=== PATIENT | male | born 1940 | race Caucasian/White ===

== ENCOUNTER → 2018-02-03 | Outpatient (CLI) | payer OTHER ==
--- NOTE | 2018-02-04 06:37 | SPLIT NIGHT TECHNICIAN REPORT ---
[facility] Split Night Polysomnogram - Cable Weaver Report Study date: 02/03/2018 Referring Physician: Dr. Jordyn Patel M.D. Name: LOREN LYLES Cable Weaver: ELLYN Ward. Date of : 1940 Height: 78 years, Height 5' 8.9" Sex: Male Weight: 188 lbs Age: 78 Neck Circum: 16.5 in BMI: Medications: 27.84 NAPROXEN 500 MG, BUSPIRONE 5 MG, CLINDAMYCIN PHOSPHATE 1% FOAM, FLEXERIL 5 MG Patient History 78 yr-old male here for a baseline study. He has a history of sleep maintenance insomnia, fatigue, and frequent awakenings. His Franklin scale is 5. The test was started on room air. ETCO2 testing is included in this study. Room 3 Parameters Monitored NPSG: E1-M2, E2-M1, Fp1-M2, Fp2-M1, F3-M2, F4-M2, F4-M1, C3-M2, C4-M2, C4-M1, O1-M2, O2-M2, O2-M1, T3-M2, T4-M1, P3-M2, P4-M1, CHIN1, CHIN2, HR, EKG, Legs, PFLOW, SNOR, FLOW, CFLOW, Tidal Volume, THOR, ABDO, SpO2, PLTH, CPRESS, ETCO2 Wave, ETCO2, pH SLEEP SUMMARY DATA DIAGNOSTIC TREATMENT Lights Out: 11:07:17 PM 2:22:17 AM Lights On: 2:11:47 AM 5:30:47 AM Total Recording Time (TRT): 184.5 min. 188.5 min. Total Sleep Time (TST): 130.5 min. 169.5 min. NREM Time: 130.5 min. 110.0 min. REM Time: 0.0 min. 59.5 min. Sleep Period Time (SPT): 161.0 min. 179.0 min. Sleep Efficiency (SE): 71 % 90 % Sleep Latency: 23.0 min. 9.5 min. Arousal Index: 84.1 29.7 PAP Treatment Levels: 4, 6, 8, 10, 11, 13 * Optimal Pressure(s) SLEEP STAGING DATA DIAGNOSTIC TREATMENT Duration (min) TST % Duration (min) TST % Stage Wake: 54.0 min. -- 19.0 min. -- WASO: 31.0 min. -- 9.5 min. -- NREM: 130.5 min. 100 % 110.0 min. 65 % Stage N1: 84.5 min. 65 % 46.5 min. 27 % Stage N2: 46.0 min. 35 % 63.5 min. 37 % Stage N3: 0.0 min. 0 % 0.0 min. 0 % REM: 0.0 min. 0 % 59.5 min. 35 % POSITIONAL DATA Event Count Index Event Count Index Supine: 68 57 43 37.7 Supine NREM: 68 57.1 38 42.5 Supine REM: N/A N/A 5 20 Non-Supine: 22 21.4 31 17.8 Non-Supine NREM: 22 21.4 7 7.4 Non-Supine REM: N/A N/A 24 30.9 AROUSAL SUMMARY DATA: Event Count Index Event Count Index Apnea Arousals: 0 0.0 0 0.0 Hypopnea Arousals: 64 29.4 11 3.9 Snore Arousals: 0 0.0 3 1.1 PLM Arousals: 116 53.3 59 20.9 Non-Specific Arousals: 4 1.8 8 2.8 Total Arousals: 183 84.1 84 29.7 MYOCLONUS (PLM) Event Count Index Event Count Index PLM: 426 195.9 307 108.7 PLM AROUSAL: 116 53.3 59 20.9 PLM W/O AROUSAL 426 195.9 248 87.8 PLM W/RESP EVENT 70 0.0 20 0.0 MYOCLONUS (PLM) Event Count Index Event Count Index LM: 0 8.3 35 12.4 LM AROUSAL: 0 0.0 2 0.7 LM W/O AROUSAL LM W/RESP EVENT LM NON SPECIFIC 249 114.5 249 88.1 HEART RATE DATA DIAGNOSTIC TREATMENT Sleep (bpm): 61 58 REM (bpm): N/A 90 NREM (bpm): 88 90 Tachycardia Count: 0 0 Tachycardia Duration: 0.00 0 Bradycardia Count: 0 0 Bradycardia Duration: 0.00 0 DIAGNOSTIC PORTION TREATMENT PORTION RESPIRATORY DATA Event Count Index Event Count Index AHI: -- 40.9 -- 25.8 RDI: -- 41.4 -- 26 Obstructive Apnea: 0 0.0 0 0.0 Central Apnea: 0 0.0 0 0.0 Mixed Apnea: 0 0.0 0 0.0 Hypopnea: 89 40.9 73 25.8 RERA: 1 0.5 1 0.4 Total Apneas: 0 0.0 0 0.0 RESPIRATORY DATA REM NREM SLEEP REM NREM SLEEP Supine Position: Obstructive Apneas: N/A 0 0 0 0 0 Central Apneas: N/A 0 0 0 0 0 Mixed Apneas: N/A 0 0 0 0 0 Hypopneas: N/A 68 68 5 38 43 RERA N/A 0 0 0 0 0 Total Supine Events: N/A 68 68 5 38 43 Supine AHI: N/A 57.1 57 20 42.5 37.7 Supine RDI: N/A 57.1 57.1 20.2 42.5 37.7 REM NREM SLEEP REM NREM SLEEP Non-Supine Position: Obstructive Apneas: N/A 0 0 0 0 0 Central Apneas: N/A 0 0 0 0 0 Mixed Apneas: N/A 0 0 0 0 0 Hypopneas: N/A 21 21 23 7 30 RERA N/A 1 1 1 0 1 Total Supine Events: N/A 22 22 24 7 31 Supine AHI: N/A 21.4 21.4 30.9 7.4 17.8 Supine RDI: N/A 22.4 22.4 32.3 7.4 18.4 OXYGEN DESTAURATION DATA: Event Count Index Event Count Index REM Desaturations: N/A N/A 32 32.3 NREM Desaturations: 104 47.8 76 41.5 SNORE DATA DIAGNOSTIC TREATMENT Snore Time: 3.5 2:31:47 AM Snore TST%: 2 2 Snore Arousal Count: 0 3 Snore Arousal Index: 0.0 1.1 Desaturation Event Summary: Minimum %SpO2 Event Count Mean/Min/Max Duration(sec.) Desaturation Index % Time In Bed > 90 184 22.6 / 5.0 / 60.0 93.5 31.8 86 - 90 146 19.6 / 5.0 / 55.5 38.9 60.6 81 - 85 3 27.8 / 15.8 / 45.0 6.6 7.4 76 - 80 1 22.8 / 22.8 / 22.8 82.8 0.2 71 - 75 0 N/A 0.0 0.0 66 - 70 0 N/A 0.0 0.0 61 - 65 0 N/A 0.0 0.0 56 - 60 0 N/A 0.0 0.0 51 - 55 0 N/A 0.0 0.0 < 50 0 N/A 0.0 0.0 OXYGEN SATURATION DATA DIAGNOSTIC TREATMENT SpO2 Mean Sleep: 88 % 90 % SpO2 Mean REM: N/A % 90 % SpO2 Mean NREM: 88 % 90 % SpO2 Minimum Sleep: 83 % 78 % SpO2 Minimum REM: N/A % 78 % SpO2 Minimum NREM: 83 % 80 % Time Below 90% (TST): 99.1 72.8 Time Below 88% (TST): 53.5 39.2 Total REM NREM Awake <50% 0.0 min. 0.0 min. 0.0 min. 0.0 min. 51 - 60% 0.0 min. 0.0 min. 0.0 min. 0.0 min. 61 - 70% 0.0 min. 0.0 min. 0.0 min. 0.0 min. 71 - 80% 0.7 min. 0.7 min. 0.0 min. 0.0 min. 81 - 90% 252.4 min. 32.7 min. 170.3 min. 49.4 min. 91 - 100% 118.1 min. 26.1 min. 69.6 min. 22.4 min. Average 89 90 89 90 Minimum SpO2 78 78 80 83 Desaturation Event Index 41.2 32.3 44.9 37.0 # Desat. Events below 89% 222 19 166 37 Time(%) with Saturation below 89% 41.3 5.1 30.8 5.5 Time(min.) with Saturation below 89% 153.5 18.9 114.2 20.4 Recording Cable Weaver Comments: Mr. Lyles slept in the supine and left positions. Some cardiac arrhythmia were noted (please refer to the printouts). PLMs were noted. No bruxism noted. Snoring was noted and scored as a 2 on a scale of 1 through 5. (0=no snoring, 5=snoring loud enough to be heard through a closed door or down the [address]). At 2:10 am, he met specific Split-Night criteria during the diagnostic portion of this study. CPAP was initiated at +4 CMH2O and up-titrated to a level of +13 CMH2O, Cflex 3. An AirFit F10 full face mask size medium from [employer] was used during titration. He did not wake up to use the restroom during the night. Mr. Lyles stated that he slept ok. The final report will be interpreted and signed by a sleep physician. The completed physician report will then be placed in the patient medical record. Therapy Event: Therapy (cm H20) 0 4 6 8 10 11 13 Total Time at Pressure (min.) 184.5 23.8 23.9 27.6 22.8 48.8 41.6 TST at Pressure (min.) 130.5 10.3 23.9 26.1 22.8 48.3 38.1 # Periods 1 1 1 1 1 1 1 Sleep Onset (min.) 23.0 9.5 0.0 0.0 0.0 0.0 0.0 REM Onset (min.) N/A 20.0 0.0 0.0 N/A 30.9 0.0 Sleep Efficiency % 70 43 100 94 100 99 91 Wakefulness (%) 29.3 56.8 0.0 5.4 0.0 1.0 8.4 Wakefulness (min.) 54.0 13.5 0.0 1.5 0.0 0.5 3.5 NREM 1 (%) 45.8 12.6 0.0 49.9 21.0 19.3 37.3 NREM 1 (min.) 84.5 3.0 0.0 13.8 4.8 9.4 15.5 NREM 2 (%) 24.9 14.7 0.0 21.7 79.0 44.0 34.9 NREM 2 (min.) 46.0 3.5 0.0 6.0 18.0 21.5 14.5 NREM 3 (%) 0.0 0.0 0.0 0.0 0.0 0.0 0.0 NREM 3 (min.) 0.0 0.0 0.0 0.0 0.0 0.0 0.0 REM (%) 0.0 15.9 100.0 22.9 0.0 35.7 19.4 REM (min.) 0.0 3.8 23.9 6.3 0.0 17.4 8.1 # Arousals 183 6 5 24 9 11 29 Arousal Index 84.1 35.0 12.6 55.1 23.7 13.7 45.7 # Snore 125 0 1 24 16 10 14 Snore Index 57.5 0.0 2.5 55.1 42.1 12.4 22.1 AHI 40.9 29.2 25.1 52.8 21.1 27.3 7.9 AHI Supine 57.1 120.0 N/A 60.7 21.1 45.3 18.3 AHI Non-Supine 21.4 24.5 25.1 38.5 N/A 16.1 4.2 NREM AHI 40.9 18.5 N/A 54.5 21.1 27.2 6.0 REM AHI N/A 47.6 25.1 47.3 N/A 27.6 14.8 RDI 41.4 29.2 25.1 55.1 21.1 27.3 7.9 # Obstructive 0 0 0 0 0 0 0 # Central Ap 0 0 0 0 0 0 0 # Mixed 0 0 0 0 0 0 0 # Hypopneas 89 5 10 23 8 22 5 RERAS 1 0 0 1 0 0 0 Total Respiratory Events 90 5 10 24 8 22 5 Time Below SpO2 89.00% (min.) 79.6 3.6 8.2 5.7 17.9 16.1 2.0 Mean NREM SpO2 (%) 88 90 N/A 90 87 89 93 Mean REM SpO2 (%) N/A 84 91 92 N/A 90 90 Mean Sleep SpO2 (%) 88 88 91 91 87 89 92 Min NREM SpO2 (%) 83 88 N/A 83 80 83 87 Min REM SpO2 (%) N/A 78 84 87 N/A 86 85 Position Supine (min.) 71.5 0.5 0.0 16.8 22.8 18.6 9.8 Position Non-supine (min.) 59.0 9.8 23.9 9.3 0.0 29.8 28.3 LM Index Sleep 204.1 134.2 88.0 146.9 139.6 96.8 140.2 LM Index NREM 204.1 166.2 N/A 160.6 139.6 108.7 146.0 LM Index REM N/A 79.3 88.0 104.1 N/A 75.8 118.7 Mean Heart Rate (bpm) 61 58 57 58 59 58 57 Min Heart Rate (bpm) 55 54 52 53 54 53 52 CPAP REPORT Therapy Detail Time / Page # Comment CPAP 4 cm H2O Full Face Mask Flex Pressure Relief Humidifier on 2:19:38 AM / pg. 642 HE HAS MEDICARE, SO HE HAS BEEN ASLEEP FOR OVER 2 HOURS AND HIS AHI IS ABOVE 40. CPAP 6 cm H2O Full Face Mask Flex Pressure Relief Humidifier on 2:46:04 AM / pg. 695 INCREASED FOR HYPOPNEAS CPAP 8 cm H2O Full Face Mask Flex Pressure Relief Humidifier on 3:09:57 AM / pg. 743 INCREASED FOR MORE HYPOPNEAS CPAP 10 cm H2O Full Face Mask Flex Pressure Relief Humidifier on 3:37:35 AM / pg. 798 INCREASED FOR HYPOPNEAS CPAP 11 cm H2O Full Face Mask Flex Pressure Relief Humidifier on 4:00:23 AM / pg. 844 INCREASED FOR HYPOPNEAS CPAP 13 cm H2O Full Face Mask Flex Pressure Relief Humidifier on 4:49:12 AM / pg. 941 INCREASED FOR HYPOPNEAS
== END | disposition home or self-care (01) ==
LOC: C.NEUR 21:00
PROVIDERS: ATTEND Internal Medicine
DX: D50.8 Other iron deficiency anemias (principal); G47.33 Obstructive sleep apnea (adult) (pediatric); G25.81 Restless legs syndrome; R40.0 Somnolence

== ENCOUNTER 2022-06-12 10:43 | Inpatient (IN) ==
--- NOTE | 2022-06-12 11:30 | XRay Report ---
XR chest 2V PA/lateral HISTORY: 82 years-old Male Fever acute fever COMPARISON: None TECHNIQUE: PA and lateral views of the chest FINDINGS: Cardiac silhouette is enlarged. Reticular interstitial opacities are noted bilaterally within a perip heral and bibasilar predominant distribution. Questioned emphysema. No pneumothorax, pleural effusion or lobar airspace consolidation. Degenerative changes of the shoulders and spine. Prior resection of the distal right clavicle. IMPRESSION: Reticular interstitial opacities are noted within a peripheral and bibasilar predominant distribution. Findings may represent fibrosis versus a nonspecific infectious or inflammatory pneumon itis such as viral pneumonia. Correlate with prior imaging. ACT 112: Negative or not required by law. The above report was generated using voice recognition software. It may contain grammatical, syntax o r spelling errors. Electronically signed by: Nicholas Pugh M.D. 06/12/2022 11:28 AM
--- NOTE | 2022-06-12 12:08 | Emergency Department Note ---
History of Present Illness General Chief Complaint: Illness Stated Complaint: TINGLING IN HANDS AND FEET, HEADACHE Time Seen by Provider: 06/12/22 11:49 History of Present Illness Provider Complaint: + cough, + rhinorrhea and + nasal congestion Onset (ago): 3 day(s) Duration: + progressively worsening Maximum Pain Intensity: 2 Able to tolerate fluids by mouth: Yes Associated symptoms: + chills, + myalgias and + shortness of breath; no chest pain, no nausea, no vomiting or no diarrhea Home Medications Medication Instructions Recorded Confirmed Type cyclobenzaprine 5 mg tablet 5 mg PO TID PRN Muscle Spasm 06/12/22 06/12/22 History levocetirizine 2.5 mg/5 mL oral 2.5 mg PO PM PRN Allergic Symptoms 06/12/2205/16 History solution omeprazole 20 mg capsule,delayed 20 mg PO DAILY 06/12/22 06/12/22 History release oxybutynin chloride 5 mg 5 mg PO DAILY 06/12/22 06/12/22 History tablet,extended release 24 hr sertraline 25 mg tablet 25 mg PO DAILY 06/12/22 06/12/22 History tamsulosin 0.4 mg capsule 0.4 mg PO DAILY 06/12/22 06/12/22 History Allergies Allergy/AdvReac Type Severity Reaction Status Date / Time No Known Allergies Allergy Verified 06/12/22 17:03 Past Med/Surg History Medical History (Updated 06/12/22 @ 15:48 by Gilma Flaherty PA-C) CKD (chronic kidney disease), stage III KACY (generalized anxiety disorder) ILD (interstitial lung disease) GUILLE (obstructive sleep apnea) bipap with 2L O2 HS Surgical History (Updated 06/12/22 @ 15:48 by Gilma Flaherty PA-C) H/O eye surgery H/O lithotripsy Family History Other Cancer Diabetes Heart disease Social History Smoking Status: Former smoker Smoking End Date: 2001; Hx Alcohol Use: Yes Alcohol Intake Frequency: Monthly or Less Hx Substance Use: No Preferred Language: Jamaican Feels Safe at Home: Yes Review of Systems A total of 10 systems reviewed and were otherwise negative Physical Exam Vital Signs: Vital Signs - 24 hr 06/12/22 10:50 06/12/22 13:43 06/12/22 13:04 Temperature 36.9 C Temperature Source Oral Pulse Rate 80 77 Pulse Rate [Right Finger] 65 Pulse Rate from Sp O2 Sensor 78 Pulse Rhythm Regular Pulse Strength Normal Respiratory Rate 20 20 16 Respiratory Effort / Characteristics Non-Labored Sponta neous Spontaneous SOB on Exertion Respiratory Depth Normal Respiratory Patter n Regular Blood Pressure 132/72 Blood Pressure [Ri ght Arm] 134/70 Blood Pressure Patricia n 92 Blood Pressure Patricia n [Right Arm] 91 Blood Pressure Pos ition Sitting Pulse Oximetry 89 L 94 99 Oxygen Delivery Me thod Room Air Nasal Cannula Oxygen Flow Rate 3 Sepsis Recent Feve r Within 48 Hours Yes Sepsis New/Unexpla ined Change in Men bisi Status No Sepsis Action Take n by Nursing No Action Required 06/12/22 15:02 Temperature Temperature Source Pulse Rate Pulse Rate [Right Finger] Pulse Rate from Sp O2 Sensor Pulse Rhythm Pulse Strength Respiratory Rate Respiratory Effort / Characteristics Respiratory Depth Respiratory Patter n Blood Pressure 151/102 H Blood Pressure [Ri ght Arm] Blood Pressure Patricia n 118 Blood Pressure Patricia n [Right Arm] Blood Pressure Pos ition Pulse Oximetry Oxygen Delivery Me thod Oxygen Flow Rate Sepsis Recent Feve r Within 48 Hours Sepsis New/Unexpla ined Change in Men bisi Status Sepsis Action Take n by Nursing Physical Exam: Physical Exam GENERAL: He is oriented to person, place, and time. He appears well-developed and well-nourished. He does not appear distressed. HENT: Exam performed. - Head: Normocephalic and atraumatic. - Right Ear: External ear normal. No mastoid tenderness. - Left Ear: External ear normal. No mastoid tenderness. - Mouth/Throat: The oropharynx is clear and moist. No trismus in the jaw. No dental abscesses or uvula swelling. No oropharyngeal exudate or tonsillar abscesses. EYES: Conjunctivae and EOM are normal. Pupils are equal, round, and reactive to light. Right eye exhibits no discharge. Left eye exhibits no discharge. No scleral icterus. NECK: Normal range of motion. Neck supple. No JVD present. No spinous process tenderness present. No carotid bruit present. No rigidity. No tracheal deviation and normal range of motion present. No Brudzinski's sign and no Kernig's sign noted. CV: Normal rate, regular rhythm, normal heart sounds and intact distal pulses. There is no peripheral edema. Palpable radial pulses bue. PULM/CHEST: Rhonchi bilaterally. ABD: The abdomen is soft. MUSC/SKEL: Normal range of motion. There is no peripheral edema, tenderness or deformity. LYMPH: No cervical adenopathy. NEURO: He is alert and oriented to person, place, and time. He has normal strength. No cranial nerve deficit or sensory deficit. Coordination and gait normal. GCS eye subscore is 4. GCS verbal subscore is 5. GCS motor subscore is 6. Cerebellar tests wnl. SKIN: Skin is warm and dry. He is not diaphoretic. PSYCH: He has a normal mood and affect. Behavior is normal. Judgment and thought content normal. Course Course 1149: The patient was evaluated in room C SUBWAIT. A complete history and physical exam was performed Patient was found to be hypoxic on room air. Discussed case with the charge nurse the patient will be moved to the room next during this period of high acuity and high volumes with low staffing. We will arrange for patient placed on 2 L nasal cannula also until a room is ready. 1425: Vital signs stable on supplemental oxygen via nasal cannula. Labs are within normal limits with exception of mildly elevated BNP of 109. Respiratory panel was positive for influenza a as well as coronavirus OC 43. Chest x-ray shows reticular interstitial opacities in the peripheral and basilar predominant distribution representing a most likely viral pneumonia. Patient has no history of pulmonary fibrosis. Patient will be treated with Tamiflu. On reassessment the patient is still having rhonchi and some mild expiratory wheezing at the bases. Patient will be treated with repeat DuoNeb. Patient will be admitted to the [facility] hospitalist team. Administered Medications Discontinued Medications Albuterol (Albut/Ipratrop 3mg/0.5mg Neb 3 Ml Vial) 3 ml NEB NOW STA; Protocol Stop: 06/12/22 12:40 Last Admin: 06/12/22 13:44 Dose: 3 ml Documented By: RUPERTO Albuterol (Albut/Ipratrop 3mg/0.5mg Neb 3 Ml Vial) 3 ml NEB NOW STA; Protocol Stop: 06/12/22 14:18 Last Admin: 06/12/22 14:20 Dose: 3 ml Documented By: ZULEYMA Oseltamivir Phosphate (Oseltamivir Phosphate 75 Mg Cap) 75 mg PO NOW ONE Stop: 06/12/22 14:16 Last Admin: 06/12/22 14:17 Dose: 75 mg Documented By: ZULEYMA Medical Decision Making Laboratory Data Result diagrams: 06/12/22 12:58 06/12/22 12:58 Lab Results 06/12/22 06/12/22 06/12/22 Range/Units 10:58 12:58 12:58 WBC 7.78 (4.8-10.8) K/ul RBC 4.14 L (4.63-6.08) M/uL Hgb 14.6 (14.0-18.0) g/dl Hct 41.6 (40.1-51.0) % MCV 100.5 H (80.0-100.0) fL MCH 35.3 H (25.0-34.0) pg MCHC 35.1 (32.0-36.0) g/dL RDW Std Deviation 49.9 H (36.4-46.3) fL RDW Coeff of Katya 13.6 (11.5-14.5) % Plt Count 146 (130-400) K/uL MPV 10.0 (9.4-12.4) fL Neutrophils % (Manual) 75 % Lymphocytes % (Manual) 14 % Monocytes % (Manual) 11 % Neutrophils # (Manual) 5.84 (1.4-6.5) K/uL Lymphocytes # (Manual) 1.09 L (1.2-3.4) K/uL Monocytes # (Manual) 0.86 H (0.24-0.82) K/uL RBC Morphology Unremarkable PT 11.6 (9.0-12.0) Seconds INR 1.1 (0.9-1.1) APTT 29.2 (21.0-31.0) Seconds PTT Ratio 1.1 VBG pH (7.36-7.41) VBG pCO2 (38-50) mmHg VBG pO2 mmHg VBG HCO3 mmol/L VBG O2 Saturation % VBG Base Excess mEq/L Sodium (136-145) mmol/L Potassium (3.5-5.1) mmol/L Chloride (98-107) mmol/L Carbon Dioxide (21-32) mmol/L Anion Gap (3-11) BUN (6-23) mg/dl Creatinine (0.6-1.4) mg/dl Est Cr Clr Drug Dosing ml/min Est GFR ( Amer) ml/min Est GFR (Non-Af Amer) ml/min BUN/Creatinine Ratio (10-20) Glucose (70-99(Fasting)) mg/dl Lactate (0.4-2.0) mmol/L Calcium (8.5-10.1) mg/dl Magnesium (1.7-2.4) mg/dl Total Bilirubin (0.2-1.0) mg/dl AST (13-39) U/L ALT (7-52) U/L Alkaline Phosphatase (34-104) U/L Troponin I High Sens (0-20) pg/ml B-Natriuretic Peptide (0-100) pg/ml Total Protein (6.0-8.3) gm/dl Albumin (3.4-5.0) gm/dl Globulin (2.5-4.0) gm/dl Albumin/Globulin Ratio (0.9-2) Lipase (11-82) U/L Procalcitonin (0-0.5) ng/ml Adenovirus (PCR) Not Detected (NotDetected) B. pertussis DNA (PCR) Not Detected (NotDetected) B.parapertussis DNA PCR Not Detected (NotDetected) C. pneumoniae DNA (PCR) Not Detected (NotDetected) Coronavirus OC43 (PCR) DETECTED A* (NotDetected) Coronavirus HKU1 (PCR) Not Detected (NotDetected) Coronavirus 229E (PCR) Not Detected (NotDetected) SARS-CoV-2 (PCR) Not Detected (NotDetected) Coronavirus NL63 (PCR) Not Detected (NotDetected) Human Metapneumovir PCR Not Detected (NotDetected) Influenza A (H3) PCR DETECTED A* (NotDetected) Influenza Type B (PCR) Not Detected (NotDetected) M. pneumoniae (PCR) Not Detected (NotDetected) Parainfluenza 1 (PCR) Not Detected (NotDetected) Parainfluenza 2 (PCR) Not Detected (NotDetected) Parainfluenza 3 (PCR) Not Detected (NotDetected) Parainfluenza 4 (PCR) Not Detected (NotDetected) RSV (PCR) Not Detected (NotDetected) Entero/Rhino (PCR) Not Detected (NotDetected) 06/12/22 06/12/22 06/12/22 Range/Units 12:58 12:58 12:58 WBC (4.8-10.8) K/ul RBC (4.63-6.08) M/uL Hgb (14.0-18.0) g/dl Hct (40.1-51.0) % MCV (80.0-100.0) fL MCH (25.0-34.0) pg MCHC (32.0-36.0) g/dL RDW Std Deviation (36.4-46.3) fL RDW Coeff of Katya (11.5-14.5) % Plt Count (130-400) K/uL MPV (9.4-12.4) fL Neutrophils % (Manual) % Lymphocytes % (Manual) % Monocytes % (Manual) % Neutrophils # (Manual) (1.4-6.5) K/uL Lymphocytes # (Manual) (1.2-3.4) K/uL Monocytes # (Manual) (0.24-0.82) K/uL RBC Morphology PT (9.0-12.0) Seconds INR (0.9-1.1) APTT (21.0-31.0) Seconds PTT Ratio VBG pH (7.36-7.41) VBG pCO2 (38-50) mmHg VBG pO2 mmHg VBG HCO3 mmol/L VBG O2 Saturation % VBG Base Excess mEq/L Sodium 133 L (136-145) mmol/L Potassium 4.5 (3.5-5.1) mmol/L Chloride 100 (98-107) mmol/L Carbon Dioxide 26 (21-32) mmol/L Anion Gap 7 (3-11) BUN 31 H (6-23) mg/dl Creatinine 1.49 H (0.6-1.4) mg/dl Est Cr Clr Drug Dosing 37.6 ml/min Est GFR ( Amer) 49.9 ml/min Est GFR (Non-Af Amer) 43.1 ml/min BUN/Creatinine Ratio 20.8 H (10-20) Glucose 120 H (70-99(Fasting)) mg/dl Lactate (0.4-2.0) mmol/L Calcium 8.6 (8.5-10.1) mg/dl Magnesium 1.8 (1.7-2.4) mg/dl Total Bilirubin 1.0 (0.2-1.0) mg/dl AST 23 (13-39) U/L ALT 13 (7-52) U/L Alkaline Phosphatase 96 (34-104) U/L Troponin I High Sens 18.8 (0-20) pg/ml B-Natriuretic Peptide 109 H (0-100) pg/ml Total Protein 8.0 (6.0-8.3) gm/dl Albumin 4.0 (3.4-5.0) gm/dl Globulin 4.0 (2.5-4.0) gm/dl Albumin/Globulin Ratio 1.0 (0.9-2) Lipase 17 (11-82) U/L Procalcitonin 0.36 (0-0.5) ng/ml Adenovirus (PCR) (NotDetected) B. pertussis DNA (PCR) (NotDetected) B.parapertussis DNA PCR (NotDetected) C. pneumoniae DNA (PCR) (NotDetected) Coronavirus OC43 (PCR) (NotDetected) Coronavirus HKU1 (PCR) (NotDetected) Coronavirus 229E (PCR) (NotDetected) SARS-CoV-2 (PCR) (NotDetected) Coronavirus NL63 (PCR) (NotDetected) Human Metapneumovir PCR (NotDetected) Influenza A (H3) PCR (NotDetected) Influenza Type B (PCR) (NotDetected) M. pneumoniae (PCR) (NotDetected) Parainfluenza 1 (PCR) (NotDetected) Parainfluenza 2 (PCR) (NotDetected) Parainfluenza 3 (PCR) (NotDetected) Parainfluenza 4 (PCR) (NotDetected) RSV (PCR) (NotDetected) Entero/Rhino (PCR) (NotDetected) 06/12/22 06/12/22 Range/Units 12:58 13:18 WBC (4.8-10.8) K/ul RBC (4.63-6.08) M/uL Hgb (14.0-18.0) g/dl Hct (40.1-51.0) % MCV (80.0-100.0) fL MCH (25.0-34.0) pg MCHC (32.0-36.0) g/dL RDW Std Deviation (36.4-46.3) fL RDW Coeff of Katya (11.5-14.5) % Plt Count (130-400) K/uL MPV (9.4-12.4) fL Neutrophils % (Manual) % Lymphocytes % (Manual) % Monocytes % (Manual) % Neutrophils # (Manual) (1.4-6.5) K/uL Lymphocytes # (Manual) (1.2-3.4) K/uL Monocytes # (Manual) (0.24-0.82) K/uL RBC Morphology PT (9.0-12.0) Seconds INR (0.9-1.1) APTT (21.0-31.0) Seconds PTT Ratio VBG pH 7.40 (7.36-7.41) VBG pCO2 41 (38-50) mmHg VBG pO2 29 mmHg VBG HCO3 25 mmol/L VBG O2 Saturation < 60.0 % VBG Base Excess 0.5 mEq/L Sodium (136-145) mmol/L Potassium (3.5-5.1) mmol/L Chloride (98-107) mmol/L Carbon Dioxide (21-32) mmol/L Anion Gap (3-11) BUN (6-23) mg/dl Creatinine (0.6-1.4) mg/dl Est Cr Clr Drug Dosing ml/min Est GFR ( Amer) ml/min Est GFR (Non-Af Amer) ml/min BUN/Creatinine Ratio (10-20) Glucose (70-99(Fasting)) mg/dl Lactate 0.8 (0.4-2.0) mmol/L Calcium (8.5-10.1) mg/dl Magnesium (1.7-2.4) mg/dl Total Bilirubin (0.2-1.0) mg/dl AST (13-39) U/L ALT (7-52) U/L Alkaline Phosphatase (34-104) U/L Troponin I High Sens (0-20) pg/ml B-Natriuretic Peptide (0-100) pg/ml Total Protein (6.0-8.3) gm/dl Albumin (3.4-5.0) gm/dl Globulin (2.5-4.0) gm/dl Albumin/Globulin Ratio (0.9-2) Lipase (11-82) U/L Procalcitonin (0-0.5) ng/ml Adenovirus (PCR) (NotDetected) B. pertussis DNA (PCR) (NotDetected) B.parapertussis DNA PCR (NotDetected) C. pneumoniae DNA (PCR) (NotDetected) Coronavirus OC43 (PCR) (NotDetected) Coronavirus HKU1 (PCR) (NotDetected) Coronavirus 229E (PCR) (NotDetected) SARS-CoV-2 (PCR) (NotDetected) Coronavirus NL63 (PCR) (NotDetected) Human Metapneumovir PCR (NotDetected) Influenza A (H3) PCR (NotDetected) Influenza Type B (PCR) (NotDetected) M. pneumoniae (PCR) (NotDetected) Parainfluenza 1 (PCR) (NotDetected) Parainfluenza 2 (PCR) (NotDetected) Parainfluenza 3 (PCR) (NotDetected) Parainfluenza 4 (PCR) (NotDetected) RSV (PCR) (NotDetected) Entero/Rhino (PCR) (NotDetected) Imaging Data Radiologist's Impression: Chest X-Ray 06/12/22 10:55 XR chest 2V PA/lateral HISTORY: 82 years-old Male Fever acute fever COMPARISON: None TECHNIQUE: PA and lateral views of the chest FINDINGS: Cardiac silhouette is enlarged. Reticular interstitial opacities are noted bilaterally within a peripheral and bibasilar predominant distribution. Questioned emphysema. No pneumothorax, pleural effusion or lobar airspace consolidation. Degenerative changes of the shoulders and spine. Prior resection of the distal right clavicle. IMPRESSION: Reticular interstitial opacities are noted within a peripheral and bibasilar predominant distribution. Findings may represent fibrosis versus a nonspecific infectious or inflammatory pneumonitis such as viral pneumonia. Correlate with prior imaging. ACT 112: Negative or not required by law. The above report was generated using voice recognition software. It may contain grammatical, syntax or spelling errors. Electronically signed by: Nicholas Pugh M.D. 06/12/2022 11:28 AM ECG Data Attestation: I personally reviewed and interpreted this ECG as follows: Indication: SOB/dyspnea Rate (beats per minute): 67 Rhythm: normal sinus Findings: no ST depression, no ST elevation or no prolonged QT [facility] Narrative 1149: The patient was evaluated in room C SUBWAIT. A complete history and physical exam was performed Patient was found to be hypoxic on room air. Discussed case with the charge nurse the patient will be moved to the room next during this period of high acuity and high volumes with low staffing. We will arrange for patient placed on 2 L nasal cannula also until a room is ready. 1425: Vital signs stable on supplemental oxygen via nasal cannula. Labs are within normal limits with exception of mildly elevated BNP of 109. Respiratory panel was positive for influenza a as well as coronavirus OC 43. Chest x-ray shows reticular interstitial opacities in the peripheral and basilar predominant distribution representing a most likely viral pneumonia. Patient has no history of pulmonary fibrosis. Patient will be treated with Tamiflu. On reassessment the patient is still having rhonchi and some mild expiratory wheezing at the bas es. Patient will be treated with repeat DuoNeb. [facility]. [facility] & Plan Hypoxia, Influenza Critical Care Time Critical Care Time: Yes Total Critical Care Time: 62 I have personally spent greater than 62 minutes of critical care time in the direct management of this patient. This includes bedside care, interpretation of diagnostic studies, and testing, discussion with consultants, patient, and family members, and other required patient management activities. This 62 minutes is in excess of all separately billable procedures. Discharge Plan Visit Data Chief Complaint: Illness Stated Complaint: TINGLING IN HANDS AND FEET, HEADACHE ED Provider: Jayy Gomez Discharge Problem: Hypoxia, Influenza Patient Disposition: Admitted As Inpatient Forms Stand Alone Forms: [facility] Prescriptions Prescriptions: No Action tamsulosin 0.4 mg capsule 0.4 mg PO DAILY oxybutynin chloride 5 mg tablet extended release 24hr 5 mg PO DAILY sertraline 25 mg tablet 25 mg PO DAILY omeprazole 20 mg capsule,delayed release(DR/EC) 20 mg PO DAILY cyclobenzaprine 5 mg tablet 5 mg PO TID PRN (Reason: Muscle Spasm) levocetirizine 2.5 mg/5 mL Solution 2.5 mg PO PM PRN (Reason: Allergic Symptoms) Referrals Referrals: Martin Hopper MD [Primary Care Provider] -
[2022-06-12] MEDS ORDERED: ALBUT/IPRATROP 3MG/0.5MG NEB 3 ML VIAL NEB STA ×2 (12:39→14:17)
[2022-06-12 13:20] LABS: Adenovirus PCR Not Detected (NotDetected); Bordetella parapertussis PCR Not Detected (NotDetected); Bordetella pertussis PCR Not Detected (NotDetected); Chlamydia pneumoniae PCR Not Detected (NotDetected); Coronavirus 229E PCR Not Detected (NotDetected); Coronavirus CoV-2 (COVID19)PCR Not Detected (NotDetected); Coronavirus HKU1 PCR Not Detected (NotDetected); Coronavirus NL63 PCR Not Detected (NotDetected); Human Metapneumovirus PCR Not Detected (NotDetected); Influenza B PCR Not Detected (NotDetected); Mycoplasma pneumoniae PCR Not Detected (NotDetected); Parainfluenza Virus 1 PCR Not Detected (NotDetected); Parainfluenza Virus 2 PCR Not Detected (NotDetected); Parainfluenza Virus 3 PCR Not Detected (NotDetected); Parainfluenza Virus 4 PCR Not Detected (NotDetected); Respiratory Syncytial VirusPCR Not Detected (NotDetected); Rhinovirus/Enterovirus PCR Not Detected (NotDetected)
[2022-06-12 13:28] LABS: Coronavirus OC43PCR DETECTED (NotDetected); Influenza A (H3) PCR DETECTED (NotDetected)
[2022-06-12 13:38] LABS: Base Excess VBG 0.5 mEq/L; HCO3 VBG 25 mmol/L; Oxygen Saturation VBG < 60.0 %; PCO2 VBG 41 mmHg (38-50); PO2 VBG 29 mmHg
[2022-06-12 13:40] LABS: BUN Creatinine Ratio 20.8 (10-20); Calcium 8.6 mg/dl (8.5-10.1); Creatinine Clr Calc Pharmacy 37.6 ml/min; Est GFR (African American) 49.9 ml/min; Est GFR (Non-African American) 43.1 ml/min; Magnesium 1.8 mg/dl (1.7-2.4); Potassium 4.5 mmol/L (3.5-5.1)
[2022-06-12 13:45] LABS: Troponin I High Sensitivity 18.8 pg/ml (0-20)
[2022-06-12 13:49] LABS: INR 1.1 (0.9-1.1); Partial Thromboplastin Ratio 1.1; Partial Thromboplastin Time 29.2 Seconds (21.0-31.0); Prothrombin Time 11.6 Seconds (9.0-12.0)
[2022-06-12 13:54] LABS: Hematocrit (blood only) 41.6 % (40.1-51.0); Hemoglobin 14.6 g/dl (14.0-18.0); Mean Corpuscular Hemoglobin 35.3 pg (25.0-34.0); Mean Corpuscular Hgb Conc 35.1 g/dL (32.0-36.0); Mean Corpuscular Volume 100.5 fL (80.0-100.0); Platelet Count 146 K/uL (130-400); RDW Coefficient of Variation 13.6 % (11.5-14.5); RDW Standard Deviation 49.9 fL (36.4-46.3); Red Blood Count 4.14 M/uL (4.63-6.08); White Blood Count 7.78 K/ul (4.8-10.8)
[2022-06-12] MEDS ORDERED: OSELTAMIVIR PHOSPHATE 75 MG CAP PO ONE (14:15)
[2022-06-12 14:32] LABS: Lymphocytes % (manual) 14 %; Monocytes % (manual) 11 %; Neutrophils % (manual) 75 %
[2022-06-12 14:33] LABS: Lymphocytes # (manual) 1.09 K/uL (1.2-3.4); Neutrophils # (manual) 5.84 K/uL (1.4-6.5)
[2022-06-12 14:34] LABS: Monocytes # (manual) 0.86 K/uL (0.24-0.82)
[2022-06-12 14:35] LABS: RBC Morphology Unremarkable
--- NOTE | 2022-06-12 15:00 | History & Physical Report ---
Date of Service June 12, 2022 Assessment & Plan (1) Hypoxia: (2) Influenza: (3) ILD (interstitial lung disease): (4) KACY (generalized anxiety disorder): (5) CKD (chronic kidney disease), stage III: (6) GUILLE (obstructive sleep apnea): Plan This is an 82-year-old male with PMH of interstitial lung disease, GUILLE on CPAP with 2 L O2 bled through at bedtime, CKD 3, BPH, KACY and other medical problems listed below who presents with cough, congestion and malaise x3 days and was f ound to have flu A. Hypoxia Flu A H/o ILD Developed sx day after [place] with exposure to sick family members Hypoxic at 89% on RA, now 94% on 2L NC O2 Respiratory panel positive for Flu A and Coronavirus OC43 CXR with reticular interstitial opacities are noted within a peripheral and bibasilar predominant distribution. Findings may represent fibrosis versus a nonspecific infectious or inflammatory pneumonitis such as viral pneumonia No leukocytosis, lactate and procal WNL, VBG pH WNL Continue supplemental O2, continue renally adjusted Tamiflu course, albuterol inhaler PRN, maintenance fluids x 1 L, PT/OT evals CKD III Cr 1.49 today (baseline 1.2-1.5). Avoid nephrotoxic agents as able. Monitor with daily BMP KACY Stable. Continue Zoloft BPH Continue tamsulosin GUILLE Recently transitioned from CPAP to BIPAP with 2L NC O2. Settings unknown H/o esophageal dysmotility Aspiration precautions, continue PPI DVT Ppx: SQ heparin Code status: FULL PCP: Ward Dispo: Admitted to [facility] tele Patient seen in collaboration with Dr. Oseguera. Please see addendum. History of Present Illness Chief Complaint: Shortness of breath, cough, congestion Primary Care Provider: Martin Hopper MD This is an 82-year-old male with PMH of interstitial lung disease, GUILLE on CPAP with 2 L O2 bled through at bedtime, CKD 3, BPH, KACY and other medical problems listed below who presents with cough, congestion and malaise x3 days. Symptoms began after visiting family in [place] over the holidays. Multiple family members were sick at gathering. Also having intermittent frontal headache, dry cough, intermittent chills and tingling in arms and legs. Having a few episodes of diarrhea since yesterday. Denies focal weakness. No fever, dizziness, chest pain, palpitations, SOB, abdominal pain, dysuria or constipation. Allergies Allergy/AdvReac Type Severity Reaction Status Date / Time No Known Allergies Allergy Verified 06/12/22 17:03 Home Medications Medication Instructions Recorded Confirmed Type cyclobenzaprine 5 mg tablet 5 mg PO TID PRN Muscle Spasm 06/12/22 06/12/22 History levocetirizine 2.5 mg/5 mL oral 2.5 mg PO PM PRN Allergic Symptoms 06/12/22 06/12/22 History solution omeprazole 20 mg capsule,delayed 20 mg PO DAILY 06/12/22 06/12/22 History release oxybutynin chloride 5 mg 5 mg PO DAILY 06/12/22 06/12/22 History tablet,extended release 24 hr sertraline 25 mg tablet 25 mg PO DAILY 06/12/22 06/12/22 History tamsulosin 0.4 mg capsule 0.4 mg PO DAILY 06/12/22 06/12/22 History Past Med/Surg History Medical History (Updated 06/12/22 @ 15:48 by Gilma Flaherty PA-C) CKD (chronic kidney disease), stage III KACY (generalized anxiety disorder) ILD (interstitial lung disease) GUILLE (obstructive sleep apnea) bipap with 2L O2 HS Surgical History (Updated 06/12/22 @ 15:48 by Gilma Flaherty PA-C) H/O eye surgery H/O lithotripsy Family History Other Cancer Diabetes Heart disease Social History Smoking Status: Former smoker Smoking End Date: 2001; Hx Alcohol Use: Yes Alcohol Intake Frequency: Monthly or Less Hx Substance Use: No Preferred Language: Chinese Feels Safe at Home: Yes Review of Systems Review of Systems: At least ten systems reviewed and negative except as noted in the HPI. Physical Exam Physical Exam: Please see Dr. Oseguera's addendum for physical exam. Results & Data Results & Data ([facility]) Vital Signs (Past 12 Hours) Vital Signs Temp Pulse Pulse Resp BP BP Pulse Ox 06/12/22 13:43 65 20 134/70 94 06/12/22 10:50 36.9 C 80 20 132/72 89 L O2 Del Method O2 Flow Rate 06/12/22 13:43 Nasal Cannula 3 06/12/22 10:50 Room Air Laboratory Results Short CBC 06/12/22 Range/Units 12:58 WBC 7.78 (4.8-10.8) K/ul Hgb 14.6 (14.0-18.0) g/dl Hct 41.6 (40.1-51.0) % Plt Count 146 (130-400) K/uL BMP 06/12/22 12:58 Sodium 133 L Potassium 4.5 Chloride 100 Carbon Dioxide 26 BUN 31 H Creatinine 1.49 H Glucose 120 H Calcium 8.6 Liver Function 06/12/22 Range/Units 12:58 Total Bilirubin 1.0 (0.2-1.0) mg/dl AST 23 (13-39) U/L ALT 13 (7-52) U/L Alkaline Phosphatase 96 (34-104) U/L Albumin 4.0 (3.4-5.0) gm/dl Diagnostic Findings Chest X-Ray 06/12/22 10:55 XR chest 2V PA/lateral HISTORY: 82 years-old Male Fever acute fever COMPARISON: None TECHNIQUE: PA and lateral views of the chest FINDINGS: Cardiac silhouette is enlarged. Reticular interstitial opacities are noted bilaterally within a peripheral and bibasilar predominant distribution. Questioned emphysema. No pneumothorax, pleural effusion or lobar airspace consolidation. Degenerative changes of the shoulders and spine. Prior resection of the distal right clavicle. IMPRESSION: Reticular interstitial opacities are noted within a peripheral and bibasilar predominant distribution. Findings may represent fibrosis versus a nonspecific infectious or inflammatory pneumonitis such as viral pneumonia. Correlate with prior imaging. ACT 112: Negative or not required by law. The above report was generated using voice recognition software. It may contain grammatical, syntax or spelling errors. Electronically signed by: Nicholas Pugh M.D. 06/12/2022 11:28 AM Code Status & VTE Plan VTE Prophylaxis Plan VTE Prophylaxis will be ordered: Yes Supervising Physician Co-Signing Physician Notes Patient is an 82-year-old male with history of interstitial lung disease, obstructive sleep apnea on CPAP, chronic oxygen dependency on 2 L at bedtime and other medical problems presents with history of flulike symptoms which has been gradually worsening's over the past 3 days duration. Please review HPI for complete details of presentation. I personally reviewed blood work. Serology showed influenza A, coronavirus OC43. Chest x-ray showed reticular interstitial opacities within peripheral and bibasilar regions suggestive of fibrosis versus nonspecific infectious or inflammatory pneumonitis. Blood culture pending. Urine analysis pending. EKG showed normal sinus rhythm, QTC 407. Physical Exam: Vitals signs as noted above General Appearance:Moderately built and nourished, no apparent distress Head: normocephalic, Atraumatic,+ hearing impairment Eyes: normal inspection, EOMI Neck: supple, Trachea midline Respiratory/Chest: Normal breath sounds, bilateral basal crackles, No accessory muscle use Cardiovascular: S1, S2, No murmur Abdomen/GI:Soft, Non tender, Bowel sounds present Extremities/Musculoskeletal:normal inspection, no edema Neurologic/Psych:AAOX3, grossly no focal neurological deficits Skin: normal color, warm Acute on chronic respiratory failure with hypoxia Influenza A infection Chronic oxygen dependency--on 2 L at bedtime Started on Tamiflu Albuterol as needed Gentle IV fluids Empirically started on doxycycline as well We will recheck procalcitonin Monitor renal function I personally reviewed the record. Patient is interviewed and examined at bed side. Patient's care is coordinated with Gilma Flaherty PA-C. Please refer to the documentation above for details of patient's presentation and for discussion of other issues.
[2022-06-12] MEDS ORDERED: ALBUTEROL HFA 8 GM INHALER INH PRN (15:23)
[2022-06-12] MEDS ORDERED: ACETAMINOPHEN 500 MG TAB PO STA (15:25)
[2022-06-12] MEDS ORDERED: DOXYCYCLINE HYCLATE 100 MG in DEXTROSE 5% 100 ML IV SCH (15:30)
[2022-06-12] MEDS ORDERED: SODIUM CHLORIDE 0.9% 1000ML 1,000 ML IV STA (16:09)
[2022-06-12] MEDS ORDERED: Patient's ALLERGY Info needs ENTERED STA (16:58)
[2022-06-12] MEDS: ONDANSETRON INJ 2 MG/ML 2 ML VIAL IV PRN (17:12)
[2022-06-12] MEDS ORDERED: ACETAMINOPHEN 325 MG TAB PO PRN (17:19)
[2022-06-12] MEDS ORDERED: CYCLOBENZAPRINE HCL 5 MG TAB PO PRN (17:19)
[2022-06-12] MEDS ORDERED: POLYETHYLENE (MIRALAX) 17 GM PACK PO PRN (17:19)
--- NOTE | 2022-06-12 17:47 | Electrocardiogram Report ---
Test Reason : Blood Pressure : / mmHG Vent. Rate : 067 BPM Atrial Rate : 067 BPM P-R Int : 166 ms QRS Dur : 090 ms QT Int : 386 ms P-R-T Axes : 024 072 036 degrees QTc Int : 407 ms Normal sinus rhythm Normal ECG When compared with ECG of 04-FEB-1995 10:43, No significant change was found Confirmed by Aaron Salguero ([id number]) on 06/12/2022 5:46:56 PM Referred By: REFERRED SELF Confirmed By:Rey Salguero
[2022-06-12 19:32] LABS: iSTAT Arterial Blood Gas HCO3 22 meg/L (19-24); iSTAT Arterial Blood Gas pCO2 109 mmHg (35-46); iSTAT Arterial Blood Gas pH 6.92 (7.35-7.45); iSTAT Arterial Blood Gas pO2 221 mmHg (80-95); iSTAT Carbon Dioxide 25 mmol/L (24-31)
[2022-06-12] MEDS: OSELTAMIVIR PHOSPHATE SUSP 30 MG/5 ML UDP PO SCH (20:06)
[2022-06-12] MEDS ORDERED: HEPARIN SOD 5,000 UNIT/0.5 ML VIAL SQ SCH (22:00)
[2022-06-12 22:09] LABS: Appearance Urine Cloudy (Clear); Bacteria Urine Automated Negative (Negative); Bilirubin Urine Negative (Negative); Blood Urine 2+ (Negative); Color Urine Yellow; Epithelial Cell Urine Auto >30 /lpf (0-5); Glucose Urine UA Negative (Negative); Ketones Urine Trace (Negative); Leukocyte Esterase Urine Negative (Negative); Nitrite Urine Negative (Negative); Protein Urine 3+ (Negative); Specific Gravity Urine 1.024 (1.000-1.030); Urobilinogen Urine Negative (Negative)
[2022-06-12] MEDS: MELATONIN 3 MG TAB PO PRN (22:48)
[2022-06-13] MEDS: ONDANSETRON INJ 2 MG/ML 2 ML VIAL IV PRN (00:28)
[2022-06-13 04:26] LABS: Hematocrit (blood only) 39.1 % (40.1-51.0); Hemoglobin 13.5 g/dl (14.0-18.0); Mean Corpuscular Hemoglobin 34.7 pg (25.0-34.0); Mean Corpuscular Hgb Conc 34.5 g/dL (32.0-36.0); Mean Corpuscular Volume 100.5 fL (80.0-100.0); Mean Platelet Volume 9.6 fL (9.4-12.4); Platelet Count 125 K/uL (130-400); RDW Coefficient of Variation 13.7 % (11.5-14.5); RDW Standard Deviation 50.9 fL (36.4-46.3); Red Blood Count 3.89 M/uL (4.63-6.08); White Blood Count 9.04 K/ul (4.8-10.8)
[2022-06-13 04:48] LABS: BUN Creatinine Ratio 24.3 (10-20); Calcium 8.2 mg/dl (8.5-10.1); Creatinine Clr Calc Pharmacy 36.9 ml/min; Est GFR (African American) 48.8 ml/min; Est GFR (Non-African American) 42.1 ml/min; Magnesium 1.6 mg/dl (1.7-2.4); Potassium 4.1 mmol/L (3.5-5.1)
--- NOTE | 2022-06-13 07:13 | CT Scan Report ---
CT SCAN OF THE BRAIN WITHOUT IV CONTRAST CLINICAL HISTORY: Fall. COMPARISON STUDY: No priors. TECHNIQUE: Unenhanced axial CT scan of the brain is performed from the vertex to the skull base. A do se lowering technique was utilized adhering to the principles of ALARA. CT DOSE: 663.41 mGy.cm FINDINGS: Brain parenchyma: There is age-related involutional change noting [id number] subcortical and pe riventricular microangiopathic disease. There is no hemorrhage, mass effect, or evidence of acute ter ritorial ischemia by CT criteria. Hodge-white matter differentiation is preserved. No extra-axial flui d collection is seen. Ventricles, sulci, cisterns: Prominent secondary to involutional change. Intracranial vasculature: There is atherosclerotic calcification of the cavernous carotid and vertebr al arteries. Calvarium: The skeletal structures are osteopenic. No depressed calvarial fracture is seen. Sinuses and mastoids: There is trace mucosal thickening in the right maxillary antrum and ethmoid sin uses. The mastoid air cells are well pneumatized. Orbits: The bony orbits are grossly intact. IMPRESSION: There is no hemorrhage, mass effect, or evidence of acute territorial ischemia by CT pito christiansen. ACT 112: Negative or not required by law. Electronically signed by: Jose Elliott M.D. 06/13/2022 7:11 AM
[2022-06-13] MEDS ORDERED: MAGNESIUM SULFATE / D5W 1 GM/100 ML BAG IV ONE (09:15)
[2022-06-13] MEDS: OSELTAMIVIR PHOSPHATE SUSP 30 MG/5 ML UDP PO SCH ×2 (09:18→21:49)
[2022-06-13] MEDS: OXYBUTYNIN CHLORIDE XL 5 MG TABCR PO SCH (09:18)
[2022-06-13] MEDS: DOXYCYCLINE HYCLATE 100 MG CAP PO SCH ×2 (09:18→21:50)
[2022-06-13] MEDS: SERTRALINE HCL 50 MG TABLET PO SCH (09:19)
[2022-06-13] MEDS: PANTOprazole 40 MG TAB PO SCH (09:19)
[2022-06-13] MEDS: TAMSULOSIN HCL 0.4 MG CAP PO SCH (09:19)
[2022-06-13 09:26] LABS: Base Excess ABG -1.4 mEq/L (-9-1.8); HCO3 ABG 23 mmol/L (19-24); Oxygen Saturation ABG 96.1 % (90-95); PCO2 ABG 36 mmHg (35-46); PO2 ABG 71 mmHg (80-95); pH ABG 7.41 (7.35-7.45)
[2022-06-13 09:27] LABS: Allen Test POS (Pos)
--- NOTE | 2022-06-13 15:21 | Hospitalist Progress Note ---
Date of Service June 13, 2022 Assessment & Plan (1) Hypoxia: (2) Influenza: (3) ILD (interstitial lung disease): (4) KACY (generalized anxiety disorder): (5) CKD (chronic kidney disease), stage III: (6) GUILLE (obstructive sleep apnea): Plan Patient is an 82 yr male with H/O Interstitial lung disease, GUILLE on CPAP with 2 L O2 bled through at bedtime, CKD 3, BPH, KACY and other medical problems listed below who presents with cough, congestion and malaise x3 days and was found to have flu A. Acute on chronic respiratory failure with hypoxia Influenza A infection Chronic oxygen dependency--on 2 L at bedtime --CXR:Reticular interstitial opacities are noted within a peripheral and bibasilar predominant distribution. Findings may represent fibrosis versus a nonspecific infectious or inflammatory pneumonitis such as viral pneumonia. Kiana elate with prior imaging. --Biofire positive for Influ A, Coronavirus OC43 Isolation precautions Blood cultures pending Urine culture pending Continue renally adjusted Tamiflu Albuterol as needed Received IV fluids Continue doxycycline for now We will recheck procalcitonin Monitor renal function Wean supplemental oxygen as able Pulmonary hygiene Mechanical Fall resulting in Scalp Laceration -CT Head:There is no hemorrhage, mass effect, or evidence of acute territorial ischemia by CT criteria. -Fall Precautions -PT/OT Hypomagnesemia Hyponatremia Replete electrolytes as needed Monitor CKD III Baseline Cr 1.2-1.5 Avoid nephrotoxic agents as able Monitor KACY Continue Zoloft BPH Continue tamsulosin GUILLE Recently transitioned from CPAP to BIPAP with 2L NC O2 Continue BiPAP at bedtime H/o esophageal dysmotility Aspiration precautions continue PPI DVT Px: SCDs for now Code status: FULL CODE Admission and Anticipated Discharge Date Admission Date: June 12, 2022 Subjective Patient is seen and examined at bedside States feeling a lot better today Less cough, dyspnea today Patient fell overnight resulting in scalp laceration No new complaints Afebrile today Discussed with patient's daughter at bedside Denies any chest pain, dizziness, nausea, abdominal pain Review of Systems Review of Systems: All systems reviewed & are unremarkable except as noted in Subjective Physical Exam Physical Exam: Physical Exam: Vitals signs as noted above General Appearance:Moderately built and nourished, no apparent distress Head: normocephalic, +traumatic, Scalp laceration, + hearing impairment Eyes: normal inspection, EOMI Neck: supple, Trachea midline Respiratory/Chest: Coarse breath sounds, bilateral basal crackles, No accessory muscle use Cardiovascular: S1, S2, No murmur Abdomen/GI:Soft, Non tender, Bowel sounds present Extremities/Musculoskeletal:normal inspection, no edema Neurologic/Psych:AAOX3, grossly no focal neurological deficits Skin: normal color, warm Results & Data Results & Data ([facility]) Vital Signs (Past 12 Hours) Vital Signs Temp Pulse Resp BP Pulse Ox O2 Del Method O2 Flow Rate 06/13/22 12:00 37.5 C 73 20 113/62 92 Nasal Cannula 6 06/13/22 09:30 95 Nasal Cannula 6 06/13/22 08:00 36.5 C 63 20 119/68 90 Oxymask 10 06/13/22 08:00 Oxymask 8 Laboratory Results Short CBC 06/13/22 Range/Units 04:20 WBC 9.04 (4.8-10.8) K/ul Hgb 13.5 L (14.0-18.0) g/dl Hct 39.1 L (40.1-51.0) % Plt Count 125 L (130-400) K/uL BMP 06/13/22 04:20 Sodium 132 L Potassium 4.1 Chloride 101 Carbon Dioxide 24 BUN 37 H Creatinine 1.52 H Glucose 159 H Calcium 8.2 L Urine 06/12/22 Range/Units 21:30 Urine Color Yellow Urine Appearance Cloudy A (Clear) Urine pH 5.0 (4.5-7.5) Ur Specific [place] 1.024 (1.000-1.030) Urine Protein 3+ H (Negative) Urine Glucose (UA) Negative (Negative)
[2022-06-14] MEDS: predniSONE 20 MG TAB PO SCH (01:20)
[2022-06-14 07:53] LABS: Hematocrit (blood only) 39.2 % (40.1-51.0); Hemoglobin 13.7 g/dl (14.0-18.0); Mean Corpuscular Hemoglobin 34.9 pg (25.0-34.0); Mean Corpuscular Hgb Conc 34.9 g/dL (32.0-36.0); Mean Corpuscular Volume 99.7 fL (80.0-100.0); Mean Platelet Volume 10.3 fL (9.4-12.4); Platelet Count 118 K/uL (130-400); RDW Coefficient of Variation 13.1 % (11.5-14.5); RDW Standard Deviation 48.7 fL (36.4-46.3); Red Blood Count 3.93 M/uL (4.63-6.08); White Blood Count 8.61 K/ul (4.8-10.8)
[2022-06-14 07:59] LABS: Calcium 8.3 mg/dl (8.5-10.1); Creatinine Clr Calc Pharmacy 40.2 ml/min; Est GFR (African American) 50.3 ml/min; Est GFR (Non-African American) 43.4 ml/min; Magnesium 1.9 mg/dl (1.7-2.4); Potassium 4.1 mmol/L (3.5-5.1)
--- NOTE | 2022-06-14 09:31 | XRay Report ---
XR chest 1V portable HISTORY: hypoxia COMPARISON: Chest 06/12/2022. FINDINGS: No pneumothorax. The heart is enlarged. Diffuse interstitial thickening persists. This sugg ests chronic fibrotic change. No pleural effusions. Distal resection of the right clavicle again note d. No new focal lung consolidations. No evidence for pulmonary edema. IMPRESSION: Stable cardiomegaly and chronic fibrotic change. ACT 112: Negative or not required by law. Electronically signed by: Gonzalo Velásquez M.D. 06/14/2022 9:29 AM
[2022-06-14] MEDS: PANTOprazole 40 MG TAB PO SCH (09:56)
[2022-06-14] MEDS: TAMSULOSIN HCL 0.4 MG CAP PO SCH (09:56)
[2022-06-14] MEDS: DOXYCYCLINE HYCLATE 100 MG CAP PO SCH ×2 (09:56→20:15)
[2022-06-14] MEDS: SERTRALINE HCL 50 MG TABLET PO SCH (09:57)
[2022-06-14] MEDS: OXYBUTYNIN CHLORIDE XL 5 MG TABCR PO SCH (09:59)
[2022-06-14] MEDS: OSELTAMIVIR PHOSPHATE SUSP 30 MG/5 ML UDP PO SCH ×2 (10:00→20:12)
[2022-06-14] MEDS: CEFDINIR 300 MG CAP PO SCH ×2 (10:46→20:14)
--- NOTE | 2022-06-14 15:22 | Hospitalist Progress Note ---
Date of Service June 14, 2022 Assessment & Plan (1) Hypoxia: (2) Influenza: (3) ILD (interstitial lung disease): (4) KACY (generalized anxiety disorder): (5) CKD (chronic kidney disease), stage III: (6) GUILLE (obstructive sleep apnea): Plan Patient is an 82 yr male with H/O Interstitial lung disease, GUILLE on CPAP with 2 L O2 bled through at bedtime, CKD 3, BPH, KACY and other medical problems listed below who presents with cough, congestion and malaise x3 days and was found to have flu A. Acute on chronic respiratory failure with hypoxia Influenza A infection Chronic oxygen dependency--on 2 L at bedtime --CXR:Reticular interstitial opacities are noted within a peripheral and bibasilar predominant distribution. Findings may represent fibrosis versus a nonspecific infectious or inflammatory pneumonitis such as viral pneumonia. Kiana elate with prior imaging. --Biofire positive for Influ A, Coronavirus OC43 -- Elevated procalcitonin Isolation precautions Blood, Urine culture: No growth to date Continue renally adjusted Tamiflu Albuterol as needed Received IV fluids Continue doxycycline, added cefdinir Monitor renal function Wean supplemental oxygen as able Pulmonary hygiene Mechanical Fall resulting in Scalp Laceration -CT Head:There is no hemorrhage, mass effect, or evidence of acute territorial ischemia by CT criteria. -Fall Precautions -PT/OT Hypomagnesemia Hyponatremia Replete electrolytes as needed Monitor Sodium 133 today CKD III Baseline Cr 1.2-1.5 Avoid nephrotoxic agents as able Monitor Renal function stable KACY Continue Zoloft BPH Continue tamsulosin GUILLE Recently transitioned from CPAP to BIPAP with 2L NC O2 Continue BiPAP at bedtime H/o esophageal dysmotility Aspiration precautions continue PPI DVT Px: SCDs for now Code status: FULL CODE Admission and Anticipated Discharge Date Admission Date: June 12, 2022 Subjective Patient is seen and examined at bedside Subjectively feels better Desaturates with minimal exertion Currently saturating low 90s on 4 L supplemental oxygen Denies any significant cough, dyspnea Discussed with patient's daughter at bedside Also denies any chest pain, dizziness, nausea, abdominal pain Review of Systems Review of Systems: All systems reviewed & are unremarkable except as noted in Subjective Physical Exam Physical Exam: Physical Exam: Vitals signs as noted above General Appearance:Moderately built and nourished, no apparent distress Head: normocephalic, +traumatic, Scalp laceration, + hearing impairment Eyes: normal inspection, EOMI Neck: supple, Trachea midline Respiratory/Chest: Coarse breath sounds, crackles, No accessory muscle use Cardiovascular: S1, S2, No murmur Abdomen/GI:Soft, Non tender, Bowel sounds present Extremities/Musculoskeletal:normal inspection, no edema Neurologic/Psych:AAOX3, grossly no focal neurological deficits Skin: normal color, warm Results & Data Results & Data ([facility]) Vital Signs (Past 12 Hours) Vital Signs Temp Pulse Pulse Resp BP BP Pulse Ox 06/14/22 15:14 36.9 C 65 20 128/64 93 06/14/22 06:04 57 L 06/14/22 11:29 36.8 C 62 20 102/53 L 94 06/14/22 11:10 06/14/22 07:05 37.1 C 68 20 120/79 94 06/14/22 03:56 36.9 C 74 20 136/67 94 O2 Del Method O2 Flow Rate 06/14/22 15:14 Nasal Cannula 4 06/14/22 06:04 06/14/22 11:29 Nasal Cannula 4 06/14/22 11:10 Nasal Cannula 4 06/14/22 07:05 Nasal Cannula 5 06/14/22 03:56 BiPAP 5 Laboratory Results Short CBC 06/14/22 Range/Units 07:12 WBC 8.61 (4.8-10.8) K/ul Hgb 13.7 L (14.0-18.0) g/dl Hct 39.2 L (40.1-51.0) % Plt Count 118 L (130-400) K/uL BMP 06/14/22 07:12 Sodium 133 L Potassium 4.1 Chloride 100 Carbon Dioxide 27 BUN 40 H Creatinine 1.48 H Glucose 110 H Calcium 8.3 L
[2022-06-14] MEDS: MELATONIN 3 MG TAB PO PRN (20:14)
[2022-06-15 07:14] LABS: Hematocrit (blood only) 35.6 % (40.1-51.0); Hemoglobin 12.4 g/dl (14.0-18.0); Mean Corpuscular Hemoglobin 34.6 pg (25.0-34.0); Mean Corpuscular Hgb Conc 34.8 g/dL (32.0-36.0); Mean Corpuscular Volume 99.4 fL (80.0-100.0); Mean Platelet Volume 10.3 fL (9.4-12.4); Platelet Count 114 K/uL (130-400); RDW Coefficient of Variation 12.9 % (11.5-14.5); RDW Standard Deviation 47.3 fL (36.4-46.3); Red Blood Count 3.58 M/uL (4.63-6.08); White Blood Count 7.96 K/ul (4.8-10.8)
[2022-06-15 07:40] LABS: BUN Creatinine Ratio 32.1 (10-20); Calcium 8.5 mg/dl (8.5-10.1); Creatinine Clr Calc Pharmacy 43.5 ml/min; Est GFR (African American) 55.3 ml/min; Est GFR (Non-African American) 47.7 ml/min; Magnesium 1.9 mg/dl (1.7-2.4); Potassium 4.3 mmol/L (3.5-5.1)
[2022-06-15] MEDS: CEFDINIR 300 MG CAP PO SCH ×2 (09:22→20:06)
[2022-06-15] MEDS: OXYBUTYNIN CHLORIDE XL 5 MG TABCR PO SCH (09:22)
[2022-06-15] MEDS: predniSONE 20 MG TAB PO SCH (09:22)
[2022-06-15] MEDS: PANTOprazole 40 MG TAB PO SCH (09:22)
[2022-06-15] MEDS: SERTRALINE HCL 50 MG TABLET PO SCH (09:23)
[2022-06-15] MEDS: DOXYCYCLINE HYCLATE 100 MG CAP PO SCH ×2 (09:23→20:04)
[2022-06-15] MEDS: TAMSULOSIN HCL 0.4 MG CAP PO SCH (09:24)
[2022-06-15] MEDS: OSELTAMIVIR PHOSPHATE SUSP 30 MG/5 ML UDP PO SCH ×2 (09:29→20:03)
--- NOTE | 2022-06-15 15:52 | Hospitalist Progress Note ---
Date of Service June 15, 2022 Assessment & Plan (1) Hypoxia: (2) Influenza: (3) ILD (interstitial lung disease): (4) KACY (generalized anxiety disorder): (5) CKD (chronic kidney disease), stage III: (6) GUILLE (obstructive sleep apnea): Plan Patient is an 82 yr male with H/O Interstitial lung disease, GUILLE on CPAP with 2 L O2 bled through at bedtime, CKD 3, BPH, KACY and other medical problems listed below who presents with cough, congestion and malaise x3 days and was found to have flu A. Acute on chronic respiratory failure with hypoxia Influenza A infection Chronic oxygen dependency--on 2 L at bedtime --CXR:Reticular interstitial opacities are noted within a peripheral and bibasilar predominant distribution. Findings may represent fibrosis versus a nonspecific infectious or inflammatory pneumonitis such as viral pneumonia. Correlate with prior imaging. --Biofire positive for Influ A, Coronavirus OC43 -- Elevated procalcitonin Isolation precautions Blood, Urine culture: No growth to date Continue renally adjusted Tamiflu Albuterol as needed Continue doxycycline, added cefdinir Monitor renal function Wean supplemental oxygen as able Pulmonary hygiene Saturating well on 3 L supplemental oxygen Needs 2 step prior to discharge Mechanical Fall resulting in Scalp Laceration -CT Head:There is no hemorrhage, mass effect, or evidence of acute territorial ischemia by CT criteria. -Fall Precautions -PT/OT Hypomagnesemia Hyponatremia Replete electrolytes as needed Monitor Sodium 134 today CKD III Baseline Cr 1.2-1.5 Avoid nephrotoxic agents as able Monitor Renal function stable KACY Continue Zoloft BPH Continue tamsulosin GUILLE Recently transitioned from CPAP to BIPAP with 2L NC O2 Continue BiPAP at bedtime H/o esophageal dysmotility Aspiration precautions continue PPI DVT Px: SCDs Re: Head trauma Code status: FULL CODE Admission and Anticipated Discharge Date Admission Date: June 12, 2022 Subjective Patient is seen and examined at bedside Feels better Less Oxygen requirement when compared to yesterday Cough much improved Discussed with patient's daughter at bedside Denies any chest pain, dyspnea, dizziness, nausea, abdominal pain Review of Systems Review of Systems: All systems reviewed & are unremarkable except as noted in Subjective Physical Exam Physical Exam: Physical Exam: Vitals signs as noted above General Appearance:Moderately built and nourished, no apparent distress Head: normocephalic, +traumatic, Scalp laceration, + hearing impairment Eyes: normal inspection, EOMI Neck: supple, Trachea midline Respiratory/Chest: Coarse breath sounds, No accessory muscle use Cardiovascular: S1, S2, No murmur Abdomen/GI:Soft, Non tender, Bowel sounds present Extremities/Musculoskeletal:normal inspection, no edema Neurologic/Psych:AAOX3, grossly no focal neurological deficits Skin: normal color, warm Results & Data Results & Data ([facility]) Vital Signs (Past 12 Hours) Vital Signs Temp Pulse Resp BP BP Pulse Ox O2 Del Method 06/15/22 14:16 36.5 C 55 L 20 105/69 96 Nasal Cannula 06/15/22 11:51 Nasal Cannula 06/15/22 11:34 36.6 C 62 18 118/66 95 Nasal Cannula 06/15/22 11:18 36.4 C L 60 22 118/59 L 93 Nasal Cannula 06/15/22 09:29 36.6 C 61 18 116/64 95 Nasal Cannula 06/15/22 07:24 36.6 C 55 L 20 107/51 L 93 Nasal Cannula 06/15/22 04:15 36.7 C 54 L 20 127/72 93 Nasal Cannula O2 Flow Rate 06/15/22 14:16 3 06/15/22 11:51 3 06/15/22 11:34 3 06/15/22 11:18 4 06/15/22 09:29 3 06/15/22 07:24 4 06/15/22 04:15 4 Laboratory Results Short CBC 06/15/22 Range/Units 06:28 WBC 7.96 (4.8-10.8) K/ul Hgb 12.4 L (14.0-18.0) g/dl Hct 35.6 L (40.1-51.0) % Plt Count 114 L (130-400) K/uL BMP 06/15/22 06:28 Sodium 134 L Potassium 4.3 Chloride 102 Carbon Dioxide 27 BUN 44 H Creatinine 1.37 Glucose 140 H Calcium 8.5
[2022-06-16 07:45] LABS: Hematocrit (blood only) 36.4 % (40.1-51.0); Hemoglobin 12.7 g/dl (14.0-18.0); Mean Corpuscular Hemoglobin 34.2 pg (25.0-34.0); Mean Corpuscular Hgb Conc 34.9 g/dL (32.0-36.0); Mean Corpuscular Volume 98.1 fL (80.0-100.0); Mean Platelet Volume 10.1 fL (9.4-12.4); Platelet Count 142 K/uL (130-400); RDW Coefficient of Variation 12.7 % (11.5-14.5); RDW Standard Deviation 45.2 fL (36.4-46.3); Red Blood Count 3.71 M/uL (4.63-6.08); White Blood Count 10.72 K/ul (4.8-10.8)
[2022-06-16] MEDS: DOXYCYCLINE HYCLATE 100 MG CAP PO SCH (08:07)
[2022-06-16] MEDS: predniSONE 20 MG TAB PO SCH (08:07)
[2022-06-16] MEDS: SERTRALINE HCL 50 MG TABLET PO SCH (08:08)
[2022-06-16] MEDS: OXYBUTYNIN CHLORIDE XL 5 MG TABCR PO SCH (08:09)
[2022-06-16] MEDS: PANTOprazole 40 MG TAB PO SCH (08:10)
[2022-06-16] MEDS: CEFDINIR 300 MG CAP PO SCH (08:10)
[2022-06-16] MEDS: TAMSULOSIN HCL 0.4 MG CAP PO SCH (08:10)
[2022-06-16 08:21] LABS: BUN Creatinine Ratio 36.1 (10-20); Creatinine Clr Calc Pharmacy 48.8 ml/min; Est GFR (African American) 63.6 ml/min; Est GFR (Non-African American) 54.9 ml/min; Potassium 4.1 mmol/L (3.5-5.1)
[2022-06-16] MEDS: OSELTAMIVIR PHOSPHATE SUSP 30 MG/5 ML UDP PO SCH (08:21)
--- NOTE | 2022-06-16 13:09 | Hospitalist Progress Note ---
Date of Service June 16, 2022 Assessment & Plan (1) Hypoxia: (2) Influenza: (3) ILD (interstitial lung disease): (4) KACY (generalized anxiety disorder): (5) CKD (chronic kidney disease), stage III: (6) GUILLE (obstructive sleep apnea): Plan Patient is an 82 yr male with H/O Interstitial lung disease, GUILLE on CPAP with 2 L O2 bled through at bedtime, CKD 3, BPH, KACY and other medical problems listed below who presents with cough, congestion and malaise x3 days and was found to have flu A. Acute on chronic respiratory failure with hypoxia Influenza A infection Chronic oxygen dependency--on 2 L at bedtime --CXR:Reticular interstitial opacities are noted within a peripheral and bibasilar predominant distribution. Findings may represent fibrosis versus a nonspecific infectious or inflammatory pneumonitis such as viral pneumonia. Correlate with prior imaging. --Biofire positive for Influ A, Coronavirus OC43 -- Elevated procalcitonin Isolation precautions Blood, Urine culture: No growth to date Continue renally adjusted Tamiflu Albuterol as needed Continue doxycycline, added cefdinir Monitor renal function Wean supplemental oxygen as able Pulmonary hygiene Saturating well on 2 L supplemental oxygen 2 step: Needs 2 L with activity Mechanical Fall resulting in Scalp Laceration -CT Head:There is no hemorrhage, mass effect, or evidence of acute territorial ischemia by CT criteria. -Fall Precautions -PT/OT Hypomagnesemia Hyponatremia Replete electrolytes as needed Monitor Sodium 136 today CKD III Baseline Cr 1.2-1.5 Avoid nephrotoxic agents as able Monitor Renal function stable Cr at baseline KACY Continue Zoloft BPH Continue tamsulosin GUILLE Recently transitioned from CPAP to BIPAP with 2L NC O2 Continue BiPAP at bedtime H/o esophageal dysmotility Aspiration precautions continue PPI DVT Px: SCDs Re: Head trauma Code status: FULL CODE Disposition Prefers to be discharged home with Home Health Admission and Anticipated Discharge Date Admission Date: June 12, 2022 Subjective Patient is seen and examined at bedside No new complaints Cough almost resolved Discussed with patient's daughter at bedside Denies any chest pain, dyspnea, dizziness, nausea, abdominal pain Had 2 step earlier today Review of Systems Review of Systems: All systems reviewed & are unremarkable except as noted in Subjective Physical Exam Physical Exam: Physical Exam: Vitals signs as noted above General Appearance:Moderately built and nourished, no apparent distress Head: normocephalic, +traumatic, Scalp laceration, + hearing impairment Eyes: normal inspection, EOMI Neck: supple, Trachea midline Respiratory/Chest: Decreased breath sounds, CTA, No accessory muscle use Cardiovascular: S1, S2, No murmur Abdomen/GI:Soft, Non tender, Bowel sounds present Extremities/Musculoskeletal:normal inspection, no edema Neurologic/Psych:AAOX3, grossly no focal neurological deficits Skin: normal color, warm Results & Data Results & Data ([facility]) Vital Signs (Past 12 Hours) Vital Signs Temp Pulse Pulse Pulse Pulse Pulse Resp 06/16/22 11:53 36.6 C 67 20 06/16/22 10:49 102 H 82 78 67 06/16/22 07:19 36.5 C 59 L 19 06/16/22 07:17 06/16/22 04:29 36.6 C 56 L 18 Resp Resp Resp Resp BP BP Pulse Ox 06/16/22 11:53 136/65 91 06/16/22 10:49 20 20 20 18 06/16/22 07:19 134/78 95 06/16/22 07:17 06/16/22 04:29 131/66 95 Pulse Ox Pulse Ox Pulse Ox Pulse Ox O2 Del Method O2 Flow Rate O2 Flow Rate 06/16/22 11:53 Nasal Cannula 2 06/16/22 10:49 91 85 L 90 91 2 06/16/22 07:19 Nasal Cannula 2 06/16/22 07:17 Nasal Cannula 2 06/16/22 04:29 Nasal Cannula 2 Laboratory Results Short CBC 06/16/22 Range/Units 07:14 WBC 10.72 (4.8-10.8) K/ul Hgb 12.7 L (14.0-18.0) g/dl Hct 36.4 L (40.1-51.0) % Plt Count 142 (130-400) K/uL BMP 06/16/22 07:14 Sodium 136 Potassium 4.1 Chloride 104 Carbon Dioxide 26 BUN 44 H Creatinine 1.22 Glucose 112 H Calcium 9.0
--- NOTE | 2022-06-16 13:28 | Discharge Summary ---
Date of Service June 16, 2022 Admission HPI Per Admitting Provider This is an 82-year-old male with PMH of interstitial lung disease, GUILLE on CPAP with 2 L O2 bled through at bedtime, CKD 3, BPH, KACY and other medical problems listed below who presents with cough, congestion and malaise x3 days. Symptoms began after visiting family in [place] over the holidays. Multiple family members were sick at gathering. Also having intermittent frontal headache, dry cough, intermittent chills and tingling in arms and legs. Having a few episodes of diarrhea since yesterday. Denies focal weakness. No fever, dizziness, chest pain, palpitations, SOB, abdominal pain, dysuria or constipation. Admission Exam Per Admitting Provider Physical Exam: Vitals signs as noted above General Appearance:Moderately built and nourished, no apparent distress Head: normocephalic, Atraumatic,+ hearing impairment Eyes: normal inspection, EOMI Neck: supple, Trachea midline Respiratory/Chest: Normal breath sounds, bilateral basal crackles, No accessory muscle use Cardiovascular: S1, S2, No murmur Abdomen/GI:Soft, Non tender, Bowel sounds present Extremities/Musculoskeletal:normal inspection, no edema Neurologic/Psych:AAOX3, grossly no focal neurological deficits Skin: normal color, warm Principal Diagnosis Acute on chronic respiratory failure with hypoxia Influenza A infection Chronic oxygen dependency Mechanical Fall Hypomagnesemia Hyponatremia Discharge Data Allergies Allergy/AdvReac Type Severity Reaction Status Date / Time No Known Allergies Allergy Verified 06/12/22 17:03 Consultations 06/12/22 14:11 ED Decision to Admit Stat Procedures Performed Laboratory Results WBC 10.72 K/ul (4.8-10.8) 06/16/22 07:14 RBC 3.71 M/uL (4.63-6.08) L 06/16/22 07:14 Hgb 12.7 g/dl (14.0-18.0) L 06/16/22 07:14 Hct 36.4 % (40.1-51.0) L 06/16/22 07:14 MCV 98.1 fL (80.0-100.0) 06/16/22 07:14 MCH 34.2 pg (25.0-34.0) H 06/16/22 07:14 MCHC 34.9 g/dL (32.0-36.0) 06/16/22 07:14 RDW Std Deviation 45.2 fL (36.4-46.3) 06/16/22 07:14 RDW Coeff of Katya 12.7 % (11.5-14.5) 06/16/22 07:14 Plt Count 142 K/uL (130-400) 06/16/22 07:14 MPV 10.1 fL (9.4-12.4) 06/16/22 07:14 Neutrophils % (Manual) 75 % 06/12/22 12:58 Lymphocytes % (Manual) 14 % 06/12/22 12:58 Monocytes % (Manual) 11 % 06/12/22 12:58 Neutrophils # (Manual) 5.84 K/uL (1.4-6.5) 06/12/22 12:58 Lymphocytes # (Manual) 1.09 K/uL (1.2-3.4) L 06/12/22 12:58 Monocytes # (Manual) 0.86 K/uL (0.24-0.82) H 06/12/22 12:58 RBC Morphology Unremarkable 06/12/22 12:58 PT 11.6 Seconds (9.0-12.0) 06/12/22 12:58 INR 1.1 (0.9-1.1) 06/12/22 12:58 APTT 29.2 Seconds (21.0-31.0) 06/12/22 12:58 PTT Ratio 1.1 06/12/22 12:58 POC pH 6.92 (7.35-7.45) L* 06/12/22 19:17 POC pCO2 109 mmHg (35-46) H 06/12/22 19:17 POC pO2 221 mmHg (80-95) H 06/12/22 19:17 POC HCO3 22 tg/L (19-24) 06/12/22 19:17 POC Total CO2 25 mmol/L (24-31) 06/12/22 19:17 POC Base Excess -10.0 tg/L (-9-1.8) L 06/12/22 19:17 ABG pH 7.41 (7.35-7.45) 06/13/22 09:12 ABG pCO2 36 mmHg (35-46) 06/13/22 09:12 ABG pO2 71 mmHg (80-95) L 06/13/22 09:12 ABG HCO3 23 mmol/L (19-24) 06/13/22 09:12 POC ABG O2 Sat 99.0 % (90-95) H 06/12/22 19:17 ABG O2 Saturation 96.1 % (90-95) H 06/13/22 09:12 ABG Base Excess -1.4 mEq/L (-9-1.8) 06/13/22 09:12 Artie Test POS (Pos) 06/13/22 09:12 VBG pH 7.40 (7.36-7.41) 06/12/22 13:18 VBG pCO2 41 mmHg (38-50) 06/12/22 13:18 VBG pO2 29 mmHg 06/12/22 13:18 VBG HCO3 25 mmol/L 06/12/22 13:18 VBG O2 Saturation < 60.0 % 06/12/22 13:18 VBG Base Excess 0.5 mEq/L 06/12/22 13:18 Oxygen Given 06/13/22 09:12 Sodium 136 mmol/L (136-145) 06/16/22 07:14 Potassium 4.1 mmol/L (3.5-5.1) 06/16/22 07:14 Chloride 104 mmol/L (98-107) 06/16/22 07:14 Carbon Dioxide 26 mmol/L (21-32) 06/16/22 07:14 Anion Gap 6 (3-11) 06/16/22 07:14 BUN 44 mg/dl (6-23) H 06/16/22 07:14 Creatinine 1.22 mg/dl (0.6-1.4) 06/16/22 07:14 Est Cr Clr Drug Dosing 48.8 ml/min 06/16/22 07:14 Est GFR ( Amer) 63.6 ml/min 06/16/22 07:14 Est GFR (Non-Af Amer) 54.9 ml/min 06/16/22 07:14 BUN/Creatinine Ratio 36.1 (10-20) H 06/16/22 07:14 Glucose 112 mg/dl (70-99(Fasting)) H 06/16/22 07:14 Lactate 0.8 mmol/L (0.4-2.0) 06/12/22 12:58 Calcium 9.0 mg/dl (8.5-10.1) 06/16/22 07:14 Magnesium 1.9 mg/dl (1.7-2.4) 06/15/22 06:28 Total Bilirubin 1.0 mg/dl (0.2-1.0) 06/12/22 12:58 AST 23 U/L (13-39) 06/12/22 12:58 ALT 13 U/L (7-52) 06/12/22 12:58 Alkaline Phosphatase 96 U/L (34-104) 06/12/22 12:58 Troponin I High Sens 18.8 pg/ml (0-20) 06/12/22 12:58 B-Natriuretic Peptide 109 pg/ml (0-100) H 06/12/22 12:58 Total Protein 8.0 gm/dl (6.0-8.3) 06/12/22 12:58 Albumin 4.0 gm/dl (3.4-5.0) 06/12/22 12:58 Globulin 4.0 gm/dl (2.5-4.0) 06/12/22 12:58 Albumin/Globulin Ratio 1.0 (0.9-2) 06/12/22 12:58 Lipase 17 U/L (11-82) 06/12/22 12:58 Procalcitonin 1.04 ng/ml (0-0.5) H 06/16/22 07:14 Urine Color Yellow 06/12/22 21:30 Urine Appearance Cloudy (Clear) A 06/12/22 21:30 Urine pH 5.0 (4.5-7.5) 06/12/22 21:30 Ur Specific [place] 1.024 (1.000-1.030) 06/12/22 21:30 Urine Protein 3+ (Negative) H 06/12/22 21:30 Urine Glucose (UA) Negative (Negative) 06/12/22 21:30 Urine Ketones Trace (Negative) H 06/12/22 21: Urine Blood 2+ (Negative) H 06/12/22 21:30 Urine Nitrite Negative (Negative) 06/12/22 21:30 Urine Bilirubin Negative (Negative) 06/12/22 21:30 Urine Urobilinogen Negative (Negative) 06/12/22 21:30 Ur Leukocyte Esterase Negative (Negative) 06/12/22 21:30 Urine WBC (Auto) 10-30 /hpf (0-5) H 06/12/22 21:30 Urine RBC (Auto) 5-10 /hpf (0-4) H 06/12/22 21:30 U Hyaline Cast (Auto) 1-5 /lpf (0-5) 06/12/22 21:30 U Epithel Cells (Auto) >30 /lpf (0-5) H 06/12/22 21:30 Urine Bacteria (Auto) Negative (Negative) 06/12/22 21:30 Adenovirus (PCR) Not Detected (NotDetected) 06/12/22 10:58 B. pertussis DNA (PCR) Not Detected (NotDetected) 06/12/22 10:58 B.parapertussis DNA PCR Not Detected (NotDetected) 06/12/22 10:58 C. pneumoniae DNA (PCR) Not Detected (NotDetected) 06/12/22 10:58 Coronavirus OC43 (PCR) DETECTED (NotDetected) A* 06/12/22 10:58 Coronavirus HKU1 (PCR) Not Detected (NotDetected) 06/12/22 10:58 Coronavirus 229E (PCR) Not Detected (NotDetected) 06/12/22 10:58 SARS-CoV-2 (PCR) Not Detected (NotDetected) 06/12/22 10:58 Coronavirus NL63 (PCR) Not Detected (NotDetected) 06/12/22 10:58 Human Metapneumovir PCR Not Detected (NotDetected) 06/12/22 10:58 Influenza A (H3) PCR DETECTED (NotDetected) A* 06/12/22 10:58 Influenza Type B (PCR) Not Detected (NotDetected) 06/12/22 10:58 M. pneumoniae (PCR) Not Detected (NotDetected) 06/12/22 10:58 Parainfluenza 1 (PCR) Not Detected (NotDetected) 06/12/22 10:58 Parainfluenza 2 (PCR) Not Detected (NotDetected) 06/12/22 10:58 Parainfluenza 3 (PCR) Not Detected (NotDetected) 06/12/22 10:58 Parainfluenza 4 (PCR) Not Detected (NotDetected) 06/12/22 10:58 RSV (PCR) Not Detected (NotDetected) 06/12/22 10:58 Entero/Rhino (PCR) Not Detected (NotDetected) 06/12/22 10:[address] 06/13/22 02:01 CT SCAN OF THE BRAIN WITHOUT IV CONTRAST CLINICAL HISTORY: Fall. COMPARISON STUDY: No priors. TECHNIQUE: Unenhanced axial CT scan of the brain is performed from the vertex to the skull base. A dose lowering technique was utilized adhering to the principles of ALARA. CT DOSE: 663.41 mGy.cm FINDINGS: Brain parenchyma: There is age-related involutional change noting [id number] subcortical and periventricular microangiopathic disease. There is no hemorrhage, mass effect, or evidence of acute territorial ischemia by CT criteria. Hodge-white matter differentiation is preserved. No extra-axial fluid collection is seen. Ventricles, sulci, cisterns: Prominent secondary to involutional change. Intracranial vasculature: There is atherosclerotic calcification of the cavernous carotid and vertebral arteries. Calvarium: The skeletal structures are osteopenic. No depressed calvarial fracture is seen. Sinuses and mastoids: There is trace mucosal thickening in the right maxillary antrum and ethmoid sinuses. The mastoid air cells are well pneumatized. Orbits: The bony orbits are grossly intact. IMPRESSION: There is no hemorrhage, mass effect, or evidence of acute territorial ischemia by CT criteria. ACT 112: Negative or not required by law. Electronically signed by: Jose Elliott M.D. 06/13/2022 7:11 AM Chest X-Ray 06/14/22 08:54 XR chest 1V portable HISTORY: hypoxia COMPARISON: Chest 06/12/2022. FINDINGS: No pneumothorax. The heart is enlarged. Diffuse interstitial thickening persists. This suggests chronic fibrotic change. No pleural effusions. Distal resection of the right clavicle again noted. No new focal lung consolidations. No evidence for pulmonary edema. IMPRESSION: Stable cardiomegaly and chronic fibrotic change. ACT 112: Negative or not required by law. Electronically signed by: Gonzalo Velásquez M.D. 06/14/2022 9:29 AM Ordered Studies 06/13/22 02:01 CT head/brain wo con Stat Hospital Course (1) Hypoxia: (2) Influenza: (3) ILD (interstitial lung disease): (4) KACY (generalized anxiety disorder): (5) CKD (chronic kidney disease), stage III: (6) GUILLE (obstructive sleep apnea): Plan Patient is an 82 yr male with H/O Interstitial lung disease, GUILLE on CPAP with 2 L O2 bled through at bedtime, CKD 3, BPH, KACY and other medical problems listed below who presents with cough, congestion and malaise x3 days and was found to have flu A. Acute on chronic respiratory failure with hypoxia Influenza A infection Chronic oxygen dependency--on 2 L at bedtime --CXR:Reticular interstitial opacities are noted within a peripheral and bibasilar predominant distribution. Findings may represent fibrosis versus a nonspecific infectious or inflammatory pneumonitis such as viral pneumonia. Correlate with prior imaging. --Biofire positive for Influ A, Coronavirus OC43 -- Elevated procalcitonin Isolation precautions Blood, Urine culture: No growth to date Continue renally adjusted Tamiflu Albuterol as needed Continue doxycycline, added cefdinir Monitor renal function Wean supplemental oxygen as able Pulmonary hygiene Saturating well on 2 L supplemental oxygen 2 step: Needs 2 L with activity Mechanical Fall resulting in Scalp Laceration -CT Head:There is no hemorrhage, mass effect, or evidence of acute territorial ischemia by CT criteria. -Fall Precautions -PT/OT Hypomagnesemia Hyponatremia Replete electrolytes as needed Monitor Sodium 136 today CKD III Baseline Cr 1.2-1.5 Avoid nephrotoxic agents as able Monitor Renal function stable Cr at baseline KACY Continue Zoloft BPH Continue tamsulosin GUILLE Recently transitioned from CPAP to BIPAP with 2L NC O2 Continue BiPAP at bedtime H/o esophageal dysmotility Aspiration precautions continue PPI DVT Px: SCDs Re: Head trauma Code status: FULL CODE Disposition Prefers to be discharged home with Home Health Total Time Total Time Spent Total Time Spent (In Minutes): 48 minutes Discharge Plan Discharge Items Patient Disposition: Home - Home Health Services Reason For Visit: HYPOXIA, FLU A Discharge Diagnosis: Acute on chronic respiratory failure with hypoxia Influenza A infection Chronic oxygen dependency Mechanical Fall Hypomagnesemia Hyponatremia Activity: Per Instructions section Exercise/Sports: Gradually increase as tolerated Non-emergency contact: Primary Care Provider Call non-emergency contact if: you have any medication questions, your symptoms worsen, your pain is concerning for you and you have a fever Follow-up/Referrals: Martin Hopper MD [Primary Care Provider] - Diet: Regular Addtl Attending Provider Instructions: Follow-up with your primary physician in 1 week -- Complete Prednisone Course as prescribed (Start taking from 06/17/22) --Complete the antibiotic course Doxycycline and Cefdinir course as prescribed (Start taking from 06/16/22) --- Using 2 L of oxygen via nasal cannula with activity and at bedtime as advised. Seek immediate medical attention if your symptoms reoccur or worsen Please take all medications as instructed on discharge list below. Please call if you have any questions or problems. You can reach a [facility] hospitalist on duty at [facility] 24 hours a day by calling [phone] Pending Studies at Discharge: Yes Studies:: Blood Cultures Stand-Alone Forms: My [facility], Smoking Cessation Medications and DC Order Prescriptions: New doxycycline hyclate 100 mg Capsule 100 mg PO BID Qty: 5 0RF prednisone 20 mg Tablet 20 mg PO DAILY Qty: 3 0RF cefdinir 300 mg Capsule 300 mg PO BID Qty: 5 0RF Continued tamsulosin 0.4 mg capsule 0.4 mg PO DAILY oxybutynin chloride 5 mg tablet extended release 24hr 5 mg PO DAILY sertraline 25 mg tablet 25 mg PO DAILY omeprazole 20 mg capsule,delayed release(DR/EC) 20 mg PO DAILY cyclobenzaprine 5 mg tablet 5 mg PO TID PRN (Reason: Muscle Spasm) levocetirizine 2.5 mg/5 mL Solution 2.5 mg PO PM PRN (Reason: Allergic Symptoms) Discharge Orders: Discharge Order (Routine); Ordered 06/16/22 Ordered By: Italo Oseguera Admission Data Admit Date/Time: 06/12/22 14:57 Attending Provider: Italo Oseguera Admit Provider: Italo Oseguera Primary Care Provider: Martin Hopper Other Providers: Italo Oseguera
[2022-06-16] MEDS ORDERED: HEPARIN SOD 5,000 UNIT/0.5 ML VIAL SQ SCH (21:00)
== END 2022-06-16 14:19 | disposition home or self-care (01) | DRG 193 ==
LOC: ED 10:43 → EDINP 14:57 → 2W 17:20

== ENCOUNTER 2022-10-07 17:18 | Inpatient (IN) ==
--- NOTE | 2022-10-07 17:27 | ED Triage Note ---
Date of Service October 07, 2022 History of Present Illness This patient was briefly evaluated while in triage. An abbreviated physical exam was performed. This patient is a 82-year-old Male who presents to the ED for evaluation of trouble breathing. He uses oxygen at night but has been using it during the day as well. Symptoms worsening over the past week. Daughter states he has not been the same after an admission in June for COVID/flu/pneumonia. Physical Exam VITALS: Vitals are noted on the nurse's note and reviewed by myself. GENERAL: This is an 82-year-old male, appears to be short of breath. SKIN: The skin was without rashes. HEART: Regular rate and rhythm without murmurs gallops or rubs. LUNGS: Crackles in bilateral bases. NEURO: Patient was alert and oriented to person place and time. Initial orders for labs and / or imaging were placed and patient was placed in the waiting area until a bed is available. Please see further documentation for the full ED course. MDM / Impression Impression Impression: Fluid overload
[2022-10-07 18:15] LABS: Basophils # (auto) 0.07 K/uL (0-0.2); Basophils % (auto) 0.7 %; Eosinophils % (auto) 5.3 %; Hematocrit (blood only) 39.7 % (42.0-52.0); Hemoglobin 13.8 g/dl (14.0-18.0); Immature Granulocytes # (auto) 0.06 K/uL (0.01-0.20); Immature Granulocytes % (auto) 0.6 %; Lymphocytes # (auto) 1.29 K/uL (1.2-3.4); Lymphocytes % (auto) 13.7 %; Mean Corpuscular Hemoglobin 34.4 pg (25.0-34.0); Mean Corpuscular Hgb Conc 34.8 g/dL (32.0-36.0); Mean Platelet Volume 9.3 fL (9.4-12.4); Monocytes # (auto) 0.89 K/uL (0.11-0.59); Monocytes % (auto) 9.5 %; Neutrophils % (auto) 70.2 %; Platelet Count 228 K/uL (130-400); RDW Standard Deviation 47.4 fL (36.4-46.3); Red Blood Count 4.01 M/uL (4.70-6.10); White Blood Count 9.41 K/ul (4.8-10.8)
[2022-10-07] MEDS ORDERED: ALBUT/IPRATROP 3MG/0.5MG NEB 3 ML VIAL NEB STA (18:17)
--- NOTE | 2022-10-07 18:17 | XRay Report ---
XR chest 1V portable HISTORY: Dyspnea COMPARISON: Chest 06/14/2022. FINDINGS: No pneumothorax. No pleural effusions. There are low lung volumes. Diffuse interstitial thi ckening is again noted consistent with fibrotic change. There is progressive perihilar interstitial t hickening suggestive of mild congestive change. The heart remains enlarged. Distal resection of the r ight clavicle again noted. IMPRESSION: 1. Progressive interstitial thickening which likely represents pulmonary vascular congestion on the b ackground of chronic interstitial change. 2. Stable cardiomegaly. ACT 112: Negative or not required by law. Electronically signed by: Gonzalo Velásquez M.D. 10/07/2022 6:15 PM
--- NOTE | 2022-10-07 18:19 | Emergency Department Note ---
History of Present Illness General Chief Complaint: Shortness of Breath/Dyspnea Stated Complaint: SOB Time Seen by Provider: 10/07/22 18:02 History of Present Illness Provider Complaint: shortness of breath and cough Onset (ago): week(s) (1.5) Severity: moderate Consistency/Duration: + intermittent and + progressively worsening Relieved By: + rest Exacerbated By: + exertion Associated symptoms: + cough and + chest congestion; no fever, no sputum product ion, no orthopnea, no hemoptysis, no diaphoresis, no nausea/vomiting or no abdominal pain Related Data Home oxygen amount: as needed at night (2.5L ) Home Medications Medication Instructions Recorded Confirmed Type cyclobenzaprine 5 mg tablet 5 mg PO TID PRN Muscle Spasm 06/12/22 10/07/22 History levocetirizine 2.5 mg/5 mL oral 2.5 mg PO PM PRN Allergic Symptoms 06/12/22 10/07/22 History solution omeprazole 20 mg capsule,delayed 20 mg PO DAILY 06/12/22 10/07/22 History release oxybutynin chloride 5 mg 5 mg PO DAILY 06/12/22 10/07/22 History tablet,extended release 24 hr sertraline 25 mg tablet 25 mg PO DAILY 06/12/22 10/07/22 History tamsulosin 0.4 mg capsule 0.4 mg PO DAILY 06/12/22 10/07/22 History Allergies Allergy/AdvReac Type Severity Reaction Status Date / Time No Known Allergies Allergy Verified 10/07/22 18:31 Past Med/Surg History Medical History CKD (chronic kidney disease), stage III KACY (generalized anxiety disorder) GERD (gastroesophageal reflux disease) History of COVID-19 06/12/22 admitted to [facility] w/ flu and covid pneumonia- currently doing pulmonary rehab in [place] ILD (interstitial lung disease) GUILLE (obstructive sleep apnea) bipap with 2L O2 HS Surgical History H/O eye surgery H/O lithotripsy Family History Other Cancer Diabetes Heart disease Social History Smoking Status: Never smoker Cigarettes Per Day: 5-6 cigarettes/day 60 years ago; Second Hand Exposure: No; Do You Dip or Chew Tobacco: No; Tobacco Cessation Education Requested by Patient: No Hx Alcohol Use: No Hx Substance Use: No Preferred Language: Jordanian Communication Ability: Effective Swing Tender Required: No Beliefs That Will Affect Care: None Current Living Situation: Spouse Other Information That Helps Us Care for You: No Feels Safe at Home: Yes Safety Concerns: Feels Safe At This Time Assistive Devices: BiPap Physical Exam Vital Signs: Vital Signs - 24 hr 10/07/22 17:23 10/07/22 17:46 10/07/22 17:46 Temperature 37.2 C Temperature Source Temporal Artery Sc an Pulse Rate 86 Pulse Rate [Left A pical] Respiratory Rate 20 Respiratory Effort / Characteristics Short of Breath SO B on Exertion Respiratory Depth Normal Blood Pressure 127/69 Blood Pressure [Le ft Arm] Blood Pressure Patricia n 88 Blood Pressure Patricia n [Left Arm] Blood Pressure Pos ition Sitting Pulse Oximetry 85 L 93 Oxygen Delivery Me thod Room Air Nasal Cannula Nasal Cannula Oxygen Flow Rate 6 6 Sepsis Recent Feve r Within 48 Hours No Sepsis New/Unexpla ined Change in Men bisi Status No Sepsis Action Take n by Nursing No Action Required Oxygen Flow Rate - Titration Pulse Oximetry Pos t Tiitration 10/07/22 17:53 10/07/22 17:55 10/07/22 18:00 Temperature Temperature Source Pulse Rate 78 75 Pulse Rate [Left A pical] 75 Respiratory Rate 30 H 35 H Respiratory Effort / Characteristics Short of Breath Respiratory Depth Blood Pressure 127/73 Blood Pressure [Le ft Arm] 134/76 Blood Pressure Patricia n 91 Blood Pressure Patricia n [Left Arm] 95 Blood Pressure Pos ition Pulse Oximetry 93 91 Oxygen Delivery Me thod Nasal Cannula Nasal Cannula Oxygen Flow Rate 6 6 Sepsis Recent Feve r Within 48 Hours Sepsis New/Unexpla ined Change in Men bisi Status Sepsis Action Take n by Nursing Oxygen Flow Rate - Titration Pulse Oximetry Pos t Tiitration 10/07/22 18:31 10/07/22 19:16 Temperature Temperature Source Pulse Rate 80 Pulse Rate [Left A pical] Respiratory Rate 17 Respiratory Effort / Characteristics Respiratory Depth Blood Pressure 103/73 Blood Pressure [Le ft Arm] Blood Pressure Patricia n 83 Blood Pressure Patricia n [Left Arm] Blood Pressure Pos ition Pulse Oximetry 94 88 L Oxygen Delivery Me thod Nebulizer Oxymask Oxygen Flow Rate 6 6 Sepsis Recent Feve r Within 48 Hours Sepsis New/Unexpla ined Change in Men bisi Status Sepsis Action Take n by Nursing Oxygen Flow Rate - Titration 10 Pulse Oximetry Pos t Tiitration 92 Physical Exam: Physical Exam GENERAL: oriented to person, place, and time. appears well-developed and well-nourished. HENT: Exam performed. - Head: Normocephalic and atraumatic. EYES: Conjunctivae and EOM are normal. Right eye exhibits no discharge. Left eye exhibits no discharge. No scleral icterus. NECK: Normal range of motion. Neck supple. No JVD present. CV: Normal rate, regular rhythm, normal heart sounds and intact distal pulses. There is no peripheral edema. Palpable radial pulses bue. PULM/CHEST: Inspiratory rales bilaterally expiratory wheezes bilaterally. ABD: The abdomen is soft. There is no tenderness. NEURO: Motor and sensation grossly intact. SKIN: Skin is warm and dry. He is not diaphoretic. PSYCH: normal mood and affect. Behavior is normal. Judgment and thought content normal. Course Course 1801: The patient was evaluated in room A3. A complete history and physical exam was performed Cardiac monitoring: An order was placed for continuous cardiac monitoring. The monitor shows a rate of 80 with sinus rhythm interpreted by me 1845: Vital signs stable on supplemental oxygen via nasal cannula. Status post 1 DuoNeb the patient's wheezing is improved however is still having inspiratory rales. Patient's chest x-ray does show cardiomegaly with cephalization. EMR is reviewed and the patient has no recent echo. Troponin negative. Patient be treated with Lasix and admitted to the [facility] team for cardiology evaluation for possibility of new diagnosis of CHF. Administered Medications Discontinued Medications Albuterol (Albut/Ipratrop 3mg/0.5mg Neb 3 Ml Vial) 3 ml NEB NOW STA; Protocol Stop: 10/07/22 18:18 Last Admin: 10/07/22 18:27 Dose: 3 ml Documented By: DMH Furosemide (Furosemide 40 Mg/4 Ml Vial) 40 mg IV ONE ONE Stop: 10/07/22 18:42 Last Admin: 10/07/22 18:46 Dose: 40 mg Documented By: HS Magnesium Sulfate/Dextrose (Magnesium Sulfate / D5w) 1 gm in 100 mls @ 50 mls/hr IV ONE ONE Stop: 10/07/22 22:15 Last Infusion: 10/07/22 22:44 Dose: 0 mls/hr Documented By: Admin: 10/07/22 20:36 Dose: 50 mls/hr Documented By: SB Medical Decision Making Medical Records Attestation: I reviewed the patient's medical records. External medical records reviewed. Patient was admitted from June 12 2020-June 16, 2022 after found to be hypoxic as well as positive for influenza and coronavirus OC43. Laboratory Data Attestation: I reviewed the patient's lab results. 10/07/22 17:47 10/07/22 17:47 Lab Results 10/07/22 10/07/22 10/07/22 Range/Units 17:45 17:47 17:47 WBC 9.41 (4.8-10.8) K/ul RBC 4.01 L (4.70-6.10) M/uL Hgb 13.8 L (14.0-18.0) g/dl Hct 39.7 L (42.0-52.0) % MCV 99.0 (80.0-100.0) fL MCH 34.4 H (25.0-34.0) pg MCHC 34.8 (32.0-36.0) g/dL RDW Std Deviation 47.4 H (36.4-46.3) fL RDW Coeff of Katya 13.0 (11.5-14.5) % Plt Count 228 (130-400) K/uL MPV 9.3 L (9.4-12.4) fL Immature Gran % (Auto) 0.6 % Neut % (Auto) 70.2 % Lymph % (Auto) 13.7 % [place] % (Auto) 9.5 % Eos % (Auto) 5.3 % Baso % (Auto) 0.7 % Neut # (Auto) 6.60 H (1.40-6.50) K/uL Lymph # (Auto) 1.29 (1.2-3.4) K/uL [place] # (Auto) 0.89 H (0.11-0.59) K/uL Eos # (Auto) 0.50 (0-0.50) K/uL Baso # (Auto) 0.07 (0-0.2) K/uL Immature Gran # (Auto) 0.06 (0.01-0.20) K/uL VBG pH (7.36-7.41) VBG pCO2 (38-50) mmHg VBG pO2 mmHg VBG HCO3 mmol/L VBG O2 Saturation % VBG Base Excess mEq/L Sodium 137 (136-145) mmol/L Potassium 4.1 (3.5-5.1) mmol/L Chloride 103 (98-107) mmol/L Carbon Dioxide 27 (21-32) mmol/L Anion Gap 7 (3-11) BUN 32 H (6-23) mg/dl Creatinine 1.34 (0.6-1.4) mg/dl Est Cr Clr Drug Dosing Not Reportable Est GFR ( Amer) 56.8 ml/min Est GFR (Non-Af Amer) 49.0 ml/min BUN/Creatinine Ratio 23.9 H (10-20) Glucose 133 H (70-99(Fasting)) mg/dl Calcium 9.2 (8.6-10.3) mg/dl Magnesium 1.9 (1.7-2.4) mg/dl Total Bilirubin 0.8 (0.2-1.0) mg/dl AST 20 (13-39) U/L ALT 12 (7-52) U/L Alkaline Phosphatase 103 (34-104) U/L Troponin I High Sens 12.7 (0-20) pg/ml B-Natriuretic Peptide (0-100) pg/ml Total Protein 7.6 (6.0-8.3) gm/dl Albumin 3.6 (3.4-5.0) gm/dl Globulin 4.0 (2.5-4.0) gm/dl Albumin/Globulin Ratio 0.9 (0.9-2) TSH (0.300-4.500) uIu/ml SARS-CoV-2 (PCR) NEGATIVE (Negative) Influenza Type A (PCR) Negative (Neg) Influenza Type B (PCR) Negative (Neg) RSV (RT-PCR) Negative (Neg) 10/07/22 10/07/22 10/07/22 Range/Units 17:47 18:44 18:44 WBC (4.8-10.8) K/ul RBC (4.70-6.10) M/uL Hgb (14.0-18.0) g/dl Hct (42.0-52.0) % MCV (80.0-100.0) fL MCH (25.0-34.0) pg MCHC (32.0-36.0) g/dL RDW Std Deviation (36.4-46.3) fL RDW Coeff of Katya (11.5-14.5) % Plt Count (130-400) K/uL MPV (9.4-12.4) fL Immature Gran % (Auto) % Neut % (Auto) % Lymph % (Auto) % [place] % (Auto) % Eos % (Auto) % Baso % (Auto) % Neut # (Auto) (1.40-6.50) K/uL Lymph # (Auto) (1.2-3.4) K/uL [place] # (Auto) (0.11-0.59) K/uL Eos # (Auto) (0-0.50) K/uL Baso # (Auto) (0-0.2) K/uL Immature Gran # (Auto) (0.01-0.20) K/uL VBG pH 7.39 (7.36-7.41) VBG pCO2 50 (38-50) mmHg VBG pO2 28 mmHg VBG HCO3 30 mmol/L VBG O2 Saturation < 60.0 % VBG Base Excess 4.2 mEq/L Sodium (136-145) mmol/L Potassium (3.5-5.1) mmol/L Chloride (98-107) mmol/L Carbon Dioxide (21-32) mmol/L Anion Gap (3-11) BUN (6-23) mg/dl Creatinine (0.6-1.4) mg/dl Est Cr Clr Drug Dosing Est GFR ( Amer) ml/min Est GFR (Non-Af Amer) ml/min BUN/Creatinine Ratio (10-20) Glucose (70-99(Fasting)) mg/dl Calcium (8.6-10.3) mg/dl Magnesium (1.7-2.4) mg/dl Total Bilirubin (0.2-1.0) mg/dl AST (13-39) U/L ALT (7-52) U/L Alkaline Phosphatase (34-104) U/L Troponin I High Sens (0-20) pg/ml B-Natriuretic Peptide 118 H (0-100) pg/ml Total Protein (6.0-8.3) gm/dl Albumin (3.4-5.0) gm/dl Globulin (2.5-4.0) gm/dl Albumin/Globulin Ratio (0.9-2) TSH 1.134 (0.300-4.500) uIu/ml SARS-CoV-2 (PCR) (Negative) Influenza Type A (PCR) (Neg) Influenza Type B (PCR) (Neg) RSV (RT-PCR) (Neg) Imaging Data Attestation: I personally reviewed and interpreted this imaging study as follows: My Impression: Chest x-ray: Cardiomegaly with cephalization Radiologist's Impression: Chest X-Ray 10/07/22 17:30 XR chest 1V portable HISTORY: Dyspnea COMPARISON: Chest 06/14/2022. FINDINGS: No pneumothorax. No pleural effusions. There are low lung volumes. Diffuse interstitial thickening is again noted consistent with fibrotic change. There is progressive perihilar interstitial thickening suggestive of mild congestive change. The heart remains enlarged. Distal resection of the right clavicle again noted. IMPRESSION: 1. Progressive interstitial thickening which likely represents pulmonary vascular congestion on the background of chronic interstitial change. 2. Stable cardiomegaly. ACT 112: Negative or not required by law. Electronically signed by: Gonzalo Velásquez M.D. 10/07/2022 6:15 PM ECG Data Attestation: I personally reviewed and interpreted this ECG as follows: Interpretation: Sinus rhythm with rate of 76. MO QRS and QTc intervals within normal limits. No ST elevation or ST depression. [facility] Narrative 1802: The patient was evaluated in room A3. A complete history and physical exam was performed Cardiac monitoring: An order was placed for continuous cardiac monitoring. The monitor shows a rate of 80 with sinus rhythm interpreted by me 1845: Vital signs stable on supplemental oxygen via nasal cannula. Status post 1 DuoNeb the patient's wheezing is improved however is still having inspiratory rales. Patient's chest x-ray does show cardiomegaly with cephalization. EMR is reviewed and the patient has no recent echo. Troponin negative. Patient be treated with Lasix and admitted to the [facility] team for cardiology evaluation for possibility of new diagnosis of CHF. Impression & Plan Fluid overload Discharge Plan Visit Data Chief Complaint: Shortness of Breath/Dyspnea Stated Complaint: SOB ED Provider: Jayy Gomez Discharge Problem: Fluid overload Patient Disposition: Admitted As Inpatient Discharge Instructions Interventions: ED Discharge Assessment Last Done: 10/07/22 21:15
[2022-10-07 18:34] LABS: Alanine Aminotransferase 12 U/L (7-52); Albumin Globulin Ratio 0.9 (0.9-2); Albumin Level 3.6 gm/dl (3.4-5.0); Alkaline Phosphatase 103 U/L (34-104); Anion Gap 7 (3-11); Aspartate Aminotransferase 20 U/L (13-39); BUN Creatinine Ratio 23.9 (10-20); Bilirubin,Total 0.8 mg/dl (0.2-1.0); Blood Urea Nitrogen 32 mg/dl (6-23); Calcium 9.2 mg/dl (8.6-10.3); Carbon Dioxide 27 mmol/L (21-32); Chloride 103 mmol/L (98-107); Est GFR (African American) 56.8 ml/min; Glucose 133 mg/dl (70-99(Fasting)); Potassium 4.1 mmol/L (3.5-5.1); Sodium 137 mmol/L (136-145); Total Protein 7.6 gm/dl (6.0-8.3)
[2022-10-07 18:39] LABS: Troponin I High Sensitivity 12.7 pg/ml (0-20)
[2022-10-07 18:40] LABS: Influenza A virus by PCR Negative (Neg); Influenza B virus by PCR Negative (Neg); RSV by PCR Negative (Neg); SARS CoV2 RNA(COVID-19) Ceph NEGATIVE (Negative)
[2022-10-07] MEDS ORDERED: FUROSEMIDE 40 MG/4 ML VIAL IV ONE (18:41)
[2022-10-07 19:08] LABS: Base Excess VBG 4.2 mEq/L; HCO3 VBG 30 mmol/L; Oxygen Saturation VBG < 60.0 %; PCO2 VBG 50 mmHg (38-50); PO2 VBG 28 mmHg; pH VBG 7.39 (7.36-7.41)
[2022-10-07 20:01] LABS: Magnesium 1.9 mg/dl (1.7-2.4)
[2022-10-07] MEDS ORDERED: MAGNESIUM SULFATE / D5W 1 GM/100 ML BAG IV ONE (20:16)
--- NOTE | 2022-10-07 20:19 | XRay Report ---
XR hip RT 2V w pelvis CLINICAL HISTORY: R hip pain COMPARISON STUDY: None. FINDINGS: No acute fracture or dislocation within the pelvis or hips. The sacrum is intact. Soft tiss ues are unremarkable. Mild degenerative changes within the bilateral hips. IMPRESSION: No fracture or dislocation within the pelvis or hips. ACT 112: Negative or not required by law. Electronically signed by: Gonzalo Velásquez M.D. 10/07/2022 8:18 PM
--- NOTE | 2022-10-07 20:25 | History & Physical Report ---
Date of Service October 07, 2022 Assessment & Plan (1) Acute hypoxemic respiratory failure: Plan: Secondary to acute CHF Possible pulmonary hypertension, hx interstitial lung disease, GUILLE on BiPAP, moderate TR Aspiration concerns, hx esophageal dysmotility anxiety/mood disorder, at baseline BPH, stable Hyperglycemia rule out DM past tobacco abuse PCU Supplemental O2 Baseline ABG Diuretic Rx Strict I/Os, daily weights, CHF education Initiate beta-be TTE, Cardiology consult Re: Acute CHF Swallow eval Check hemoglobin A1c DVT prophylaxis. Lovenox subcu Full code Patient requesting updates from providers. Ms. Miri Foote, contact #[phone]. Text document was generated using [email or web address] voice recognition software. It may contain grammatical or spelling errors. Kindly contact undersigned for clarification of any documentation item in question. History of Present Illness Chief Complaint: Shortness of breath Primary Care Provider: Martin Hopper MD History obtained from patient, family, and records. Medical history significant for interstitial lung disease, moderate TR, GUILLE on BiPAP, anxiety/mood disorder, esophageal dysmotility, BPH, past tobacco abuse. Last confinement May 2022 for hypoxemic respiratory failure secondary to influenza A and COVID-19 pneumonia. Last week, patient noted shortness of breath worse on exertion without chest pain. Patient also noted abdominal distention, unquantified weight gain without leg swelling. Patient compliant with BiPAP. No chest pain. Cough productive of clear sputum. Coughing with meals/water intake which has never happened before. O2 sats 80s upon arrival at the ER. Lasix and neb treatment administered at the ER. 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 Allergies Allergy/AdvReac Type Severity Reaction Status Date / Time No Known Allergies Allergy Verified 10/07/22 18:31 Home Medications Medication Instructions Recorded Confirmed Type cyclobenzaprine 5 mg tablet 5 mg PO TID PRN Muscle Spasm 06/12/22 10/07/22 History levocetirizine 2.5 mg/5 mL oral 2.5 mg PO PM PRN Allergic Symptoms 06/12/22 10/07/22 History solution omeprazole 20 mg capsule,delayed 20 mg PO DAILY 12/29/22 04/25/23 History release oxybutynin chloride 5 mg 5 mg PO DAILY 06/12/22 10/07/22 History tablet,extended release 24 hr sertraline 25 mg tablet 25 mg PO DAILY 06/12/22 10/07/22 History tamsulosin 0.4 mg capsule 0.4 mg PO DAILY 06/12/22 10/07/22 History Past Med/Surg History Medical History CKD (chronic kidney disease), stage III KACY (generalized anxiety disorder) GERD (gastroesophageal reflux disease) History of COVID-19 06/12/22 admitted to [facility] w/ flu and covid pneumonia- currently doing pulmonary rehab in [place] ILD (interstitial lung disease) GUILLE (obstructive sleep apnea) bipap with 2L O2 HS Surgical History H/O eye surgery H/O lithotripsy Family History Other Cancer Diabetes Heart disease Social History Smoking Status: Never smoker Cigarettes Per Day: 5-6 cigarettes/day 60 years ago; Second Hand Exposure: No; Do You Dip or Chew Tobacco: No; Tobacco Cessation Education Requested by Patient: No Hx Alcohol Use: No Hx Substance Use: No Preferred Language: Moroccan Communication Ability: Effective Supervisor Opening And Picking Required: No Beliefs That Will Affect Care: None Current Living Situation: Spouse Other Information That Helps Us Care for You: No Feels Safe at Home: Yes Safety Concerns: Feels Safe At This Time Assistive Devices: BiPap Review of Systems Review of Systems: As per HPI, all other systems reviewed and negative Physical Exam Physical Exam: GENERAL: Slightly uncomfortable, minimal respiratory distress SKIN: Pallor, warm HEENT: Partial alopecia, pale palpebral conjunctivae, no ptosis, moist buccal mucosa, nasal cannula in place NECK : Supple, no tenderness CHEST : Decreased breath sounds, no tenderness HEART : RRR, no obvious murmurs ABDOMEN: Some distention, nontender EXTREMITIES : No LE swelling/tenderness, no other conspicuous deformities noted NEUROLOGIC : Coherent, no facial asymmetry, no other gross focality Results & Data Results & Data Vital Signs (Past 12 Hours) Vital Signs Temp Pulse Pulse Resp BP BP Pulse Ox 10/07/22 19:16 88 L 10/07/22 18:31 80 17 103/73 94 10/07/22 18:00 75 35 H 127/73 91 10/07/22 17:55 78 10/07/22 17:53 75 30 H 134/76 93 10/07/22 17:46 93 10/07/22 17:46 10/07/22 17:23 37.2 C 86 20 127/69 85 L O2 Del Method O2 Flow Rate 10/07/22 19:16 Oxymask 6 10/07/22 18:31 Nebulizer 6 10/07/22 18:00 Nasal Cannula 6 10/07/22 17:55 10/07/22 17:53 Nasal Cannula 6 10/07/22 17:46 Nasal Cannula 6 10/07/22 17:46 Nasal Cannula 6 10/07/22 17:23 Room Air Laboratory Results Laboratory Results WBC 9.41 K/ul (4.8-10.8) 10/07/22 17:47 RBC 4.01 M/uL (4.70-6.10) L 10/07/22 17:47 Hgb 13.8 g/dl (14.0-18.0) L 10/07/22 17:47 Hct 39.7 % (42.0-52.0) L 10/07/22 17:47 MCV 99.0 fL (80.0-100.0) 10/07/22 17:47 MCH 34.4 pg (25.0-34.0) H 10/07/22 17:47 MCHC 34.8 g/dL (32.0-36.0) 10/07/22 17:47 RDW Std Deviation 47.4 fL (36.4-46.3) H 10/07/22 17:47 RDW Coeff of Katya 13.0 % (11.5-14.5) 10/07/22 17:47 Plt Count 228 K/uL (130-400) 10/07/22 17:47 MPV 9.3 fL (9.4-12.4) L 10/07/22 17:47 Immature Gran % (Auto) 0.6 % 10/07/22 17:47 Neut % (Auto) 70.2 % 10/07/22 17:47 Lymph % (Auto) 13.7 % 10/07/22 17:47 [place] % (Auto) 9.5 % 10/07/22 17:47 Eos % (Auto) 5.3 % 10/07/22 17:47 Baso % (Auto) 0.7 % 10/07/22 17:47 Neut # (Auto) 6.60 K/uL (1.40-6.50) H 10/07/22 17:47 Lymph # (Auto) 1.29 K/uL (1.2-3.4) 10/07/22 17:47 [place] # (Auto) 0.89 K/uL (0.11-0.59) H 10/07/22 17:47 Eos # (Auto) 0.50 K/uL (0-0.50) 10/07/22 17:47 Baso # (Auto) 0.07 K/uL (0-0.2) 10/07/22 17:47 Immature Gran # (Auto) 0.06 K/uL (0.01-0.20) 10/07/22 17:47 VBG pH 7.39 (7.36-7.41) 10/07/22 18:44 VBG pCO2 50 mmHg (38-50) 10/07/22 18:44 VBG pO2 28 mmHg 10/07/22 18:44 VBG HCO3 30 mmol/L 10/07/22 18:44 VBG O2 Saturation < 60.0 % 10/07/22 18:44 VBG Base Excess 4.2 mEq/L 10/07/22 18:44 Sodium 137 mmol/L (136-145) 10/07/22 17:47 Potassium 4.1 mmol/L (3.5-5.1) 10/07/22 17:47 Chloride 103 mmol/L (98-107) 10/07/22 17:47 Carbon Dioxide 27 mmol/L (21-32) 10/07/22 17:47 Anion Gap 7 (3-11) 10/07/22 17:47 BUN 32 mg/dl (6-23) H 10/07/22 17:47 Creatinine 1.34 mg/dl (0.6-1.4) 10/07/22 17:47 Est Cr Clr Drug Dosing Not Reportable 10/07/22 17:47 Est GFR ( Amer) 56.8 ml/min 10/07/22 17:47 Est GFR (Non-Af Amer) 49.0 ml/min 10/07/22 17:47 BUN/Creatinine Ratio 23.9 (10-20) H 10/07/22 17:47 Glucose 133 mg/dl (70-99(Fasting)) H 10/07/22 17:47 Calcium 9.2 mg/dl (8.6-10.3) 10/07/22 17:47 Magnesium 1.9 mg/dl (1.7-2.4) 10/07/22 17:47 Total Bilirubin 0.8 mg/dl (0.2-1.0) 10/07/22 17:47 AST 20 U/L (13-39) 10/07/22 17:47 ALT 12 U/L (7-52) 10/07/22 17:47 Alkaline Phosphatase 103 U/L (34-104) 10/07/22 17:47 Troponin I High Sens 12.7 pg/ml (0-20) 10/07/22 17:47 B-Natriuretic Peptide 118 pg/ml (0-100) H 10/07/22 18:44 Total Protein 7.6 gm/dl (6.0-8.3) 10/07/22 17:47 Albumin 3.6 gm/dl (3.4-5.0) 10/07/22 17:47 Globulin 4.0 gm/dl (2.5-4.0) 10/07/22 17:47 Albumin/Globulin Ratio 0.9 (0.9-2) 10/07/22 17:47 SARS-CoV-2 (PCR) NEGATIVE (Negative) 10/07/22 17:45 Influenza Type A (PCR) Negative (Neg) 10/07/22 17:45 Influenza Type B (PCR) Negative (Neg) 10/07/22 17:45 RSV (RT-PCR) Negative (Neg) 10/07/22 17:45 Impressions Chest X-Ray 10/07/22 17:30 XR chest 1V portable HISTORY: Dyspnea COMPARISON: Chest 06/14/2022. FINDINGS: No pneumothorax. No pleural effusions. There are low lung volumes. Diffuse interstitial thickening is again noted consistent with fibrotic change. There is progressive perihilar interstitial thickening suggestive of mild congestive change. The heart remains enlarged. Distal resection of the right clavicle again noted. IMPRESSION: 1. Progressive interstitial thickening which likely represents pulmonary vascular congestion on the background of chronic interstitial change. 2. Stable cardiomegaly. ACT 112: Negative or not required by law. Electronically signed by: Gonzalo Velásquez M.D. 10/07/2022 6:15 PM Hip/Pelvis X-Ray 10/07/22 18:20 XR hip RT 2V w pelvis CLINICAL HISTORY: R hip pain COMPARISON STUDY: None. FINDINGS: No acute fracture or dislocation within the pelvis or hips. The sacrum is intact. Soft tissues are unremarkable. Mild degenerative changes within the bilateral hips. IMPRESSION: No fracture or dislocation within the pelvis or hips. ACT 112: Negative or not required by law. Electronically signed by: Gonzalo Velásquez M.D. 10/07/2022 8:18 PM Shoulder X-Ray 10/07/22 18:20 XR shoulder RT min 2V routine CLINICAL HISTORY: R shoulder pain COMPARISON STUDY: None. FINDINGS: No acute fracture or dislocation within the right shoulder. Soft tissues are unremarkable. Distal resection of the right clavicle. The remaining clavicle appears intact. No radiopaque foreign bodies. Moderate osteoarthritis at the glenohumeral joint. IMPRESSION: 1. No acute fracture or dislocation within the right shoulder. 2. Moderate osteoarthritis. ACT 112: Negative or not required by law. Electronically signed by: Gonzalo Velásquez M.D. 10/07/2022 8:22 PM Diagnostic Findings EKG as per my interpretation :Rate 75, LAD, LAFB, septal infarct, no ischemia
[2022-10-07 20:47] LABS: Base Excess ABG 4.7 mEq/L (-9-1.8); HCO3 ABG 28 mmol/L (19-24); Oxygen Saturation ABG 94.5 % (90-95); PCO2 ABG 37 mmHg (35-46); PO2 ABG 63 mmHg (80-95); pH ABG 7.49 (7.35-7.45)
[2022-10-07 21:00] LABS: Allen Test Pos (Pos)
[2022-10-07 21:13] LABS: Appearance Urine Clear (Clear); Bacteria Urine Automated Negative (Negative); Bilirubin Urine Negative (Negative); Blood Urine Trace (Negative); Cast Urine Automated 0 /lpf (0-5); Color Urine Yellow; Epithelial Cell Urine Auto 0-5 /lpf (0-5); Glucose Urine UA Negative (Negative); Ketones Urine Negative (Negative); Leukocyte Esterase Urine Negative (Negative); Nitrite Urine Negative (Negative); Protein Urine Negative (Negative); RBC Urine Automated 0-4 /hpf (0-4); Specific Gravity Urine 1.007 (1.000-1.030); Urobilinogen Urine Negative (Negative); pH Urine 6.5 (4.5-7.5)
[2022-10-07] MEDS ORDERED: CYCLOBENZAPRINE HCL 5 MG TAB PO PRN (21:54)
[2022-10-07] MEDS ORDERED: traMADol HCL 50 MG TABLET PO PRN (21:54)
[2022-10-07] MEDS ORDERED: ACETAMINOPHEN 325 MG TAB PO PRN (21:54)
[2022-10-07] MEDS ORDERED: NITROGLYCERIN SL 0.4 MG/TAB TAB SL PRN (21:54)
[2022-10-07] MEDS ORDERED: PROMETHAZINE HCL 6.25 MG in SODIUM CHLORIDE 0.9% 50 ML IV PRN (21:54)
[2022-10-08 07:33] LABS: Basophils # (auto) 0.08 K/uL (0-0.2); Basophils % (auto) 0.8 %; Eosinophils # (auto) 0.78 K/uL (0-0.50); Eosinophils % (auto) 7.3 %; Hematocrit (blood only) 38.4 % (42.0-52.0); Hemoglobin 13.4 g/dl (14.0-18.0); Immature Granulocytes # (auto) 0.18 K/uL (0.01-0.20); Immature Granulocytes % (auto) 1.7 %; Lymphocytes # (auto) 2.29 K/uL (1.2-3.4); Lymphocytes % (auto) 21.5 %; Mean Corpuscular Hemoglobin 34.5 pg (25.0-34.0); Mean Corpuscular Hgb Conc 34.9 g/dL (32.0-36.0); Mean Platelet Volume 9.4 fL (9.4-12.4); Monocytes # (auto) 1.38 K/uL (0.11-0.59); Neutrophils # (auto) 5.94 K/uL (1.40-6.50); Neutrophils % (auto) 55.7 %; Platelet Count 221 K/uL (130-400); RDW Coefficient of Variation 13.1 % (11.5-14.5); RDW Standard Deviation 47.7 fL (36.4-46.3); Red Blood Count 3.88 M/uL (4.70-6.10); White Blood Count 10.65 K/ul (4.8-10.8)
[2022-10-08] MEDS ORDERED: FUROSEMIDE INJ 20 MG/2 ML VIAL IV ONE (08:00)
[2022-10-08] MEDS: METOPROLOL TARTRATE 25 MG TAB PO SCH (08:19)
[2022-10-08] MEDS: CETIRIZINE HCL 10 MG TABLET PO PRN (08:22)
[2022-10-08] MEDS: OXYBUTYNIN CHLORIDE XL 5 MG TABCR PO SCH (08:23)
[2022-10-08] MEDS: SERTRALINE HCL 50 MG TABLET PO SCH (08:23)
[2022-10-08] MEDS: PANTOprazole 40 MG TAB PO SCH (08:23)
[2022-10-08] MEDS: TAMSULOSIN HCL 0.4 MG CAP PO SCH (08:24)
[2022-10-08 09:16] LABS: Estimated Average Glucose 126 mg/dl
[2022-10-08 09:30] LABS: BUN Creatinine Ratio 23.1 (10-20); Calcium 9.4 mg/dl (8.6-10.3); Creatinine Clr Calc Pharmacy 42.6 ml/min; Est GFR (African American) 50.8 ml/min; Est GFR (Non-African American) 43.8 ml/min
[2022-10-08] MEDS: guaiFENesin/DEXTROM SYRUP 100MG/10MG 5ML UDC PO PRN ×2 (14:37→20:33)
--- NOTE | 2022-10-08 14:51 | Cardiology Consultation ---
Date of Consultation October 08, 2022 Assessment & Plan (1) Fluid overload: (2) Acute hypoxemic respiratory failure: (3) ILD (interstitial lung disease): (4) CKD (chronic kidney disease), stage III: (5) GUILLE (obstructive sleep apnea): Plan Patient is an 82-year-old male with underlying interstitial lung disease who presents with worsening dyspnea. Clinical history as outlined above overall function capacity has declined over the past 10 months in part secondary to acute viral illnesses with COVID and influenza but now with signs and symptoms of worsening hypoxia and respiratory failure. Suspect component of mild volume overload with abdominal distention. Echocardiogram demonstrates preserved LV systolic function, no significant valvular disease or pulmonary hypertension. Mild resting bradycardia present continue telemetry Patient has responded to IV furosemide We will add low-dose spironolactone to regimen. May require additional diuretic on discharge May consider pulmonology evaluation History of Present Illness Reason for Consultation: Shortness of breath, fluid overload Requesting Physician: Dr. Chaudhry Attending Physician: Esa Chaudhry MD History of Present Illness Patient is an 82-year-old male with ongoing issues which include 1. Interstitial lung disease, progressive 2. Obstructive sleep apnea on BiPAP and oxygen 3. Stage III kidney disease Patient presents noting hospitalization with with hypoxic respiratory failure May with COVID, June 2022 with influenza infection. Previously required oxygen continuous but had return to fair baseline but now notes increasing dyspnea x2 weeks duration. Worse in the last several days. He sought ER evaluation where he was found to be hypoxic on presentation. Chest x-ray demonstrated possible superimposed edema on chronic significant interstitial lung disease Patient is received IV furosemide with brisk diuresis today still requiring oxygen. No chest pains no tachypalpitations no dizziness lightheadedness syncope or near syncope. Is frustrated that overall exercise capacity has diminished significantly since last summer No acute weight loss or gain. Mild increase in abdominal girth aware. Has been faithful with BiPAP and oxygen at night. No bleeding difficulties melena medic easier dysuria hematuria Allergies Allergy/AdvReac Type Severity Reaction Status Date / Time No Known Allergies Allergy Verified 10/07/22 18:31 Home Medications Medication Instructions Recorded Confirmed Type cyclobenzaprine 5 mg tablet 5 mg PO TID PRN Muscle Spasm 06/12/22 10/07/22 History levocetirizine 2.5 mg/5 mL oral 2.5 mg PO PM PRN Allergic Symptoms 06/12/22 10/07/22 History solution omeprazole 20 mg capsule,delayed 20 mg PO DAILY 06/12/22 10/07/22 History release oxybutynin chloride 5 mg 5 mg PO DAILY 06/12/22 10/07/22 History tablet,extended release 24 hr sertraline 25 mg tablet 25 mg PO DAILY 06/12/22 10/07/22 History tamsulosin 0.4 mg capsule 0.4 mg PO DAILY 06/12/22 10/07/22 History Patient History Medical History CKD (chronic kidney disease), stage III KACY (generalized anxiety disorder) GERD (gastroesophageal reflux disease) History of COVID-19 06/12/22 admitted to [facility] w/ flu and covid pneumonia- currently doing pulmonary rehab in [place] ILD (interstitial lung disease) GUILLE (obstructive sleep apnea) bipap with 2L O2 HS Surgical History H/O eye surgery H/O lithotripsy Family History Other Cancer Diabetes Heart disease Social History Smoking Status: Never smoker Cigarettes Per Day: 5-6 cigarettes/day 60 years ago; Second Hand Exposure: No; Do You Dip or Chew Tobacco: No; Tobacco Cessation Education Requested by Patient: No Hx Alcohol Use: No Hx Substance Use: No Preferred Language: Hebrew Communication Ability: Effective Standards Engineer 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: No Beliefs That Will Affect Care: None Current Living Situation: Spouse Other Information That Helps Us Care for You: No Feels Safe at Home: Yes Safety Concerns: Feels Safe At This Time Assistive Devices: BiPap and Oxygen - at Night Review of Systems Review of Systems: All systems reviewed & are unremarkable except as noted in HPI & below Physical Exam Constitutional: + thin; no acute distress Eyes: PERRL, conjunctivae normal, anicteric sclerae ENMT: external ear and nose normal, oropharynx normal Facial flushing Neck: trachea midline, no thyromegaly Respiratory: Auscultation: + crackles and + rhonchi Cardiovascular: Rate/Rhythm: regular rate and regular rhythm Heart Sounds: normal S1 and normal S2; no murmur Vessels: no JVD Extremities: no edema Gastrointestinal (Abdomen): Percussion/Palpation: abdomen soft (Mildly increased girth) Musculoskeletal: no cyanosis or clubbing, extremities motor strength 5/5 Results & Data Vital Signs (Past 12 Hours) Vital Signs Temp Pulse Pulse Resp BP Pulse Ox O2 Del Method 10/08/22 11:15 36.7 C 58 L 20 122/60 92 Nasal Cannula 10/08/22 08:00 Nasal Cannula 10/08/22 03:05 82 20 92 O2 Flow Rate 10/08/22 11:15 4 10/08/22 08:00 4 10/08/22 03:05 3 Diagnostic Findings Past pulmonary visit 08/05/2022, assessment 1. Interstitial lung disease a. Previously suspected to be due to uncontrolled reflux-- does have noted dysphagia from a fluoroscopic swallow exam, recent EGD normal b. Autoimmune serologies negative c. No occupational hazards to contribute 2. Mediastinal adenopathy a. Suspect enlarged due to recent coronavirus and influenza infection b. Repeat imaging in 3-6 months 3. Chronic respiratory failure with hypoxia a. S/p influenza and coronavirus infection b. No longer requiring oxygen per patient 3. Update 6 [address] 4. GERD with esophageal dysmotiliy a. Continue PPI daily b. Patient counseled on conservative management of gerd including head of bed elevated with use of a wedge, not eating within 3 hours of bed, avoiding spicy/acidic foods including red sauces, hot sauces, tomatoes, chocolate and caffeine containing beverages such as caffeinated tea/coffee 5. Allergic rhinitis a. Continue non-drowsy antihistamine daily 6. Decreased DLCO a. Suspect due to fibrosis b. If symptoms worsen, repeat PFTs with DLCO c. The finding of isolated reduced diffusing capacity can be seen with anemia, pulmonary vascular disease (such as pulmonary hypertension or pulmonary embolism), cardiac disease, or early or mixed obstructive/restrictive lung disease. Patient had known decreased TLC.
[2022-10-08] MEDS: SPIRONOLACTONE 12.5 MG TAB PO SCH (15:21)
--- NOTE | 2022-10-08 16:42 | Electrocardiogram Report ---
Test Reason : Blood Pressure : / mmHG Vent. Rate : 076 BPM Atrial Rate : 076 BPM P-R Int : 178 ms QRS Dur : 088 ms QT Int : 362 ms P-R-T Axes : 053 001 038 degrees QTc Int : 407 ms Sinus rhythm with Premature atrial complexes Otherwise normal ECG When compared with ECG of 12-JUN-2022 13:08, Premature atrial complexes are now Present Questionable change in QRS axis Confirmed by Dewey Morrison ([id number]) on 10/08/2022 4:42:05 PM Referred By: REFERRED SELF Confirmed By:Dewey Morrison
[2022-10-08] MEDS ORDERED: FUROSEMIDE 40 MG/4 ML VIAL IV ONE (17:02)
[2022-10-08 17:09] LABS: Base Excess ABG 3.5 mEq/L (-9-1.8); HCO3 ABG 28 mmol/L (19-24); Oxygen Saturation ABG 96.7 % (90-95); PCO2 ABG 40 mmHg (35-46); PO2 ABG 78 mmHg (80-95); pH ABG 7.45 (7.35-7.45)
[2022-10-08 17:10] LABS: Allen Test Pos (Pos)
--- NOTE | 2022-10-08 17:56 | Hospitalist Progress Note ---
Date of Service October 08, 2022 Assessment & Plan (1) Acute hypoxemic respiratory failure: Plan: Secondary to acute CHF Secondary to diastolic heart failure and is complicated by interstitial lung disease Received Lasix in the emergency room and also 20 mg more this morning Has had more than 1 L negative fluid balance Appreciate cardiology input and recommendation Strict I/Os, daily weights, CHF education Initiate beta-be Condition got worse in the evening and the chest x-ray did show similar pulmonary edema Received another dose of Lasix of 40 mg and BiPAP was administered ABG did show pH CO2 of 40 and O2 of more than 70 We will continue BiPAP overnight Interstitial lung disease with GUILLE on BiPAP at home Possible pulmonary hypertension, Chest x-ray showed chronic bibasilar changes with superimposed pulmonary edema Received additional dose of Lasix 40 mg in the afternoon Aspiration concerns, hx esophageal dysmotility We will get a speech therapy evaluation Anxiety/mood disorder, at baseline BPH, stable Hyperglycemia rule out DM Past tobacco abuse DVT prophylaxis. Lovenox subcu Full code Patient requesting updates from providers. Js Miri Foote, contact #[phone]. Admission and Anticipated Discharge Date Admission Date: October 07, 2022 Subjective 10/08/2022 The patient was seen and examined in telemetry unit in the morning He was feeling better following diuresis and did not have any chest pain and palpitation Later on his condition got worse and he required BiPAP to maintain saturation He was noted to be pleasantly confused Emergency ABG, chest x-ray and Lasix 40 mg was given Review of Systems Review of Systems: All systems reviewed and unremarkable except as noted below Physical Exam Physical Exam: Lying in bed in minimal distress on BiPAP Constitutional: + ill appearing and average body habitus Eyes: PERRL, conjunctivae normal, anicteric sclerae ENMT: external ear and nose normal, oropharynx normal Neck: trachea midline, no thyromegaly Respiratory: + respiratory distress Auscultation: + diminished lung sounds and + crackles Cardiovascular: Rate/Rhythm: regular rate and regular rhythm; not tachycardic Heart Sounds: normal S1, normal S2 and + murmur Extremities: no edema Gastrointestinal (Abdomen): Inspection/Auscultation: normal bowel sounds; abdomen not distended Percussion/Palpation: abdomen soft; abdomen nontender Musculoskeletal: No acute arthritis involving the joint Neurologic: normal touch/pain/proprioception and moves all extremities; no focal motor deficits Psychiatric: A+Ox3, euthymic affect Lymphatic: no cervical or axillary lymphadenopathy Results & Data Results & Data Vital Signs (Past 12 Hours) Vital Signs Temp Pulse Resp BP Pulse Ox O2 Del Method O2 Flow Rate 10/08/22 15:22 37 C 89 20 136/75 90 BiPAP 10/08/22 11:15 36.7 C 58 L 20 122/60 92 Nasal Cannula 4 10/08/22 08:00 Nasal Cannula 4 Laboratory Results Short CBC 10/08/22 Range/Units 06:57 WBC 10.65 (4.8-10.8) K/ul Hgb 13.4 L (14.0-18.0) g/dl Hct 38.4 L (42.0-52.0) % Plt Count 221 (130-400) K/uL BMP 10/08/22 06:57 Sodium 137 Potassium 4.0 Chloride 100 Carbon Dioxide 28 BUN 34 H Creatinine 1.47 H Glucose 107 H Calcium 9.4 Urine 10/07/22 Range/Units 20:55 Urine Color Yellow Urine Appearance Clear (Clear) Urine pH 6.5 (4.5-7.5) Ur Specific [place] 1.007 (1.000-1.030) Urine Protein Negative (Negative) Urine Glucose (UA) Negative (Negative) Medications Administered Current Inpatient Medications Acetaminophen (Acetaminophen 325 Mg Tab) 650 mg PO Q4H PRN PRN Reason: Pain or Fever Stop: 11/06/22 21:53 Last Admin: 10/08/22 03:24 Dose: 650 mg Cetirizine HCl (Cetirizine Hcl 10 Mg Tablet) 5 mg PO PM PRN PRN Reason: Allergic Symptoms Stop: 11/06/22 22:19 Last Admin: 10/08/22 08:22 Dose: 5 mg Cyclobenzaprine HCl (Cyclobenzaprine Hcl 5 Mg Tab) 5 mg PO TID PRN PRN Reason: Muscle Spasm Stop: 11/06/22 21:53 Last Admin: 10/08/22 08:23 Dose: 5 mg Guaifenesin/Dextromethorphan (Guaifenesin/Dextrom Syrup 100mg/10mg 5ml Udc) 5 ml PO Q6H PRN PRN Reason: Cough Stop: 11/07/22 14:10 Last Admin: 10/08/22 14:37 Dose: 5 ml Promethazine HCl 6.25 mg/ (Sodium Chloride) 50.25 mls @ 201 mls/hr IV Q6H PRN PRN Reason: Nausea And Vomiting Stop: 11/06/22 21:53 Metoprolol Tartrate (Metoprolol Tartrate 25 Mg Tab) 12.5 mg PO QAM DAVID Stop: 11/07/22 08:59 Last Admin: 10/08/22 08:19 Dose: 12.5 mg Nitroglycerin (Nitroglycerin Sl 0.4 Mg/Tab Tab) 0.4 mg SL UD PRN PRN Reason: Chest Pain Stop: 11/06/22 21:53 Oxybutynin Chloride (Oxybutynin Chloride Xl 5 Mg Tabcr) 5 mg PO DAILY DAIVD Stop: 11/07/22 08:59 Last Admin: 10/08/22 08:23 Dose: 5 mg Pantoprazole Sodium (Pantoprazole 40 Mg Tab) 40 mg PO DAILY DAVID Stop: 11/07/22 08:59 Last Admin: 10/08/22 08:23 Dose: 40 mg Sertraline HCl (Sertraline Hcl 50 Mg Tablet) 25 mg PO DAILY DAVID Stop: 11/07/22 08:59 Last Admin: 10/08/22 08:23 Dose: 25 mg Spironolactone (Spironolactone 12.5 Mg Tab) 12.5 mg PO DAILY DAVID Stop: 11/07/22 14:59 Last Admin: 10/08/22 15:21 Dose: 12.5 mg Tamsulosin HCl (Tamsulosin Hcl 0.4 Mg Cap) 0.4 mg PO DAILY DAVID Stop: 11/07/22 08:59 Last Admin: 10/08/22 08:24 Dose: 0.4 mg Tramadol HCl (Tramadol Hcl 50 Mg Tablet) 25 mg PO Q4H PRN PRN Reason: Pain Stop: 11/06/22 21:53
--- NOTE | 2022-10-08 17:59 | XRay Report ---
XR chest 1V portable CLINICAL HISTORY: CHF COMPARISON STUDY: Chest radiograph October 07, 2022 and June 14, 2022. FINDINGS: There is no pneumothorax or pleural effusion. Cardiomegaly is unchanged. Interstitial thick ening and possible mild airspace opacities is again noted. Suspected underlying interstitial lung dis ease is noted. IMPRESSION: No significant change in interstitial thickening and possible mild airspace opacities. T he findings favor pulmonary edema superimposed upon initial lung disease. An infectious process could appear similar. ACT 112: Negative or not required by law. Electronically signed by: Vaibhav Rodriguez M.D. 10/08/2022 5:58 PM
[2022-10-09] MEDS: guaiFENesin/DEXTROM SYRUP 100MG/10MG 5ML UDC PO PRN ×3 (05:43→23:55)
[2022-10-09 06:55] LABS: Basophils # (auto) 0.06 K/uL (0-0.2); Basophils % (auto) 0.5 %; Eosinophils % (auto) 3.5 %; Hematocrit (blood only) 40.6 % (42.0-52.0); Hemoglobin 14.3 g/dl (14.0-18.0); Immature Granulocytes # (auto) 0.08 K/uL (0.01-0.20); Immature Granulocytes % (auto) 0.7 %; Lymphocytes % (auto) 18.4 %; Mean Corpuscular Hemoglobin 34.6 pg (25.0-34.0); Mean Corpuscular Hgb Conc 35.2 g/dL (32.0-36.0); Mean Corpuscular Volume 98.3 fL (80.0-100.0); Mean Platelet Volume 9.3 fL (9.4-12.4); Monocytes # (auto) 1.54 K/uL (0.11-0.59); Monocytes % (auto) 13.5 %; Neutrophils # (auto) 7.22 K/uL (1.40-6.50); Neutrophils % (auto) 63.4 %; Platelet Count 224 K/uL (130-400); RDW Coefficient of Variation 13.1 % (11.5-14.5); RDW Standard Deviation 46.9 fL (36.4-46.3); Red Blood Count 4.13 M/uL (4.70-6.10)
[2022-10-09 07:09] LABS: BUN Creatinine Ratio 28.4 (10-20); Calcium 9.5 mg/dl (8.6-10.3); Creatinine Clr Calc Pharmacy 36.7 ml/min; Est GFR (African American) 47.6 ml/min; Est GFR (Non-African American) 41.1 ml/min; Magnesium 2.1 mg/dl (1.7-2.4)
[2022-10-09] MEDS: METOPROLOL TARTRATE 25 MG TAB PO SCH (08:16)
[2022-10-09] MEDS: SPIRONOLACTONE 12.5 MG TAB PO SCH (08:16)
[2022-10-09] MEDS: CETIRIZINE HCL 10 MG TABLET PO PRN (08:17)
[2022-10-09] MEDS: PANTOprazole 40 MG TAB PO SCH (08:18)
[2022-10-09] MEDS: TAMSULOSIN HCL 0.4 MG CAP PO SCH (08:18)
[2022-10-09] MEDS: SERTRALINE HCL 50 MG TABLET PO SCH (08:18)
[2022-10-09] MEDS: OXYBUTYNIN CHLORIDE XL 5 MG TABCR PO SCH (08:19)
--- NOTE | 2022-10-09 11:20 | Cardiology Progress Note ---
Date of Service October 09, 2022 Assessment & Plan (1) Fluid overload: (2) Acute hypoxemic respiratory failure: (3) ILD (interstitial lung disease): (4) CKD (chronic kidney disease), stage III: (5) GUILLE (obstructive sleep apnea): Plan Patient is an 82-year-old male with underlying interstitial lung disease who presents with worsening dyspnea. Clinical history as outlined above overall function capacity has declined over the past 10 months in part secondary to acute viral illnesses with COVID and influenza but now with signs and symptoms of worsening hypoxia and respiratory failure. Suspect component of mild volume overload with abdominal distention. Echocardiogram demonstrates preserved LV systolic function, no significant valvular disease or pulmonary hypertension. Mild resting bradycardia present continue telemetry Patient has responded to IV furosemide We will add low-dose spironolactone to regimen. May require additional diuretic on discharge May consider pulmonology evaluation 10/09/2022 Patient reexamined with continued diffuse crackles, less rhonchi. Abdominal distention improved. No peripheral edema. Findings of right heart failure improving though oxygen demands persist Will give additional dose of furosemide 40 mg IV today. Continue spironola ctone. Renal function did decline with dosing from past evening As before component of diastolic heart failure superimposed on chronic underlying interstitial lung disease. Discussed with patient and family Admission and Anticipated Discharge Date Admission Date: October 07, 2022 Subjective Patient was seen and examined, chart, medications, telemetry reviewed. Has had diuresis since admission but still with significant oxygen demands. Abdominal distention less pronounced. No peripheral edema, jugular venous distention Review of Systems Review of Systems: All systems reviewed & are unremarkable except as noted in Subjective Physical Exam Constitutional: + thin; no acute distress Eyes: PERRL, conjunctivae normal, anicteric sclerae ENMT: external ear and nose normal, oropharynx normal Neck: trachea midline, no thyromegaly Respiratory: Auscultation: + crackles Cardiovascular: Rate/Rhythm: regular rate and regular rhythm Heart Sounds: normal S1 and normal S2; no murmur Vessels: no JVD Extremities: no edema Gastrointestinal (Abdomen): Percussion/Palpation: abdomen soft (Mildly increased girth) Musculoskeletal: no cyanosis or clubbing, extremities motor strength 5/5 Results & Data Vital Signs (Past 12 Hours) Vital Signs Temp Pulse Pulse Pulse Resp BP Pulse Ox 10/09/22 10:16 66 10/09/22 10:16 10/09/22 08:00 36.4 C L 73 127/75 94 10/09/22 08:13 36.3 C L 72 20 118/73 96 10/09/22 03:58 37.1 C 68 19 113/66 92 10/09/22 00:02 36.4 C L 65 16 122/64 92 O2 Del Method O2 Flow Rate 10/09/22 10:16 10/09/22 10:16 Oxymask 7 10/09/22 08:00 Oxymask 7 10/09/22 08:13 Oxymask 7 10/09/22 03:58 Oxymask 7 10/09/22 00:02 Oxymask 7 Laboratory Results Laboratory Results - last 24 hr 10/08/22 10/09/22 10/09/22 17:01 06:13 06:13 WBC 11.40 H RBC 4.13 L Hgb 14.3 Hct 40.6 L MCV 98.3 MCH 34.6 H MCHC 35.2 RDW Std Deviation 46.9 H RDW Coeff of Katya 13.1 Plt Count 224 MPV 9.3 L Immature Gran % (Auto) 0.7 Neut % (Auto) 63.4 Lymph % (Auto) 18.4 [place] % (Auto) 13.5 Eos % (Auto) 3.5 Baso % (Auto) 0.5 Neut # (Auto) 7.22 H Lymph # (Auto) 2.10 [place] # (Auto) 1.54 H Eos # (Auto) 0.40 Baso # (Auto) 0.06 Immature Gran # (Auto) 0.08 ABG pH 7.45 ABG pCO2 40 ABG pO2 78 L ABG HCO3 28 H ABG O2 Saturation 96.7 H ABG Base Excess 3.5 H Artie Test Pos Oxygen Given 84-88% Sodium 135 L Potassium 4.0 Chloride 97 L Carbon Dioxide 27 Anion Gap 11 BUN 44 H Creatinine 1.55 H Est Cr Clr Drug Dosing 36.7 Est GFR ( Amer) 47.6 Est GFR (Non-Af Amer) 41.1 BUN/Creatinine Ratio 28.4 H Glucose 119 H Calcium 9.5 Magnesium 2.1
[2022-10-09] MEDS ORDERED: FUROSEMIDE 40 MG/4 ML VIAL IV ONE (11:21)
--- NOTE | 2022-10-09 12:33 | Pulmonary Consultation ---
Date of Consultation October 09, 2022 Assessment & Plan (1) Acute hypoxemic respiratory failure: (2) ILD (interstitial lung disease): (3) CKD (chronic kidney disease), stage III: (4) GUILLE (obstructive sleep apnea): Plan IMPRESSION: 82-year-old male with a significant past medical history of interstitial lung disease and obstructive sleep apnea presenting with acute on chronic hypoxic respiratory failure. RECOMMENDATIONS: 1. Acute on chronic hypoxic respiratory failure - * Multifactorial in the patient with prior history of interstitial lung disease and likely degree of pulmonary hypertension and diastolic dysfunction. * Patient has received diuresis and is now down to 2 to 3 L of nasal cannula at this point. * We do not have prior CT imaging studies to evaluate degree of underlying ILD. Additionally, we do not have access to the patient's outpatient records and the patient is not aware of any prior pulmonary studies that he has had performed in the past including pulmonary function testing, 6-minute walk test, or CT of the lungs. They have been following with [facility] locally at [facility]. They are unaware of seen any ILD specialists previously. * Will order CT chest without contrast to evaluate lung parenchyma. * Will order ILD panel to assess for possible underlying causes. * Will also order procalcitonin in addition to CT to evaluate for possible infectious contribution. * Will add additional recommendations pending imaging results. * Encourage incentive spirometry and flutter valve. * Patient without bronchospasm. Mainly presents with rales which is likely more consistent with his ILD pathology. * Patient will require pulmonary function testing in the outpatient setting moving forward. * Depending on his progression, may benefit from pulmonary rehab in the outpatient setting as well. 2. Interstitial lung disease - * As above 3. Obstructive sleep apnea - * Continue with home BiPAP settings. Thank you for allowing us to participate in the care of this patient. We will continue to follow along throughout his hospitalization. Supervising Physician Co-Signing Physician Notes Patient seen and examined. EMR reviewed. Discussed with PA and agree with assessment plan as noted. Patient has what appears to be progressive ILD of unclear etiology. His work-up is not available to review. He appears to be back to his baseline from an oxygenation standpoint. His CT scan is not classic for UIP pattern. He does have subpleural fibrosis with some associated traction bronchiectasis but there is also groundglass opacities in the apices. Unclear if this might represent at ypical heart failure or alveolitis. Will follow-up with serological evaluation. I do not think the patient's age would support bronchoscopy or lung biopsy at this point in time. Could consider a trial of empiric immune suppression with close clinical follow-up and consideration of discontinuation or de-escalation depending on radiographic and clinical response. Agree with optimization of the patient's volume status. At this point time I would recommend his Gorman catheter be discontinued as he can void spontaneously. I discussed with the patient the importance of getting out of bed and ambulating is much as possible. He can ambulate with oxygen in place. Outpatient pulmonary rehab and continued follow-up with his pulmonary providers at [facility] as recommended. The above recommendations and plan were discussed with the patient as well as his and daughter at bedside. We will continue to follow. Feel free to contact us with questions or concerns. History of Present Illness Reason for Consultation: Acute Hypoxemic Res Failure,Pulmonary fibrosis Requesting Physician: Dr. Chaudhry Attending Physician: Esa Chaudhry MD History of Present Illness Patient is an 82-year-old male with significant past medical history of anxiety, CKD 3, obstructive sleep apnea, and interstitial lung disease. Patient was admitted to our institution on 06/12/2022 with influenza A and coronavirus OC 43 infection. He was hypoxic at that point, but it appears as though the patient had had a prior diagnosis of interstitial lung disease for which she had been evaluated in the outpatient setting. The patient does have a history of obstructive sleep apnea for which he wears BiPAP at home with 2.5 L bleed in. The patient has recently followed in the outpatient setting with pulmonary medicine. He states that he has required occasionally 2 L nasal cannula as needed for hypoxia and dyspnea exertion. He states that over the last week or so he has had progressively worsening shortness of breath. He states that he attempted to mow his grass and was only able to make a few passes before he had to stop to catch his breath. This is abnormal for him. Patient has a known history of interstitial lung disease and is followed with sleep and pulmonary medicine through [facility] in the outpatient setting. He has not previously undergone pulmonary function testing. He is uncertain of prior advanced imaging including CT of the lungs. He does not utilize inhalers. He is uncertain of any prior serological work-up as well. Patient presented with concerns for volume overload and was found to have a degree of diastolic dysfunction with concerns for volume overload. He was diuresed and has slowly improved with his oxygen saturation. Upon evaluation at bedside, the patient is awake, alert, and oriented. He reports that he feels well as long as he is not exerting himself. He reports that he feels significantly short of breath with any exertion. He denies any associated chest pain, palpitations, pleuritic pain, hemoptysis, dizziness, or lightheadedness. He reports no history of rheumatologic illnesses. No family history of interstitial lung diseases. 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 Allergies Allergy/AdvReac Type Severity Reaction Status Date / Time No Known Allergies Allergy Verified 10/07/22 18:31 Home Medications Medication Instructions Recorded Confirmed Type cyclobenzaprine 5 mg tablet 5 mg PO TID PRN Muscle Spasm 06/12/22 10/07/22 History levocetirizine 2.5 mg/5 mL oral 2.5 mg PO PM PRN Allergic Symptoms 06/12/22 10/07/22 History solution omeprazole 20 mg capsule,delayed 20 mg PO DAILY 06/12/22 10/07/22 History release oxybutynin chloride 5 mg 5 mg PO DAILY 06/12/22 10/07/22 History tablet,extended release 24 hr sertraline 25 mg tablet 25 mg PO DAILY 06/12/22 10/07/22 History tamsulosin 0.4 mg capsule 0.4 mg PO DAILY 06/12/22 10/07/22 History Patient History Medical History CKD (chronic kidney disease), stage III KACY (generalized anxiety disorder) GERD (gastroesophageal reflux disease) History of COVID-19 06/12/22 admitted to [facility] w/ flu and covid pneumonia- currently doing pulmonary rehab in [place] ILD (interstitial lung disease) GUILLE (obstructive sleep apnea) bipap with 2L O2 HS Surgical History H/O eye surgery H/O lithotripsy Family History Other Cancer Diabetes Heart disease Social History Smoking Status: Never smoker Cigarettes Per Day: 5-6 cigarettes/day 60 years ago; Second Hand Exposure: No; Do You Dip or Chew Tobacco: No; Tobacco Cessation Education Requested by Patient: No Hx Alcohol Use: No Hx Substance Use: No Preferred Language: Burmese Communication Ability: Effective Java Sybase Developer Required: No Beliefs That Will Affect Care: None Current Living Situation: Spouse Other Information That Helps Us Care for You: No Feels Safe at Home: Yes Safety Concerns: Feels Safe At This Time Assistive Devices: BiPap and Oxygen - at Night Review of Systems Review of Systems: A complete 10 point review of systems was reviewed with the patient with pertinent positives and negatives as per history of present illness. All else were negative. Physical Exam Physical Exam: VITAL SIGNS - Vital signs and nursing notes were reviewed. GENERAL - 82-year-old male appearing his stated age who is in no acute distress. Communicates well with provider and answers questions appropriately. SKIN - Without rashes or lesions. NOSE - Midline and without cyanosis. No epistaxis or purulent drainage noted. MOUTH/OROPHARYNX - Without perioral cyanosis. Buccal mucosa pink and moist. NECK - Neck with FROM. LUNGS - Auscultation reveals bibasilar Rales with predominant LEFT-sided Rales to auscultation. No wheezing appreciated. CARDIAC - RRR with S1/S2. No murmur, rubs, or gallops appreciated. ABDOMEN - Abdominal inspection demonstrates flat. BS normoactive all four quadrants. No tenderness, palpable masses, or ascites noted. EXTREMITIES - No pretibial edema present. +3/5 radial palpated throughout. PSYCH - A&Ox3 and cooperates fully with examiner. Pt is very pleasant and interacts well with examiner. Results & Data Results & Data Vital Signs (Past 12 Hours) Vital Signs Temp Pulse Pulse Pulse Resp BP Pulse Ox 10/09/22 11:00 36.4 C L 62 16 111/68 96 10/09/22 10:16 66 10/09/22 10:16 10/09/22 08:00 36.4 C L 73 127/75 94 10/09/22 08:13 36.3 C L 72 20 118/73 96 10/09/22 03:58 37.1 C 68 19 113/66 92 O2 Del Method O2 Flow Rate 10/09/22 11:00 Oxymask 7 10/09/22 10:16 10/09/22 10:16 Oxymask 7 10/09/22 08:00 Oxymask 7 10/09/22 08:13 Oxymask 7 10/09/22 03:58 Oxymask 7 PG Care Time/CCT Total # of Minutes Spent Total Time Spent with Patient: Total time spent is greater than 50% in coordination of care (as documented) at patient's floor/unit and/or counseling patient: Coding Level of Care Code 65377 INT INP/OBS CARE 3/75MIN Diagnoses Acute hypoxemic respiratory failure J96.01 ILD (interstitial lung disease) J84.9 CKD (chronic kidney disease), stage III N18.30 GUILLE (obstructive sleep apnea) G47.33
[2022-10-09 15:23] LABS: C Reactive Protein 11.63 mg/dl (0-0.5)
--- NOTE | 2022-10-09 15:26 | CT Scan Report ---
CT OF THE CHEST WITHOUT IV CONTRAST CLINICAL HISTORY: Interstitial lung disease, hypoxia. COMPARISON STUDY: Chest radiographs June 12, 2022 and October 08, 2022. CT DOSE: 369.41 mGycm TECHNIQUE: Axial images of the chest were obtained without IV contrast. Images were reviewed in the axial, sagittal, and coronal planes. IV contrast was not administered for this examination. Automat ed exposure control was utilized for the study. A dose lowering technique was utilized adhering to t he principles of ALARA. FINDINGS: Moderate cardiomegaly and extensive coronary artery calcification are noted. There is no p ericardial effusion. Mildly enlarged mediastinal lymph nodes are noted. Index subcarinal lymph node m easures 2.5 x 1.5 cm. There is no pneumothorax or pleural effusion. Lungs are suboptimally assessed d ue to respiratory motion. Note is made of multifocal traction bronchiectasis with subpleural reticula tion and suspected honeycombing. Scattered moderate groundglass opacities within the lungs are noted. There is no lobar consolidation. The central airways are patent. No acute fractures within the bony thorax are noted. There is no pneumomediastinum. IMPRESSION: 1. Evidence for interstitial lung disease with subpleural reticulation, honeycombing and traction bro nchiectasis. The finding represents pulmonary fibrosis. Lungs suboptimally assessed given respiratory motion. 2. Multifocal groundglass opacities within the lungs. This favors a superimposed infectious process. Alveolar pulmonary edema could appear similar. 3. Moderate cardiomegaly and extensive coronary artery calcification. 4. Mildly enlarged mediastinal lymph nodes. These may be reactive. ACT 112: Negative or not required by law. Electronically signed by: Vaibhav Rodriguez M.D. 10/09/2022 3:25 PM
--- NOTE | 2022-10-09 15:40 | Hospitalist Progress Note ---
Date of Service October 09, 2022 Assessment & Plan (1) Acute hypoxemic respiratory failure: Plan: Secondary to acute CHF Secondary to diastolic heart failure and is complicated by interstitial lung disease Received Lasix in the emergency room and also 20 mg more this morning Has had more than 1 L negative fluid balance Appreciate cardiology input and recommendation Strict I/Os, daily weights, CHF education Initiate beta-be Clinically a little better this morning and has had negative fluid balance of 269 0 mL He has been on small dose of beta-be, spironolactone and will get another dose of 40 mg Lasix today We will monitor electrolytes and kidney function Condition got worse in the evening and the chest x-ray did show similar pulmonary edema Received another dose of Lasix of 40 mg and BiPAP was administered ABG did show pH CO2 of 40 and O2 of more than 70 We will continue BiPAP overnight Interstitial lung disease with GUILLE on BiPAP at home Possible pulmonary hypertension, Chest x-ray showed chronic bibasilar changes with superimposed pulmonary edema Received additional dose of Lasix 40 mg in the afternoon A little better clinically but is still requiring 7 L of oxygen to maintain saturation We will get pulmonary input and recommendation Acute kidney injury Likely secondary to use of diuretics Expected to improve We will monitor PRP Aspiration concerns, hx esophageal dysmotility We will get a speech therapy evaluation Anxiety/mood disorder, at baseline BPH, stable Hyperglycemia rule out DM Past tobacco abuse DVT prophylaxis. Lovenox subcu Full code Patient requesting updates from providers. Ms. Miri Foote, contact #[phone]. Detailed discussion with the family members-all of their questions were answered Admission and Anticipated Discharge Date Admission Date: October 07, 2022 Subjective 10/08/2022 The patient was seen and examined in telemetry unit in the morning He was feeling better following diuresis and did not have any chest pain and palpitation Later on his condition got worse and he required BiPAP to maintain saturation He was noted to be pleasantly confused Emergency ABG, chest x-ray and Lasix 40 mg was given 10/09/2022 The patient was seen and examined in telemetry unit in presence of the family members He has been feeling a little better today still requiring about 7 L to maintain saturation Denies any chest pain and no palpitation Has been diuresing enough and denies any chest pain and no palpitation Review of Systems Review of Systems: All systems reviewed and unremarkable except as noted below Physical Exam Physical Exam: Lying in bed in minimal distress on BiPAP Constitutional: + ill appearing and average body habitus Eyes: PERRL, conjunctivae normal, anicteric sclerae ENMT: external ear and nose normal, oropharynx normal Neck: trachea midline, no thyromegaly Respiratory: + respiratory distress Auscultation: + diminished lung sounds and + crackles Cardiovascular: Rate/Rhythm: regular rate and regular rhythm; not tachycardic Heart Sounds: normal S1, normal S2 and + murmur Extremities: no edema Gastrointestinal (Abdomen): Inspection/Auscultation: normal bowel sounds; abdomen not distended Percussion/Palpation: abdomen soft; abdomen nontender Musculoskeletal: No acute arthritis involving any of the joint Neurologic: normal touch/pain/proprioception and moves all extremities; no focal motor deficits Psychiatric: A+Ox3, euthymic affect Lymphatic: no cervical or axillary lymphadenopathy Results & Data Results & Data Vital Signs (Past 12 Hours) Vital Signs Temp Pulse Pulse Pulse Resp BP Pulse Ox 10/09/22 11:00 36.4 C L 62 16 111/68 96 10/09/22 10:16 66 10/09/22 10:16 10/09/22 08:00 36.4 C L 73 127/75 94 10/09/22 08:13 36.3 C L 72 20 118/73 96 10/09/22 03:58 37.1 C 68 19 113/66 92 O2 Del Method O2 Flow Rate 10/09/22 11:00 Oxymask 7 10/09/22 10:16 10/09/22 10:16 Oxymask 7 10/09/22 08:00 Oxymask 7 10/09/22 08:13 Oxymask 7 10/09/22 03:58 Oxymask 7 Laboratory Results Short CBC 10/09/22 Range/Units 06:13 WBC 11.40 H (4.8-10.8) K/ul Hgb 14.3 (14.0-18.0) g/dl Hct 40.6 L (42.0-52.0) % Plt Count 224 (130-400) K/uL BMP 10/09/22 06:13 Sodium 135 L Potassium 4.0 Chloride 97 L Carbon Dioxide 27 BUN 44 H Creatinine 1.55 H Glucose 119 H Calcium 9.5 Cardiac Enzymes 10/09/22 Range/Units 14:29 Total Creatine Kinase 99 (30-223) U/L Medications Administered Current Inpatient Medications Acetaminophen (Acetaminophen 325 Mg Tab) 650 mg PO Q4H PRN PRN Reason: Pain or Fever Stop: 11/06/22 21:53 Last Admin: 10/08/22 03:24 Dose: 650 mg Cetirizine HCl (Cetirizine Hcl 10 Mg Tablet) 5 mg PO PM PRN PRN Reason: Allergic Symptoms Stop: 11/06/22 22:19 Last Admin: 10/09/22 08:17 Dose: 5 mg Cyclobenzaprine HCl (Cyclobenzaprine Hcl 5 Mg Tab) 5 mg PO TID PRN PRN Reason: Muscle Spasm Stop: 11/06/22 21:53 Last Admin: 10/08/22 08:23 Dose: 5 mg Guaifenesin/Dextromethorphan (Guaifenesin/Dextrom Syrup 100mg/10mg 5ml Udc) 5 ml PO Q6H PRN PRN Reason: Cough Stop: 11/07/22 14:10 Last Admin: 10/09/22 05:43 Dose: 5 ml Promethazine HCl 6.25 mg/ (Sodium Chloride) 50.25 mls @ 201 mls/hr IV Q6H PRN PRN Reason: Nausea And Vomiting Stop: 11/06/22 21:53 Metoprolol Tartrate (Metoprolol Tartrate 25 Mg Tab) 12.5 mg PO QAM [facility] Stop: 11/07/22 08:59 Last Admin: 10/09/22 08:16 Dose: 12.5 mg Nitroglycerin (Nitroglycerin Sl 0.4 Mg/Tab Tab) 0.4 mg SL UD PRN PRN Reason: Chest Pain Stop: 11/06/22 21:53 Oxybutynin Chloride (Oxybutynin Chloride Xl 5 Mg Tabcr) 5 mg PO DAILY [facility] Stop: 11/07/22 08:59 Last Admin: 10/09/22 08:19 Dose: 5 mg Pantoprazole Sodium (Pantoprazole 40 Mg Tab) 40 mg PO DAILY [facility] Stop: 11/07/22 08:59 Last Admin: 10/09/22 08:18 Dose: 40 mg Sertraline HCl (Sertraline Hcl 50 Mg Tablet) 25 mg PO DAILY [facility] Stop: 11/07/22 08:59 Last Admin: 10/09/22 08:18 Dose: 25 mg Spironolactone (Spironolactone 12.5 Mg Tab) 12.5 mg PO DAILY DAVID Stop: 11/07/22 14:59 Last Admin: 10/09/22 08:16 Dose: 12.5 mg Tamsulosin HCl (Tamsulosin Hcl 0.4 Mg Cap) 0.4 mg PO DAILY DAVID Stop: 11/07/22 08:59 Last Admin: 10/09/22 08:18 Dose: 0.4 mg Tramadol HCl (Tramadol Hcl 50 Mg Tablet) 25 mg PO Q4H PRN PRN Reason: Pain Stop: 11/06/22 21:53
[2022-10-10 07:21] LABS: Basophils # (auto) 0.08 K/uL (0-0.2); Basophils % (auto) 0.7 %; Eosinophils # (auto) 0.74 K/uL (0-0.50); Eosinophils % (auto) 6.7 %; Hematocrit (blood only) 41.3 % (42.0-52.0); Hemoglobin 14.2 g/dl (14.0-18.0); Immature Granulocytes % (auto) 0.9 %; Lymphocytes # (auto) 2.04 K/uL (1.2-3.4); Lymphocytes % (auto) 18.5 %; Mean Corpuscular Hemoglobin 34.6 pg (25.0-34.0); Mean Corpuscular Hgb Conc 34.4 g/dL (32.0-36.0); Mean Corpuscular Volume 100.7 fL (80.0-100.0); Mean Platelet Volume 9.4 fL (9.4-12.4); Monocytes # (auto) 1.49 K/uL (0.11-0.59); Monocytes % (auto) 13.5 %; Neutrophils # (auto) 6.59 K/uL (1.40-6.50); Neutrophils % (auto) 59.7 %; Platelet Count 235 K/uL (130-400); RDW Coefficient of Variation 12.8 % (11.5-14.5); RDW Standard Deviation 47.4 fL (36.4-46.3); White Blood Count 11.04 K/ul (4.8-10.8)
[2022-10-10 07:38] LABS: BUN Creatinine Ratio 30.7 (10-20); Calcium 9.5 mg/dl (8.6-10.3); Creatinine Clr Calc Pharmacy 31.8 ml/min; Est GFR (Non-African American) 34.5 ml/min; Magnesium 2.2 mg/dl (1.7-2.4); Potassium 4.5 mmol/L (3.5-5.1)
[2022-10-10] MEDS: SERTRALINE HCL 50 MG TABLET PO SCH (07:46)
[2022-10-10] MEDS: SPIRONOLACTONE 12.5 MG TAB PO SCH (07:47)
[2022-10-10] MEDS: METOPROLOL TARTRATE 25 MG TAB PO SCH (07:48)
[2022-10-10] MEDS: TAMSULOSIN HCL 0.4 MG CAP PO SCH (07:48)
[2022-10-10] MEDS: CETIRIZINE HCL 10 MG TABLET PO PRN (07:50)
[2022-10-10] MEDS: OXYBUTYNIN CHLORIDE XL 5 MG TABCR PO SCH (07:50)
[2022-10-10] MEDS: PANTOprazole 40 MG TAB PO SCH (08:00)
--- NOTE | 2022-10-10 08:24 | Pulmonology Progress Note ---
Date of Service October 10, 2022 Assessment & Plan (1) ILD (interstitial lung disease): (2) Hypoxia: (3) GUILLE (obstructive sleep apnea): Plan Impression: 82-year-old male with interstitial lung disease. His CT scan shows subpleural fibrotic changes but these appear more prominent in the mid to upper lung zones with some groundglass. The findings are not entirely consistent with a diagnosis of UIP. His serological evaluation is pending but he does have elevated inflammatory markers. Procalcitonin unremarkable. Recommendations: 1. Interstitial lung disease: Not fully characterized. Await serological evaluation. Differential would include nonspecific interstitial pneumonitis, chronic hypersensitivity pneumonitis, or atypical radiographic UIP/IPF. Would not pursue bronchoscopy or surgical lung biopsy at this point time. Given the groundglass opacities and the elevated inflammatory markers, short-term trial of prednisone is recommended with outpatient radiographic follow-up and PFTs to determine whether or not this is a steroid responsive illness. He should also follow-up with regards to his serological evaluation. We will place him on prednisone 40 mg a day with Bactrim prophylaxis. He should follow-up with his outpatient pulmonary group within the next 3 to 4 weeks to determine whether or not steroids should be continued. 2. No indication for antibiotics. 3. Would discontinue Gorman catheter. His creatinine is bumping. Would not pursue additional diuresis at this point time. 4. Recommend ambulating the patient the hallway to determine his optimal oxygen prescription. If he can ambulate without significant shortness of breath, this is largely an outpatient work-up and the patient can be dismissed from the hospital and follow-up with his outpatient providers at [facility]. Feel free to contact us with questions or concerns. Discussed with patient about Admission and Anticipated Discharge Date Admission Date: October 07, 2022 Subjective Patient seen and examined. EMR reviewed. Patient is sitting up at bedside eating breakfast. States he is not having any particular breathing issues. He remains on oxygen. No cough or sputum production. He is not really been ambulatory. He did complete a CT scan of the chest with results noted below. Review of Systems Review of Systems: All systems reviewed & are unremarkable except as noted in Subjective Physical Exam Constitutional: WD/WN, vitals as above Neck: trachea midline, no thyromegaly Respiratory: no respiratory distress, no labored breathing, no cough and not tachypneic Auscultation: + crackles; no wheezes Cardiovascular: RRR, no murmur, no edema Gastrointestinal (Abdomen): normal bowel sounds, soft, nontender, no hepatosplenomegaly Musculoskeletal: Extremities: extremities normal to inspection Skin: no rashes, warm and dry Neurologic: Nonfocal exam Lymphatic: no cervical lymphadenopathy Results & Data Results & Data Vital Signs (Past 12 Hours) Vital Signs Temp Pulse Pulse Pulse Resp BP BP 10/10/22 07:30 65 10/10/22 07:17 36.5 C 69 20 131/71 10/10/22 03:30 36.5 C 67 18 115/65 10/09/22 22:36 71 10/09/22 20:40 10/09/22 23:00 36.3 C L 75 22 119/61 Pulse Ox O2 Del Method O2 Flow Rate 10/10/22 07:30 10/10/22 07:17 90 Oxymask 9 10/10/22 03:30 94 Oxymask 7 10/09/22 22:36 10/09/22 20:40 Nasal Cannula 4 10/09/22 23:00 91 Nasal Cannula Laboratory Results 10/10/22 06:45 10/10/22 06:45 ESR elevated at 114 CRP elevated at 11.6 Procalcitonin 0.17 MELVA level and serologies pending Diagnostic Findings CT OF THE CHEST WITHOUT IV CONTRAST/: Independently reviewed CLINICAL HISTORY: Interstitial lung disease, hypoxia. COMPARISON STUDY: Chest radiographs June 12, 2022 and October 08, 2022. CT DOSE: 369.41 mGycm TECHNIQUE: Axial images of the chest were obtained without IV contrast. Images were reviewed in the axial, sagittal, and coronal planes. IV contrast was not a dministered for this examination. Automated exposure control was utilized for the study. A dose lowering technique was utilized adhering to the principles of ALARA. FINDINGS: Moderate cardiomegaly and extensive coronary artery calcification are noted. There is no pericardial effusion. Mildly enlarged mediastinal lymph nodes are noted. Index subcarinal lymph node measures 2.5 x 1.5 cm. There is no pneumothorax or pleural effusion. Lungs are suboptimally assessed due to respiratory motion. Note is made of multifocal traction bronchiectasis with subpleural reticulation and suspected honeycombing. Scattered moderate groundglass opacities within the lungs are noted. There is no lobar consolid ation. The central airways are patent. No acute fractures within the bony thorax are noted. There is no pneumomediastinum. IMPRESSION: 1. Evidence for interstitial lung disease with subpleural reticulation, honeycombing and traction bronchiectasis. The finding represents pulmonary fibrosis. Lungs suboptimally assessed given respiratory motion. 2. Multifocal groundglass opacities within the lungs. This favors a superimposed infectious process. Alveolar pulmonary edema could appear similar. 3. Moderate cardiomegaly and extensive coronary artery calcification. 4. Mildly enlarged mediastinal lymph nodes. These may be reactive. PG Care Time/CCT Total # of Minutes Spent Total Time Spent with Patient: Total time spent is greater than 50% in coordination of care (as documented) at patient's floor/unit and/or counseling patient: Coding Level of Care Code 66985 SUB INP/OBS CARE 235MIN Diagnoses ILD (interstitial lung disease) J84.9 Hypoxia R09.02 GUILLE (obstructive sleep apnea) G47.33
[2022-10-10] MEDS ORDERED: SULFAMETHOXAZOLE/TRIMETHOPRIM DS 800/160MG TAB PO SCH (08:30)
[2022-10-10] MEDS: predniSONE 20 MG TAB PO SCH ×2 (10:12→21:39)
--- NOTE | 2022-10-10 11:20 | Cardiology Progress Note ---
Date of Service October 10, 2022 Assessment & Plan (1) Fluid overload: (2) Acute hypoxemic respiratory failure: (3) ILD (interstitial lung disease): (4) CKD (chronic kidney disease), stage III: (5) GUILLE (obstructive sleep apnea): Plan Patient is an 82-year-old male with underlying interstitial lung disease who presents with worsening dyspnea. Clinical history as outlined above overall function capacity has declined over the past 10 months in part secondary to acute viral illnesses with COVID and influenza but now with signs and symptoms of worsening hypoxia and respiratory failure. Suspect component of mild volume overload with abdominal distention. Echocardiogram demonstrates preserved LV systolic function, no significant valvular disease or pulmonary hypertension. Mild resting bradycardia present continue telemetry Patient has responded to IV furosemide We will add low-dose spironolactone to regimen. May require additional diuretic on discharge 10/10/2022 Clinically improved. Patient examining as dry. Renal function notable for rising creatinine as expected Impression: Diastolic heart failure with preserved ejection fraction secondary to underlying interstitial lung disease, hypoxia with mild volume overload now improved Hypoxia persistent No indications for further diuresis Spironolactone added to regimen, will continue Will likely need furosemide 20 mg 3 days/week for additional management will require close follow-up renal function, standard CHF Indications for increased oxygen supplementation Admission and Anticipated Discharge Date Admission Date: October 07, 2022 Subjective Patient seen and examined, chart, medications, telemetry reviewed Clinically improved this morning. No dizziness or lightheadedness still with significant oxygen demands but improved from hospitalization Physical Exam Constitutional: + thin; no acute distress Eyes: PERRL, conjunctivae normal, anicteric sclerae ENMT: external ear and nose normal, oropharynx normal Neck: trachea midline, no thyromegaly Respiratory: Auscultation: + crackles Cardiovascular: Rate/Rhythm: regular rate and regular rhythm Heart Sounds: normal S1 and normal S2; no murmur Vessels: no JVD Extremities: no edema Gastrointestinal (Abdomen): Percussion/Palpation: abdomen soft (Mildly increased girth) Musculoskeletal: no cyanosis or clubbing, extremities motor strength 5/5 Results & Data Vital Signs (Past 12 Hours) Vital Signs Temp Pulse Pulse Pulse Resp BP BP 10/10/22 11:07 36.3 C L 58 L 19 114/69 10/10/22 09:24 10/10/22 07:30 65 10/10/22 07:17 36.5 C 69 20 131/71 10/10/22 03:30 36.5 C 67 18 115/65 Pulse Ox O2 Del Method O2 Flow Rate 10/10/22 11:07 95 Nasal Cannula 2 10/10/22 09:24 Nasal Cannula 3 10/10/22 07:30 10/10/22 07:17 90 Oxymask 9 10/10/22 03:30 94 Oxymask 7 Laboratory Results Laboratory Results - last 24 hr 10/09/22 10/09/22 10/09/22 14:29 14:29 14:29 WBC RBC Hgb Hct MCV MCH MCHC RDW Std Deviation RDW Coeff of Katya Plt Count MPV Immature Gran % (Auto) Neut % (Auto) Lymph % (Auto) Hays % (Auto) Eos % (Auto) Baso % (Auto) Neut # (Auto) Lymph # (Auto) Hays # (Auto) Eos # (Auto) Baso # (Auto) Immature Gran # (Auto) ESR 114 H Sodium Potassium Chloride Carbon Dioxide Anion Gap BUN Creatinine Est Cr Clr Drug Dosing Est GFR ( Amer) Est GFR (Non-Af Amer) BUN/Creatinine Ratio Glucose Calcium Magnesium Total Creatine Kinase 99 C-Reactive Protein 11.63 H Angiotensin Convert Enz Pending Procalcitonin Rheumatoid Factor Cycl Citrul Peptide IgG Pending Proteinase 3 (PR3) Pending Anti-Neutrophil (Flow) Pending MADELYN-1 Antibody Pending SS-A/Ro Antibody Pending SS-B/La Antibody Pending Sm (Schafer) Antibody Pending CONTENT PUBLISHER Antibody Pending Scl-70 Scleroderma Ab Pending Double Strand DNA Ab Pending Anti-Centromere Ab Pending Glomerular Base Memb Ab Pending 10/09/22 10/09/22 10/10/22 14:29 14:29 06:45 WBC 11.04 H RBC 4.10 L Hgb 14.2 Hct 41.3 L MCV 100.7 H MCH 34.6 H MCHC 34.4 RDW Std Deviation 47.4 H RDW Coeff of Katya 12.8 Plt Count 235 MPV 9.4 Immature Gran % (Auto) 0.9 Neut % (Auto) 59.7 Lymph % (Auto) 18.5 Hays % (Auto) 13.5 Eos % (Auto) 6.7 Baso % (Auto) 0.7 Neut # (Auto) 6.59 H Lymph # (Auto) 2.04 Hays # (Auto) 1.49 H Eos # (Auto) 0.74 H Baso # (Auto) 0.08 Immature Gran # (Auto) 0.10 ESR Sodium Potassium Chloride Carbon Dioxide Anion Gap BUN Creatinine Est Cr Clr Drug Dosing Est GFR ( Amer) Est GFR (Non-Af Amer) BUN/Creatinine Ratio Glucose Calcium Magnesium Total Creatine Kinase C-Reactive Protein Angiotensin Convert Enz Procalcitonin 0.17 Rheumatoid Factor Pending Cycl Citrul Peptide IgG Proteinase 3 (PR3) Anti-Neutrophil (Flow) MADELYN-1 Antibody SS-A/Ro Antibody SS-B/La Antibody Sm (Schafer) Antibody CONTENT PUBLISHER Antibody Scl-70 Scleroderma Ab Double Strand DNA Ab Anti-Centromere Ab Glomerular Base Memb Ab 10/10/22 06:45 WBC RBC Hgb Hct MCV MCH MCHC RDW Std Deviation RDW Coeff of Katya Plt Count MPV Immature Gran % (Auto) Neut % (Auto) Lymph % (Auto) Hays % (Auto) Eos % (Auto) Baso % (Auto) Neut # (Auto) Lymph # (Auto) Hays # (Auto) Eos # (Auto) Baso # (Auto) Immature Gran # (Auto) ESR Sodium 134 L Potassium 4.5 Chloride 96 L Carbon Dioxide 30 Anion Gap 8 BUN 55 H Creatinine 1.79 H Est Cr Clr Drug Dosing 31.8 Est GFR ( Amer) 40.0 Est GFR (Non-Af Amer) 34.5 BUN/Creatinine Ratio 30.7 H Glucose 117 H Calcium 9.5 Magnesium 2.2 Total Creatine Kinase C-Reactive Protein Angiotensin Convert Enz Procalcitonin Rheumatoid Factor Cycl Citrul Peptide IgG Proteinase 3 (PR3) Anti-Neutrophil (Flow) MADELYN-1 Antibody SS-A/Ro Antibody SS-B/La Antibody Sm (Schafer) Antibody CONTENT PUBLISHER Antibody Scl-70 Scleroderma Ab Double Strand DNA Ab Anti-Centromere Ab Glomerular Base Memb Ab
--- NOTE | 2022-10-10 15:13 | Hospitalist Progress Note ---
Date of Service October 10, 2022 Assessment & Plan (1) Acute hypoxemic respiratory failure: Plan: Secondary to acute CHF Secondary to diastolic heart failure and is complicated by interstitial lung disease Received Lasix in the emergency room and also 20 mg more this morning Has had more than 1 L negative fluid balance Appreciate cardiology input and recommendation Strict I/Os, daily weights, CHF education Initiate beta-be Clinically a little better this morning and has had negative fluid balance of 269 0 mL He has been on small dose of beta-be, spironolactone and will get another dose of 40 mg Lasix today We will monitor electrolytes and kidney function Kidney function has been worsening likely secondary to use of diuretics He will need small amount of diuretic down the line We will get PT OT evaluation prior to discharge tomorrow Condition got worse in the evening and the chest x-ray did show similar pulmonary edema Received another dose of Lasix of 40 mg and BiPAP was administered ABG did show pH CO2 of 40 and O2 of more than 70 We will continue BiPAP overnight Condition is much better today Interstitial lung disease with GUILLE on BiPAP at home Possible pulmonary hypertension, Chest x-ray showed chronic bibasilar changes with superimposed pulmonary edema Received additional dose of Lasix 40 mg in the afternoon A little better clinically but is still requiring 7 L of oxygen to maintain saturation We will get pulmonary input and recommendation Appreciate pulmonary input and recommendation Started on prednisone for a short course and also on Bactrim prophylaxis Will have outpatient pulmonary appointment within 3 to 4 weeks Acute kidney injury Likely secondary to use of diuretics Expected to improve We will monitor PRP-creatinine went up to 1.79 as of 10/02/2022 Lasix is on hold We will repeat PRP-expected to improve Aspiration concerns, hx esophageal dysmotility We will get a speech therapy evaluation-aspiration cannot be ruled out and the patient was started with alternate solids and liquids with aspiration precaution Anxiety/mood disorder, at baseline BPH, stable Hyperglycemia rule out DM Past tobacco abuse DVT prophylaxis. Lovenox subcu Full code Patient requesting updates from providers. Js Miri Foote, contact #[phone]. Detailed discussion with the family members-all of their questions were answered Admission and Anticipated Discharge Date Admission Date: October 07, 2022 Subjective 10/08/2022 The patient was seen and examined in telemetry unit in the morning He was feeling better following diuresis and did not have any chest pain and palpitation Later on his condition got worse and he required BiPAP to maintain saturation He was noted to be pleasantly confused Emergency ABG, chest x-ray and Lasix 40 mg was given 10/09/2022 The patient was seen and examined in telemetry unit in presence of the family members He has been feeling a little better today still requiring about 7 L to maintain saturation Denies any chest pain and no palpitation Has been diuresing enough and denies any chest pain and no palpitation 10/10/2022 The patient was seen and examined in telemetry unit in presence of the family members He has been doing much better and sitting on a chair without any significant respiratory distress Denies any cardiac symptoms and has had enough diuresis We will get PT and OT evaluation prior to discharge likely tomorrow Review of Systems Review of Systems: All systems reviewed and unremarkable except as noted below Physical Exam Physical Exam: Sitting on a chair and seems to be at his baseline Constitutional: + ill appearing and average body habitus Eyes: PERRL, conjunctivae normal, anicteric sclerae ENMT: external ear and nose normal, oropharynx normal Neck: trachea midline, no thyromegaly Respiratory: + respiratory distress Auscultation: + diminished lung sounds and + crackles Cardiovascular: Rate/Rhythm: regular rate and regular rhythm; not tachycardic Heart Sounds: normal S1, normal S2 and + murmur Extremities: no edema Gastrointestinal (Abdomen): Inspection/Auscultation: normal bowel sounds; abdomen not distended Percussion/Palpation: abdomen soft; abdomen nontender Neurologic: normal touch/pain/proprioception and moves all extremities; no focal motor deficits Psychiatric: A+Ox3, euthymic affect Lymphatic: no cervical or axillary lymphadenopathy Results & Data Results & Data Vital Signs (Past 12 Hours) Vital Signs Temp Pulse Pulse Pulse Resp BP BP 10/10/22 15:07 36.5 C 57 L 19 111/65 10/10/22 11:07 36.3 C L 58 L 19 114/69 10/10/22 09:24 10/10/22 07:30 65 10/10/22 07:17 36.5 C 69 20 131/71 10/10/22 03:30 36.5 C 67 18 115/65 Pulse Ox O2 Del Method O2 Flow Rate 10/10/22 15:07 95 Nasal Cannula 2 10/10/22 11:07 95 Nasal Cannula 2 10/10/22 09:24 Nasal Cannula 3 10/10/22 07:30 10/10/22 07:17 90 Oxymask 9 10/10/22 03:30 94 Oxymask 7 Laboratory Results Short CBC 10/10/22 Range/Units 06:45 WBC 11.04 H (4.8-10.8) K/ul Hgb 14.2 (14.0-18.0) g/dl Hct 41.3 L (42.0-52.0) % Plt Count 235 (130-400) K/uL BMP 10/10/22 06:45 Sodium 134 L Potassium 4.5 Chloride 96 L Carbon Dioxide 30 BUN 55 H Creatinine 1.79 H Glucose 117 H Calcium 9.5 Cardiac Enzymes 10/09/22 Range/Units 14:29 Total Creatine Kinase 99 (30-223) U/L Medications Administered Current Inpatient Medications Acetaminophen (Acetaminophen 325 Mg Tab) 650 mg PO Q4H PRN PRN Reason: Pain or Fever Stop: 11/06/22 21:53 Last Admin: 10/08/22 03:24 Dose: 650 mg Cetirizine HCl (Cetirizine Hcl 10 Mg Tablet) 5 mg PO PM PRN PRN Reason: Allergic Symptoms Stop: 11/06/22 22:19 Last Admin: 10/10/22 07:50 Dose: 5 mg Cyclobenzaprine HCl (Cyclobenzaprine Hcl 5 Mg Tab) 5 mg PO TID PRN PRN Reason: Muscle Spasm Stop: 11/06/22 21:53 Last Admin: 10/08/22 08:23 Dose: 5 mg Guaifenesin/Dextromethorphan (Guaifenesin/Dextrom Syrup 100mg/10mg 5ml Udc) 5 ml PO Q6H PRN PRN Reason: Cough Stop: 11/07/22 14:10 Last Admin: 10/09/22 23:55 Dose: 5 ml Promethazine HCl 6.25 mg/ (Sodium Chloride) 50.25 mls @ 201 mls/hr IV Q6H PRN PRN Reason: Nausea And Vomiting Stop: 11/06/22 21:53 Metoprolol Tartrate (Metoprolol Tartrate 25 Mg Tab) 12.5 mg PO QAM [facility] Stop: 11/07/22 08:59 Last Admin: 10/10/22 07:48 Dose: 12.5 mg Nitroglycerin (Nitroglycerin Sl 0.4 Mg/Tab Tab) 0.4 mg SL UD PRN PRN Reason: Chest Pain Stop: 11/06/22 21:53 Oxybutynin Chloride (Oxybutynin Chloride Xl 5 Mg Tabcr) 5 mg PO DAILY [facility] Stop: 11/07/22 08:59 Last Admin: 10/10/22 07:50 Dose: 5 mg Pantoprazole Sodium (Pantoprazole 40 Mg Tab) 40 mg PO DAILY [facility] Stop: 11/07/22 08:59 Last Admin: 10/10/22 08:00 Dose: 40 mg Prednisone (Prednisone 20 Mg Tab) 20 mg PO BID [facility]ID Stop: 11/09/22 08:59 Last Admin: 10/10/22 10:12 Dose: 20 mg Sertraline HCl (Sertraline Hcl 50 Mg Tablet) 25 mg PO DAILY [facility] Stop: 11/07/22 08:59 Last Admin: 10/10/22 07:46 Dose: 25 mg Spironolactone (Spironolactone 12.5 Mg Tab) 12.5 mg PO DAILY [facility] Stop: 11/07/22 14:59 Last Admin: 10/10/22 07:47 Dose: 12.5 mg Tamsulosin HCl (Tamsulosin Hcl 0.4 Mg Cap) 0.4 mg PO DAILY [facility] Stop: 11/07/22 08:59 Last Admin: 10/10/22 07:48 Dose: 0.4 mg Tramadol HCl (Tramadol Hcl 50 Mg Tablet) 25 mg PO Q4H PRN PRN Reason: Pain Stop: 11/06/22 21:53 Trimethoprim/Sulfamethoxazole (Sulfamethoxazole/Trimethoprim Ds 800/160mg Tab) 1 tab PO MoWeFr@0900 [facility] Stop: 10/17/22 08:29 Last Admin: 10/10/22 10:12 Dose: 1 tab
[2022-10-10] MEDS: guaiFENesin/DEXTROM SYRUP 100MG/10MG 5ML UDC PO PRN (21:52)
--- NOTE | 2022-10-11 07:58 | Pulmonology Progress Note ---
Date of Service October 11, 2022 Assessment & Plan (1) ILD (interstitial lung disease): (2) Hypoxia: (3) GUILLE (obstructive sleep apnea): Plan Impression: 82-year-old male with interstitial lung disease. His CT scan shows subpleural fibrotic changes but these appear more prominent in the mid to upper lung zones with some groundglass. The findings are not entirely consistent with a diagnosis of UIP. His serological evaluation is pending but he does have elevated inflammatory markers. Procalcitonin unremarkable. Recommendations: 1. Interstitial lung disease: Not fully characterized. Await serological evaluation. Differential would include nonspecific interstitial pneumonitis, chronic hypersensitivity pneumonitis, or atypical radiographic UIP/IPF. Would not pursue bronchoscopy or surgical lung biopsy at this point time. Pursuing a trial of prednisone 40 mg a day to see if this offers him a clinical benefit. Recommend reassessment with imaging studies and PFTs in 2 to 4 weeks to ascertain whether or not this is improving. Decision regarding long-term immune suppression can be made at that point time. On Bactrim prophylaxis for PJP 2. No indication for antibiotics. 3. Appears euvolemic. Do not think additional diuresis is required 4. Recommend ambulating the patient the hallway to determine his optimal oxygen prescription. If he can ambulate without significant shortness of breath, this is largely an outpatient work-up and the patient can be dismissed from the hospital and follow-up with his outpatient providers at [facility]. Patient appears stable from a respiratory standpoint to dismiss from the hospital. He can follow-up with [facility] with whom he is already established. Pulmonary will sign off. Feel free to contact us with questions or concerns Admission and Anticipated Discharge Date Admission Date: October 07, 2022 Subjective Patient seen and examined. EMR reviewed. He is sitting up eating breakfast this morning. He states he had a rough night due to insomnia. He is not having any progressive respiratory issues. He was able to ambulate around the floor yesterday. He continues to use supplemental oxygen. He is not coughing or expectorating phlegm. No fevers chills night sweats or other constitutional symptoms overnight. Review of Systems Review of Systems: All systems reviewed & are unremarkable except as noted in Subjective Physical Exam Constitutional: WD/WN, vitals as above Neck: trachea midline, no thyromegaly Respiratory: no respiratory distress, no labored breathing, no cough and not tachypneic Auscultation: + crackles; no wheezes Cardiovascular: RRR, no murmur, no edema Gastrointestinal (Abdomen): normal bowel sounds, soft, nontender, no hepatosplenomegaly Musculoskeletal: Extremities: extremities normal to inspection Skin: no rashes, warm and dry Lymphatic: no cervical lymphadenopathy Results & Data Results & Data Vital Signs (Past 12 Hours) Vital Signs Temp Pulse Pulse Resp BP BP Pulse Ox 10/11/22 07:46 36.3 C L 54 L 18 120/64 94 10/11/22 02:12 36.6 C 61 18 91/50 L 92 10/10/22 22:01 58 L 10/10/22 20:00 10/10/22 22:14 36.4 C L 57 L 18 125/63 91 O2 Del Method O2 Flow Rate 10/11/22 07:46 Oxymask 2 10/11/22 02:12 Oxymask 7 10/10/22 22:01 10/10/22 20:00 Nasal Cannula 2 10/10/22 22:14 Nasal Cannula 2.5 Laboratory Results 10/10/22 06:45 10/10/22 06:45 Diagnostic Findings No new imaging PG Care Time/CCT Total # of Minutes Spent Total Time Spent with Patient: Total time spent is greater than 50% in coordination of care (as documented) at patient's floor/unit and/or counseling patient: Coding Level of Care Code 79104 SUB INP/OBS CARE 2/35MIN Diagnoses ILD (interstitial lung disease) J84.9 Hypoxia R09.02 GUILLE (obstructive sleep apnea) G47.33
[2022-10-11] MEDS: PANTOprazole 40 MG TAB PO SCH (08:28)
[2022-10-11] MEDS: TAMSULOSIN HCL 0.4 MG CAP PO SCH (08:28)
[2022-10-11] MEDS: predniSONE 20 MG TAB PO SCH (08:28)
[2022-10-11] MEDS: SPIRONOLACTONE 12.5 MG TAB PO SCH (08:29)
[2022-10-11] MEDS: OXYBUTYNIN CHLORIDE XL 5 MG TABCR PO SCH (08:29)
[2022-10-11] MEDS: SERTRALINE HCL 50 MG TABLET PO SCH (08:29)
[2022-10-11] MEDS: METOPROLOL TARTRATE 25 MG TAB PO SCH (08:31)
[2022-10-11 08:42] LABS: Basophils # (auto) 0.03 K/uL (0-0.2); Basophils % (auto) 0.3 %; Hematocrit (blood only) 41.8 % (42.0-52.0); Hemoglobin 14.4 g/dl (14.0-18.0); Immature Granulocytes # (auto) 0.07 K/uL (0.01-0.20); Immature Granulocytes % (auto) 0.7 %; Lymphocytes # (auto) 0.99 K/uL (1.2-3.4); Lymphocytes % (auto) 9.9 %; Mean Corpuscular Hemoglobin 34.4 pg (25.0-34.0); Mean Corpuscular Hgb Conc 34.4 g/dL (32.0-36.0); Mean Corpuscular Volume 99.8 fL (80.0-100.0); Mean Platelet Volume 9.5 fL (9.4-12.4); Monocytes # (auto) 0.51 K/uL (0.11-0.59); Monocytes % (auto) 5.1 %; Neutrophils # (auto) 8.41 K/uL (1.40-6.50); Platelet Count 261 K/uL (130-400); RDW Coefficient of Variation 12.4 % (11.5-14.5); Red Blood Count 4.19 M/uL (4.70-6.10); White Blood Count 10.01 K/ul (4.8-10.8)
[2022-10-11 09:07] LABS: BUN Creatinine Ratio 34.3 (10-20); Calcium 9.7 mg/dl (8.6-10.3); Creatinine Clr Calc Pharmacy 34.3 ml/min; Est GFR (African American) 43.8 ml/min; Est GFR (Non-African American) 37.8 ml/min; Magnesium 2.3 mg/dl (1.7-2.4); Potassium 4.9 mmol/L (3.5-5.1)
--- NOTE | 2022-10-11 12:01 | Hospitalist Progress Note ---
Date of Service October 11, 2022 Assessment & Plan (1) Acute hypoxemic respiratory failure: Plan: Secondary to acute CHF Secondary to diastolic heart failure and is complicated by interstitial lung disease Received Lasix in the emergency room and also 20 mg more this morning Has had more than 1 L negative fluid balance Appreciate cardiology input and recommendation Strict I/Os, daily weights, CHF education Initiate beta-be Clinically a little better this morning and has had negative fluid balance of 269 0 mL He has been on small dose of beta-be, spironolactone and will get another dose of 40 mg Lasix today We will monitor electrolytes and kidney function Kidney function has been worsening likely secondary to use of diuretics He will need small amount of diuretic down the line We will get PT OT evaluation prior to discharge tomorrow Has had 2 steps O2 saturation test He will require 3 L of oxygen with ambulation but none at rest He will be discharged this afternoon Condition got worse in the evening and the chest x-ray did show similar pul monary edema Received another dose of Lasix of 40 mg and BiPAP was administered ABG did show pH CO2 of 40 and O2 of more than 70 We will continue BiPAP overnight Condition is much better today Was seen by glass cut off supervisor and advised that he can be discharged Interstitial lung disease with GUILLE on BiPAP at home Possible pulmonary hypertension, Chest x-ray showed chronic bibasilar changes with superimposed pulmonary edema Received additional dose of Lasix 40 mg in the afternoon A little better clinically but is still requiring 7 L of oxygen to maintain saturation We will get pulmonary input and recommendation Appreciate pulmonary input and recommendation Started on prednisone for a short course and also on Bactrim prophylaxis Will have outpatient pulmonary appointment within 2 to 4 weeks Acute kidney injury Likely secondary to use of diuretics Expected to improve We will monitor PRP-creatinine went up to 1.79 as of 10/02/2022 Lasix is on hold We will repeat PRP-expected to improve Creatinine is slightly better today Aspiration concerns, hx esophageal dysmotility We will get a speech therapy evaluation-aspiration cannot be ruled out and the patient was started with alternate solids and liquids with aspiration precaution No acute issues Anxiety/mood disorder, at baseline BPH, stable Hyperglycemia rule out DM Past tobacco abuse DVT prophylaxis. Lovenox subcu Full code Patient requesting updates from providers. Js Miri Qamar, contact #[phone]. Detailed discussion with the family members-all of their questions were answered He will be discharged home this afternoon Admission and Anticipated Discharge Date Admission Date: October 07, 2022 Subjective 10/08/2022 The patient was seen and examined in telemetry unit in the morning He was feeling better following diuresis and did not have any chest pain and palpitation Later on his condition got worse and he required BiPAP to maintain saturation He was noted to be pleasantly confused Emergency ABG, chest x-ray and Lasix 40 mg was given 10/09/2022 The patient was seen and examined in telemetry unit in presence of the family members He has been feeling a little better today still requiring about 7 L to maintain saturation Denies any chest pain and no palpitation Has been diuresing enough and denies any chest pain and no palpitation 10/10/2022 The patient was seen and examined in telemetry unit in presence of the family members He has been doing much better and sitting on a chair without any significant respiratory distress Denies any cardiac symptoms and has had enough diuresis We will get PT and OT evaluation prior to discharge likely tomorrow 10/11/2022 Patient was seen and examined in telemetry unit in presence of the family members He feels he is at his baseline Less shortness of breath at rest still has some cough Denies any chest pain and/or palpitation He will be discharged this afternoon Review of Systems Review of Systems: All systems reviewed and unremarkable except as noted below Physical Exam Physical Exam: Sitting on a chair and seems to be at his baseline Constitutional: + ill appearing and average body habitus Eyes: PERRL, conjunctivae normal, anicteric sclerae ENMT: external ear and nose normal, oropharynx normal Neck: trachea midline, no thyromegaly Respiratory: + respiratory distress Auscultation: + diminished lung sounds and + crackles Cardiovascular: Rate/Rhythm: regular rate and regular rhythm; not tachycardic Heart Sounds: normal S1, normal S2 and + murmur Extremities: no edema Gastrointestinal (Abdomen): Inspection/Auscultation: normal bowel sounds; abdomen not distended Percussion/Palpation: abdomen soft; abdomen nontender Musculoskeletal: No acute arthritis involving any of the joint Neurologic: normal touch/pain/proprioception and moves all extremities; no focal motor deficits Psychiatric: A+Ox3, euthymic affect Lymphatic: no cervical or axillary lymphadenopathy Results & Data Results & Data Vital Signs (Past 12 Hours) Vital Signs Temp Pulse Pulse Pulse Pulse Pulse Pulse 10/11/22 11:47 36.4 C L 56 L 10/11/22 10:38 73 72 75 68 54 L 10/11/22 10:31 10/11/22 07:46 36.3 C L 54 L 10/11/22 02:12 36.6 C 61 Resp Resp Resp Resp Resp Resp BP 10/11/22 11:47 18 10/11/22 10:38 20 20 22 16 16 10/11/22 10:31 10/11/22 07:46 18 10/11/22 02:12 18 91/50 L BP Pulse Ox Pulse Ox Pulse Ox Pulse Ox Pulse Ox Pulse Ox 10/11/22 11:47 119/70 96 10/11/22 10:38 87 L 91 83 L 94 93 10/11/22 10:31 10/11/22 07:46 120/64 94 10/11/22 02:12 92 O2 Del Method O2 Flow Rate O2 Flow Rate O2 Flow Rate 10/11/22 11:47 Nasal Cannula 2 10/11/22 10:38 2 3 10/11/22 10:31 Nasal Cannula 3 10/11/22 07:46 Oxymask 2 10/11/22 02:12 Oxymask 7 Laboratory Results Short CBC 10/11/22 Range/Units 08:09 WBC 10.01 (4.8-10.8) K/ul Hgb 14.4 (14.0-18.0) g/dl Hct 41.8 L (42.0-52.0) % Plt Count 261 (130-400) K/uL BMP 10/11/22 08:09 Sodium 132 L Potassium 4.9 Chloride 97 L Carbon Dioxide 27 BUN 57 H Creatinine 1.66 H Glucose 204 H Calcium 9.7 Medications Administered Current Inpatient Medications Acetaminophen (Acetaminophen 325 Mg Tab) 650 mg PO Q4H PRN PRN Reason: Pain or Fever Stop: 11/06/22 21:53 Last Admin: 10/08/22 03:24 Dose: 650 mg Cetirizine HCl (Cetirizine Hcl 10 Mg Tablet) 5 mg PO PM PRN PRN Reason: Allergic Symptoms Stop: 11/06/22 22:19 Last Admin: 10/10/22 07:50 Dose: 5 mg Cyclobenzaprine HCl (Cyclobenzaprine Hcl 5 Mg Tab) 5 mg PO TID PRN PRN Reason: Muscle Spasm Stop: 11/06/22 21:53 Last Admin: 10/08/22 08:23 Dose: 5 mg Guaifenesin/Dextromethorphan (Guaifenesin/Dextrom Syrup 100mg/10mg 5ml Udc) 5 ml PO Q6H PRN PRN Reason: Cough Stop: 11/07/22 14:10 Last Admin: 10/10/22 21:52 Dose: 5 ml Promethazine HCl 6.25 mg/ (Sodium Chloride) 50.25 mls @ 201 mls/hr IV Q6H PRN PRN Reason: Nausea And Vomiting Stop: 11/06/22 21:53 Metoprolol Tartrate (Metoprolol Tartrate 25 Mg Tab) 12.5 mg PO QAM [facility] Stop: 11/07/22 08:59 Last Admin: 10/11/22 08:31 Dose: Not Given Nitroglycerin (Nitroglycerin Sl 0.4 Mg/Tab Tab) 0.4 mg SL UD PRN PRN Reason: Chest Pain Stop: 11/06/22 21:53 Oxybutynin Chloride (Oxybutynin Chloride Xl 5 Mg Tabcr) 5 mg PO DAILY DAVID Stop: 11/07/22 08:59 Last Admin: 10/11/22 08:29 Dose: 5 mg Pantoprazole Sodium (Pantoprazole 40 Mg Tab) 40 mg PO DAILY DAVID Stop: 11/07/22 08:59 Last Admin: 10/11/22 08:28 Dose: 40 mg Prednisone (Prednisone 20 Mg Tab) 20 mg PO BID DAVID Stop: 11/09/22 08:59 Last Admin: 10/11/22 08:28 Dose: 20 mg Sertraline HCl (Sertraline Hcl 50 Mg Tablet) 25 mg PO DAILY DAVID Stop: 11/07/22 08:59 Last Admin: 10/11/22 08:29 Dose: 25 mg Spironolactone (Spironolactone 12.5 Mg Tab) 12.5 mg PO DAILY DAVID Stop: 11/07/22 14:59 Last Admin: 10/11/22 08:29 Dose: 12.5 mg Tamsulosin HCl (Tamsulosin Hcl 0.4 Mg Cap) 0.4 mg PO DAILY DAVID Stop: 11/07/22 08:59 Last Admin: 10/11/22 08:28 Dose: 0.4 mg Tramadol HCl (Tramadol Hcl 50 Mg Tablet) 25 mg PO Q4H PRN PRN Reason: Pain Stop: 11/06/22 21:53 Trimethoprim/Sulfamethoxazole (Sulfamethoxazole/Trimethoprim Ds 800/160mg Tab) 1 tab PO MoWeFr@0900 [facility] Stop: 10/17/22 08:29 Last Admin: 10/10/22 10:12 Dose: 1 tab
--- NOTE | 2022-10-12 08:25 | Discharge Summary ---
Date of Service October 12, 2022 Admission HPI Per Admitting Provider History obtained from patient, family, and records. Medical history significant for interstitial lung disease, moderate TR, GUILLE on BiPAP, anxiety/mood disorder, esophageal dysmotility, BPH, past tobacco abuse. Last confinement May 2022 for hypoxemic respiratory failure secondary to influenza A and COVID-19 pneumonia. Last week, patient noted shortness of breath worse on exertion without chest pain. Patient also noted abdominal distention, unquantified weight gain without leg swelling. Patient compliant with BiPAP. No chest pain. Cough productive of clear sputum. Coughing with meals/water intake which has never happened before. O2 sats 80s upon arrival at the ER. Lasix and neb treatment administered at the ER. 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 Admission Exam Per Admitting Provider Physical Exam: GENERAL: Slightly uncomfortable, minimal respiratory distress SKIN: Pallor, warm HEENT: Partial alopecia, pale palpebral conjunctivae, no ptosis, moist buccal mucosa, nasal cannula in place NECK : Supple, no tenderness CHEST : Decreased breath sounds, no tenderness HEART : RRR, no obvious murmurs ABDOMEN: Some distention, nontender EXTREMITIES : No LE swelling/tenderness, no other conspicuous deformities noted NEUROLOGIC : Coherent, no facial asymmetry, no other gross focality Principal Diagnosis Acute hypoxic respiratory failure, interstitial lung disease, acute diastolic heart failure Discharge Exam Sitting on a chair and seems to be at his baseline Constitutional + ill appearing and average body habitus Eyes PERRL, conjunctivae normal, anicteric sclerae ENMT external ear and nose normal, oropharynx normal Neck trachea midline, no thyromegaly Respiratory + respiratory distress Auscultation: + diminished lung sounds and + crackles Cardiovascular Rate/Rhythm: regular rate and regular rhythm; not tachycardic Heart Sounds: normal S1, normal S2 and + murmur Extremities: no edema Gastrointestinal (Abdomen) Inspection/Auscultation: normal bowel sounds; abdomen not distended Percussion/Palpation: abdomen soft; abdomen nontender Neurologic normal touch/pain/proprioception and moves all extremities; no focal motor deficits Psychiatric A+Ox3, euthymic affect Lymphatic no cervical or axillary lymphadenopathy Discharge Data Allergies Allergy/AdvReac Type Severity Reaction Status Date / Time No Known Allergies Allergy Verified 10/07/22 18:31 Consultations 10/07/22 18:41 ED Decision to Admit Stat 10/07/22 21:54 Consult Cardiology Routine 10/09/22 10:43 Consult Pulmonology Routine Ordered Studies 10/09/22 13:52 CT chest diagnostic wo con Urgent Hospital Course (1) Acute hypoxemic respiratory failure: Secondary to acute CHF Secondary to diastolic heart failure and is complicated by interstitial lung disease Received Lasix in the emergency room and also 20 mg more this morning Has had more than 1 L negative fluid balance Appreciate cardiology input and recommendation Strict I/Os, daily weights, CHF education Initiate beta-be Clinically a little better this morning and has had negative fluid balance of 269 0 mL He has been on small dose of beta-be, spironolactone and will get another dose of 40 mg Lasix today We will monitor electrolytes and kidney function Kidney function has been worsening likely secondary to use of diuretics He will need small amount of diuretic down the line We will get PT OT evaluation prior to discharge tomorrow Has had 2 steps O2 saturation test He will require 3 L of oxygen with ambulation but none at rest He will be discharged this afternoon Condition got worse in the evening and the chest x-ray did show similar pulmonary edema Received another dose of Lasix of 40 mg and BiPAP was administered ABG did show pH CO2 of 40 and O2 of more than 70 We will continue BiPAP overnight Condition is much better today Was seen by see wheeler and advised that he can be discharged Interstitial lung disease with GUILLE on BiPAP at home Possible pulmonary hypertension, Chest x-ray showed chronic bibasilar changes with superimposed pulmonary edema Received additional dose of Lasix 40 mg in the afternoon A little better clinically but is still requiring 7 L of oxygen to maintain saturation We will get pulmonary input and recommendation Appreciate pulmonary input and recommendation Started on prednisone for a short course and also on Bactrim prophylaxis Will have outpatient pulmonary appointment within 2 to 4 weeks Acute kidney injury Likely secondary to use of diuretics Expected to improve We will monitor PRP-creatinine went up to 1.79 as of 10/02/2022 Lasix is on hold We will repeat PRP-expected to improve Creatinine is slightly better today Aspiration concerns, hx esophageal dysmotility We will get a speech therapy evaluation-aspiration cannot be ruled out and the patient was started with alternate solids and liquids with aspiration precaution No acute issues Anxiety/mood disorder, at baseline BPH, stable Hyperglycemia rule out DM Past tobacco abuse DVT prophylaxis. Lovenox subcu Full code Patient requesting updates from providers. Ms. Miri Foote, contact #[phone]. Detailed discussion with the family members-all of their questions were answered He will be discharged home this afternoon Total Time Total Time Spent Total Time Spent (In Minutes): 35 minutes Discharge Plan Discharge Items Patient Disposition: Home - Self-Care Reason For Visit: RESP FAILURE Discharge Diagnosis: Acute hypoxic respiratory failure, interstitial lung disease, acute diastolic heart failure Condition on Discharge: Fair Activity: Resume your previous activity Non-emergency contact: Primary Care Provider Call non-emergency contact if: you have any medication questions and your symptoms worsen Follow-up/Referrals: Martin Hopper MD [Primary Care Provider] - 10/17/22 11:00 am (Date & Time 10/17/2022 11:00 AM Provider Elodia Toscano MD [facility] ) Diet: Heart Healthy Addtl Attending Provider Instructions: Please take precautions to avoid falls Keep taking your oxygen as before and you will need 3 L of oxygen via nasal cannula with ambulation Prednisone 40 mg a day and Bactrim as advised should be continued until you see your see wheeler Other new medications will be metoprolol titrate 12.5 mg daily and spironolactone 12.5 mg daily Lasix will be given at a dose of 20 mg 3 days/week with close follow-up renal function with your PCP/Software Licensing Analyst Please keep appointments with your healthcare providers Pending Studies at Discharge: No Stand-Alone Forms: My [facility] [employer], Smoking Cessation Medications and DC Order Prescriptions: New prednisone 20 mg Tablet 20 mg PO BID 30 Days Qty: 60 0RF sulfamethoxazole-trimethoprim [Bactrim DS] 800-160 mg Tablet 1 tab PO MoWeFr@0900 30 Days Qty: 13 0RF spironolactone 25 mg Tablet 12.5 mg PO DAILY 30 Days Qty: 15 0RF metoprolol tartrate 25 mg Tablet 12.5 mg PO QAM 30 Days Qty: 15 0RF furosemide [Lasix] 20 mg tablet 20 mg PO Q OTHER DAY Qty: 30 0RF Continued tamsulosin 0.4 mg capsule 0.4 mg PO DAILY oxybutynin chloride 5 mg tablet extended release 24hr 5 mg PO DAILY sertraline 25 mg tablet 25 mg PO DAILY omeprazole 20 mg capsule,delayed release(DR/EC) 20 mg PO DAILY cyclobenzaprine 5 mg tablet 5 mg PO TID PRN (Reason: Muscle Spasm) levocetirizine 2.5 mg/5 mL Solution 2.5 mg PO PM PRN (Reason: Allergic Symptoms) Discharge Orders: Discharge Order (Routine); Ordered 10/11/22 Ordered By: Esa Chaudhry Admission Data Admit Date/Time: 10/07/22 20:26 Attending Provider: Esa Chaudhry Admit Provider: Dino Romeo Primary Care Provider: Martin Hopper Other Providers: Donato Valentin ; Karin Torres ; Kevin Stoll ; Vaibhav Diaz ; Yohannes Escobedo ; Maxwell Sanchez ; Francisco Trevizo ; Nuzhat Rolon ; Daniela Baumann ; Karin Whittington ; Casa Quintana ; Bret Miller ; Stuart Banda Other Interventions: Discharge Summary Assessment (RN) Last Done: 10/11/22 14:28
== END 2022-10-11 15:40 | disposition home or self-care (01) | DRG 291 ==
LOC: ED 17:18 → 2S 20:26

== ENCOUNTER 2023-07-29 11:43 | Inpatient (IN) ==
--- NOTE | 2023-07-29 11:50 | ED Triage Note ---
Date of Service July 29, 2023 Provider in Triage Author: Miguel Rowell History of Present Illness This patient was briefly evaluated while in triage. An abbreviated physical exam was performed. This patient is a 83-year-old Male, history of interstitial lung disease and prior acute hypoxemic respiratory failure, who presents to the ED for evaluation of shortness of breath. Symptoms have been ongoing for the past 2 weeks. Patient is also been having joint pains and tingling in his legs. The patient wears oxygen via nasal cannula at 3 L/min at all times. Physical Exam CONSTITUTIONAL: Healthy and well nourished. Patient does not appear in any acute distress. RESPIRATORY: Clear to auscultation bilaterally with no wheezing, crackles, rhonchi or stridor. CARDIOVASCULAR: Regular rate and rhythm with no murmurs, rubs or gallops. GASTROINTESTINAL: Bowel sounds present in all quadrants. INTEGUMENTARY: No rash or other significant dermatologic conditions noted. HEMATOLOGIC: No ecchymosis or petechiae. PSYCHIATRIC: Positive affect. NEUROLOGIC: No focal neurologic deficits noted. Initial orders for labs and / or imaging were placed and patient was placed in the waiting area until a bed is available. Please see further documentation for the full ED course.
--- NOTE | 2023-07-29 12:04 | Emergency Department Note ---
Impression & Plan Acute dyspnea, Acute hypoxemic respiratory failure ED Provider Note HISTORY OF PRESENT ILLNESS: Patient is an 83-year-old male presenting with shortness of breath and diffuse bodyaches. Patient wears 3 L nasal cannula at baseline. He states that in the last week he has had progressive worsening of his shortness of breath. He states he gets very short of breath when up walking around and it improves slightly when seated. He states that he has had diffuse bodyaches for the last few weeks. He recently had a PCP with his physical and workup was normal. He denies any recent fevers. Denies any chest pain or cough. Denies any recent sick contact exposures. Denies any recent travel. Denies any DVT or PE history. He is not on anticoagulation. Denies any history of cardiac stents. He states in the last week he is also had tingling in his bilateral upper and lower extremities. ROS: as above PHYSICAL EXAM: Constitutional: Patient appears in mild distress. HENT: Head: Normocephalic and atraumatic. Eyes: EOMI, PERRL Mouth/Throat: Mucous membranes moist. Neck: Trachea midline. Neck supple. Cardiovascular: RRR, No murmurs, rubs or gallops. Intact distal pulses. Pulmonary/Chest: Breath sounds clear and equal bilaterally. Patient has increased work of breathing is conversationally dyspneic. Abdominal: Abdomen soft, no tenderness, rebound or guarding. Musculoskeletal: No edema, tenderness or deformity noted. Skin: Warm and dry. No rash, erythema, pallor or cyanosis Psychiatric: Appropriate mood and affect for situation. Neurological: Alert and keenly responsive. CN II-XII grossly intact, moving all extremities equally and fully. MDM: - Vitals signs showed hypoxia. Patient was brought back to examination room and placed on an oxime mask with saturations improving from 72% on 3 L nasal cannula O2 88% on oxime mask. - History obtained via patient and patient's family. Patient presents with shortness of breath and bodyaches. Patient reports he wears 3 L nasal cannula at baseline. Reports in the last week he has been having progressively worsening of his shortness of breath. He states he gets very short of breath when he is walking around and it slightly improves when seated. He states he had diffuse body aches all week long. He was at his PCP for a physical and was feeling well at that time. Denies any recent fevers. Denies any chest pain or cough. Denies any recent sick contact exposures. He is not on any anticoagulation. Denies any history of DVT or PE. Denies any history of cardiac stents. - Chronic conditions affecting care: interstitial lung disease; CKD; GUILLE - Differential diagnoses include, but are not limited to: Congestive heart failure; acute coronary syndrome; COPD/asthma exacerbation; pulmonary edema; pulmonary embolism; pneumonia; pneumothorax; viral syndrome - Order placed for continuous cardiac monitoring. At this time, monitor showed rate of 58 bpm with normal sinus rhythm, per my interpretation. - External medical records reviewed. Discharge summary dated 10/12/2022 was reviewed. Patient was admitted at that time for acute hypoxemic respiratory failure secondary to acute CHF. - EKG interpreted by myself showed normal sinus rhythm. Rate 80 bpm. QT 356. No acute ischemic changes. - Laboratory workup interpreted by myself showed slight leukocytosis (WBC 11.61); stable electrolytes; normal troponin; slightly elevated BNP (157); normal procalcitonin; negative Lyme - VBG within normal limits - Viral respiratory panel negative - CXR noted to have fibrotic changes the bilateral lungs, per my interpretation. Radiology notes an acute right lateral ninth rib fracture. - CT PE negative for PE. - Patient started on BiPAP in ER given that he was still hypoxic on the oxime mask and secondary to his work of breathing. - Discussion was had with critical care nurse specialist about patient's case and need for admission - Hospitalist consulted for admission - [facility]. I have personally spent 38 minutes of critical care time in the direct management of this patient. This includes bedside care, interpretation of diagnostic studies, and testing, discussion with consultants, patient, and family members, and other required patient management activities. This 38 minutes is in excess of all separately billable procedures. ASSESSMENT AND PLAN: Diagnosis: Acute dyspnea; acute hypoxemic respiratory failure Plan: admit Past Med/Surg History Medical History CKD (chronic kidney disease), stage III KACY (generalized anxiety disorder) GERD (gastroesophageal reflux disease) History of COVID-19 06/12/22 admitted to [facility] w/ flu and covid pneumonia- currently doing pulmonary rehab in [place] ILD (interstitial lung disease) GUILLE (obstructive sleep apnea) bipap with 2L O2 HS Surgical History H/O eye surgery H/O lithotripsy Family History Other Cancer Diabetes Heart disease Social History Smoking Status: Never smoker Cigarettes Per Day: 5-6 cigarettes/day 60 years ago; Second Hand Exposure: No; Do You Dip or Chew Tobacco: No; Hx Alcohol Use: No Hx Substance Use: No Preferred Language: Citizen Of [place] Communication Ability: Effective Activity Aide Required: No Beliefs That Will Affect Care: None Current Living Situation: Spouse Feels Safe at Home: Yes Assistive Devices: BiPap and Oxygen - at Night Allergies Allergies Allergy/AdvReac Type Severity Reaction Status Date / Time No Known Allergies Allergy Verified 10/07/22 18:31 Home Meds Home Medications Medication Instructions Recorded Confirmed cyclobenzaprine 5 mg tablet 5 mg PO TID PRN Muscle Spasm 06/12/22 07/29/23 levocetirizine 2.5 mg/5 mL oral 2.5 mg PO PM PRN Allergic Symptoms 06/12/22 07/29/23 solution (Xyzal) omeprazole 20 mg capsule,delayed 20 mg PO DAILY 06/12/22 07/29/23 release oxybutynin chloride 5 mg 5 mg PO DAILY 06/12/22 07/29/23 tablet,extended release 24 hr sertraline 25 mg tablet 25 mg PO DAILY 06/12/22 07/29/23 tamsulosin 0.4 mg capsule 0.4 mg PO DAILY 06/12/22 07/29/23 rosuvastatin 10 mg tablet 10 mg PO QAM 07/29/23 07/29/23 Previous Rx's Medication Instructions Recorded furosemide 20 mg tablet (Lasix) 20 mg PO Q OTHER DAY #30 tabs 10/11/22 Results & Data (ED) Vital Signs Vital Signs - 24 hr 07/29/23 11:48 07/29/23 12:05 07/29/23 12:09 Temperature 36.4 C L Temperature Source Oral Pulse Rate 99 H 76 Respiratory Rate 18 32 H Respiratory Effort / Characteristics Non-Labored Spontaneous Spontaneous Accessory Muscle Use Short of Breath Respiratory Depth Normal Deep Respiratory Pattern Regular Tachypnea Blood Pressure 122/60 Blood Pressure Mean 80 Blood Pressure Position Sitting Pulse Oximetry 72 L 60 L 100 Oxygen Delivery Method Nasal Cannula Nasal Cannula BiPAP Oxygen Flow Rate 3 3 Fraction of Inspired Oxygen 50 Sepsis Recent Fever Within 48 Hours No Sepsis New/Unexplained Change in Mental Status N/A Sepsis Action Taken by Nursing No Action Required Pulse Oximetry Post Tiitration 100 07/29/23 12:21 Temperature Temperature Source Pulse Rate Respiratory Rate Respiratory Effort / Characteristics Respiratory Depth Respiratory Pattern Blood Pressure Blood Pressure Mean Blood Pressure Position Pulse Oximetry 100 Oxygen Delivery Method BiPAP Oxygen Flow Rate Fraction of Inspired Oxygen Sepsis Recent Fever Within 48 Hours Sepsis New/Unexplained Change in Mental Status Sepsis Action Taken by Nursing Pulse Oximetry Post Tiitration Laboratory Data 07/29/23 12:00 07/29/23 12:00 Lab Results 07/29/23 07/29/23 07/29/23 Range/Units 11:05 12:00 12:33 WBC 11.61 H (4.8-10.8) K/ul RBC 4.13 L (4.70-6.10) M/uL Hgb 14.3 (14.0-18.0) g/dl Hct 42.4 (42.0-52.0) % MCV 102.7 H (80.0-100.0) fL MCH 34.6 H (25.0-34.0) pg MCHC 33.7 (32.0-36.0) g/dL RDW Std Deviation 49.4 H (36.4-46.3) fL RDW Coeff of Katya 13.1 (11.5-14.5) % Plt Count 223 (130-400) K/uL MPV 9.7 (9.4-12.4) fL Immature Gran % (Auto) 0.7 % Neut % (Auto) 73.6 % Lymph % (Auto) 9.9 % Garza % (Auto) 11.0 % Eos % (Auto) 3.9 % Baso % (Auto) 0.9 % Neut # (Auto) 8.55 H (1.40-6.50) K/uL Lymph # (Auto) 1.15 L (1.20-3.40) K/uL Garza # (Auto) 1.28 H (0.11-0.59) K/uL Eos # (Auto) 0.45 (0.00-0.50) K/uL Baso # (Auto) 0.10 (0.00-0.20) K/uL Immature Gran # (Auto) 0.08 (0.01-0.20) K/uL PT 11.7 (9.0-12.0) Seconds INR 1.1 (0.9-1.1) APTT 27 (21-31) Seconds PTT Ratio 1.0 VBG pH 7.37 (7.36-7.41) VBG pCO2 45 (38-50) mmHg VBG pO2 < 20 mmHg VBG HCO3 26 mmol/L VBG O2 Saturation < 60.0 % VBG Base Excess 0.3 mEq/L Sodium 136 (136-145) mmol/L Potassium 4.7 (3.5-5.1) mmol/L Chloride 102 (98-107) mmol/L Carbon Dioxide 26 (21-32) mmol/L Anion Gap 8 (3-11) BUN 36 H (6-23) mg/dl Creatinine 1.40 (0.6-1.4) mg/dl Est Cr Clr Drug Dosing 41.9 ml/min Est GFR ( Amer) 53.5 ml/min Est GFR (Non-Af Amer) 46.1 ml/min BUN/Creatinine Ratio 25.7 H (10-20) Glucose 121 H (70-99(Fasting)) mg/dl Calcium 9.5 (8.6-10.3) mg/dl Magnesium 1.8 (1.7-2.4) mg/dl Total Bilirubin 1.1 H (0.2-1.0) mg/dl AST 20 (13-39) U/L ALT 12 (7-52) U/L Alkaline Phosphatase 98 (34-104) U/L Troponin I High Sens 14.9 (0-20) pg/ml B-Natriuretic Peptide 157 H (0-100) pg/ml Total Protein 8.2 (6.0-8.3) gm/dl Albumin 4.0 (3.4-5.0) gm/dl Globulin 4.2 H (2.5-4.0) gm/dl Albumin/Globulin Ratio 1.0 (0.9-2) Procalcitonin 0.06 (0-0.5) ng/ml Adenovirus (PCR) Not Detected (NotDetected) B. pertussis DNA (PCR) Not Detected (NotDetected) B.parapertussis DNA PCR Not Detected (NotDetected) Lyme Disease Screen Negative (Negative) C. pneumoniae DNA (PCR) Not Detected (NotDetected) Coronavirus OC43 (PCR) Not Detected (NotDetected) Coronavirus HKU1 (PCR) Not Detected (NotDetected) Coronavirus 229E (PCR) Not Detected (NotDetected) SARS-CoV-2 (PCR) Not Detected (NotDetected) Coronavirus NL63 (PCR) Not Detected (NotDetected) Human Metapneumovir PCR Not Detected (NotDetected) Influenza Type A (PCR) Not Detected (NotDetected) Influenza Type B (PCR) Not Detected (NotDetected) M. pneumoniae (PCR) Not Detected (NotDetected) Parainfluenza 1 (PCR) Not Detected (NotDetected) Parainfluenza 2 (PCR) Not Detected (NotDetected) Parainfluenza 3 (PCR) Not Detected (NotDetected) Parainfluenza 4 (PCR) Not Detected (NotDetected) RSV (PCR) Not Detected (NotDetected) Entero/Rhino (PCR) Not Detected (NotDetected) Administered Medications Discontinued Medications Ioversol (Optiray 320 125ml) 115 ml IV ONCE ONE Stop: 07/29/23 14:20 Last Admin: 07/29/23 14:19 Dose: 115 ml Documented By: [facility] Imaging Data Radiologist's Impression: Chest X-Ray 07/29/23 11:52 XR chest 1V portable HISTORY: Dyspnea COMPARISON: Chest 10/08/2022. FINDINGS: No pneumothorax. No pleural effusions. The cardiac silhouette remains mildly enlarged. Diffuse interstitial thickening persists. This most pronounced within the periphery and lung bases and therefore favors chronic fibrotic change. No evidence for pulmonary edema. Distal resection of the right clavicle again noted. Nondisplaced right lateral ninth rib fracture. This appears to be acute. There is a 1.9 cm left upper lobe nodular density which is new from the prior study. IMPRESSION: 1. An acute right lateral ninth rib fracture. No pneumothorax. 2. Chronic fibrotic change and mild cardiomegaly again noted. 3. Possible 1.9 cm left upper lobe nodule. This will be better assessed on the same day chest CT. ACT 112: Negative or not required by law. Electronically signed by: Gonzalo Velásquez M.D. 07/29/2023 1:12 PM Chest CTA 07/29/23 12:01 CHEST CTA for PULMONARY ARTERIES CT DOSE: 635.11 mGy.cm HISTORY: PE; shortness of breath; hypoxia TECHNIQUE: Multiaxial CT images of the chest were performed following the intravenous administration of contrast to evaluate the pulmonary arteries. 3D/Maximal intensity projection images were also obtained. Sagittal and coronal reformations were also reviewed. A dose lowering technique was utilized adhering to the principles of ALARA. COMPARISON STUDY: Chest CT 10/09/2022. FINDINGS: The acute right lateral ninth rib fractures seen on the same day chest x-ray is not included on this study. There are healing nondisplaced left posterior rib fractures. These are new compared the prior study. Normal caliber thoracic aorta with no evidence for a dissection. Limited views of the upper abdomen demonstrate a normal liver and spleen. The thyroid gland enhances normally. No pleural or pericardial effusions. The heart remains mildly enlarged. Normal esophagus. Mild mediastinal and bilateral hilar lymphadenopathy is similar to the prior study. Dominant subcarinal lymph node measures 17 mm in short axis diameter. There are severe coronary artery calcifications. The bilateral lower lobe, right middle lobe, and lingular segmental/subsegmental pulmonary arteries are nondiagnostic due to the respiratory motion artifact. The remaining pulmonary arteries show no filling defects to suggest a pulmonary embolus. No pneumothorax. The central airways are patent. Mild bronchiectasis is noted. Suboptimal evaluation of the lungs due to the respiratory motion artifact. Chronic fibrotic change again noted. This appears to have progressed in the interval. Evaluation for superimposed pneumonia would be difficult due to the chronic fibrotic change and motion artifact. Patchy peripheral densities within the lungs favor the fibrotic change. A superimposed pneumonitis would be difficult to exclude. No evidence for pulmonary edema. IMPRESSION: 1. Suboptimal evaluation due to the respiratory motion artifact. 2. No evidence for a central pulmonary embolus. 3. Chronic fibrotic changes again noted. This has slightly progressed. 4. Stable cardiomegaly. 5. Stable mediastinal and bilateral hilar lymphadenopathy. 6. Acute right lateral ninth rib fracture seen on the same day chest x-ray is not included on this study. No pneumothorax. 7. Healing left posterior rib fractures. 8. Patchy peripheral densities within the lungs favor the fibrotic change. A superimposed pneumonitis would be difficult to exclude. ACT 112: Negative or not required by law. Electronically signed by: Gonzalo Velásquez M.D. 07/29/2023 3:19 PM Discharge Plan Visit Data Chief Complaint: Shortness of Breath/Dyspnea Stated Complaint: SOB, ACHES, REF BY DOC ED Provider: Blanka Hoang Discharge Problem: Acute dyspnea, Acute hypoxemic respiratory failure Forms Stand Alone Forms: My [facility] Prescriptions Prescriptions: No Action furosemide [Lasix] 20 mg tablet 20 mg PO Q OTHER DAY Qty: 30 0RF tamsulosin 0.4 mg capsule 0.4 mg PO DAILY oxybutynin chloride 5 mg tablet extended release 24hr 5 mg PO DAILY sertraline 25 mg tablet 25 mg PO DAILY omeprazole 20 mg capsule,delayed release(DR/EC) 20 mg PO DAILY cyclobenzaprine 5 mg tablet 5 mg PO TID PRN (Reason: Muscle Spasm) levocetirizine [Xyzal] 2.5 mg/5 mL Solution 2.5 mg PO PM PRN (Reason: Allergic Symptoms) rosuvastatin 10 mg tablet 10 mg PO QAM Referrals Referrals: Martin Hopper MD [Primary Care Provider] -
[2023-07-29 12:22] LABS: Base Excess VBG 0.3 mEq/L; HCO3 VBG 26 mmol/L; Oxygen Saturation VBG < 60.0 %; PCO2 VBG 45 mmHg (38-50); PO2 VBG < 20 mmHg; pH VBG 7.37 (7.36-7.41)
[2023-07-29 12:27] LABS: Basophils % (auto) 0.9 %; Eosinophils # (auto) 0.45 K/uL (0.00-0.50); Eosinophils % (auto) 3.9 %; Hematocrit (blood only) 42.4 % (42.0-52.0); Hemoglobin 14.3 g/dl (14.0-18.0); Immature Granulocytes # (auto) 0.08 K/uL (0.01-0.20); Immature Granulocytes % (auto) 0.7 %; Lymphocytes # (auto) 1.15 K/uL (1.20-3.40); Lymphocytes % (auto) 9.9 %; Mean Corpuscular Hemoglobin 34.6 pg (25.0-34.0); Mean Corpuscular Hgb Conc 33.7 g/dL (32.0-36.0); Mean Corpuscular Volume 102.7 fL (80.0-100.0); Mean Platelet Volume 9.7 fL (9.4-12.4); Monocytes # (auto) 1.28 K/uL (0.11-0.59); Neutrophils # (auto) 8.55 K/uL (1.40-6.50); Neutrophils % (auto) 73.6 %; Platelet Count 223 K/uL (130-400); RDW Coefficient of Variation 13.1 % (11.5-14.5); RDW Standard Deviation 49.4 fL (36.4-46.3); Red Blood Count 4.13 M/uL (4.70-6.10); White Blood Count 11.61 K/ul (4.8-10.8)
[2023-07-29 12:45] LABS: BUN Creatinine Ratio 25.7 (10-20); Bilirubin,Total 1.1 mg/dl (0.2-1.0); Calcium 9.5 mg/dl (8.6-10.3); Creatinine Clr Calc Pharmacy 41.9 ml/min; Est GFR (African American) 53.5 ml/min; Est GFR (Non-African American) 46.1 ml/min; Globulin 4.2 gm/dl (2.5-4.0); Magnesium 1.8 mg/dl (1.7-2.4); Potassium 4.7 mmol/L (3.5-5.1); Total Protein 8.2 gm/dl (6.0-8.3)
[2023-07-29 12:49] LABS: Troponin I High Sensitivity 14.9 pg/ml (0-20)
[2023-07-29 12:56] LABS: Procalcitonin 0.06 ng/ml (0-0.5)
--- NOTE | 2023-07-29 13:14 | XRay Report ---
XR chest 1V portable HISTORY: Dyspnea COMPARISON: Chest 10/08/2022. FINDINGS: No pneumothorax. No pleural effusions. The cardiac silhouette remains mildly enlarged. Diff use interstitial thickening persists. This most pronounced within the periphery and lung bases and th erefore favors chronic fibrotic change. No evidence for pulmonary edema. Distal resection of the righ t clavicle again noted. Nondisplaced right lateral ninth rib fracture. This appears to be acute. Ther e is a 1.9 cm left upper lobe nodular density which is new from the prior study. IMPRESSION: 1. An acute right lateral ninth rib fracture. No pneumothorax. 2. Chronic fibrotic change and mild cardiomegaly again noted. 3. Possible 1.9 cm left upper lobe nodule. This will be better assessed on the same day chest CT. ACT 112: Negative or not required by law. Electronically signed by: Gonzalo Velásquez M.D. 07/29/2023 1:12 PM
[2023-07-29 13:21] LABS: Lyme Screen Rflx Confirmation Negative (Negative)
[2023-07-29 13:25] LABS: INR 1.1 (0.9-1.1); Partial Thromboplastin Time 27 Seconds (21-31); Prothrombin Time 11.7 Seconds (9.0-12.0)
[2023-07-29 13:35] LABS: Adenovirus PCR Not Detected (NotDetected); Bordetella parapertussis PCR Not Detected (NotDetected); Bordetella pertussis PCR Not Detected (NotDetected); Chlamydia pneumoniae PCR Not Detected (NotDetected); Coronavirus 229E PCR Not Detected (NotDetected); Coronavirus CoV-2 (COVID19)PCR Not Detected (NotDetected); Coronavirus HKU1 PCR Not Detected (NotDetected); Coronavirus NL63 PCR Not Detected (NotDetected); Coronavirus OC43PCR Not Detected (NotDetected); Human Metapneumovirus PCR Not Detected (NotDetected); Influenza A PCR Not Detected (NotDetected); Influenza B PCR Not Detected (NotDetected); Mycoplasma pneumoniae PCR Not Detected (NotDetected); Parainfluenza Virus 1 PCR Not Detected (NotDetected); Parainfluenza Virus 2 PCR Not Detected (NotDetected); Parainfluenza Virus 3 PCR Not Detected (NotDetected); Parainfluenza Virus 4 PCR Not Detected (NotDetected); Respiratory Syncytial VirusPCR Not Detected (NotDetected); Rhinovirus/Enterovirus PCR Not Detected (NotDetected)
[2023-07-29] MEDS: OPTIRAY 320 125ml IV ONE (14:19)
--- NOTE | 2023-07-29 15:20 | CT Scan Report ---
CHEST CTA for PULMONARY ARTERIES CT DOSE: 635.11 mGy.cm HISTORY: PE; shortness of breath; hypoxia TECHNIQUE: Multiaxial CT images of the chest were performed following the intravenous administration of contrast to evaluate the pulmonary arteries. 3D/Maximal intensity projection images were also obta ined. Sagittal and coronal reformations were also reviewed. A dose lowering technique was utilized a dhering to the principles of ALARA. COMPARISON STUDY: Chest CT 10/09/2022. FINDINGS: The acute right lateral ninth rib fractures seen on the same day chest x-ray is not include d on this study. There are healing nondisplaced left posterior rib fractures. These are new compared the prior study. Normal caliber thoracic aorta with no evidence for a dissection. Limited views of th e upper abdomen demonstrate a normal liver and spleen. The thyroid gland enhances normally. No pleura l or pericardial effusions. The heart remains mildly enlarged. Normal esophagus. Mild mediastinal and bilateral hilar lymphadenopathy is similar to the prior study. Dominant subcarinal lymph node measur es 17 mm in short axis diameter. There are severe coronary artery calcifications. The bilateral lower lobe, right middle lobe, and lingular segmental/subsegmental pulmonary arteries are nondiagnostic du e to the respiratory motion artifact. The remaining pulmonary arteries show no filling defects to sug gest a pulmonary embolus. No pneumothorax. The central airways are patent. Mild bronchiectasis is not ed. Suboptimal evaluation of the lungs due to the respiratory motion artifact. Chronic fibrotic lund e again noted. This appears to have progressed in the interval. Evaluation for superimposed pneumonia would be difficult due to the chronic fibrotic change and motion artifact. Patchy peripheral densiti es within the lungs favor the fibrotic change. A superimposed pneumonitis would be difficult to exclu de. No evidence for pulmonary edema. IMPRESSION: 1. Suboptimal evaluation due to the respiratory motion artifact. 2. No evidence for a central pulmonary embolus. 3. Chronic fibrotic changes again noted. This has slightly progressed. 4. Stable cardiomegaly. 5. Stable mediastinal and bilateral hilar lymphadenopathy. 6. Acute right lateral ninth rib fracture seen on the same day chest x-ray is not included on this st udy. No pneumothorax. 7. Healing left posterior rib fractures. 8. Patchy peripheral densities within the lungs favor the fibrotic change. A superimposed pneumonitis would be difficult to exclude. ACT 112: Negative or not required by law. Electronically signed by: Gonzalo Velásquez M.D. 07/29/2023 3:19 PM
--- NOTE | 2023-07-29 16:49 | History & Physical Report ---
Date of Service July 29, 2023 Assessment & Plan (1) Acute on chronic hypoxic respiratory failure: (2) ILD (interstitial lung disease): (3) Chronic diastolic heart failure: Plan: Patient is 83 year old male with PMH ILD, chronic respiratory failure on 3L ox ygen, chronic diastolic heart failure, GUILLE on bipap, CKD III, BPH, anxiety, esophageal dysmotility presented to ER with c/o worsening SOB x 1 week and worsening hypoxia today. Possible acute on chronic diastolic heart failure Possible pneumonia In ER patient afebrile, P: 99, R: 32, BP 122/60, 72% on 3 L nasal cannula. Patient was noted to be very tachypneic. He was placed on BiPAP in ER. Since on BiPAP patient with much improvement Negative BioFire respiratory panel, WBC: 11.6, procalcitonin: 0.06, troponin WNL, BNP: 157 CTA chest: 1. Suboptimal evaluation due to the respiratory motion artifact. 2. No evidence for a central pulmonary embolus. 3. Chronic fibrotic changes again noted. This has slightly progressed. 4. Stable cardiomegaly. 5. Stable mediastinal and bilateral hilar lymphadenopathy. 6. Acute right lateral ninth rib fracture seen on the same day chest x-ray is not included on this study. No pneumothorax. 7. Healing left posterior rib fractures. 8. Patchy peripheral densities within the lungs favor the fibrotic change. A superimposed pneumonitis would be difficult to exclude. Continue BiPAP, plan to wean when able and then resume home oxygen supplementation. Previously required 3L with exertion Start Rocephin, doxycycline for possible pneumonia Solu-Medrol 40 mg every 8 hours Lasix 20 mg IV now. Monitor response. Plan to resume home oral Lasix and spironolactone tomorrow Monitor I's and O's, daily weights NPO for now while on BiPAP Pulmonology consult Echo May need to consider cardiology consult CBC, BMP in a.m. (4) CKD (chronic kidney disease), stage III: Plan: Cr: 1.4. Baseline 1.3-1.4 Monitor renal functions, avoid nephrotoxic agents when possible (5) GUILLE (obstructive sleep apnea): Plan: BiPAP at bedtime (6) BPH (benign prostatic hyperplasia): Plan: Continue tamsulosin (7) KACY (generalized anxiety disorder): Plan: Continue sertraline (8) Esophageal dysmotility: Plan: Continue PPI DVT Prophylaxis Lovenox SQ Full Code as per discussion with pt Follows with Dr Hopper for routine care Pt was seen and care coordinated with Dr Oseguera. See addendum I spent a total of 78 minutes reviewing notes, outpatient records, labs, medication, coordinating, documenting and providing care for this patient excluding time spent in the performance of separately billed services. History of Present Illness Chief Complaint: SOB Primary Care Provider: Martin Hopper MD Patient is 83 year old male with PMH ILD, chronic respiratory failure on 3L oxygen, chronic diastolic heart failure, GUILLE on bipap, CKD III, BPH, anxiety, esophageal dysmotility presented to ER with c/o worsening SOB x 1 week. History obtained from patient, patient's and daughter. States for past week increased SOB. States has been coughing and has lyons color sputum. Denies fevers. Denies known ill contacts. Patient states home pulse ox down in 70's today when he wasn't using the oxygen. states patient sometimes does not use his oxygen. Patient states was feeling dizzy with walking today. states he seemed very SOB today. Denies syncope or CP. Denies exertional CP. He reports that he sometimes has tingling bilateral arms and legs, seems worse in the mornings per patient. Denies diaphoresis, N/V/D/C, [place], neck pain, orthopnea, palpitations, hemoptysis, rhinorrhea, abdominal pain, extremity weakness, increased extremity edema, rashes, dysuria, hematuria. Allergies Allergy/AdvReac Type Severity Reaction Status Date / Time No Known Allergies Allergy Verified 10/07/22 18:31 Home Medications Medication Instructions Recorded Confirmed Type cyclobenzaprine 5 mg tablet 5 mg PO TID PRN Muscle Spasm 06/12/22 07/29/23 History levocetirizine 2.5 mg/5 mL oral 2.5 mg PO PM PRN Allergic Symptoms 06/12/22 07/29/23 History solution (Xyzal) omeprazole 20 mg capsule,delayed 20 mg PO DAILY 06/12/22 07/29/23 History release oxybutynin chloride 5 mg 5 mg PO DAILY 06/12/22 07/29/23 History tablet,extended release 24 hr sertraline 25 mg tablet 25 mg PO DAILY 06/12/22 07/29/23 History tamsulosin 0.4 mg capsule 0.4 mg PO DAILY 06/12/22 07/29/23 History furosemide 20 mg tablet (Lasix) 20 mg PO Q OTHER DAY #30 tabs 10/11/22 07/29/23 Rx rosuvastatin 10 mg tablet 10 mg PO QAM 07/29/23 07/29/23 History spironolactone 25 mg tablet 12.5 mg PO DAILY 07/29/23 07/29/23 History Past Med/Surg History Medical History Esophageal dysmotility BPH (benign prostatic hyperplasia) Chronic diastolic heart failure GERD (gastroesophageal reflux disease) History of COVID-19 06/12/22 admitted to [facility] w/ flu and covid pneumonia- currently doing pulmonary rehab in [place] GUILLE (obstructive sleep apnea) bipap with 2L O2 HS CKD (chronic kidney disease), stage III ILD (interstitial lung disease) KACY (generalized anxiety disorder) Surgical History H/O eye surgery H/O lithotripsy Family History Other Cancer Diabetes Heart disease Social History Smoking Status: Never smoker Cigarettes Per Day: 5-6 cigarettes/day 60 years ago; Second Hand Exposure: No; Do You Dip or Chew Tobacco: No; Hx Alcohol Use: No Hx Substance Use: No Preferred Language: Georgian Communication Ability: Effective Bottle House Pumper Required: No Beliefs That Will Affect Care: None Current Living Situation: Spouse Feels Safe at Home: Yes Assistive Devices: BiPap and Oxygen - at Night Review of Systems Review of Systems: All systems reviewed & are unremarkable except as noted in HPI & below Physical Exam Physical Exam: General: no distress currently on bipap, WDWN Head: normocephalic, atraumatic Eyes:conjunctiva non-injected, anicteric ENT: normal inspection external ears, nose, mucous membranes moist Neck: supple, trachea midline Lungs: Currently on bipap and in no apparent distress and tolerating well, +rales, +scattered wheezing CV: RRR, no murmur, 1+ pretibial edema Abd: normal BS, soft, non-tender Ext: no cyanosis, no calf tenderness Neuro: A&O x 3, no focal deficits noted, normal affect Skin: warm, dry Results & Data Results & Data Vital Signs (Past 12 Hours) Vital Signs Temp Pulse Resp BP Pulse Ox O2 Del Method O2 Flow Rate 07/29/23 12:21 100 BiPAP 07/29/23 12:09 76 32 H 100 07/29/23 12:05 60 L Nasal Cannula, BiPAP 3 07/29/23 11:48 36.4 C L 99 H 18 122/60 72 L Nasal Cannula 3 FiO2 07/29/23 12:21 07/29/23 12:09 50 07/29/23 12:05 07/29/23 11:48 Laboratory Results Short CBC 07/29/23 Range/Units 12:00 WBC 11.61 H (4.8-10.8) K/ul Hgb 14.3 (14.0-18.0) g/dl Hct 42.4 (42.0-52.0) % Plt Count 223 (130-400) K/uL BMP 07/29/23 12:00 Sodium 136 Potassium 4.7 Chloride 102 Carbon Dioxide 26 BUN 36 H Creatinine 1.40 Glucose 121 H Calcium 9.5 Liver Function 07/29/23 Range/Units 12:00 Total Bilirubin 1.1 H (0.2-1.0) mg/dl AST 20 (13-39) U/L ALT 12 (7-52) U/L Alkaline Phosphatase 98 (34-104) U/L Albumin 4.0 (3.4-5.0) gm/dl Urine 07/29/23 Range/Units 17:56 Urine Color Yellow Urine Appearance Clear (Clear) Urine pH 6.5 (4.5-7.5) Ur Specific [place] > 1.045 H (1.000-1.030) Urine Protein 1+ H (Negative) Urine Glucose (UA) Negative (Negative) Diagnostic Findings Chest X-Ray 07/29/23 11:52 XR chest 1V portable HISTORY: Dyspnea COMPARISON: Chest 10/08/2022. FINDINGS: No pneumothorax. No pleural effusions. The cardiac silhouette remains mildly enlarged. Diffuse interstitial thickening persists. This most pronounced within the periphery and lung bases and therefore favors chronic fibrotic change. No evidence for pulmonary edema. Distal resection of the right clavicle again noted. Nondisplaced right lateral ninth rib fracture. This appears to be acute. There is a 1.9 cm left upper lobe nodular density which is new from the prior study. IMPRESSION: 1. An acute right lateral ninth rib fracture. No pneumothorax. 2. Chronic fibrotic change and mild cardiomegaly again noted. 3. Possible 1.9 cm left upper lobe nodule. This will be better assessed on the same day chest CT. ACT 112: Negative or not required by law. Electronically signed by: Gonzalo Velásquez M.D. 07/29/2023 1:12 PM Chest CTA 07/29/23 12:01 CHEST CTA for PULMONARY ARTERIES CT DOSE: 635.11 mGy.cm HISTORY: PE; shortness of breath; hypoxia TECHNIQUE: Multiaxial CT images of the chest were performed following the intravenous administration of contrast to evaluate the pulmonary arteries. 3D/Maximal intensity projection images were also obtained. Sagittal and coronal reformations were also reviewed. A dose lowering technique was utilized adhering to the principles of ALARA. COMPARISON STUDY: Chest CT 10/09/2022. FINDINGS: The acute right lateral ninth rib fractures seen on the same day chest x-ray is not included on this study. There are healing nondisplaced left posterior rib fractures. These are new compared the prior study. Normal caliber thoracic aorta with no evidence for a dissection. Limited views of the upper abdomen demonstrate a normal liver and spleen. The thyroid gland enhances normally. No pleural or pericardial effusions. The heart remains mildly enlarged. Normal esophagus. Mild mediastinal and bilateral hilar lymphadenopathy is similar to the prior study. Dominant subcarinal lymph node measures 17 mm in short axis diameter. There are severe coronary artery calcifications. The bilateral lower lobe, right middle lobe, and lingular segmental/subsegmental pulmonary arteries are nondiagnostic due to the respiratory motion artifact. The remaining pulmonary arteries show no filling defects to suggest a pulmonary embolus. No pneumothorax. The central airways are patent. Mild bronchiectasis is noted. Suboptimal evaluation of the lungs due to the respiratory motion artifact. Chronic fibrotic change again noted. This appears to have progressed in the interval. Evaluation for superimposed pneumonia would be difficult due to the chronic fibrotic change and motion artifact. Patchy peripheral densities within the lungs favor the fibrotic change. A superimposed pneumonitis would be difficult to exclude. No evidence for pulmonary edema. IMPRESSION: 1. Suboptimal evaluation due to the respiratory motion artifact. 2. No evidence for a central pulmonary embolus. 3. Chronic fibrotic changes again noted. This has slightly progressed. 4. Stable cardiomegaly. 5. Stable mediastinal and bilateral hilar lymphadenopathy. 6. Acute right lateral ninth rib fracture seen on the same day chest x-ray is n ot included on this study. No pneumothorax. 7. Healing left posterior rib fractures. 8. Patchy peripheral densities within the lungs favor the fibrotic change. A superimposed pneumonitis would be difficult to exclude. ACT 112: Negative or not required by law. Electronically signed by: Gonzalo Velásquez M.D. 07/29/2023 3:19 PM Supervising Physician Co-Signing Physician Notes Patient is an 83-year-old male with history of interstitial lung disease, chronic oxygen dependency on 3 L at baseline, obstructive sleep apnea on BiPAP at at bedtime, diastolic heart failure and other medical problems presents with history of worsening shortness of breath since 1 week duration. Patient also admits to have cough with grayish colored sputum but denies any chest pain, fever, nausea, vomiting, abdominal pain, diarrhea. Patient noted his oxygen saturations to drop while at home and came to ED for further evaluation. Please review HPI for complete details of presentation. I personally reviewed blood work and imaging studies. WBC count elevated 11.61, MCV 102, BNP 157, urine analysis suggestive microscopic hematuria, BioFire negative, CTA suggestive of chronic fibrotic changes which have slightly progressed, stable mediastinal and bilateral hilar lymphadenopathy, acute ninth rib fracture, patchy peripheral densities within the lungs suggestive of fibrotic change, superimposed pneumonitis difficult to exclude. Physical Exam: Vitals signs as noted above General Appearance:Moderately built and nourished, no apparent distress Head: normocephalic, Atraumatic Eyes: normal inspection, EOMI Neck: supple, Trachea midline Respiratory/Chest: Decreased breath sounds, B/L crackles, scant wheezes, No accessory muscle use Cardiovascular: S1, S2, + murmur Abdomen/GI:Soft, Non tender, + protuberant, bowel sounds present Extremities/Musculoskeletal:normal inspection, 1+ pedal edema Neurologic/Psych:AAOX3, grossly no focal neurological deficits Skin: normal color, warm Acute on chronic respiratory failure with hypoxia Chronic oxygen dependency Interstitial lung disease Chronic diastolic heart failure Suspected pneumonia Abnormal urinalysis, rule out UTI Continue BiPAP, titrate down oxygen as able Empirically started on Rocephin, doxycycline Continue [facility] Pulmonology consulted Obtain resting echo Consider cardiology evaluation if needed Received a dose of IV Lasix Monitor volume status, I's and O's, daily weight Aggressive pulmonary hygiene Further management based on echo results I personally interviewed and examined at bedside. Patient's care is coordinated with Diane Bartlett PA-C. I have reviewed the advanced practitioner's documentation, and I agree with, and take responsibility for that plan of care. Please refer to the documentation above for details of patient's presentation and for discussion of other issues. I spent a total of 32 minutes coordinating, documenting, and providing care for this patient excluding time spent in the performance of separately billed services.
[2023-07-29] MEDS: cefTRIAXone SODIUM 2,000 MG in DEXTROSE 5 % MINI-B 50 ML IV SCH (17:59)
[2023-07-29] MEDS: FUROSEMIDE INJ 20 MG/2 ML VIAL IV ONE (18:02)
[2023-07-29 18:17] LABS: Appearance Urine Clear (Clear); Bacteria Urine Automated Negative (Negative); Bilirubin Urine Negative (Negative); Blood Urine 3+ (Negative); Cast Urine Automated 0 /lpf (0-5); Color Urine Yellow; Glucose Urine UA Negative (Negative); Ketones Urine Negative (Negative); Leukocyte Esterase Urine Trace (Negative); Nitrite Urine Negative (Negative); Protein Urine 1+ (Negative); RBC Urine Automated >30 /hpf (0-4); Specific Gravity Urine > 1.045 (1.000-1.030); Urobilinogen Urine Negative (Negative); pH Urine 6.5 (4.5-7.5)
[2023-07-29] MEDS: cefTRIAXone SODIUM 2,000 MG in DEXTROSE 5 % MINI-B 50 ML IV STA (18:41)
[2023-07-29] MEDS: DOXYCYCLINE HYCLATE 100 MG in DEXTROSE 5% MINI-B 100 ML IV STA (19:47)
--- OUTSIDE RECORDS SUMMARY | 2023-07-29 20:37 | External Medical Summary | Summary of Care ---
Author Name Unknown Organization [facility] Address [address] [place] [address] Phone [phone] Care Team Providers Care Base Cloth Inspector Name Role Phone Martin Hopper MD Primary Care Provider [phone] Encounter Details Date Type Department Care Team (Late st Contact Info) Description 07/02/2023 Telephone Pulmonary Medicine, [facility] [address] [place] [address] Janet Browne CRNP [address] [place] [address] Allergies Active Allergy Reactions Criticality Noted Date Comments Pollen Cough Medium 10/17/2022 Watery eyes and runny nose documented as of this encounter (statuses as of 07/02/2023) Medications Medication Sig Dispensed Refills Start Date End Date Status oxygen IN GAS 2 LPM bled through CPAP during hours of sleep 1 Each 0 08/14/2021 Active BiPAP every night at bedtime. 0 Active Furosemide 20 MG Oral Tablet (Lasix)Indications:ILD (interstitial lung disease) (HCC),Acute hypoxemic respiratory failure (HCC),Hypervolemia, unspecified hypervolemia type Take 1 Tablet by mouth every other day. 15 Tablet 5 02/06/2023 Active Omeprazole 20 MG Oral Capsule Delayed Release (PriLOSEC) TAKE 1 CAPSULE BY MOUTH EVERY MORNING. TAKE WITH WATER ON AN EMPTY STOMACH ONE HOUR PRIOR TO MEAL. 90 Capsule 1 03/02/2023 Active Levocetirizine Dihydrochloride 5 MG Oral TabletIndications:Rhini tis, unspecified type Take 0.5 Tablets by mouth every evening. 15 Tablet 5 03/13/2023 Active Tamsulosin HCl 0.4 MG Oral Capsule (Flomax)Indications:BPH with obstruction/lower urinary tract symptoms TAKE 1 CAPSULE BY MOUTH ONCE DAILY 90 Capsule 1 04/27/2023 Active Sertraline HCl 25 MG Oral Tablet (Zoloft) TAKE 1 TABLET BY MOUTH EVERY MORNING 90 Tablet 2 05/12/2023 Active oxyBUTYnin Chloride ER 5 MG Oral Tablet Extended Release 24 Hour (Ditropan XL)Indications:Overacti ve bladder TAKE 1 TABLET BY MOUTH ONCE DAILY. DO NOT CUT, CRUSH OR CHEW. 90 Tablet 3 05/12/2023 Active Spironolactone 25 MG Oral Tablet (Aldactone) Take 0.5 Tablets by mouth in the morning. 45 Tablet 3 05/18/2023 Active Hospital, Clinic, or Other Facility Administered Medication Ordered Dose Route Frequency Start Date End Date Status Albuterol Sulfate (Proventil) (5 MG/ML) 0.5% *conc* inhalation solution 2.5 mgIndications:ILD (interstitial lung disease) (HCC) 2.5 mg NEBULIZER PRN 08/05/2022 08/05/2023 Active Albuterol Sulfate (Proventil) (2.5 MG/3ML) 0.083% inhalation solution 2.5 mgIndications:ILD (interstitial lung disease) (HCC) 2.5 mg NEBULIZER PRN 08/05/2022 08/05/2023 Active documented as of this encounter (statuses as of 07/02/2023) Active Problems Problem Noted Date Diagnosed Date Chronic heart failure with preserved ejection fr action 02/06/2023 Bradycardia, sinus 02/06/2023 Pulmonary hypertension, unspecified 10/21/2022 Unspecified mood (affective) disorder 10/21/2022 Chronic kidney disease, stage 3a 10/20/2022 Overview: Per CKD protocol Scleroderma 10/17/2022 Positive SEDRICK (antinuclear antibody) 10/17/2022 Former tobacco use 10/17/2022 House dust mite allergy 03/27/2022 Allergic rhinitis due to pollen 03/27/2022 Esophageal dysmotility 03/27/2022 ILD (interstitial lung disease) 03/27/2022 KACY (generalized anxiety disorder) 06/29/2019 Obstructive sleep apnea no akil with bilevel positive airway pressure (BiPAP) 02/09/2018 BPH with obstruction/lower urinary tract symptom s 12/22/2017 Hx of nonmelanoma skin cancer 01/15/2017 Overview: squamous cell carcinoma (L jawline 08/01, R posterior scalp 12/31, L eric bowl 12/31, R lateral eyebrow 06/02, L proximal elbow 06/04, L distomedial elbow 06/04), squamous cell carcinoma in situ (L lateral cheek 04/01, L lower eyelid margin 09/04), basal cell carcinoma (L forehead below hairline 04/01, R upper arm 07/03, R chest 12/04, R upper arm 12/04) Actinic keratosis 06/28/2013 Insomnia 04/11/2004 Overview: ICD-10 update of inactive term documented as of this encounter (statuses as of 07/02/2023) Resolved Problems Problem Noted Date Diagnosed Date Resolved Date Dizziness 02/06/2023 02/06/2023 Acute hypoxemic respiratory failure 10/17/2022 01/16/2023 Fluid overload 10/17/2022 01/16/2023 CKD (chronic kidney disease), stage III 04/23/2020 10/22/2022 Overview: Per CKD protocol History of squamous cell carcinoma 06/24/2017 10/09/2018 Kidney disease, chronic, sta ge III (GFR 30-59 ml/min) 10/20/2016 04/26/2020 Overview: Per CKD protocol #1 Other acne 06/28/2013 12/12/2014 Dermatitis 06/28/2013 12/12/2014 ADVANCE DIRECTIVE INFORMATION 04/02/2005 06/24/2017 Overview: Yes, Patient instructed to provide copy of advance directive for provider to review and to be scanned into Electronic Medical Record BENIGN NEOPLASM LG BOWEL 10/03/200403/2019 Overview: last colonoscopy in 2004, polyp, no CA, repeat in 10 years IMPOTENCE, ORGANIC ORIGN 04/11/200403/2018 GENERALIZED ANXIETY DIS 04/11/200409/14 documented as of this encounter (statuses as of 07/02/2023) Immunizations Name Administration Dates Next Due COVID-19 mRNA, LNP-s, No Pre serve, 2-Dose Series (Moderna) 05/15/2021,08/11/2020,07/07/2020 Covid-19, Mrna, Lnp-s, Pf, B ivalent, 30 Mcg, IM, 12 yrs and above (Pfizer) 04/22/2022 H1N1 2009 Influenza, IM 06/18/2009 Pneumococcal Conjugate Vacc, 13 Valent (Prevnar) 06/18/2015 Pneumococcal Polysaccharide PPV23 (Pneumovax) 05/30/2010 Seasonal Influenza, PF, 6 M & above, IM , (FluLaval or Fluzone) 02/23/2020,03/09/2019,03/12/2018,03/16 Seasonal Influenza, Quadriva lent Hd (Fluzone Hd) 03/05/2023,03/17/2022,02/22/2021 Seasonal Influenza, Quadriva lent, No Preserve, IM 03/11/2016,03/16/2015 Seasonal Influenza, Split, I IV3, With Preserve, Inj 02/27/2014,03/02/2013,03/15/2012,03/15,04/15/2010,04/09/2009,04/10/20 08,04/16/2007,04/08/2006 TD - Tetanus/Diptheria (ADULT) 01/05/2008,2007 TDAP (age 10 and older)(Boostrix) 07/27/2014 07/27/2024 Varicella Zoster Vaccine (Adult) 06/29/2007 Zoster Vaccine Recombinant (Shingrix) 04/03/2020 ,02/02/2020 documented as of this encounter Social History Tobacco Use Types Packs/Day Years Used Date Smoking Tobacco: Former Cigarettes 0.3 40 Q uit: 1999 Smokeless Tobacco: Never Alcohol Use Standard Drinks/Week Comments Not Currently 0 (1 standard drink = 0.6 oz pure alcohol) quit 03/2002 (social drinker)-rare PHQ-2 Answer Date Recorded PHQ Adult Total Score 0 12/27/2021 Hunger Vital Sign Answer Date Recorded Within the past 12 months, y ou worried that your food would run out before you got the money to buy more. Never true 06/17/19 23 Within the past 12 months, t he food you bought just didn't last and you didn't have money to get more. Never true 06/17/2022 Sex and Gender Information Value Date Recorded Sex Assigned at Not on file Gender Identity Not on file Sexual Orientation Not on file Job Start Date Occupation Industry Not on file Not on file Not on file documented as of this encounter Miscellaneous Notes * Telephone Encounter - Elli Ware OSA - 07/02/2023 10:29 AM EST CPAP supply order entered in [facility] [employer] documented in this encounter Plan of Treatment Upcoming Encounters Date Type Department Care Team (Late st Contact Info) Description 07/08/2023 10:40 AM EST Office Visit [facility] [address] [place] [address] Martin Hopper MD [address] [place] [address] 08/17/2023 9:45 AM EST Imaging Radiology [facility] 1st Floor, [place] [address] [facility] [place] [address] 08/17/2023 10:30 AM EST Office Visit Cardiology, [facility] [address] [facility] [place] [address] Nuzhat Rolon, HAL [address] [facility] [place] [address] 11/02/2023 9:40 AM EDT Office Visit Ophthalmology, [facility] [address] [facility] [place] [address] Wilfredo Robert, DO [address] [facility] [place] [address] 12/23/2023 10:00 AM EDT Office Visit [facility] [address] [place] [phone] Janet Browne, PRISCA [address] [place] [address] 12/24/2023 11:20 AM EDT [facility] [address] [facility] [place] [address] Jemma Evangelista PA-C [address] [place] [address] [place] [address] Scheduled Procedures Name Priority Associated Diagnoses Date/Ti me COLONOSCOPY FLEXIBLE PROXIMA L DIAGNOSTIC Recall Special screening for malignant neoplasms, colon Health Maintenance Due Date Last Done Comments CKD HGB USE SMARTSET 33827 12/27/202212/27, 07/05/2021, 01/02/2021, Additional history exists CKD PHOS USE SMARTSET 66857 12/27/202212/13, 01/02/2021, 12/28/2019, Additional history exists Depression Screening 12/27/2022 12/27/2021 COVID-19 Vaccine ( season) 2023 04/22/2022, 05/15/2021, 08/11/2020, Additional history exists GFR 06/26/2023 12/24/2022, 12/13, 07/05/2021, Additional history exists Albumin/Creatinine Ratio 12/25/2023 12/24/2022, 12/13 DTaP,Tdap,and Td Vaccines (2 - Td or Tdap) 07/27/2024 07/27/2014, 01/05/2008, 01/05/2008 Pneumococcal Vaccine: 65+ Years Completed 06/18/2015, 05/30/2010, 04/11/2004 Zoster Vaccines Completed 04/03/2020, 01/14, 06/29/2007 Influenza Vaccine (FLU shot) Completed , 03/17/2022, 02/22/2021, Additional history exists GARDASIL-HPV IMMUNIZATION SERIES Aged Out No longer eligible based on patient's age to complete this topic Hepatitis B Aged Out No longer eligi ble based on patient's age to complete this topic MENINGOCOCCAL (MENACTRA/MENVEO) Aged Out No longer eligible based on patient's age to complete this topic documented as of this encounter Medical Devices Not on filedocumented as of this encounter Care Teams Base Cloth Inspector Relationship Specialty Start Date End Date Martin Hopper MD [address] [place] [address] PCP - General Family Medicine 08/23/18 documented as of this encounter
--- OUTSIDE RECORDS SUMMARY | 2023-07-29 20:37 | External Medical Summary ---
Author Name Unknown Address Unknown Organization K01:LABORATORY [facility] [place] - [facility] [address] [facility] [address] Laboratory Report Ordering Provider Test Date Status LIANA MONTAÑO 07/08/2023 11:34:21 Final Observation Date Value Abnormality Reference (Units ) Status BUN 07/08/2023 11:34:21 33 Above high normal 6-20 (mg/dL) Final Creatinine 07/08/2023 11:34:21 1.4 Above high normal 0.6-1.2 (mg/dL) Final Glomerular filtration rate/1.73 sq M.predicted [Volume Rate/Area] in Serum, Plasma or Blood by Creatinine-based formula (CKD-EPI) 07/08/2023 11:34:21 49 Below low normal >=60 (mL/min) Final eGFR is calculated based on the CKD-EPI 2020 equation SODIUM 07/08/2023 11:34:21 137 135-146 (m mol/L) Final Potassium 07/08/2023 11:34:21 5.3 Above high normal 3. 5-5.1 (mmol/L) Final Cl 07/08/2023 11:34:21 101 98-107 (mm ol/L) Final CO2 07/08/2023 11:34:21 25 22-32 (mmo l/L) Final Anion gap 07/08/2023 11:34:21 11 7-15 (mmol /L) Final Glucose 07/08/2023 11:34:21 99 70-120 (mg /dL) Final Calcium 07/08/2023 11:34:21 9.8 8.4-10.2 ( mg/dL) Final Performing Location LABORATORY [facility] [place] - [address] [place] [address]
--- OUTSIDE RECORDS SUMMARY | 2023-07-29 20:37 | External Medical Summary | Summary of Care ---
Author Name Unknown Organization [facility] Address [address] [place] [address] Phone [phone] Care Team Providers Care Candy Polisher Name Role Phone Martin Hopper MD Primary Care Provider [phone]- [phone] Reason for Visit * Reason Comments Follow Up Sleep Apnea Encounter Details Date Type Department Care Team (Late st Contact Info) Description 06/19/2023 11:00 AM EST Office Visit Sleep Disorders Ctr [facility] [address] [place] [address] Janet Browne CRNP [address] [facility] [place] [address] Obstructive sleep apnea*; Nocturnal hypoxemia Allergies Active Allergy Reactions Criticality Noted Date Comments Pollen Cough Medium 10/17/2022 Watery eyes and runny nose documented as of this encounter (statuses as of 07/01/2023) Medications Medication Sig Dispensed Refills Start Date [...] as of this encounter (statuses as of 07/01/2023) Active Problems Problem Noted Date Diagnosed Date [...] as of this encounter (statuses as of 07/01/2023) Resolved Problems Problem Noted Date Diagnosed Date [...] as of this encounter (statuses as of 07/01/2023) Immunizations Name Administration Dates Next Due COVID-19 [...] on file documented as of this encounter Last Filed Vital Signs Vital Sign Reading Time Taken Comments Blood Pressure 120/60 06/19/2023 11:09 AM EST Pulse 85 06/19/2023 11:09 AM EST Temperature 35.8 C (96.5 F) 06/19/2023 11:[address] Respiratory Rate 16 06/19/2023 11:09 AM EST Oxygen Saturation 93% 06/19/2023 11:09 AM EST Inhaled Oxygen Concentration - - Weight 84.4 kg (186 lb) 06/19/2023 11:09 AM EST Height 174 cm (5' 8.5") 06/19/2023 11:09 AM EST Body Mass Index 27.87 06/19/2023 11:09 AM EST documented in this encounter Progress Notes * Janet Browne CRNP - 06/19/2023 11:09 AM EST [facility] Mane Foote is a 83 year old male seen today for 6 month follow-up GUILLE treated on BPAP with oxygen supplementation. History includes ILD, allergic rhinitis, BPH, GERD, pulmonary hypertension. Sleep Testing/History: - Split PSG 02/03/18 (188 lbs): AHI 40, ANA 0, SpO2 ana laura 83% with 79 minutes <89%; CPAP to 13 x38 mins (8 mins REM), SpO2 <89% 2 mins - Noct ox CPAP 13-18, 07/31/21 (wt 199): SpO2 ana laura 76% with 62 minutes <89%; CPAP rAHI 10, 1 minlarge leak, mean 14.5, p90% 16.8 - Noct ox PAP/2 LPM 11/05/21: TRT 7 hours and 4 minutes, SpO2 ana laura 80% with 1 hr < 88%, rAHI 0.4, leak 19 mins - Titration 03/26/22 (wt 194): final BIPAP x 55 mins (49 mins REM, all supine) with rAHI 3, SpO2 ana laura 87%, 4 mins <89%, PLM index 23; entire study- PLM index 118, PLM arousal index 36, SpO2<89% 26 mins Interim History: BPAP used nightly. His headgear velcro is worn out and coming apart once nightly. He should be due for a new one soon. Questions if any medicines are making him sleepy during the day. Taking tylenol PM x2 nightly to help him fall asleep. When questioned, he doesn't think this does anything to help. He questions if he should stop it. Taking sertraline in the morning. In bed after 2300. Reading a book prior to bed has been helpful. Compliance Data: Requested Equipment: DME Provider: [employer] Device: [employer] BPAP Settings: [id number] Interface Type: FFM [place] Sleepiness Scale Question 06/19/2023 11:15 AM EST - Filed by Ary Partida LPN What is the chance you will doze off in the following situation? Sitting and reading No chance of dozing Watching TV High chance of dozing Sitting inactive in a public place, such as a theater or meeting No chance of dozing As a passenger in a car for an hour without a break No chance of dozing Lying down to rest in the afternoon when circumstances permit No chance of dozing When sitting and talking to someone No chance of dozing When sitting quietly after lunch without alcohol No chance of dozing In a car, while stopped for a few minutes in traffic No chance of dozing Score (range: 0 - 24) 3 Problem List: Patient Active Problem List Diagnosis Code Insomnia G47.00 Actinic keratosis L57.0 Hx of nonmelanoma skin cancer Z85.828 BPH with obstruction/lower urinary tract symptoms N40.1, N13.8 Obstructive sleep apnea treated with bilevel positive airway pressure (BiPAP) G47.33 KACY (generalized anxiety disorder) F41.1 House dust mite allergy Z91.09 Allergic rhinitis due to pollen J30.1 Esophageal dysmotility K22.4 ILD (interstitial lung disease) ([facility]) J84.9 Scleroderma ([facility]) M34.9 Positive SEDRICK (antinuclear antibody) R76.8 Former tobacco use Z87.891 Pulmonary hypertension, unspecified ([facility]) I27.20 Unspecified mood (affective) disorder ([facility]) F39 Chronic kidney disease, stage 3a ([facility]) N18.31 Chronic heart failure with preserved ejection fraction ([facility]) I50.32 Bradycardia, sinus R00.1 Current Medications: Outpatient Medications Marked as Taking for the 06/19/23 encounter (Office Visit) with Janet Browne CRNP Medication Sig Spironolactone 25 MG Oral Tablet (Aldactone) Take 0.5 Tablets by mouth in the morning. oxyBUTYnin Chloride ER 5 MG Oral Tablet Extended Release 24 Hour (Ditropan XL) TAKE 1 TABLET BY MOUTH ONCE DAILY. DO NOT CUT, CRUSH OR CHEW. Sertraline HCl 25 MG Oral Tablet (Zoloft) TAKE 1 TABLET BY MOUTH EVERY MORNING Tamsulosin HCl 0.4 MG Oral Capsule (Flomax) TAKE 1 CAPSULE BY MOUTH ONCE DAILY Levocetirizine Dihydrochloride 5 MG Oral Tablet Take 0.5 Tablets by mouth every evening. Omeprazole 20 MG Oral Capsule Delayed Release (PriLOSEC) TAKE 1 CAPSULE BY MOUTH EVERY MORNING. TAKE WITH WATER ON AN EMPTY STOMACH ONE HOUR PRIOR TO MEAL. Furosemide 20 MG Oral Tablet (Lasix) Take 1 Tablet by mouth every other day. Current Facility-Administered Medications for the 06/19/23 encounter (Office Visit) with Janet Browne CRNP Medication Albuterol Sulfate (Proventil) (2.5 MG/3ML) 0.083% inhalation solution 2.5 mg Albuterol Sulfate (Proventil) (5 MG/ML) 0.5% *conc* inhalation solution 2.5 mg Physical Exam: BP 120/60 | Pulse 85 | Temp 35.8 C (96.5 F) (Tympanic) | Resp 16 | Ht 1.74 m (5' 8.5") | Wt 84.4 kg (186 lb) | SpO2 93% | BMI 27.87 kg/m | BSA 2.02 m Constitutional: Alert, oriented and in no acute distress, accompanied by Skin: No abnormal mask markings on face Cardio: Regular rate and rhythm Chest: Normal respiratory effort at rest Neuro: Fluent speech Psych: Appropriate mood and affect. Assessment & Plan: Encounter Diagnoses Name Primary? Obstructive sleep apnea Yes Nocturnal hypoxemia Severe obstructive sleep apnea based on AHI criteria associated with hypoxemia. He reports compliance and benefiting with PAP treatment. Discussed his headgear. This should be replaced if it is no longer holding up such as now with the velcro being ineffective. Headgear can be purchased online or through the supplier. It is covered byinsurance every 6 months. Encouraged continued us of BPAP to include all periods of sleep opportunity. Download from BPAP now. PRISCA [facility] I spent a total of 40-54 minutes (exact time 40 mins) on the date of service in preparation, delivery, and documentation of the care provided to Mane Foote excluding any time spent in the performance of separately billed services. documented in this encounter Nursing Notes * Ary Partida LPN - 06/19/2023 11:16 AM EST Chief Complaint Patient presents with Follow Up Sleep Apnea Bipap DME: [employer] [place] Sleepiness Scale Question 06/19/2023 11:15 AM EST - Filed by Ary Partida LPN What is the chance you will doze off in the following situation? Sitting and reading No chance of dozing Watching TV High chance of dozing Sitting inactive in a public place, such as a theater or meeting No chance of dozing As a passenger in a car for an hour without a break No chance of dozing Lying down to rest in the afternoon when circumstances permit No chance of dozing When sitting and talking to someone No chance of dozing When sitting quietly after lunch without alcohol No chance of dozing In a car, while stopped for a few minutes in traffic No chance of dozing Score (range: 0 - 24) 3 documented in this encounter Plan of Treatment Upcoming Encounters Date Type Department Care Team (Late st Contact Info) Description 07/08/2023 10:40 AM EST Office Visit Family [facility] [address] [place] [facility] [place] [address] Martin Hopper MD [address] [place] [address] 08/17/2023 9:45 AM EST Imaging Radiology [facility] [address] [facility] [address] [facility] [place] [address] 08/17/2023 10:30 AM EST Office Visit Cardiology, [facility] [address] [facility] [place] [address] Nuzhat Rolon PASundarC 132 [facility] [place] [address] 11/02/2023 9:40 AM EDT Office Visit Ophthalmology, [address] [place] [address] Wilfredo Robert, DO [address] [place] [address] 12/23/2023 10:00 AM EDT Office Visit Sleep Disorders [facility] [address] [facility] [place] [phone] [facility] CRNP [facility] [address] 12/24/2023 11:20 AM EDT Office Visit Dermatology, [place] [address] [place] [address] Jemma Evangelista PAWerner [address] [place] [address] [place] [address] Scheduled Procedures Name Priority Associated Diagnoses Date/Ti me COLONOSCOPY FLEXIBLE PROXIMA L DIAGNOSTIC Recall Special screening for malignant neoplasms, colon Health Maintenance Due Date Last Done Comments CKD HGB USE SMARTSET 67543 12/27/202212/27, 07/05/2021, 01/02/2021, Additional history exists CKD PHOS USE SMARTSET 64498 12/27/202212/13, 01/02/2021, 12/28/2019, Additional history exists Depression [...] Not on filedocumented as of this encounter Visit Diagnoses Diagnosis Obstructive sleep apnea- Primary Obstructive sleep apnea (adult) (pediatric) Nocturnal hypoxemia Hypoxemia documented in this encounter Care Teams Candy Polisher Relationship Specialty Start Date End Date Martin Hopper MD [address] [place] [address] PCP - General Family Medicine 08/23/18 documented as of this encounter
--- OUTSIDE RECORDS SUMMARY | 2023-07-29 20:37 | External Medical Summary ---
Author Name Unknown Address Unknown Organization K01:[facility] [place] [address] [facility] [address] Laboratory Report Ordering Provider Test Date Status LIANA MNOTAÑO 07/08/2023 11:43:25 Final Observation Date Value Abnormality Reference (Units ) Status Color of Urine by Auto 07/08/2023 11:43:25 Yellow Colorless, Light Yellow, Yellow, Dark Yellow Final Clarity, Urine 07/08/2023 11:43:25 Clear Clear Final Glucose [Mass/volume] in Urine by Automated test strip 07/08/2023 11:43:25 Negative Negative (mg/dL) Final Bilirubin.total [Presence] in Urine by Automated test strip 07/08/2023 11:43:25 Negative Negative Final Ketones [Mass/volume] in Urine by Automated test strip 07/08/2023 11:43:25 Negative Negative (mg/dL) Final Specific gravity, Urine 07/08/2023 11:43:25 1.028 1.003-1.030 Final Hemoglobin [Presence] in Urine by Automated test strip 07/08/2023 11:43:25 Moderate Abnormal Negative Final pH, Urine 07/08/2023 11:43:25 6.0 5.0-7.5 (Units) Final Protein [Mass/volume] in Urine by Automated test strip 07/08/2023 11:43:25 30 Abnormal Negative (mg/dL) Final Urobilinogen [Mass/volume] in Urine by Automated test strip 07/08/2023 11:43:25 Normal Normal (mg/dL) Final Nitrite [Presence] in Urine by Automated test strip 07/08/2023 11:43:25 Negative Negative Final Leukocyte esterase [Presence] in Urine by Automated test strip 07/08/2023 11:43:25 Small Abnormal Negative Final RBC, Urine 07/08/2023 11:43:25 20-29 Abnormal 0-2 (/HPF) Final WBC, Urine 07/08/2023 11:43:25 50+ Abnormal 0-2 (/HPF) Final Bacteria [#/area] in Urine sediment by Microscopy high power field 07/08/2023 11:43:25 0-25 0-25 (/HPF) Final Hyaline casts, Urine 07/08/2023 11:43:25 1-4 Abnormal None (/LPF) Final Epithelial cells.renal [#/area] in Urine sediment by Microscopy high power field 07/08/2023 11:43:25 1-4 Abnormal None (/HPF) Final Performing Location [facility] [place] [address] [facility] [address]
--- OUTSIDE RECORDS SUMMARY | 2023-07-29 20:37 | External Medical Summary ---
Author Name Unknown Address Unknown Organization K01:[facility] [place] [address] [place] [address] Laboratory Report Ordering Provider Test Date Status LIANA MONTAÑO 07/08/2023 11:34:21 Final Observation Date Value Abnormality Reference (Units ) Status Parathyrin.intact [Mass/volume] in Serum or Plasma 07/08/2023 11:34:21 77 Above high normal 15-65 (pg/mL) Final Performing Location [facility] [place] [address] [place] [address]
--- OUTSIDE RECORDS SUMMARY | 2023-07-29 20:37 | External Medical Summary | Summary of Care ---
Author Name Unknown Organization [facility] Address [address] [place] [address] Phone [phone] Care Team Providers Care Lens And Frames Prescription Clerk Name Role Phone Martin Hopper MD Primary Care Provider +1- [phone] Reason for Visit * Reason Comments Outpatient Testing Encounter Details Date Type Department Care Team (Late st Contact Info) Description 07/08/2023 11:30 AM EST Laboratory Laboratory, [place] [address] [place] [address] [place], [facility] [address] [place] [address] Prot-On Other*[id number]; Encounter for long-term (current) use of medications; Chronic kidney disease, stage 3a ([facility]); Stage 3 chronic kidney disease, unspecified whether stage 3a or 3b CKD (HCC); BPH with obstruction/lower urinary tract symptoms Allergies Active Allergy Reactions Criticality Noted Date Comments Pollen Cough Medium 10/17/2022 Watery eyes and runny nose documented as of this encounter (statuses as of 07/08/2023) Medications Medication Sig Dispensed Refills Start Date [...] the morning. 45 Tablet 3 05/18/2023 Active Rosuvastatin Calcium 10 MG Oral Tablet (Crestor) Take 1 Tablet by mouth in the morning. 90 Tablet 3 07/08/2023 Active Hospital, Clinic, or Other Facility Administered [...] as of this encounter (statuses as of 07/08/2023) Active Problems Problem Noted Date Diagnosed Date [...] as of this encounter (statuses as of 07/08/2023) Resolved Problems Problem Noted Date Diagnosed Date [...] as of this encounter (statuses as of 07/08/2023) Immunizations Name Administration Dates Next Due COVID-19 mRNA, LNP-s, No Pre serve, 2-Dose Series (Moderna) 05/15/2021,08/11/2020,07/07/2020 Covid-19, Mrna, Lnp-s, Pf, B ivalent, 30 Mcg, IM, 12 yrs and above (Pfizer) 04/22/2022 H1N1 2009 Influenza, IM 06/18/2009 Pneumococcal Conjugate Vacc, 13 Valent (Prevnar) 06/18/2015 Pneumococcal Polysaccharide PPV23 (Pneumovax) 05/30/2010,04/11/2004 Seasonal Influenza, PF, 6 M & above, IM , (FluLaval or Fluzone) 02/23/2020,03/09/2019,03/12/2018,03/16 Seasonal Influenza, Quadriva lent Hd (Fluzone Hd) 03/05/2023,03/17/2022,02/22/2021 Seasonal Influenza, Quadriva lent, No Preserve, IM 03/11/2016,03/16/2015 Seasonal Influenza, Split, I IV3, With Preserve, Inj 02/27/2014,03/02/2013,03/15/2012,03/15,04/15/2010,04/09/2009,04/10/20 08,04/16/2007,04/08/2006,04/02/2005,1 06/20/2002 TD - Tetanus/Diptheria (ADULT) 01/05/2008,2007 TDAP (age [...] on file documented as of this encounter Plan of Treatment Upcoming Encounters Date Type Department Care Team (Late st Contact Info) Description 08/17/2023 9:45 AM EST Imaging Radiology [facility]st [facility] [address] [facility] [place] [address] 08/17/2023 10:30 AM EST Office Visit Cardiology, [facility] [address] [facility] [place] [address] Nuzhat Rolon PA-C [address] [facility] [place] [address] 09/08/2023 10:00 AM EDT Office Visit Pulmonary Medicine, [facility] 132 [facility] [place] [address] Alex Webb MD [address] [place] [address] 11/02/2023 9:40 AM EDT Office Visit Ophthalmology, [facility] [address] [facility] [address] Wilfredo Robert, DO [facility] [address] 12/23/2023 10:00 AM EDT Office Visit Sleep Disorders Ctr [facility] [address] [facility] [place] [phone] Janet Browne CRNP [address] [facility] [place] [address] 12/24/2023 11:20 AM EDT Office Visit Dermatology, [place] [address] [place] [address] Jemma Evangelista PA-C [address] [place] [address] [place] [address] 01/14/2024 9:20 AM EDT Office Visit Family Practice, [place] [address] [place] [phone] Martin Hopper MD [address] [place] [address] Pending Results Name Type Priority Associated Diagnoses Date /Time MYCODE SUBSEQUENT ADULT Lab Routine MyCode Research Other*[id number] 07/08/2023 11:34 AM EST MAGNESIUM Lab Routine Encounter for long-term (current) use of medications 07/08/2023 11:34 AM EST BASIC METABOLIC PANEL Lab Routine Chronic kidney disease, stage 3a ([facility]) 07/08/2023 11:34 AM EST HGB Lab Routine Stage 3 chronic kidney disease, unspecified whether stage 3a or 3b CKD ([facility]) 07/08/2023 11:34 AM EST PHOSPHORUS Lab Routine Stage 3 chronic kidney disease, unspecified whether stage 3a or 3b CKD ([facility]) 07/08/2023 11:34 AM EST PTH Lab Routine Stage 3 chronic kidney disease, unspecified whether stage 3a or 3b CKD ([facility]) 07/08/2023 11:34 AM EST PSA Lab Routine BPH with obstruction/lower urinary tract symptoms 07/08/2023 11:34 AM EST MYCODE SST1 Lab Routine MyCode Research Other*[id number] 07/08/2023 11:34 AM EST MYCODE SST2 Lab Routine MyCode Research Other*[id number] 07/08/2023 11:34 AM EST URINALYSIS, REFLEX TO MICROSCOPIC Lab Routine BPH with obstruction/lower urinary tract symptoms 07/08/2023 11:43 AM EST Scheduled Procedures Name Priority Associated Diagnoses Date/Ti me COLONOSCOPY FLEXIBLE PROXIMA L DIAGNOSTIC Recall Special screening for malignant neoplasms, colon Health Maintenance Due Date Last Done Comments CKD HGB USE SMARTSET 28165 12/27/202212/27, 07/05/2021, 01/02/2021, Additional history exists CKD PHOS USE SMARTSET 62639 12/27/202212/13, 01/02/2021, 12/28/2019, Additional history exists Depression [...] as of this encounter Visit Diagnoses Diagnosis MyCode Research Other*[id number] Encounter for long-term (current) use of medications Encounter for long-term (current) use of other medications Chronic kidney disease, stage 3a (HCC) Stage 3 chronic kidney disease, unspecified whether stage 3a or 3b CKD (HCC) BPH with obstruction/lower urinary tract symptoms Hypertrophy of prostate with urinary obstruction and other lower urinary tract symptoms (LUTS) documented in this encounter Care Teams Lens And Frames Prescription Clerk Relationship Specialty Start Date End Date Martin Hopper MD [address] [place] [address] PCP - General Family Medicine 08/23/18 documented as of this encounter
--- OUTSIDE RECORDS SUMMARY | 2023-07-29 20:37 | External Medical Summary ---
Author Name Unknown Address Unknown Organization K01:[facility] [place] [address] [place] [address] Laboratory Report Ordering Provider Test Date Status DOMINIK,STJOSE 07/08/2023 11:34:21 Final Observation Date Value Abnormality Reference (Units ) Status MYCODE SPECIMEN-SST 07/08/2023 11:34:21 Freezing of extracted DNA, whole blood and/or serum. Final Performing Location [facility] [place] [address] [place] [address]
--- OUTSIDE RECORDS SUMMARY | 2023-07-29 20:37 | External Medical Summary | Summary of Care ---
Author Name Unknown Organization [facility] Address [address] [place] [address] Phone [phone] Care Team Providers Care Home Insurance Agent Name Role Phone Martin Hopper MD Primary Care Provider [phone] Reason for Visit * Reason Comments Physical-Exam Annual check up Encounter Details Date Type Department Care Team (Late st Contact Info) Description 07/08/2023 10:40 AM EST Office Visit [facility] [address] [place] [address] Martin Hopper MD [address] [place] [address] BPH with obstruction/lower urinary tract symptoms*; ILD (interstitial lung disease) ([facility]); Stage 3 chronic kidney disease, unspecified whether stage 3a or 3b CKD (HCC); Chronic kidney disease, stage 3a ([facility]); Scleroderma ([facility]); Chronic heart failure with preserved ejection fraction ([facility]); KACY (generalized anxiety disorder); Pulmonary hypertension, unspecified ([facility]); Obstructive sleep apnea treated with bilevel positive airway pressure (BiPAP) Allergies Active Allergy Reactions Criticality Noted Date [...] Bradycardia, sinus 02/06/2023 Pulmonary hypertension, unspecified 10/21/2022 Chronic kidney disease, stage 3a 10/20/2022 [...] Diagnosed Date Resolved Date Dizziness 02/06/2023 02/06/2023 Unspecified mood (affective) disorder 10/21/2022 07/08/2023 Acute hypoxemic respiratory failure 10/17/2022 01/16/2023 Fluid [...] Mcg, IM, 12 yrs and above (Pfizer) 04/15/2023,04/22/2022 H1N1 2009 Influenza, IM 06/18/2009 Pneumococcal Conjugate Vacc, 13 Valent (Prevnar) 06/18/2015 Pneumococcal Polysaccharide PPV23 (Pneumovax) 05/30/2010 RSV Vac., Bivalent, Perfusio n F, Pf,0.5 Ml (Abrysvo) 05/15/2023 Seasonal Influenza, PF, 6 M & above, [...] 40 Q uit: 1999 Smokeless Tobacco: Never Tobacco Cessation:Counseling Given: Not Answered Alcohol Use Standard Drinks/Week Comments Not Currently [...] Sign Reading Time Taken Comments Blood Pressure 128/62 07/08/2023 10:34 AM EST Pulse 67 07/08/2023 10:34 AM EST Temperature 36.6 C (97.8 F) 07/08/2023 1 0:34 AM EST Respiratory Rate 20 07/08/2023 10:3 4 AM EST Oxygen Saturation 92% 07/08/2023 10: 34 AM EST Inhaled Oxygen Concentration - - Weight 82.5 kg (181 lb 12.8 oz) 024 10:34 AM EST Height 174 cm (5' 8.5") 07/08/2023 10:3 4 AM EST Body Mass Index 27.24 07/08/2023 10:34 AM EST documented in this encounter Progress Notes * Martin Hopper MD - 07/08/2023 10:52 AM EST Subjective: Mane Foote is a 83 year old male here today for Chief Complaint Patient presents with Physical-Exam Annual check up Pt presents for routine recheck. He is interested in updating labs today. His main concern is that he seems to tire easily. He does not get cp, but does get shortness of breath at times. He is scheduled for repeat CT scan of the chest 08/17/23 (for interstitial lung disease). Reviewing last pulm notefrom 10/2022 - he is to be seen again in October. Nothing set up yet. He does have cardiology follow up in August. Last CT scan also showed heavy coronary artery calcifications. He is not currently on a statin. Urinary symptoms stable. Past Medical History: Diagnosis Date Actinic keratosis 09/28/2018 left ear Allergic rhinitis Benign neoplasm of colon 05/2004 hyperplastic polyp, no CA, repeat in 10 years BPH with obstruction/lower urinary tract symptoms Calculus of kidney CKD (chronic kidney disease), stage III (HCC) Generalized anxiety disorder GERD (gastroesophageal reflux disease) ILD (interstitial lung disease) (HCC) Insomnia Obstructive sleep apnea Sleep apnea, obstructive Past Surgical History: Procedure Laterality Date BIOPSY OF EYELID Left 07/21/2022 Dr. Robert-biopsy left lower eyelid COLONOSCOPY, DIAGNOSTIC (RECTUM) 08/02/2014 normal, repeat 10 yrs/COLONOSCOPY FLEXIBLE PROXIMAL DIAGNOSTIC performed by Mane Young MD at ENDOS[facility] COLONOSCOPY, REMOVE LESION 05/2004 inflammatory polyp. repeat 10 yrs. EGD, FLEXIBLE, DIAGNOSTIC 07/16/2022 [facility] - normal / [facility] EYELID SURGERY PROCEDURE NEC Left 09/10/2022 Post MOHS repair LLL. MISCELLANEOUS ORDER ([facility] ONLY) Left 02/17/2019 Dr. 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 Furosemide 20 MG Oral Tablet (Lasix) Take 1 Tablet by mouth every other day. 15 Tablet 5 Omeprazole 20 MG Oral Capsule Delayed Release (PriLOSEC) TAKE 1 CAPSULE BY MOUTH EVERY MORNING. TAKE WITH WATER ON AN EMPTY STOMACH ONE HOUR PRIOR TO MEAL. 90 Capsule 1 Levocetirizine Dihydrochloride 5 MG Oral Tablet Take 0.5 Tablets by mouth every evening. 15 Tablet 5 Tamsulosin HCl 0.4 MG Oral Capsule (Flomax) TAKE 1 CAPSULE BY MOUTH ONCE DAILY 90 Capsule 1 Sertraline HCl 25 MG Oral Tablet (Zoloft) TAKE 1 TABLET BY MOUTH EVERY MORNING 90 Tablet 2 oxyBUTYnin Chloride ER 5 MG Oral Tablet Extended Release 24 Hour (Ditropan XL) TAKE 1 TABLET BY MOUTH ONCE DAILY. DO NOT CUT, CRUSH OR CHEW. 90 Tablet 3 Spironolactone 25 MG Oral Tablet (Aldactone) Take 0.5 Tablets by mouth in the morning. 45 Tablet 3 Rosuvastatin Calcium 10 MG Oral Tablet (Crestor) Take 1 Tablet by mouth in the morning. 90 Tablet 3 Current Facility-Administered Medications Medication Dose Route Frequency Provider Last Rate Last Admin Albuterol Sulfate (Proventil) (5 MG/ML) 0.5% *conc* inhalation solution 2.5 mg 2.5 mg Nebulizer Keke Morgan CRNP Albuterol Sulfate (Proventil) (2.5 MG/3ML) 0.083% inhalation solution 2.5 mg 2.5 mg Nebulizer Keke Phillips CRNP 2.5 mg at 11/05/22 0912 Objective: BP 128/62 | Pulse 67 | Temp 36.6 C (97.8 F) (Temporal Artery) | Resp 20 | Ht 1.74 m (5' 8.5") | Wt 82.5 kg (181 lb 12.8 oz) | SpO2 92% | BMI 27.24 kg/m | BSA 2 m GEN: NAD HEENT: Benign NECK: Supple with no LAD, TM, JVD CHEST: CTA B CV: RRR ABD: Soft, NT/ND, No HSM, NABS EXT: No c,c,e Assessment and Plan: BPH with obstruction/lower urinary tract symptoms (Primary) - URINALYSIS, REFLEX TO MICROSCOPIC; Future; Expected date: 07/08/2023 - PSA; Future; Expected date: 07/08/2023 -continue current meds. PT requesting PSA due to ongoing urinary symptoms ILD (interstitial lung disease) ([facility]) -CT in August and will get scheduled with pulm med. -most likely, his lung disease is contributing to the fatigue/tiredness Stage 3 chronic kidney disease, unspecified whether stage 3a or 3b CKD (HCC) - HGB; Future; Expected date: 07/08/2023 - PHOSPHORUS; Future; Expected date: 07/08/2023 - PTH; Future; Expected date: 07/08/2023 Chronic kidney disease, stage 3a (HCC) - BASIC METABOLIC PANEL; Future; Expected date: 07/08/2023 Scleroderma (HCC) Chronic heart failure with preserved ejection fraction (HCC) KACY (generalized anxiety disorder) Pulmonary hypertension, unspecified (HCC) Obstructive sleep apnea treated with bilevel positive airway pressure (BiPAP) -continue all same treatments Other orders - Rosuvastatin Calcium 10 MG Oral Tablet (Crestor); Take 1 Tablet by mouth in the morning. -pt agreeable to starting statin for coronary artery calcifications. Follow Up: Return in about 6 months (around 01/06/2024) for recheck. | For: recheck | Check-out note: Pt is supposed to have follow up with pulmonary med in October. Not scheduled yet - please assist. 42 min with pt and documentation Martin Hopper MD documented in this encounter Nursing Notes * Savanna Ralph LPN - 07/08/2023 10:34 AM EST The patient has been properly identified by confirmation of name and date of . Chief Complaint Patient presents with Physical-Exam Annual check up documented in this encounter Plan of Treatment Upcoming Encounters Date Type Department Care Team (Late st Contact Info) Description 08/17/2023 9:45 AM EST Imaging Radiology [facility] 1st Floor, [address] [place] [address] 08/17/2023 10:30 AM EST Office Visit Cardiology, [place] [address] [facility] [address] Nuzhat Rolon PA-C [address] [facility] [place] [address] 09/08/2023 10:00 AM EDT Office Visit Pulmonary Medicine, [facility] [address] [facility] [place] [address] Alex Webb [facility] [address] [facility] [place] [address] 11/02/2023 9:40 AM EDT Office Visit Ophthalmology, [address] [place] [address] Wilfredo Robert, DO [address] [place] [address] 12/23/2023 10:00 AM EDT Office Visit [facility] Disorders [facility]tr [facility] [address] [place] [phone] Janet Browne CRNP [address] [place] [address] 12/24/2023 11:20 AM EDT Office Visit Dermatology, [address] [address] Jemma Evangelista PA-C [address] [place] [address] [place] [address] 01/14/2024 9:20 AM EDT Office Visit Family Practice, [address] [place] [id number] Martin Hopepr MD [address] [place] [address] Pending Results Name Type Priority Associated Diagnoses Date /Time BASIC METABOLIC PANEL Lab Routine Chronic kidney disease, stage 3a (HCC) 07/08/2023 11:34 AM EST URINALYSIS, REFLEX TO MICROSCOPIC Lab Routine BPH with obstruction/lower urinary tract symptoms 07/08/2023 11:43 AM EST HGB Lab Routine Stage 3 chronic kidney disease, unspecified whether stage 3a or 3b CKD (HCC) 07/08/2023 11:34 AM EST PHOSPHORUS Lab Routine Stage 3 chronic kidney disease, unspecified whether stage 3a or 3b CKD (HCC) 07/08/2023 11:34 AM EST PTH Lab Routine Stage 3 chronic kidney disease, unspecified whether stage 3a or 3b CKD (HCC) 07/08/2023 11:34 AM EST PSA Lab Routine BPH with obstruction/lower urinary tract symptoms 07/08/2023 11:34 AM EST Scheduled Orders Name Type Priority Associated Diagnoses Orde r Schedule BASIC METABOLIC PANEL Lab Routine Chronic kidney disease, stage 3a (HCC) Expected: 07/08/2023 (Approximate), Expires: 07/07/2024 URINALYSIS, REFLEX TO MICROSCOPIC Lab Routine BPH with obstruction/lower urinary tract symptoms Expected: 07/08/2023, Expires: 07/08/2024 HGB Lab Routine Stage 3 chronic kidney disease, unspecified whether stage 3a or 3b CKD (HCC) Expected: 07/08/2023 (Approximate), Expires: 07/07/2024 PHOSPHORUS Lab Routine Stage 3 chronic kidney disease, unspecified whether stage 3a or 3b CKD (HCC) Expected: 07/08/2023 (Approximate), Expires: 07/07/2024 PTH Lab Routine Stage 3 chronic kidney disease, unspecified whether stage 3a or 3b CKD (HCC) Expected: 07/08/2023 (Approximate), Expires: 07/07/2024 PSA Lab Routine BPH with obstruction/lower urinary tract symptoms Expected: 07/08/2023 (Approximate), Expires: 07/07/2024 Scheduled Procedures Name Priority Associated Diagnoses Date/Ti me COLONOSCOPY FLEXIBLE PROXIMA L DIAGNOSTIC Recall Special screening for malignant neoplasms, colon Health Maintenance Due Date Last Done Comments CKD HGB USE SMARTSET 47386 12/27/202212/27, 07/05/2021, 01/02/2021, Additional history exists CKD PHOS USE SMARTSET 72005 12/27/202212/13, 01/02/2021, 12/28/2019, Additional history exists Depression Screening 12/27/2022 12/27/2021 COVID-19 Vaccine (2022- season) 2023 04/15/2023, 04/22/2022, 05/15/2021, Additional history exists GFR 06/26/2023 12/24/2022, 12/13, [...] as of this encounter Visit Diagnoses Diagnosis BPH with obstruction/lower urinary tract symptoms- Primary Hypertrophy of prostate with urinary obstruction and other lower urinary tract symptoms (LUTS) ILD (interstitial lung disease) (HCC) Postinflammatory pulmonary fibrosis Stage 3 chronic kidney disease, unspecified whether stage 3a or 3b CKD (HCC) Chronic kidney disease, stage 3a (HCC) Scleroderma (HCC) Systemic sclerosis Chronic heart failure with preserved ejection fraction (HCC) KACY (generalized anxiety disorder) Generalized anxiety disorder Pulmonary hypertension, unspecified (HCC) Obstructive sleep apnea treated with bilevel positive airway pressure (BiPAP) documented in this encounter Care Teams Home Insurance Agent Relationship Specialty Start Date End Date Martin Hopper MD [address] [place] [address] PCP - General Family Medicine 08/23/18 documented as of this encounter
--- OUTSIDE RECORDS SUMMARY | 2023-07-29 20:37 | External Medical Summary | Summary of Care ---
Author Name Unknown Organization [facility] Address [address] [place] [address] Phone [phone] Care Team Providers Care Mural Painter Name Role Phone Martin Hopper MD Primary Care Provider +1- [phone] Reason for Referral * Social Care (Within 10 days (routine)) - Authorized Specialty Diagnoses / Procedures Referred By Contac t Referred To Contact Terrazzo Polisher Diagnoses ILD (interstitial lung disease) ([facility]) Dudley Mishra DO [address] [facility] [place] [address] Referral ID Status Reason Start Date Expiration Date Visits Requested Visits Authorized [id number] Authorized Specialty Services Required 06/24/2023 999 999 Question Answer Referral Priority Within 10 days (routine) Where should this appointment be scheduled? [facility] Role Pusher Operator Pusher Operator Referral Reason COPD Comments Is patient being transitioned from [facility] to Complex Case Management? Yes Best source of contact for the patient:Family member: Patient has remote monitoring device(s): No Connectivity in the home: Yes Reason for Visit * Reason Comments [facility]: Maintenance Encounter Details Date Type Department Care Team ([facility] Contact Info) Description 06/24/2023 10:00 AM EST [facility] Visit [facility], [facility] [address] [place] [address] Nisreen Pascual, RN [address] [place] [address] ILD (interstitial lung disease) ([facility])* Allergies Active Allergy Reactions Criticality Noted Date Comments Pollen Cough Medium 10/17/2022 Watery eyes and runny nose documented as of this encounter (statuses as of 06/24/2023) Medications Medication Sig Dispensed Refills Start Date End Date Status oxygen IN GAS 2 LPM bled through CPAP during hours of sleep 1 Each 0 08/14/2021 Active BiPAP every night at bedtime. 0 Active Furosemide 20 MG Oral Tablet (Lasix)Indications:ILD (interstitial lung disease) ([facility]),Acute hypoxemic respiratory failure ([facility]),Hypervolemia, unspecified hypervolemia type Take 1 Tablet by [...] inhalation solution 2.5 mgIndications:ILD (interstitial lung disease) ([facility]) 2.5 mg NEBULIZER PRN 08/05/2022 08/05/2023 Active Albuterol Sulfate (Proventil) (2.5 MG/3ML) 0.083% inhalation solution 2.5 mgIndications:ILD (interstitial lung disease) (HCC) 2.5 mg NEBULIZER PRN 08/05/2022 08/05/2023 Active documented as of this encounter (statuses as of 06/24/2023) Active Problems Problem Noted Date Diagnosed Date Chronic heart failure with preserved ejection fr action 02/06/2023 Bradycardia, sinus 02/06/2023 Pulmonary hypertension, unspecified 10/21/2022 Unspecified mood (affective) disorder 10/21/2022 Chronic kidney disease, stage 3a 10/20/2022 Overview: Per CKD protocol Scleroderma 10/17/2022 Positive SEDRIKC (antinuclear antibody) 10/17/2022 Former tobacco use 10/17/2022 [...] as of this encounter (statuses as of 06/24/2023) Resolved Problems Problem Noted Date Diagnosed Date [...] as of this encounter (statuses as of 06/24/2023) Immunizations Name Administration Dates Next Due COVID-19 [...] Sign Reading Time Taken Comments Blood Pressure 112/64 06/24/2023 10:05 AM EST Pulse 67 06/24/2023 10:05 AM EST Temperature 35.8 C (96.5 F) 06/24/2023 10:[address] Respiratory Rate 18 06/24/2023 10:05 AM EST Oxygen Saturation 93% 06/24/2023 10:05 AM EST Inhaled Oxygen Concentration - - Weight 82.6 kg (182 lb) 06/24/2023 10:05 AM EST Height - - Body Mass Index 27.27 06/19/2023 11:09 AM EST documented in this encounter Progress Notes * Nisreen Pascual, RN - 06/24/2023 8:26 AM EST [facility] Terrazzo Polisher Visit Date: 06/24/2023 Time: 9:26 AM Name: Mane Foote : 1940 Current Concerns: Pt seen for return RNCM visit Pt reports he stopped taking Tylenol pm at night and feels it has helped his fatigue and he is ambulating better Reports he had a fall last month, was changing a light bulb in the basement, lost his balance when reaching up and fell backwards, landing on some boxes - states he had a sore back and right side fora few weeks but is fully recovered now Reports breathing has been at baseline Uses portable oxygen concentrator when out Does not always use it when in the home, advised to wear it when up and about doing activities Does have pulse ox and monitors daily and as needed Pt has not had any recent utilizations and no interventions by [facility] in months No acute needs at this time. Makes it out to all appts without issues. Will graduate from [facility] and set up with [facility] outpatient CM Pt/ in agreement Physical Exam: BP 112/64 | Pulse 67 | Temp 35.8 C (96.5 F) | Resp 18 | Wt 82.6 kg (182 lb) | SpO2 93% | BMI 27.27 kg/m | BSA 2 m Pain 0 Physical Exam Constitutional: General: He is not in acute distress. Cardiovascular: Rate and Rhythm: Normal rate and regular rhythm. Pulses: Normal pulses. Heart sounds: Normal heart sounds. Pulmonary: Effort: Pulmonary effort is normal. Comments: Coarse lung sounds Abdominal: General: Bowel sounds are normal. Palpations: Abdomen is soft. Skin: General: Skin is warm and dry. Neurological: Mental Status: He is alert and oriented to person, place, and time. Comments: forgetful Problems/Symptoms: Review of Systems Constitutional: Negative. HENT: Negative. Eyes: Negative. Respiratory: Positive for shortness of breath (CROWE - at baseline). Cardiovascular: Negative. Gastrointestinal: Negative. Genitourinary: Negative. Musculoskeletal: Positive for arthralgias. Skin: Negative. Neurological: Negative. Psychiatric/Behavioral: Forgetful, intermittent confusion, mild Medication Reconciliation: (See medication list) Does patient take medications as ordered: Yes Patient Well Being: PHQ2/9: No questionnaires available. No change in living situation [facility] Completed this Visit: Yes. [facility]: Reason Completed: Status post fall [facility] ([facility]) Fall Risk Assessment Tool Age 65+: Yes (06/24/23999) Diagnosis (3 or more co-existing): Yes (06/24/23999) Prior history of falls within 3 months: Yes (06/24/23999) Incontinence: Yes (06/24/23999) Visual impairment: No (06/24/23999) Impaired functional mobility: Yes (06/24/23999) Environmental hazards: No (06/24/23999) Poly Pharmacy (4 or more prescriptions - any type): Yes (06/24/23999) Pain affecting level of function: No (06/24/23999) Cognitive impairment: Yes (06/24/23999) Score - a score of 4 or more is considered at risk for fallin (06/24/23999) [facility] Interventions: Fall education provided, reviewed/provided Fall brochure Advanced Care Planning: No documentation, ACP on file. Reinforcement/Education: Educated on home safety: Create a fall proof home Clear floors of clutter, loose wires, throw rugs, and cords. Make sure halls, stairways, and entrances are well lit. Install a nightlight in your bedroom, hallway and bathroom. Install grab bars or handrails in the bathroom and on stairs. Use a non-skid tub/shower mat. Avoid climbing on a chair; instead use a step stool with a high handrail. Keep sidewalks and steps in good repair Keep steps and sidewalks free of snow and ice. Using aids to support and prevent falls If you have poor balance or have fallen in the past, consider additional support such as a cane or walker. Use a cane with good support and that is the proper length for you. Use a walker if a cane doesnt provide enough support. Avoid medications that increase the risk of falling by causing dizziness, change in sensation or slowed reflexes. Certain medicines may cause falls - blood pressure pills, heart medicines, water pills, or sleepingpills. Be sure to understand each medicine that you are taking and any side effects that may occur. Improve your balance and flexibility with muscle strengthening exercises. Ask your health care provider for some exercises that will be right for you. Reinforced safety education and fall prevention. and Reinforced medication regimen. Timing., Dosing., and Purspose. Treatment/Plan: Continue meds as prescribed/reviewed Oxygen at 3 l/min via nc, with activity and as needed Bipap q hs and for naps Keep all appts as scheduled and attend [facility] for DME APAP prn pain Weigh self daily and record Home Interventions Provided: Home Intervention: Other; Evaluation Specialty Referral Placed Reinforced current Plan of Care, including self-management and medication regimen Patient's 'Red Flags': Worsening SOB Pulse ox <90% with o2 on weakness Patient Needs to Remember: Call PCP with any new or worsening health concerns or problems, red flag symptoms. Referrals Needed: Other [facility] CM Follow Up: Is there cellular connectivity/connectivity in the home? Yes Does the patient have internet in the home? No Patient encouraged to call the intake phone number for all urgent but not emergent issues. Is the patient new to [facility] within the last 30 days? No, Assess appropriateness for upcoming telehealth visits. Cancel telehealth visits & schedule home visit with care sales floor team leader(s)as indicated. Provider is in agreement with Plan of Care: Yes. Nisreen Pascual RN 06/24/2023 9:26 AM documented in this encounter Plan of Treatment Upcoming Encounters Date Type Department Care Team (Late st Contact Info) Description 07/08/2023 10:40 AM EST [facility] [address] [facility] [phone] Martin Hopper [facility] [address] [facility] [address] 08/17/2023 9:45 AM EST Imaging Radiology [facility] 1st [facility], [address] [place] [id number] 08/17/2023 10:30 AM EST Office Visit Cardiology, [facility] [address] [facility] [place] [address] Nuzhat Rolon PA-C [address] [facility] [place] [address] 11/02/2023 9:40 AM EDT Office Visit Ophthalmology, [facility] [address] [facility] [place] [address] Wilfredo Robert, DO [address] [place] [address] 12/23/2023 10:00 AM EDT Office Visit Sleep Disorders Ctr [facility] 132 [facility] [place] [phone] Janet Browne CRNP 132 [facility] [place] [address] 12/24/2023 11:20 AM EDT Office Visit Dermatology, [address] [address] Jemma Evangelista PA-C [address] [place] [address] [place] [address] Scheduled Procedures Name Priority Associated Diagnoses Date/Ti me COLONOSCOPY FLEXIBLE PROXIMA L DIAGNOSTIC Recall Special screening for malignant neoplasms, colon Scheduled Referrals Name Type Priority Associated Diagnoses Orde r Schedule POPULATION HEALTH REFERRAL OP Referral Within 10 days (routine) ILD (interstitial lung disease) (HCC) Ordered: 06/24/2023 Health Maintenance Due Date Last Done Comments CKD HGB USE SMARTSET 13513 12/27/202212/27, 07/05/2021, 01/02/2021, Additional history exists CKD PHOS USE SMARTSET 78076 12/27/202212/13, 01/02/2021, 12/28/2019, Additional history exists Depression Screening 12/27/2022 12/27/2021 COVID-19 Vaccine (5 - 2023-24 season) 2023 04/22/2022, 05/15/2021, 08/11/2020, Additional history [...] as of this encounter Visit Diagnoses Diagnosis ILD (interstitial lung disease) (HCC)- Primary Postinflammatory pulmonary fibrosis documented in this encounter Care Teams Mural Painter Relationship Specialty Start Date End Date Martin Hopper MD [address] [place] [address] PCP - General Family Medicine 08/23/18 documented as of this encounter"
--- OUTSIDE RECORDS SUMMARY | 2023-07-29 20:37 | External Medical Summary | Summary of Care ---
Author Name Unknown Organization [facility] Address [address] [place] [address] Phone [phone] Care Team Providers Care Medicinal Plant Picker Name Role Phone Martin Hopper MD Primary Care Provider +1- [phone] Reason for Visit * Reason Comments Outpatient Testing Encounter Details Date Type Department Care Team (Late st Contact Info) Description 07/08/2023 11:30 AM EST Laboratory Laboratory, [place] [address] [place] [address] [facility] [address] [place] [address] [place] Other*[id number]; Encounter for long-term (current) use of medications; Chronic kidney disease, stage 3a ([facility]); Stage 3 chronic kidney disease, [...] Description 08/17/2023 9:45 AM EST Imaging Radiology [facility] 1st [facility] 132 [facility] [place] [address] 08/17/2023 10:30 AM EST Office Visit Cardiology, [facility] [address] [facility] [place] [address] Nuzhat Rolon PA-C 132 [facility] [place] [address] 09/08/2023 10:00 AM EDT Office Visit Pulmonary Medicine, [facility] 132 [facility] [place] [address] Alex Webb MD [address] [place] [address] 11/02/2023 9:40 AM EDT Office Visit Ophthalmology, [facility] [address] Wilfredo Robert, DO [facility] [address] 12/23/2023 10:00 AM EDT Office Visit Sleep Disorders Ctr [facility] 132 [facility] [place] [phone] Janet Browne CRNP 132 [facility] [place] [address] 12/24/2023 11:20 AM EDT Office Visit Dermatology, [place] [address] [place] [address] Jemma Evangelista PA-C [address] [place] [address] [place] [address] 01/14/2024 9:20 AM EDT Office Visit Family Practice, [place] [address] [place] [phone] Martin Hopper MD [address] [place] [address] Pending Results Name Type Priority Associated Diagnoses Date /Time MYCODE SUBSEQUENT ADULT Lab Routine [facility] Other*[id number] 07/08/2023 11:34 AM EST MAGNESIUM Lab Routine Encounter for long-term (current) use of medications 07/08/2023 11:34 AM EST BASIC METABOLIC PANEL Lab Routine Chronic kidney disease, stage 3a ([facility]) 07/08/2023 11:34 AM EST HGB Lab Routine Stage 3 chronic kidney disease, unspecified whether stage 3a or 3b CKD ([facility]) 07/08/2023 11:34 AM EST PHOSPHORUS Lab Routine Stage 3 chronic kidney disease, unspecified whether stage 3a or 3b CKD ([facility]) 07/08/2023 11:34 AM EST PTH Lab Routine Stage 3 chronic kidney disease, unspecified whether stage 3a or 3b CKD ([facility]) 07/08/2023 11:34 AM EST PSA Lab Routine BPH with obstruction/lower urinary tract symptoms 07/08/2023 11:34 AM EST MYCODE SST1 Lab Routine [facility] Other*[id number] 07/08/2023 11:34 AM EST MYCODE SST2 Lab Routine [facility] Other*[id number] 07/08/2023 11:34 AM EST URINALYSIS, REFLEX TO MICROSCOPIC Lab Routine BPH with obstruction/lower urinary tract symptoms 07/08/2023 11:43 AM EST Scheduled Procedures Name Priority Associated Diagnoses Date/Ti me COLONOSCOPY FLEXIBLE PROXIMA L DIAGNOSTIC Recall Special screening for malignant neoplasms, colon Health Maintenance Due Date Last Done Comments CKD HGB USE SMARTSET 66114 12/27/202212/27, 07/05/2021, 01/02/2021, Additional history exists CKD PHOS USE SMARTSET 26376 12/27/202212/13, 01/02/2021, 12/28/2019, Additional history exists Depression [...] this encounter Visit Diagnoses Diagnosis [facility] Other*[id number] Encounter for long-term (current) use of medications Encounter for long-term (current) use of other medications Chronic kidney disease, stage 3a (HCC) Stage 3 chronic kidney disease, unspecified whether stage 3a or 3b CKD (HCC) BPH with obstruction/lower urinary tract symptoms Hypertrophy of prostate with urinary obstruction and other lower urinary tract symptoms (LUTS) documented in this encounter Care Teams Medicinal Plant Picker Relationship Specialty Start Date End Date Martin Hopper MD [address] [place] [address] PCP - General Family Medicine 08/23/18 documented as of this encounter
--- OUTSIDE RECORDS SUMMARY | 2023-07-29 20:37 | External Medical Summary ---
Author Name Unknown Address Unknown Organization K01:LABORATORY [facility] - [address] [place] [address] Laboratory Report Ordering Provider Test Date Status KING CHAPMAN 07/08/2023 11:34:21 Final Observation Date Value Abnormality Reference (Units ) Status Magnesium 07/08/2023 11:34:21 2.3 1.5-2.6 (m g/dL) Final Performing Location [facility] - [address] [place] [address]
--- OUTSIDE RECORDS SUMMARY | 2023-07-29 20:37 | External Medical Summary ---
Author Name Unknown Address Unknown Organization K01:[facility] - [address] [place] [address] Laboratory Report Ordering Provider Test Date Status LIANA MONTAÑO 07/08/2023 11:34:21 Final Observation Date Value Abnormality Reference (Units ) Status Phosphate 07/08/2023 11:34:21 3.5 2.5-4.8 (m g/dL) Final Performing Location [facility] - [address] [place] [address]
--- OUTSIDE RECORDS SUMMARY | 2023-07-29 20:37 | External Medical Summary | Summary of Care ---
Author Name Unknown Organization [facility] Address [address] [place] [address] Phone [phone] Care Team Providers Care Pump Servicer Name Role Phone Martin Hopper MD Primary Care Provider +1- [phone] Encounter Details Date Type Department Care Team (Late st Contact Info) Description 06/25/2023 Referral Triage Care Coordination [facility] Integration [address], [place] [phone] Lori Ravi, GUILLE [address], [place] [phone] Allergies Active Allergy Reactions Criticality Noted Date Comments Pollen Cough Medium 10/17/2022 Watery eyes and runny nose documented as of this encounter (statuses as of 06/25/2023) Medications Medication Sig Dispensed Refills Start Date [...] as of this encounter (statuses as of 06/25/2023) Active Problems Problem Noted Date Diagnosed Date [...] as of this encounter (statuses as of 06/25/2023) Resolved Problems Problem Noted Date Diagnosed Date [...] as of this encounter (statuses as of 06/25/2023) Immunizations Name Administration Dates Next Due COVID-19 [...] 07/08/2023 10:40 AM EST Office Visit Family Practice, [facility] [address] [place] [facility] [place] [phone] Martin Hopper MD [address] [place] [address] 08/17/2023 9:45 AM EST Imaging Radiology [facility] 1st Floor, [place] 132 [facility] [place] [address] 08/17/2023 10:30 AM EST Office Visit Cardiology, [facility] [address] [facility] [place] [address] Nuzhat Rolon, HAL [facility] [place] [address] 11/02/2023 9:40 AM EDT Office Visit Ophthalmology, [facility] [address] [facility] [place] [address] Wilfredo Robert T, DO [address] [place] [address] 12/23/2023 10:00 AM EDT Office Visit Sleep Disorders Ctr [facility] 132 [facility] [place] [phone] Janet Browne CRNP 132 [facility] [address] 12/24/2023 11:20 AM EDT Office Visit Dermatology, [facility] [address] [facility] [place] [address] Jemma Evangelista PA-C [address] [place] [address] [place] [address] Scheduled Procedures Name Priority Associated Diagnoses Date/Ti me COLONOSCOPY FLEXIBLE PROXIMA L DIAGNOSTIC Recall Special screening for malignant neoplasms, colon Health Maintenance Due Date Last Done Comments CKD HGB USE SMARTSET 08432 12/27/202212/27, 07/05/2021, 01/02/2021, Additional history exists CKD PHOS USE SMARTSET 56852 12/27/202212/13, 01/02/2021, 12/28/2019, Additional history exists Depression [...] filedocumented as of this encounter Care Teams Pump Servicer Relationship Specialty Start Date End Date Martin Hopper MD [address] [facility] [place] [address] PCP - General Family Medicine 08/23/18 documented as of this encounter
--- OUTSIDE RECORDS SUMMARY | 2023-07-29 20:37 | External Medical Summary ---
Author Name Unknown Address Unknown Organization K01:[facility] [place] [address] [place] [address] Laboratory Report Ordering Provider Test Date Status LIANA MONTAÑO 07/08/2023 11:34:21 Final Observation Date Value Abnormality Reference (Units ) Status Hemoglobin 07/08/2023 11:34:21 15.4 14.0-16.8 (g/dL) Final Performing Location [facility] - [address] [place] [address]
--- OUTSIDE RECORDS SUMMARY | 2023-07-29 20:37 | External Medical Summary ---
Author Name Unknown Address Unknown Organization K01:LABORATORY [facility] - [address] [place] [address] Laboratory Report Ordering Provider Test Date Status DOMINIK,STJOSE 07/08/2023 11:34:21 Final Observation Date Value Abnormality Reference (Units ) Status MYCODE SPECIMEN-SST 07/08/2023 11:34:21 Freezing of extracted DNA, whole blood and/or serum. Final Performing Location LABORATORY [facility] - [address] [place] [address]
--- OUTSIDE RECORDS SUMMARY | 2023-07-29 20:38 | External Medical Summary | Summary of Care ---
Author Name Unknown Organization [facility] Address [address] [place] [address] Phone [phone] Care Team Providers Care Sanitary Landfill Operator Name Role Phone Martin Hopper MD Primary Care Provider [phone]- [phone] Reason for Visit * Reason Onset Date Comments [facility]: Maintenance 05/26/2023 Encounter Details Date Type Department Care Team (Late st Contact Info) Description 05/26/2023 Telephone [facility], [facility] [address] [place] [address] Services, Scheduling [address] [place] [address] [facility]: Maintenance Allergies Active Allergy Reactions Criticality Noted Date Comments Pollen Cough Medium 10/17/2022 Watery eyes and runny nose documented as of this encounter (statuses as of 05/26/2023) Medications Medication Sig Dispensed Refills Start Date [...] as of this encounter (statuses as of 05/26/2023) Active Problems Problem Noted Date Diagnosed Date [...] as of this encounter (statuses as of 05/26/2023) Resolved Problems Problem Noted Date Diagnosed Date [...] as of this encounter (statuses as of 05/26/2023) Immunizations Name Administration Dates Next Due COVID-19 [...] encounter Miscellaneous Notes * Telephone Encounter - Domonique Hills OSA - 05/26/2023 11:54 AM EST is agreeable to rescheduled visit with Terrell Pascual RN(had to see an acute) Rescheduled for 06/11/23 at 1230pm GUILLE Fried documented in this encounter Plan of Treatment Upcoming Encounters Date Type Department Care Team (Late st Contact Info) Description 06/11/2023 12:30 PM EST Home Visit [facility] at [facility] [address] [place] [address] Nisreen Pascual RN [address] [place] [address] 06/19/2023 11:00 AM EST Office Visit Sleep Disorders Ctr [facility] [address] [place] [id number] Janet Browne CRNP [address] [place] [address] 07/08/2023 10:40 AM EST Office Visit [facility] [address] [facility] [phone] Martin Hopper [facility] [address] [facility] [address] 08/17/2023 9:45 AM EST Imaging Radiology [facility] [address] [place] [address] 08/17/2023 10:30 AM EST Office Visit Cardiology, [address] [place] [address] Nuzhat Rolon PA-C 132 [facility] [place] [address] 11/02/2023 9:40 AM EDT Office Visit Ophthalmology, [address] [place] [address] Wilfredo Robert T, DO [address] [place] [address] 12/24/2023 11:20 AM EDT Office Visit Dermatology, [address], [place] [address] Jemma Evangelista, HAL [address] [place] [address] [place] [address] Scheduled Procedures Name Priority Associated Diagnoses Date/Ti me COLONOSCOPY FLEXIBLE PROXIMA L DIAGNOSTIC Recall Special screening for malignant neoplasms, colon Health Maintenance Due Date Last Done Comments CKD HGB USE SMARTSET 19699 12/27/202212/27, 07/05/2021, 01/02/2021, Additional history exists CKD PHOS USE SMARTSET 87004 12/27/202212/13, 01/02/2021, 12/28/2019, Additional history exists Depression [...] filedocumented as of this encounter Care Teams Sanitary Landfill Operator Relationship Specialty Start Date End Date Martin Hopper MD [address] [place] [address] PCP - General Family Medicine 08/23/18 documented as of this encounter
--- OUTSIDE RECORDS SUMMARY | 2023-07-29 20:38 | External Medical Summary | Summary of Care ---
Author Name Unknown Organization [facility] Address [address] [place] [address] Phone [phone] Care Team Providers Care Senior Sales Executive Name Role Phone Martin Hopper MD Primary Care Provider [phone]- [phone] Reason for Visit * Reason Onset Date Comments [facility]: Maintenance 04/14/2023 Encounter Details Date Type Department Care Team (Late st Contact Info) Description 04/14/2023 Telephone [facility], [facility] [address] [place] [address] Nisreen Pascual, RN [address] [place] [address] [facility]: Maintenance Allergies Active Allergy Reactions Criticality Noted Date Comments Pollen Cough Medium 10/17/2022 Watery eyes and runny nose documented as of this encounter (statuses as of 04/14/2023) Medications Medication Sig Dispensed Refills Start Date End Date Status oxygen IN GAS 2 LPM bled through CPAP during hours of sleep 1 Each 0 08/14/2021 Active BiPAP every night at bedtime. 0 Active Tamsulosin HCl 0.4 MG Oral Capsule (Flomax)Indications:BPH with obstruction/lower urinary tract symptoms TAKE 1 CAPSULE BY MOUTH ONCE DAILY 30 Capsule 5 10/28/2022 Active Sertraline HCl 25 MG Oral Tablet (Zoloft) TAKE ONE TABLET BY MOUTH IN THE MORNING 90 Tablet 1 11/11/2022 Active Oxybutynin Chloride ER 5 MG Oral Tablet Extended Release 24 Hour (Ditropan XL)Indications:Overacti ve bladder TAKE ONE TABLET BY MOUTH DAILY. DO NOT CUT, CRUSH OR CHEW 90 Tablet 1 01/21/2023 Active Spironolactone 25 MG Oral Tablet (Aldactone) Take 0.5 Tablets by mouth in the morning. 0 Active Furosemide 20 MG Oral Tablet [...] every evening. 15 Tablet 5 03/13/2023 Active Hospital, Clinic, or Other Facility Administered [...] as of this encounter (statuses as of 04/14/2023) Active Problems Problem Noted Date Diagnosed Date [...] as of this encounter (statuses as of 04/14/2023) Resolved Problems Problem Noted Date Diagnosed Date [...] as of this encounter (statuses as of 04/14/2023) Immunizations Name Administration Dates Next Due COVID-19 mRNA, LNP-s, No Pre serve, 2-Dose Series (Moderna) 05/15/2021,08/11/2020,07/07/2020 Covid-19, Mrna, Lnp-s, Pf, B ivalent, 30 Mcg, IM, 12 yrs and above (Pfizer) 04/22/2022 H1N1 2009 Influenza, IM 06/18/2009 Pneumococcal Conjugate Vacc, 13 Valent (Prevnar) 06/18/2015 Pneumococcal Polysaccharide PPV23 (Pneumovax) 05/30/2010 SEASONAL INFLUENZA, PF, 6 M & Above, IM , (FLULAVAL or FLUZONE) 02/23/2020,03/09/2019,03/12/2018,03/16 Seasonal Influenza, Quadriva lent Hd (Fluzone [...] 12/27/2021 Hunger Vital Sign Answer Date Recorded Worried About Running Out of Food in the Last Ye ar Never true 06/29/2019 Ran Out of Food in the Last Year Never true 06/29/2019 Sex and Gender Information Value Date Recorded Sex Assigned at Not on file Gender Identity Not on file Sexual Orientation Not on file Job Start Date Occupation Industry Not on file Not on file Not on file documented as of this encounter Miscellaneous Notes * Telephone Encounter - Nisreen Pascual RN - 04/14/2023 12:53 PM EDT Pt/ called to notify of recommendations for lubrication 4x a day and f/u with regular eye doctor. is aware. Thank you! * Telephone Encounter - Nisreen Pascual RN - 04/14/2023 10:14 AM EDT Images from the original note were not included. Good morning, Pt seen for home visit He is still having redness of his left eye of sclera and conjunctiva. Also has watering of the eye. He just saw you beginning of the month and completed the tobradex. He is now using Systane eye drops several times a day and Optase Hylo Night ointment at night. He is wondering if you have any further recommendations or should his appt with you be moved up? Georgie not see you until October 2023. Please advise. Thank you! documented in this encounter Plan of Treatment Upcoming Encounters Date Type Department Care Team (Late st Contact Info) Description 04/16/2023 10:20 AM EDT Office Visit Dermatology[address] [place] [address] Jemma Evangelista PA-C [address] [place] [address] [place] [address] 05/26/2023 2:30 PM EST Home Visit [facility], [facility] 132 [facility] [place] [address] Nisreen Pascual, RN 132 [facility] [place] [address] 06/19/2023 11:00 AM EST Office Visit [facility] Disorders [facility]tr [facility] 132 [facility] [place] [phone] [facility] CRNP [facility] [address] 07/08/2023 10:40 AM EST Office Visit Family [facility] [address] [place] [phone] Martin Hopper MD [address] [place] [address] 08/17/2023 9:45 AM EST Imaging [facility] 132 [facility] [place] [address] 08/17/2023 10:30 AM EST Office Visit Cardiology, [facility] 132 [facility] [place] [address] Nuzhat Rolon PA-C 132 [facility] [place] [address] 11/02/2023 9:40 AM EDT Office Visit Ophthalmology, [facility] 132 [facility] [place] [address] Wilfredo Robert, DO [address] [place] [address] 12/24/2023 11:20 AM EDT Office Visit Dermatology, [place] [address] [place] [address] Jemma Evangelista PA-C [address] [place] [address] [place] [phone] Scheduled Procedures Name Priority Associated Diagnoses Date/Ti me COLONOSCOPY FLEXIBLE PROXIMA L DIAGNOSTIC Recall Special screening for malignant neoplasms, colon Health Maintenance Due Date Last Done Comments CKD HGB USE SMARTSET 54109 12/27/202212/27, 07/05/2021, 01/02/2021, Additional history exists CKD PHOS USE SMARTSET 24345 12/27/202212/13, 01/02/2021, 12/28/2019, Additional history exists Depression [...] filedocumented as of this encounter Care Teams Senior Sales Executive Relationship Specialty Start Date End Date Martin Hopper MD [address] [place] [address] PCP - General Family Medicine 08/23/18 documented as of this encounter
--- OUTSIDE RECORDS SUMMARY | 2023-07-29 20:38 | External Medical Summary | Summary of Care ---
Author Name Unknown Organization [facility] Address [address] [place] [address] Phone [phone] Care Team Providers Care Employment Adjudicator Name Role Phone Martin Hopper MD Primary Care Provider [phone]- [phone] Reason for Visit * Reason Onset Date Comments Appointment 03/23/2023 Encounter Details Date Type Department Care Team Description 03/23/2023 Telephone [facility], [address] [place] [address] Camryn Biswas, [facility] Informatics Specialist Appointment Allergies Active Allergy Reactions Severity Noted Date Comments Pollen Cough Medium 10/17/2022 Watery eyes and runny nose documented as of this encounter (statuses as of 03/23/2023) Medications Medication Sig Dispensed Refills Start Date [...] OR CHEW 90 Tablet 1 01/21/2023 Active Levocetirizine Dihydrochloride 2.5 MG/5ML Oral SolutionIndications:Rhi nitis, unspecified type Take 1.25 mg by mouth in the morning. 148 mL 5 01/31/2023 Active Spironolactone 25 MG Oral Tablet (Aldactone) [...] as of this encounter (statuses as of 03/23/2023) Active Problems Problem Noted Date Chronic heart failure with preserved eje ction fraction 02/06/2023 Bradycardia, sinus 02/06/2023 Pulmonary hypertension, unspecified 02/2023 Unspecified mood (affective) disorder Chronic kidney disease, stage 3a 023 Overview: Per CKD protocol Scleroderma 10/17/2022 Positive SEDRICK (antinuclear antibody) 10/2022 Former tobacco use 10/17/2022 House dust mite allergy 03/27/2022 Allergic rhinitis due to pollen 03/27/20 22 Esophageal dysmotility 03/27/2022 ILD (interstitial lung disease) 03/27/20 22 KACY (generalized anxiety disorder) 06/29 Obstructive sleep apnea no akil with bilevel positive airway pressure (BiPAP) 02/09/2018 BPH with obstruction/lower urinary tract symptoms 12/22/2017 Hx of nonmelanoma skin cancer 01/15/2017 [...] as of this encounter (statuses as of 03/23/2023) Resolved Problems Problem Noted Date Resolved Date Dizziness 02/06/2023 02/06/2023 Acute hypoxemic respiratory failure 10/17/2022 01/16/2023 Fluid overload 10/17/2022 01/16/2023 CKD (chronic kidney disease), stage III 04/23/20 20 10/22/2022 Overview: Per CKD protocol History of squamous cell carcinoma 06/24/2017 10/09/2018 Kidney disease, chronic, stage III (GFR 30-59 ml /min) 10/20/2016 04/26/2020 Overview: Per CKD protocol #1 Other acne 06/28/2013 12/12/2014 Dermatitis 06/28/2013 12/12/2014 ADVANCE DIRECTIVE INFORMATION 04/02/2005 Overview: Yes, Patient instructed to provide copy of advance directive for provider to review and to be scanned into Electronic Medical Record BENIGN NEOPLASM LG BOWEL 10/03/2004 019 Overview: last colonoscopy in 2004, polyp, no CA, repeat in 10 years IMPOTENCE, ORGANIC ORIGN 04/11/2004 018 GENERALIZED ANXIETY DIS 04/11/2004 10/10/19 19 documented as of this encounter (statuses as of 03/23/2023) Immunizations Name Administration Dates Next Due COVID-19 [...] oz pure alcohol) quit 03/2002 (social drinker)-rare Food Insecurity Answer Date Recorded Within the past 12 months, y ou worried that your food would run out before you got money to buy more. Never true 06/29/2019 Within the past 12 months, t he food you bought just didn't last and you didn't have money to get more. Never true 06/29/2019 Sex Assigned at Date Recorded Not on file Job Start Date Occupation Industry Not on file Not on file Not on file documented as of this encounter Miscellaneous Notes * Telephone Encounter - Camryn Biswas [facility] Pharm[facility] Informatics Specialist - 03/23/2023 1:03 PM EDT Outbound call to patient regarding rescheduling his appointment from 03/25/23 to 04/14/23 @ 10:00 . Left a message on patients machine asked to call back and confirm Camryn Biswas GUILLE Electronically signed by Camryn Biswas [facility] Pharm[facility] Informatics Specialist at 03/23/2023 1:06 PM EDT documented in this encounter Plan of Treatment Upcoming Encounters Date Type Specialty Care Team Description 04/14/2023 Home Visit [facility] Nisreen Pascual RN [address] [place] [address] 04/16/2023 Office Visit Dermatology Jemma Evangelista PA-C [address] [place] [address] [place] [address] 06/19/2023 Office Visit Sleep Disorders Janet Browne CRNP [address] [place] [address] 07/08/2023 Office Visit Family Medicine Martin Hopper MD [address] [place] [address] 08/17/2023 Imaging Radiology 08/17/2023 Office Visit Cardiology Nuzhat Rolon PA-C [address] [place] [address] 11/02/2023 Office Visit Ophthalmology Wilfredo Robert, DO 16 [facility] [place] [address] 12/24/2023 Office Visit Dermatology Jemma Evangelista PA-C [address] [place] [address] [place] [phone] Scheduled Procedures Name Priority Associated Diagnoses Date/Ti me COLONOSCOPY FLEXIBLE PROXIMA L DIAGNOSTIC Recall Special screening for malignant neoplasms, colon Health Maintenance Due Date Last Done Comments CKD HGB USE SMARTSET 39463 12/27/202212/27, 07/05/2021, 01/02/2021, Additional history exists CKD PHOS USE SMARTSET 09874 12/27/202212/13, 01/02/2021, 12/28/2019, Additional history exists Depression [...] filedocumented as of this encounter Care Teams Employment Adjudicator Relationship Specialty Start Date End Date Martin Hopper MD [address], [place] [phone] PCP - General Family Medicine 08/23/18 documented as of this encounter
--- OUTSIDE RECORDS SUMMARY | 2023-07-29 20:38 | External Medical Summary | Summary of Care ---
Author Name Unknown Organization [facility] Address [address] [place] [address] Phone [phone] Care Team Providers Care Blade Bender Furnace Tender Name Role Phone Sabra Gaines MD Primary Care Provider [phone]- [phone] Reason for Visit * Reason Comments Follow Up 3-4 months for AKs, no new concerns Encounter Details Date Type Department Care Team (Late st Contact Info) Description 04/16/2023 10:20 AM EDT [facility] [address] [place] [address] Jemma Evangelista PA-C [address] [place] [address] [place] [address] Hx of nonmelanoma skin cancer*; Actinic keratosis Allergies Active Allergy Reactions Criticality Noted Date Comments Pollen Cough Medium 10/17/2022 Watery eyes and runny nose documented as of this encounter (statuses as of 04/16/2023) Medications Medication Sig Dispensed Refills Start Date [...] inhalation solution 2.5 mgIndications:ILD (interstitial lung disease) ([facility]) 2.5 mg NEBULIZER PRN 08/05/2022 08/05/2023 Active Albuterol Sulfate (Proventil) (2.5 MG/3ML) 0.083% inhalation solution 2.5 mgIndications:ILD (interstitial lung disease) ([facility]) 2.5 mg NEBULIZER PRN 08/05/2022 08/05/2023 Active documented as of this encounter (statuses as of 04/16/2023) Active Problems Problem Noted Date Diagnosed Date [...] as of this encounter (statuses as of 04/16/2023) Resolved Problems Problem Noted Date Diagnosed Date [...] as of this encounter (statuses as of 04/16/2023) Immunizations Name Administration Dates Next Due COVID-19 mRNA, LNP-s, No Pre serve, 2-Dose Series (Moderna) 05/15/2021,08/11/2020,07/07/2020 Covid-19, Mrna, Lnp-s, Pf, B ivalent, 30 Mcg, IM, 12 yrs and above (GoodyTag) 04/22/2022 H1N1 2009 Influenza, IM 06/18/2009 Pneumococcal Conjugate Vacc, 13 Valent (Prevnar) 06/18/2015 Pneumococcal Polysaccharide PPV23 (Pneumovax) 05/30/2010,04/11/2004 SEASONAL INFLUENZA, PF, 6 M & Above, [...] on file documented as of this encounter Patient Instructions * Patient Instructions* Jemma Evangelista PA-C - 04/16/2023 10:23 AM EDT Skin Cryosurgery (FREEZING) Instructions Most areas treated by freezing will need very little care. You may wash normally with soap and water and leave any small crusts in place. Vaseline to treated areas 2-3 times per day is a good idea, you do not need to keep them covered with bandages. If a large blister forms and breaks, you will want to apply a light dressing to the area. CHANGE DRESSING ONCE DAILY 1. Wash hands and remove the original dressing(s) in 12-24 hours. 2. Gently clean wound(s) with soap and water. Rinse with water and pat the wound dry. 3. Apply a thin layer of Vaseline ointment with a Q-tip. 4. Cover with a bandage if area(s) is not on the face or scalp. A dressing is not required on the face or scalp. Use non-adherent dressing and paper tape if you are sensitive to band-aid adhesive sensitive. 5. If you have any concerns about the healing wound, please either or our main Dermatology office in [place] at [phone]. If an emergency, please go to your nearest Emergency Department. documented in this encounter Progress Notes * Ishan Freed MD - 04/16/2023 2:16 PM EDT I have seen and examined the patient via teledermatology review of chart note and photos with Jemma Evangelista PA-C. I have reviewed and agree with the assessment and plan. * Jemma Evangelista PA-C - 04/16/2023 10:20 AM EDT SUBJECTIVE: History of Present Illness: Mane Foote is a 83 year old male seen today for follow up of AKs. Previous office visit: 12/18/2022 Last attempted treatments include: cryo to AKs Full skin exam 01/04 No new or changing lesions, per pt. REVIEW OF SYSTEMS: SKIN: No other new or changing moles. HEME/LYMPH: No new or enlarging lumps or bumps. CONSTITUTIONAL: No nausea, vomiting, fevers, chills, diarrhea. No recent unintended weight loss, night sweats, appetite or malaise. RESP: negative MSK/EXT: Negative or as per HPI GI: negative CV: Negative or as per HPI Rest of systems are negative or as per HPI SKIN CANCER HX: squamous cell carcinoma (L jawline 08/01, R posterior scalp 12/31, L eric bowl 12/31, R lateral eyebrow 06/02,L proximal elbow 06/04, L distomedial elbow 06/04), squamous cell carcinoma in situ (L lateral cheek 04/01, L lower eyelid margin 09/04), basal cell carcinoma (L forehead below hairline 04/01, R upperarm 07/03, R chest 12/04, R upper arm 12/04) Reviewed, same day as visit, [facility] Dermatology lab work(s)/pathology report(s) as well as those sent by referring provider prior to seeing pt. MEDICA TIONS: Current Outpatient Medications Medication Sig Dispense Refill oxygen IN GAS 2 LPM bled through CPAP during hours of sleep 1 Each 0 BiPAP every night at bedtime. Tamsulosin HCl 0.4 MG Oral Capsule (Flomax) TAKE 1 CAPSULE BY MOUTH ONCE DAILY 30 Capsule 5 Sertraline HCl 25 MG Oral Tablet (Zoloft) TAKE ONE TABLET BY MOUTH IN THE MORNING 90 Tablet 1 Oxybutynin Chloride ER 5 MG Oral Tablet Extended Release 24 Hour (Ditropan XL) TAKE ONE TABLET BY MOUTH DAILY. DO NOT CUT, CRUSH OR CHEW 90 Tablet 1 Spironolactone 25 MG Oral Tablet (Aldactone) Take 0.5 Tablets by mouth in the morning. Furosemide 20 MG Oral Tablet (Lasix) Take 1 Tablet by mouth every other day. 15 Tablet 5 Omeprazole 20 MG Oral Capsule Delayed Release (PriLOSEC) TAKE 1 CAPSULE BY MOUTH EVERY MORNING. TAKE WITH WATER ON AN EMPTY STOMACH ONE HOUR PRIOR TO MEAL. 90 Capsule 1 Levocetirizine Dihydrochloride 5 MG Oral Tablet Take 0.5 Tablets by mouth every evening. 15 Tablet 5 Current Facility-Administered Medications Medication Dose Route Frequency Provider Last Rate Last Admin Albuterol Sulfate (Proventil) (5 MG/ML) 0.5% *conc* inhalation solution 2.5 mg 2.5 mg Nebulizer Keke Morgan CRNP Albuterol Sulfate (Proventil) (2.5 MG/3ML) 0.083% inhalation solution 2.5 mg 2.5 mg Nebulizer Keke Phillips CRNP 2.5 mg at 11/05/22 0912 ALLERG IES: Pollen OBJECT SOFÍA: GEN: alert, no distress, appears oriented, pleasant, and cooperative. SKIN: Detailed exam of face including lids and lips, neck, back, bilateral hand, and fingernails completed: 1. Face/upper back-10 erythematous scaly papules and plaques, some hyperkeratotic. Broad plaques (smaller than last visit) on upper eyelids. ASSESS MENT/PLAN: 1. Actinic keratoses on face/upper back (x10)-Cryosurgery explained to the patient. Discussed risk of blistering, crusting, infection, scarring, reoccurrence of lesions, hypopigmentation, post inflammatory hyperpigmentation with pt prior to procedure. Verbal consent obtained. Time out called immediately prior to procedure and patient identification and site verified. Cryo therapy performed with Liquid Nitrogen via cryo spray unit to lesion (s) noted above. Location noted in physical exam. Post op course explained. Patient alone today. Photo(s) of #1 taken, pt verbally consented to having photo(s) taken. Follow-up: 01/05 for full skin exam Applicable photos (if any) and chart reviewed by Dr. Ishan Freed. Presumed diagnoses, expected natural histories, and management options discussed with the patient at length. Questions were addressed and anticipatory guidance provided. They were instructed to contact me if additional questions, concerns, or problems develop in the interim. -There were no barriers to learning and no other pain was related to today's visit. The patient and/or person accompanying patient demonstrates understanding of the visit and treatment. Jemma Evangelista PA-C 04/16/2023 9:56 AM Ref: SELF[[id number]] NO STREET ADDRESS AVAILABLE None (office) None (fax) PCP: SABRA GAINES [address] [place], [place] [address] [address] [phone] documented in this encounter Nursing Notes * Faina Padilla LPN - 04/16/2023 10:00 AM EDT Patient identified by full name and date of . Chief Complaint Patient presents with Follow Up 3-4 months for AKs, no new concerns documented in this encounter Plan of Treatment Upcoming Encounters Date Type Department Care Team (Late st Contact Info) Description 05/26/2023 2:30 PM EST Home Visit [facility]inger at [facility] [address] [place] [address] Nisreen Pascual, RN [address] [place] [address] [address] 06/19/2023 11:00 AM EST Office Visit Sleep Disorders Ctr [facility] [address] [place] [address] [phone] Janet Browne CRNP [address] [place] [address] [address] 07/08/2023 10:40 AM EST Office Visit Family Practice, [place] [address] [place] [address] Sabra Gaines MD [address] [place] [address] 08/17/2023 9:45 AM EST Imaging Radiology [facility] 1st Floor, [address] [place] [address] 08/17/2023 10:30 AM EST Office Visit Cardiology, [address] [place] [address] Nuzhat Rolon PA-C [address] [facility] [place] [address] 11/02/2023 9:40 AM EDT Office Visit Ophthalmology, [address] [place] [address] Wilfredo Robert T, DO [address] [place] [address] 12/24/2023 11:20 AM EDT Office Visit Dermatology, [place] [address] [place] [address] Jemma Evangelista PAWerner [address] [place] [address] [place] [address] Scheduled Procedures Name Priority Associated Diagnoses Date/Ti me COLONOSCOPY FLEXIBLE PROXIMA L DIAGNOSTIC Recall Special screening for malignant neoplasms, colon Health Maintenance Due Date Last Done Comments CKD HGB USE SMARTSET 29378 12/27/202212/27, 07/05/2021, 01/02/2021, Additional history exists CKD PHOS USE SMARTSET 87860 12/27/202212/13, 01/02/2021, 12/28/2019, Additional history exists Depression Screening 12/27/2022 12/27/2021 COVID-19 Vaccine (2022-24 season) 2023 04/22/2022, 05/15/2021, 08/11/2020, Additional history [...] Not on filedocumented as of this encounter Procedures Procedure Name Priority Date/Time Associated Diagnosis Comments DERM IMAGE (SITE) Routine 04/16/2023 Actinic keratosis Hx of nonmelanoma skin cancer documented in this encounter Results * DERM IMAGE (SITE) (04/16/2023) 04/16/2023 Jemma Evangelista PA-C DIGITAL PHOTOG BRY documented in this encounter Visit Diagnoses Diagnosis Hx of nonmelanoma skin cancer- Primary Personal history of other malignant neoplasm of skin Actinic keratosis documented in this encounter Care Teams Blade Bender Furnace Tender Relationship Specialty Start Date End Date Sabra Gaines MD [address] [place] [address] PCP - General Family Medicine 08/23/18 documented as of this encounter
--- OUTSIDE RECORDS SUMMARY | 2023-07-29 20:38 | External Medical Summary | Summary of Care ---
Author Name Unknown Organization [facility] Address [address] [place] [address] Phone [phone] Care Team Providers Care Statistics Manager Name Role Phone Martin Hopper MD Primary Care Provider [phone]- [phone] Reason for Visit * Reason Onset Date Comments Appointment 12/18/2022 Encounter Details Date Type Department Care Team Description 12/18/2022 Telephone [facility] [address] [place] [address] Martin Hopper MD [address] [place] [address] Appointment Allergies Active Allergy Reactions Severity Noted Date Comments Pollen Cough Medium 10/17/2022 Watery eyes and runny nose documented as of this encounter (statuses as of 03/19/2023) Medications Medication Sig Dispensed Refills Start Date End Date Status oxygen IN GAS 2 LPM bled through CPAP during hours of sleep 1 Each 0 08/14/2021 Active BiPAP every night at bedtime. 0 Active Tamsulosin HCl 0.4 MG Oral Capsule (Flomax)Indications: BPH with obstruction/lower urinary tract symptoms TAKE 1 CAPSULE BY MOUTH ONCE DAILY 30 Capsule 5 10/28/2022 Active Sertraline HCl 25 MG Oral Tablet (Zoloft) TAKE ONE TABLET BY MOUTH IN THE MORNING 90 Tablet 1 11/11/2022 Active Hospital, Clinic, or Other Facility Administered [...] as of this encounter (statuses as of 03/19/2023) Active Problems Problem Noted Date Chronic heart [...] jawline 08/01, R posterior scalp 12/31, L erci bowl 12/31, R lateral eyebrow 06/02, L [...] as of this encounter (statuses as of 03/19/2023) Resolved Problems Problem Noted Date Resolved Date [...] as of this encounter (statuses as of 03/19/2023) Immunizations Name Administration Dates Next Due COVID-19 [...] Seasonal Influenza, Quadriva lent Hd (Fluzone Hd) 03/17/2022,02/22/2021 Seasonal Influenza, Quadriva lent, No Preserve, IM [...] encounter Miscellaneous Notes * Telephone Encounter - Alejandra Talley LPN - 12/22/2022 9:21 AM EDT Scheduled both apts. * Telephone Encounter - Annmarie Rondon - 12/18/2022 2:28 PM EDT Return every 3-4 months for AKs, COMPLEX DERM 7/24 full skin exam. Please schedulue this. documented in this encounter Plan of Treatment Upcoming Encounters Date Type Specialty Care Team Description 03/25/2023 [facility] Visit [facility] Nisreen Pascual, RN [address] [place] [address] 04/16/2023 Office Visit Dermatology Jemma Evangelista PA-C [address] [place] [address] [place] [address] 06/19/2023 Office Visit Sleep Disorders Janet Browne CRNP [address] [place] [address] 07/08/2023 Office Visit Family Medicine Martin Hopper MD [address] [place] [address] 08/17/2023 Imaging Radiology 08/17/2023 Office Visit Cardiology Nuzhat Rolon PA-C [address] [place] [address] 11/02/2023 Office Visit Ophthalmology Wilfredo Robert, DO [address] [place] [address] 12/24/2023 Office Visit Dermatology Jmema Evangelista PA-C [address] [place] [address] [place] [address] Scheduled Procedures Name Priority Associated Diagnoses Date/Ti me COLONOSCOPY FLEXIBLE PROXIMA L DIAGNOSTIC Recall Special screening for malignant neoplasms, colon Health Maintenance Due Date Last Done Comments CKD HGB USE SMARTSET 56962 12/27/202212/27, 07/05/2021, 01/02/2021, Additional history exists CKD PHOS USE SMARTSET 74925 12/27/202212/13, 01/02/2021, 12/28/2019, Additional history exists Depression Screening 12/27/2022 12/27/2021 GFR 06/26/2023 12/24/2022, 12/13, 07/05/2021, Additional history exists Albumin/Creatinine Ratio 12/25/2023 12/24/2022, 12/13 DTaP,Tdap,and Td Vaccines (2 - Td or Tdap) 07/27/2024 07/27/2014, 01/05/2008, 01/05/2008 Pneumococcal Vaccine: 65+ Years Completed 06/18/2015, 05/30/2010, 04/11/2004 Zoster Vaccines Completed 04/03/2020, 01/14, 06/29/2007 COVID-19 Vaccine Completed 04/22/2022, 06/2020, 08/11/2020, Additional history exists Influenza Vaccine (FLU shot) Completed , 03/17/2022, [...] filedocumented as of this encounter Care Teams Statistics Manager Relationship Specialty Start Date End Date Martin Hopper MD [address] [place] [address] PCP - General Family Medicine 08/23/18 documented as of this encounter
--- OUTSIDE RECORDS SUMMARY | 2023-07-29 20:38 | External Medical Summary | Summary of Care ---
Author Name Unknown Organization [facility] Address [address] [place] [address] Phone [phone] Care Team Providers Care Steam Drier Operator Name Role Phone Sabra Gaines MD Primary Care Provider [phone]- [phone] Reason for Visit * Reason Comments eRx-Medication Refill Encounter Details Date Type Department Care Team (Late st Contact Info) Description 05/11/2023 Refill [facility] [address] [place] [address] Sabra Gaines MD [address] [place] [address] Allergies Active Allergy Reactions Criticality Noted Date Comments Pollen Cough Medium 10/17/2022 Watery eyes and runny nose documented as of this encounter (statuses as of 05/12/2023) Medications Medication Sig Dispensed Refills Start Date End Date Status oxygen IN GAS 2 LPM bled through CPAP during hours of sleep 1 Each 0 08/14/2021 Active BiPAP every night at bedtime. 0 Active Oxybutynin Chloride ER 5 MG Oral Tablet Extended Release 24 Hour (Ditropan XL)Indications:Overa ctive bladder TAKE ONE TABLET BY MOUTH DAILY. DO NOT CUT, CRUSH OR CHEW 90 Tablet 1 01/21/2023 Active Spironolactone 25 MG Oral Tablet (Aldactone) Take 0.5 Tablets by mouth in the morning. 0 Active Furosemide 20 MG Oral Tablet (Lasix)Indications:I LD (interstitial lung disease) ([facility]),Acute hypoxemic respiratory failure (HCC),Hypervolemia, unspecified hypervolemia type Take 1 Tablet by mouth every other day. 15 Tablet 5 02/06/2023 Active Omeprazole 20 MG Oral Capsule Delayed Release (PriLOSEC) TAKE 1 CAPSULE BY MOUTH EVERY MORNING. TAKE WITH WATER ON AN EMPTY STOMACH ONE HOUR PRIOR TO MEAL. 90 Capsule 1 03/02/2023 Active Levocetirizine Dihydrochloride 5 MG Oral TabletIndications:Rh initis, unspecified type Take 0.5 Tablets by mouth every evening. 15 Tablet 5 03/13/2023 Active Tamsulosin HCl 0.4 MG Oral Capsule (Flomax)Indications: BPH with obstruction/lower urinary tract symptoms TAKE 1 CAPSULE BY MOUTH ONCE DAILY 90 Capsule 1 04/27/2023 Active Sertraline HCl 25 MG Oral Tablet (Zoloft) TAKE 1 TABLET BY MOUTH EVERY MORNING 90 Tablet 2 05/12/2023 Active Sertraline HCl 25 MG Oral Tablet (Zoloft) TAKE ONE TABLET BY MOUTH IN THE MORNING 90 Tablet 1 11/11/2022 Discontinued Hospital, Clinic, or Other Facility Administered Medication Ordered Dose Route Frequency Start Date End Date Status Albuterol Sulfate (Proventil) (5 MG/ML) 0.5% *conc* inhalation solution 2.5 mgIndications:ILD (interstitial lung disease) ([facility]) 2.5 mg NEBULIZER PRN 08/05/2022 08/05/2023 Active Albuterol Sulfate (Proventil) (2.5 MG/3ML) 0.083% inhalation solution 2.5 mgIndications:ILD (interstitial lung disease) ([facility]) 2.5 mg NEBULIZER PRN 08/05/2022 08/05/2023 Active documented as of this encounter (statuses as of 05/12/2023) Active Problems Problem Noted Date Diagnosed Date [...] as of this encounter (statuses as of 05/12/2023) Resolved Problems Problem Noted Date Diagnosed Date [...] as of this encounter (statuses as of 05/12/2023) Immunizations Name Administration Dates Next Due COVID-19 [...] Tobacco: Former Cigarettes 0.3 40 Q uit: 2000 Smokeless Tobacco: Never Alcohol Use Standard Drinks/Week [...] encounter Miscellaneous Notes * Telephone Encounter - Brenden Abdullahi RPh - 05/12/2023 9:15 AM ESTSigned Prescriptions: Disp Refills Sertraline HCl 25 MG Oral Tablet (Zoloft) 90 Tab*2 Sig: TAKE 1 TABLET BY MOUTH EVERY MORNINGAuthorizing Provider: SABRA GAINES User: BRENDEN ABDULLAHI----- documented in this encounter Plan of Treatment Upcoming Encounters Date Type Department Care Team (Late st Contact Info) Description 05/26/2023 2:30 PM EST Home Visit [facility] [address] [place] [address] [address] Nisreen Pascual, RN [address] [place] [address] 06/19/2023 11:00 AM EST Office Visit Sleep Disorders Ctr [facility] [address] [place] [address] [phone] Janet Browne CRNP [address] [facility] [place] [address] 07/08/2023 10:40 AM EST Office Visit Family Practice, [place] [address] [place] [address] Sabra Gaines MD [address] [place] [address] 08/17/2023 9:45 AM EST [facility] [address] [facility] [place] [address] 08/17/2023 10:30 AM EST Office Visit Cardiology, [facility] [address] [facility] [place] [address] Nuzhat Rolon, PASundarC [address] [facility] [place] [address] 11/02/2023 9:40 AM EDT Office Visit Ophthalmology, [facility] [address] [facility] [place] [address] Wilfredo Robert, DO [address] [place] [address] 12/24/2023 11:20 AM EDT Office Visit Dermatology, [place] [address] [place] [address] Jemma Evangelista, PA-C [address] [place] [address] [place] [address] Scheduled Procedures Name Priority Associated Diagnoses Date/Ti me COLONOSCOPY FLEXIBLE PROXIMA L DIAGNOSTIC Recall Special screening for malignant neoplasms, colon Health Maintenance Due Date Last Done Comments CKD HGB USE SMARTSET 83145 12/27/202212/27, 07/05/2021, 01/02/2021, Additional history exists CKD PHOS USE SMARTSET 40657 12/27/202212/13, 01/02/2021, 12/28/2019, Additional history exists Depression [...] filedocumented as of this encounter Care Teams Steam Drier Operator Relationship Specialty Start Date End Date Sabra Gaines MD [address] [place] [address] PCP - General Family Medicine 08/23/18 documented as of this encounter
--- OUTSIDE RECORDS SUMMARY | 2023-07-29 20:38 | External Medical Summary | Summary of Care ---
Author Name Unknown Organization [facility] Address [address] [place] [address] Phone [phone] Care Team Providers Care Canvas Shop Laborer Name Role Phone Sabra Gaines MD Primary Care Provider +1- [phone] Reason for Visit * Reason Comments eRx-Medication Refill Encounter Details Date Type Department Care Team (Late st Contact Info) Description 04/26/2023 Refill [facility] [address] [place] [address] Sabra Gaines MD [address] [place] [address] BPH with obstruction/lower urinary tract symptoms Allergies Active Allergy Reactions Criticality Noted Date Comments Pollen Cough Medium 10/17/2022 Watery eyes and runny nose documented as of this encounter (statuses as of 04/27/2023) Medications Medication Sig Dispensed Refills Start Date End Date Status oxygen IN GAS 2 LPM bled through CPAP during hours of sleep 1 Each 0 08/14/2021 Active BiPAP every night at bedtime. 0 Active Sertraline HCl 25 MG Oral Tablet [...] Oral Tablet (Lasix)Indications:I LD (interstitial lung disease) ([facility]),Acute hypoxemic respiratory failure (HCC),Hypervolemia, unspecified hypervolemia type [...] ONCE DAILY 90 Capsule 1 04/27/2023 Active Tamsulosin HCl 0.4 MG Oral Capsule (Flomax)Indications: BPH with obstruction/lower urinary tract symptoms TAKE 1 CAPSULE BY MOUTH ONCE DAILY 30 Capsule 5 10/28/2022 Discontinued Hospital, Clinic, or Other Facility Administered Medication Ordered Dose Route Frequency Start Date End Date Status Albuterol Sulfate (Proventil) (5 MG/ML) 0.5% *conc* inhalation solution 2.5 mgIndications:ILD (interstitial lung disease) ([facility]) 2.5 mg NEBULIZER PRN 08/05/2022 08/05/2023 Active Albuterol Sulfate (Proventil) (2.5 MG/3ML) 0.083% inhalation solution 2.5 mgIndications:ILD (interstitial lung disease) ([facility]) 2.5 mg NEBULIZER PRN 08/05/2022 08/05/2023 Active documented as of this encounter (statuses as of 04/27/2023) Active Problems Problem Noted Date Diagnosed Date [...] as of this encounter (statuses as of 04/27/2023) Resolved Problems Problem Noted Date Diagnosed Date [...] as of this encounter (statuses as of 04/27/2023) Immunizations Name Administration Dates Next Due COVID-19 [...] encounter Miscellaneous Notes * Telephone Encounter - Derek Pennington RPh - 04/27/2023 2:39 PM ESTSigned Prescriptions: Disp Refills Tamsulosin HCl 0.4 MG Oral Capsule (Flomax)90 Cap*1 Sig: TAKE 1CAPSULE BY MOUTH ONCE DAILYAuthorizing Provider: SABRA GAINES User: BERE PENNINGTON documented in this encounter Plan of Treatment Upcoming Encounters Date Type Department Care Team (Late st Contact Info) Description 05/26/2023 2:30 PM EST Home Visit [facility] [address] [place] [address] Nisreen Pascual, RN [address] [place] [address] 06/19/2023 11:00 AM EST Office Visit Sleep Disorders Ctr [facility] [address] [place] [address] Janet Browne CRNP [address] [place] [address] 07/08/2023 10:40 AM EST Office Visit Family Practice, [place] [address] [place] [address] Sabra Gaines MD [address] [place] [address] 08/17/2023 9:45 AM EST Imaging Radiology [facility] 1st [facility] 132 [facility] [place] [address] 08/17/2023 10:30 AM EST Office Visit Cardiology, [address] [place] [address] Nuzhat Rolon, KENDRICKC 132 [facility] [place] [address] 11/02/2023 9:40 AM EDT Office Visit Ophthalmology, [address] [place] [address] Wilfredo Robert T, DO 16 [facility] [address] 12/24/2023 11:20 AM EDT Office Visit Dermatology, [address] [address] Jemma Evangelista PAWerner [address] [place] [address] [place] [address] Scheduled Procedures Name Priority Associated Diagnoses Date/Ti me COLONOSCOPY FLEXIBLE PROXIMA L DIAGNOSTIC Recall Special screening for malignant neoplasms, colon Health Maintenance Due Date Last Done Comments CKD HGB USE SMARTSET 18639 12/27/202212/27, 07/05/2021, 01/02/2021, Additional history exists CKD PHOS USE SMARTSET 00461 12/27/202212/13, 01/02/2021, 12/28/2019, Additional history exists Depression [...] Diagnoses Diagnosis BPH with obstruction/lower urinary tract symptoms Hypertrophy of prostate with urinary obstruction and other lower urinary tract symptoms (LUTS) documented in this encounter Care Teams Canvas Shop Laborer Relationship Specialty Start Date End Date Sabra Gaines MD [address] [place] [address] PCP - General Family Medicine 08/23/18 documented as of this encounter
--- OUTSIDE RECORDS SUMMARY | 2023-07-29 20:38 | External Medical Summary | Summary of Care ---
Author Name Unknown Organization [facility] Address [address] [place] [address] Phone [phone] Care Team Providers Care Treatment Technician Name Role Phone Martin Hopper MD Primary Care Provider [phone]- [phone] Reason for Referral * Precert (Within 10 days (routine)) - Authorized Specialty Diagnoses / Procedures Referred By Contac t Referred To Contact Sleep Disorders Diagnoses GUILLE (obstructive sleep apnea) Nocturnal hypoxemia Procedures SLEEP STUDY, W/ CPAP (TREATMENT SETTINGS) Janet Browne CRNP [address] [place] [id number] Referral ID Status Reason Start Date Expiration Date V isits Requested Visits Authorized [id number] Authorized 08/02/2021 1 1 Reason for Visit * Reason Onset Date Comments Oxygen Assessment 07/23/2021 NPO Results Encounter Details Date Type Department Care Team ([facility] Contact Info) Description 07/23/2021 Telephone Sleep Disorders Ctr [facility] [address] [place] [phone] Janet Browne CRNP [address] [facility] [employer] [place] [address] Oxygen Assessment (NPO Results) Allergies Active Allergy Reactions Criticality Noted Date Comments Pollen Cough Medium 10/17/2022 Watery eyes and runny nose documented as of this encounter (statuses as of 05/26/2023) Medications Medication Sig Dispensed Refills Start Date End Date Status Iodoquinol-HC (HYDROCORTISONE- IODOQUINOL) 1-1 % CREAIndications: Dermatitis Apply to affected areas daily as needed 1 Tube 3 07/17/2016 3 Discontinued(Medi cation List Clean Up) Clindamycin Phosphate 1 % External FoamIndications: Other acne apply to trunk after bathing as needed 50 g 2 03/06/2020 3 Discontinued(Medi cation List Clean Up) Oxybutynin Chloride ER 5 MG Oral Tablet Extended Release 24 Hour (Ditropan XL)Indications:O veractive bladder Take 1 Tab by mouth daily. 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 TAKE 1 CAPSULE BY MOUTH ONCE DAILY 30 Cap 5 04/04/2021 2 Discontinued Cyclobenzaprine HCl 5 MG Oral Tablet (Flexeril) TAKE ONE TABLET BY MOUTH THREE TIMES DAILY as needed for muscle spasms 30 Tablet 5 06/04/2021 3 Discontinued(Refi ll) oxygen IN GAS 2 LPM bled through CPAP during hours of sleep 1 Each 0 08/02/2021 2 Discontinued(Refi ll) Hospital, Clinic, or Other Facility Administered Medication Ordered Dose Route Frequency Start Date End Date Status Albuterol Sulfate (Proventil) (2.5 MG/3ML) 0.083% inhalation solution 2.5 mgIndications:Shor tness of breath 2.5 mg NEBULIZER ONCE PRN 07/05/2021 11/22/2021 Discontin ued documented as of this encounter (statuses as [...] Split, I IV3, With Preserve, Inj 02/27/2014,03/02/2013,03/15/2012,03/15,04/15/2010,04/09/2009,04/10/20 08,04/16/2007,04/08/2006,04/02/2005,06/20/2002 TD - Tetanus/Diptheria (ADULT) 01/05/2008,2007 TDAP (age 10 and older)(Boostrix) 07/27/2014 07/27/2024 Varicella Zoster Vaccine (Adult) 06/29/2007 Zoster Vaccine Recombinant (Shingrix) 04/03/2020 ,02/02/2020 documented as of this encounter Social History Tobacco Use Types Packs/Day Years Used Date Smoking Tobacco: Former Cigarettes 0.5 30 Smokeless Tobacco: Former Quit: 03/15/2002 Comments:6 cigs/day for 30 y ears, quit 03/2002 (cold turkey - lost desire) Alcohol Use Standard Drinks/Week Comments Yes 0 (1 standard drink = 0.6 oz pur e alcohol) quit 03/2002 (social drinker) PHQ-2 Answer Date Recorded PHQ Adult Total [...] encounter Miscellaneous Notes * Telephone Encounter - Catalina Eisenberg OSA - 05/26/2023 5:20 PM EST PSG completed 03/25/22. * Telephone Encounter - Milly Coleman OSA - 12/19/2021 11:40 AM EDT Orders resent to [facility] * Telephone Encounter - Keke Sánchez CRNP - 08/15/2021 9:34 AM EST Signed orders for oxygen yesterday. Orders placed by Janet on 08/02 for titration study. Please contact patient and see which sleep center he would like to have the study at and send orders. Thanks * Telephone Encounter - Ary Partida LPN - 08/14/2021 3:21 PM EST Pt aware. Willing to do the titration study. Pt is also willing to have O2 bled through the cpap while he waits to have the titration done * Telephone Encounter - Ary Partida LPN - 08/07/2021 3:41 PM EST Pt's aware. Will discuss with the pt and call back * Telephone Encounter - Janet Browne CRNP - 08/02/2021 5:11 PM EST Noct ox CPAP 13-18, 07/31/21 (wt 199): SpO2 <89% 62 mins, low 76%, mean 91%; CPAP worn with AHI 10, 1 min large leak, mean 14.5, p90% 16.8 7 day download on CPAP -20: AHI 6.4, mean 13.7, p90% 15.5, 1.5 mins large leak Please let him know that there was significant drops in his oxygen the night of testing. Sleep testing in the lab is recommended to further assess and make sure his CPAP is on the right setting. Recommend: Add oxygen through CPAP while awaiting sleep study (if insurance allows) Titration study to further evaluate treatment and oxygen needs Send back to me if he prefers [facility] sleep lab over [facility]. NCOV would need ordered. Send to Milly to assist with scheduling once patient aware. * Telephone Encounter - Ary Partida LPN - 08/02/2021 11:29 AM EST NPO report received and given to provider for review * Telephone Encounter - Ary Partida LPN - 07/23/2021 1:47 PM EST Order has been added to the spreadsheet * Telephone Encounter - Ainsley Helms LPN - 07/23/2021 10:40 AM EST Orders faxed to [facility] for NPO and pressure change. * Telephone Encounter - Janet Browne CRNP - 07/23/2021 10:11 AM EST Please print and fax overnight oximetry order. Await results Ordered on aPAP 13-18/FFM without oxygen DME [facility] [place] documented in this encounter Plan of Treatment Upcoming Encounters Date Type Department Care Team (Late st Contact Info) Description 06/11/2023 12:30 PM EST Home Visit [facility] [address] [place] [address] [address] Nisreen Pascual RN [address] [place] [address] 06/19/2023 11:00 AM EST Office Visit Sleep Disorders Ctr [facility] [address] [place] [address] [phone] Janet Browne CRNP [address] [place] [address] 07/08/2023 10:40 AM EST Office Visit [address] [place] [address] Martin Hopper MD [address] [place] [address] 08/17/2023 9:45 AM EST Imaging Radiology [facility] 1st [facility] 132 [facility] [address] 08/17/2023 10:30 AM EST Office Visit Cardiology, [address] [place] [address] Nuzhat Rolon, PASundarC 132 [facility] [place] [address] 11/02/2023 9:40 AM EDT Office Visit Ophthalmology, [address] [place] [address] Wilfredo Robert T, DO 16 [place] [address] 12/24/2023 11:20 AM EDT Office Visit Dermatology, [place] [address] [place] [address] Jemma Evangelista, PAWerner [address] [place] [address] [place] [address] Scheduled Procedures Name Priority Associated Diagnoses Date/Ti me COLONOSCOPY FLEXIBLE PROXIMA L DIAGNOSTIC Recall Special screening for malignant neoplasms, colon Health Maintenance Due Date Last Done Comments CKD HGB USE SMARTSET 85774 12/27/202212/27, 07/05/2021, 01/02/2021, Additional history exists CKD PHOS USE SMARTSET 56186 12/27/202212/13, 01/02/2021, 12/28/2019, Additional history exists Depression [...] Procedure Name Priority Date/Time Associated Diagnosis Comments SLEEP STUDY, W/ CPAP (TREATMENT SETTINGS) Routine 03/25/2022 GUILLE (obstructive sleep apnea) Nocturnal hypoxemia documented in this encounter Results * SLEEP STUDY, W/ CPAP (TREATMENT SETTINGS) (03/25/2022) Janet [facility] documented in this encounter Visit Diagnoses Diagnosis GUILLE (obstructive sleep apnea)- Primary Obstructive sleep apnea (adult) (pediatric) Nocturnal hypoxemia Hypoxemia documented in this encounter Care Teams Treatment Technician Relationship Specialty Start Date End Date Martin Hopper MD [address] [facility] [address] PCP - General Family Medicine 08/23/18 documented as of this encounter
--- OUTSIDE RECORDS SUMMARY | 2023-07-29 20:38 | External Medical Summary | Summary of Care ---
Author Name Unknown Organization [facility] Address [address] [place] [address] Phone [phone] Care Team Providers Care Creative Services Writer Name Role Phone Sabra Gaines MD Primary Care Provider +1- [phone] Reason for Visit * Reason Comments Follow Up 3-4 months for AKs, no new concerns Encounter Details Date Type Department Care Team (Late st Contact Info) Description 04/16/2023 10:20 AM EDT [facility] [address] [place] [address] Jemma Evangelista PA-C [address] [place] [address] [place] [address] Hx of nonmelanoma skin cancer*; Actinic keratosis [...] inhalation solution 2.5 mgIndications:ILD (interstitial lung disease) ([facility]) 2.5 mg NEBULIZER PRN 08/05/2022 08/05/2023 Active Albuterol Sulfate (Proventil) (2.5 MG/3ML) 0.083% inhalation solution 2.5 mgIndications:ILD (interstitial lung disease) ([facility]) 2.5 mg NEBULIZER PRN 08/05/2022 [...] 30 Mcg, IM, 12 yrs and above ([employer]) 04/22/2022 H1N1 2009 Influenza, IM 06/18/2009 Pneumococcal [...] either or our main Dermatology office in [place] at [phone]. If an emergency, please go to your nearest Emergency Department. documented in this encounter Progress Notes * Jemma Evangelista PA-C - 04/16/2023 10:20 [...] 12/04) Reviewed, same day as visit, 0 [facility] Dermatology lab work(s)/pathology report(s) as well as [...] Jemma Evangelista PA-C 04/16/2023 9:56 AM Ref: SELF[[id number]] NO STREET ADDRESS AVAILABLE None (office) None (fax) PCP: SABRA GAINES [address] [facility] [address] [phone] documented in this encounter Nursing Notes * Faina Padilla LPN - 04/16/2023 10:00 AM EDT Patient identified by full name and date of . Chief Complaint Patient presents with Follow Up 3-4 months for AKs, no new concerns documented in this encounter Plan of Treatment Upcoming Encounters Date Type Department Care Team (Late st Contact Info) Description 05/26/2023 2:30 PM EST [facility] 132 [facility] [place] [address] Nisreen Pascual, RN [facility] [place] [address] 06/19/2023 11:00 AM EST Office Visit Sleep Disorders Ctr [facility] 132 [facility] [place] [phone] Janet Browne CRNP [facility] [place] [address] 07/08/2023 10:40 AM EST Office Visit [facility] [address] [facility] [phone] Sabra Gaines MD [address] [facility] [address] 08/17/2023 9:45 AM EST Imaging Radiology [address] 132 [facility] [place] [address] 08/17/2023 10:30 AM EST Office Visit Cardiology, [address] [place] [address] Nuzhat Rolon, PAWerner 132 [facility] [place] [address] 11/02/2023 9:40 AM EDT Office Visit Ophthalmology, [facility] 132 [facility] [place] [address] Wilfredo Robert, DO 16 [place] [address] 12/24/2023 11:20 AM EDT Office Visit Derm[address] [address] Jemma Evangelista, PAWerner [address] [place] [address] [place] [address] Scheduled Procedures Name Priority Associated Diagnoses Date/Ti me COLONOSCOPY FLEXIBLE PROXIMA L DIAGNOSTIC Recall Special screening for malignant neoplasms, colon Health Maintenance Due Date Last Done Comments CKD HGB USE SMARTSET 49900 12/27/202212/27, 07/05/2021, 01/02/2021, Additional history exists CKD PHOS USE SMARTSET 91794 12/27/202212/13, 01/02/2021, 12/28/2019, Additional history exists Depression [...] as of this encounter Visit Diagnoses Diagnosis Hx of nonmelanoma skin cancer- Primary Personal history of other malignant neoplasm of skin Actinic keratosis documented in this encounter Care Teams Creative Services Writer Relationship Specialty Start Date End Date Sabra Gaines MD [address] [place] [address] PCP - General Family Medicine 08/23/18 documented as of this encounter
--- OUTSIDE RECORDS SUMMARY | 2023-07-29 20:38 | External Medical Summary | Summary of Care ---
Author Name Unknown Organization [facility] Address [address] [place] [address] Phone [phone] Care Team Providers Care Hospital Pharmacy Technician Name Role Phone Martin Hopper MD Primary Care Provider +1- [phone] Reason for Visit * Reason Onset Date Comments Oxygen Assessment 10/29/2021 overnight oxim etry Encounter Details Date Type Department Care Team (Late st Contact Info) Description 10/29/2021 Telephone Sleep Disorders Ctr [facility] [address] [facility] [place] [phone] [facility] CR[facility] [place] [address] Oxygen Assessment (overnight oximetry ) Allergies Active Allergy Reactions Criticality Noted Date Comments Pollen Cough Medium 10/17/2022 Watery eyes and runny nose documented as of this encounter (statuses as of 06/16/2023) Medications Medication Sig Dispensed Refills Start Date End Date Status oxygen IN GAS 2 LPM bled through CPAP during hours of sleep 1 Each 0 08/14/2021 Active Iodoquinol-HC (HYDROCORTISONE -IODOQUINOL) 1-1 % CREAIndications :Dermatitis Apply to affected areas daily as needed 1 Tube 3 07/17/2016 3 Discontinued(Medi cation List Clean Up) Clindamycin Phosphate 1 % External FoamIndications :Other acne apply to trunk after bathing as needed 50 g 2 03/06/2020 3 Discontinued(Medi cation List Clean Up) Oxybutynin Chloride ER 5 MG Oral Tablet Extended Release 24 Hour (Ditropan XL)Indications: Overactive bladder Take 1 Tab by mouth daily. Do not cut, crush or chew 30 Tab 11 01/02/2021 2 Discontinued Cyclobenzaprine HCl 5 MG Oral Tablet (Flexeril) TAKE ONE TABLET BY MOUTH THREE TIMES DAILY as needed for muscle spasms 30 Tablet 5 06/04/2021 3 Discontinued(Refi ll) Tamsulosin HCl 0.4 MG Oral Capsule (Flomax)Indicat ions:BPH with obstruction/low er urinary tract symptoms TAKE 1 CAPSULE BY MOUTH ONCE DAILY 30 Capsule 5 10/11/2021 2 Discontinued CPAP every night at bedtime . 0 3 Discontinued(Medi cation List Clean Up) Hospital, Clinic, or Other Facility Administered Medication Ordered Dose Route Frequency Start Date End Date Status Albuterol Sulfate (Proventil) (2.5 MG/3ML) 0.083% inhalation solution 2.5 mgIndications:Shor tness of breath 2.5 mg NEBULIZER ONCE PRN 07/05/2021 11/22/2021 Discontin ued documented as of this encounter (statuses as of 06/16/2023) Active Problems Problem Noted Date Diagnosed Date [...] as of this encounter (statuses as of 06/16/2023) Resolved Problems Problem Noted Date Diagnosed Date [...] as of this encounter (statuses as of 06/16/2023) Immunizations Name Administration Dates Next Due COVID-19 [...] Telephone Encounter - Catalina Eisenberg OSA - 06/16/2023 5:46 PM EST PSG completed on 03/25/22. * Telephone Encounter - Janet Browne CRNP - 02/18/2022 12:14 PM EDT Unread [facility]? * Telephone Encounter - Keke Sánchez CRNP - 11/15/2021 9:04 AM EDT NPO 11/05/2021-11/06/2021 on 2 LPM with PAP: TRT 7 hours and 4 minutes. Olivier 80%, < 88% 1 hour and 6 seconds. AHI 0.4, leak 19 minutes. * Telephone Encounter - Ary Foote CMA - 11/08/2021 3:35 PM EDT NPO report received and given to provider for review * Telephone Encounter - Ary Foote CMA - 10/30/2021 3:30 PM EDT [facility] * Telephone Encounter - Janet Browne CRNP - 10/29/2021 7:53 AM EDT Please submit overnight oximetry order. Await results Ordered on aPAP 13-18 with 2 LPM DME [facility] documented in this encounter Plan of Treatment Upcoming Encounters Date Type Department Care Team (Late st Contact Info) Description 06/19/2023 11:00 AM EST Office Visit [facility] Disorders Ctr [facility] [address] [place] [phone] Janet Browne CRNP [address] [place] [address] 06/24/2023 10:00 AM EST Home Visit [facility] [address] [place] [address] Nisreen Pascual RN [address] [place] [address] 07/08/2023 10:40 AM EST Office Visit [facility] [address] [place] [phone] Martin Hopper MD [address] [place] [address] 08/17/2023 9:45 AM EST Imaging Radiology [facility] 1st [facility] [address] [place] [address] 08/17/2023 10:30 AM EST Office Visit Cardiology, [facility] [address] [place] [address] Nuzhat Rolon PA-C [address] [place] [address] 11/02/2023 9:40 AM EDT Office Visit Ophthalmology, [facility] [address] [facility] [place] [address] Wilfredo Robert, DO 16 [place] [address] 12/24/2023 11:20 AM EDT Office Visit Dermatology, [place] [address] [facility] [place] [address] Jemma Evangelista PA-C [address] [place] [address] [place] [phone] Scheduled Procedures Name Priority Associated Diagnoses Date/Ti me COLONOSCOPY FLEXIBLE PROXIMA L DIAGNOSTIC Recall Special screening for malignant neoplasms, colon Health Maintenance Due Date Last Done Comments CKD HGB USE SMARTSET 89009 12/27/202212/27, 07/05/2021, 01/02/2021, Additional history exists CKD PHOS USE SMARTSET 72709 12/27/202212/13, 01/02/2021, 12/28/2019, Additional history exists Depression Screening 12/27/2022 12/27/2021 COVID-19 Vaccine (2022- season) 2023 04/22/2022, 05/15/2021, 08/11/2020, Additional history [...] filedocumented as of this encounter Care Teams Hospital Pharmacy Technician Relationship Specialty Start Date End Date Martin Hopper MD [address] [place] [address] PCP - General Family Medicine 08/23/18 documented as of this encounter
--- OUTSIDE RECORDS SUMMARY | 2023-07-29 20:38 | External Medical Summary | Summary of Care ---
Author Name Unknown Organization [facility] Address [address] [place] [address] Phone [phone] Care Team Providers Care Belt Repairer Name Role Phone Sabra Gaines MD Primary Care Provider +1- [phone] Reason for Visit * Reason Onset Date Comments Medication Refill 05/17/2023 Encounter Details Date Type Department Care Team (Late st Contact Info) Description 05/17/2023 Refill [facility] [address] [place] [address] Sabra Gaines MD [address] [place] [address] Allergies Active Allergy Reactions Criticality Noted Date Comments Pollen Cough Medium 10/17/2022 Watery eyes and runny nose documented as of this encounter (statuses as of 05/18/2023) Medications Medication Sig Dispensed Refills Start Date End Date Status oxygen IN GAS 2 LPM bled through CPAP during hours of sleep 1 Each 0 08/14/2021 Active BiPAP every night at bedtime. 0 Active Furosemide 20 MG Oral Tablet (Lasix)Indications:IL D (interstitial lung disease) (HCC),Acute hypoxemic respiratory failure (HCC),Hypervolemia, unspecified hypervolemia type Take 1 Tablet by mouth every other day. 15 Tablet 5 02/06/2023 Active Omeprazole 20 MG Oral Capsule Delayed Release (PriLOSEC) TAKE 1 CAPSULE BY MOUTH EVERY MORNING. TAKE WITH WATER ON AN EMPTY STOMACH ONE HOUR PRIOR TO MEAL. 90 Capsule 1 03/02/2023 Active Levocetirizine Dihydrochloride 5 MG Oral TabletIndications:Rhi nitis, unspecified type Take 0.5 Tablets by mouth every evening. 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 DO NOT CUT, CRUSH OR CHEW. 90 Tablet 3 05/12/2023 Active Spironolactone 25 MG Oral Tablet (Aldactone) Take 0.5 Tablets by mouth in the morning. 45 Tablet 3 05/18/2023 Active Spironolactone 25 MG Oral Tablet (Aldactone) Take 0.5 Tablets by mouth in the morning. 45 Tablet 3 05/12/2023 3 Discontinue d(Refill) Hospital, Clinic, or Other Facility Administered Medication [...] as of this encounter (statuses as of 05/18/2023) Active Problems Problem Noted Date Diagnosed Date [...] as of this encounter (statuses as of 05/18/2023) Resolved Problems Problem Noted Date Diagnosed Date [...] as of this encounter (statuses as of 05/18/2023) Immunizations Name Administration Dates Next Due COVID-19 mRNA, LNP-s, No Pre serve, 2-Dose Series (Moderna) 05/15/2021,08/11/2020,07/07/2020 Covid-19, Mrna, Lnp-s, Pf, B ivalent, 30 Mcg, IM, 12 yrs and above ([employer]) 04/22/2022 H1N1 2009 Influenza, IM 06/18/2009 Pneumococcal [...] encounter Miscellaneous Notes * Telephone Encounter - Nicholas Rashid RPh - 05/18/2023 12:49 PM ESTSigned Prescriptions: Disp Refills Spironolactone 25 MG Oral Tablet (Aldacton*45 Tab*3 Sig: Take 0.5 Tablets by mouth in the morning.Authorizing Provider: SABRA GAINES User: FRANCIS RASHID * Telephone Encounter - Nicholas Rashid RPh - 05/18/2023 12:48 PM EST Resent order from 05/12 Francis Larose, PharmD Clinical Pharmacist [facility] ([facility]) (Formerly Telepharmacy) [phone] 05/18/2023 12:48 PM documented in this encounter Plan of Treatment Upcoming Encounters Date Type Department Care Team (Late st Contact Info) Description 05/26/2023 2:30 PM EST [facility] 132 [facility] [place] [address] Nisreen Pascual, RN 132 [facility] [place] [address] 06/19/2023 11:00 AM EST Office Visit [facility] [address] [place] [phone] Janet Browne CRNP 132 [facility] [place] [address] 07/08/2023 10:40 AM EST Office Visit [facility] [address] [place] [phone] Sabra Gaines MD [address] [place] [address] 08/17/2023 9:45 AM EST Imaging Radiology [place] [address] [place] [address] 08/17/2023 10:30 AM EST Office Visit Cardiology, [address] [place] [address] Nuzhat Rolon PA-C 132 [facility] [place] [address] 11/02/2023 9:40 AM EDT Office Visit Ophthalmology, [facility] 132 [facility] [place] [address] Wilfredo Robert, DO [address] [place] [address] 12/24/2023 11:20 AM EDT Office Visit Dermatology, [place] [address] [facility] [place] [address] Jemma Evangelista PA-C [address] [place] [address] [place] [address] Scheduled Procedures Name Priority Associated Diagnoses Date/Ti me COLONOSCOPY FLEXIBLE PROXIMA L DIAGNOSTIC Recall Special screening for malignant neoplasms, colon Health Maintenance Due Date Last Done Comments CKD HGB USE SMARTSET 63701 12/27/202212/27, 07/05/2021, 01/02/2021, Additional history exists CKD PHOS USE SMARTSET 44051 12/27/202212/13, 01/02/2021, 12/28/2019, Additional history exists Depression [...] filedocumented as of this encounter Care Teams Belt Repairer Relationship Specialty Start Date End Date Sabra Gaines MD [address] [place] [address] PCP - General Family Medicine 08/23/18 documented as of this encounter
--- OUTSIDE RECORDS SUMMARY | 2023-07-29 20:38 | External Medical Summary | Summary of Care ---
Author Name Unknown Organization [facility] Address [address] [place] [address] Phone [phone] Care Team Providers Care Swatch Checker Name Role Phone Sabra Gaines MD Primary Care Provider +1- [phone] Reason for Visit * Reason Comments eRx-Medication Refill Encounter Details Date Type Department Care Team (Late st Contact Info) Description 05/12/2023 Refill [facility] [address] [place] [address] Sabra Gaines MD [address] [place] [address] Overactive bladder Allergies Active Allergy Reactions Criticality Noted Date Comments Pollen Cough Medium 10/17/2022 Watery eyes and runny nose documented as of this encounter (statuses as of 05/12/2023) Medications Medication Sig Dispensed Refills Start Date End Date Status oxygen IN GAS 2 LPM bled through CPAP during hours of sleep 1 Each 0 2 Active BiPAP every night at bedtime. 0 Active Furosemide 20 MG Oral Tablet (Lasix)Indications:I LD (interstitial lung disease) (HCC),Acute hypoxemic respiratory failure (HCC),Hypervolemia, unspecified hypervolemia type Take 1 Tablet by mouth every other day. 15 Tablet 5 3 Active Omeprazole 20 MG Oral Capsule Delayed Release (PriLOSEC) TAKE 1 CAPSULE BY MOUTH EVERY MORNING. TAKE WITH WATER ON AN EMPTY STOMACH ONE HOUR PRIOR TO MEAL. 90 Capsule 1 3 Active Levocetirizine Dihydrochloride 5 MG Oral TabletIndications:Rh initis, unspecified type Take 0.5 Tablets by mouth every evening. 15 Tablet 5 3 Active Tamsulosin HCl 0.4 MG Oral Capsule (Flomax)Indications: BPH with obstruction/lower urinary tract symptoms TAKE 1 CAPSULE BY MOUTH ONCE DAILY 90 Capsule 1 3 Active Sertraline HCl 25 MG Oral Tablet (Zoloft) TAKE 1 TABLET BY MOUTH EVERY MORNING 90 Tablet 2 3 Active oxyBUTYnin Chloride ER 5 MG Oral Tablet Extended Release 24 Hour (Ditropan XL)Indications:Overa ctive bladder TAKE 1 TABLET BY MOUTH ONCE DAILY. DO NOT CUT, CRUSH OR CHEW. 90 Tablet 3 3 Active Spironolactone 25 MG Oral Tablet (Aldactone) Take 0.5 Tablets by mouth in the morning. 45 Tablet 3 3 Active Oxybutynin Chloride ER 5 MG Oral Tablet Extended Release 24 Hour (Ditropan XL)Indications:Overa ctive bladder TAKE ONE TABLET BY MOUTH DAILY. DO NOT CUT, CRUSH OR CHEW 90 Tablet 1 3 05/12/20 23 Discontinued Spironolactone 25 MG Oral Tablet (Aldactone) Take 0.5 Tablets by mouth in the morning. 0 05/12/20 23 Discontinued(Ref ill) Hospital, Clinic, or Other Facility Administered Medication [...] encounter Miscellaneous Notes * Telephone Encounter - Sabra Gaines MD - 05/12/2023 5:05 PM ESTSigned Prescriptions: Disp Refills oxyBUTYnin Chloride ER 5 MG Oral Tablet Ex*90 Tab*3 Sig: TAKE 1 TABLET BY MOUTH ONCE DAILY. DO NOT CUT, CRUSH OR CHEW.Authorizing Provider: SABRA GAINES Spironolactone 25 MG Oral Tablet (Aldacton*45 Tab*3 Sig: Take 0.5 Tablets by mouth in the morning.Authorizing Provider: SABRA GAINES documented in this encounter Plan of Treatment Upcoming Encounters Date Type Department Care Team (Late st Contact Info) Description 05/26/2023 2:30 PM EST [facility] 132 [facility] [place] [address] Nisreen Pascual, RN 132 [facility] [place] [address] 06/19/2023 11:00 AM EST Office Visit Sleep Disorders Ctr [facility] 132 [facility] [place] [phone] Janet Browne CRNP 132 [place] [address] 07/08/2023 10:40 AM EST Office Visit Family Practice, [place] [address] [place] [address] Sabra Gaines MD [address] [place] [address] 08/17/2023 9:45 AM EST Imaging Radiology [facility] 1st Floor, [place] [facility] [place] [address] 08/17/2023 10:30 AM EST Office Visit Cardiology, [address] [place] [address] Nuzhat Rolon PA-C 132 [place] [address] 11/02/2023 9:40 AM EDT Office Visit Ophthalmology, [facility] 132 [facility] [place] [address] Wilfredo Robert, DO 16 [facility] [place] [address] 12/24/2023 11:20 AM EDT Office Visit Dermatology, [place] [address] [place] [address] TonjaJemma velásquez PA-C [address] [place] [address] [place] [address] Scheduled Procedures Name Priority Associated Diagnoses Date/Ti me COLONOSCOPY FLEXIBLE PROXIMA L DIAGNOSTIC Recall Special screening for malignant neoplasms, colon Health Maintenance Due Date Last Done Comments CKD HGB USE SMARTSET 15009 12/27/202212/27, 07/05/2021, 01/02/2021, Additional history exists CKD PHOS USE SMARTSET 78418 12/27/202212/13, 01/02/2021, 12/28/2019, Additional history exists Depression [...] as of this encounter Visit Diagnoses Diagnosis Overactive bladder Hypertonicity of bladder documented in this encounter Care Teams Swatch Checker Relationship Specialty Start Date End Date Sabra Gaines MD [address] [facility] [place] [place] [address] PCP - General Family Medicine 08/23/18 documented as of this encounter
--- OUTSIDE RECORDS SUMMARY | 2023-07-29 20:38 | External Medical Summary | Summary of Care ---
Author Name Unknown Organization [facility] Address [address] [place] [address] Phone [phone] Care Team Providers Care Bead Picker Name Role Phone Martin Hopper MD Primary Care Provider +1- [phone] Reason for Visit * Reason Comments [facility]: Maintenance Encounter Details Date Type Department Care Team (Late st Contact Info) Description 04/14/2023 10:00 AM EDT [facility], [facility] [address] [employer] [place] [address] Nisreen Pascual, RN [address] [facility] [place] [address] Allergies Active Allergy Reactions Criticality Noted Date [...] 24 Hour (Ditropan XL)Indications:Overac tive bladder TAKE ONE TABLET BY MOUTH DAILY. [...] every evening. 15 Tablet 5 03/13/2023 Active Levocetirizine Dihydrochloride 2.5 MG/5ML Oral SolutionIndications:R hinitis, unspecified type Take 1.25 mg by mouth in the morning. 148 mL 5 01/31/2023 3 Discontinue d(Medicatio n List Clean Up) Hospital, Clinic, or Other Facility Administered Medication Ordered Dose Route Frequency Start Date End Date Status Albuterol Sulfate (Proventil) (5 MG/ML) 0.5% *conc* inhalation solution 2.5 mgIndications:ILD (interstitial lung disease) ([facility]) 2.5 mg NEBULIZER PRN 08/05/2022 08/05/2023 Active Albuterol Sulfate (Proventil) (2.5 MG/3ML) 0.083% inhalation solution 2.5 mgIndications:ILD (interstitial lung disease) ([facility]) 2.5 mg NEBULIZER PRN 08/05/2022 08/05/2023 Active [...] 30 Mcg, IM, 12 yrs and above ([employer]) 04/22/2022 H1N1 2009 Influenza, IM 06/18/2009 Pneumococcal [...] Sign Reading Time Taken Comments Blood Pressure 136/68 04/14/2023 9:52 AM EDT Pulse 72 04/14/2023 9:52 AM EDT Temperature 36.1 C (96.9 F) 04/14/2023 9:52 AM ED T Respiratory Rate 18 04/14/2023 9:52 AM EDT Oxygen Saturation 92% 04/14/2023 9:52 AM EDT Inhaled Oxygen Concentration - - Weight 83 kg (183 lb) 04/14/2023 9:52 AM EDT Height - - Body Mass Index 27.42 12/24/2022 9:11 AM EDT documented in this encounter Progress Notes * Nisreen Pascual RN - 04/14/2023 9:19 AM EDT Images from the original note were not included. [facility] Visit Date: 04/14/2023 Time: 9:20 AM Name: Mane Foote : 1940 Current Concerns: Pt seen for return RNCM visit Reports breathing has been at baseline Wears oxygen at night with bipap and also during the day with activity Did get a scale and has been checking weights daily Has been ranging 182-184 lbs Vitals stable Lungs with rales of b/l lower lobes Denies increased SOB Denies any new pain Ambulates independently Denies any falls Having some mild redness of left eye and watering Saw Dr. Robert beginning of the month and completed tobradex ointment TE sent to Dr. Robert for further recommendations Physical Exam: BP 136/68 | Pulse 72 | Temp 36.1 C (96.9 F) | Resp 18 | Wt 83 kg (183 lb) | SpO2 92% | BMI 27.42 kg/m | BSA 2 m Pain 0 Physical Exam Constitutional: General: He is not in acute distress. Cardiovascular: Rate and Rhythm: Normal rate and regular rhythm. Pulses: Normal pulses. Heart sounds: Normal heart sounds. Pulmonary: Effort: Pulmonary effort is normal. Breath sounds: Rales (BLL) present. Abdominal: General: Bowel sounds are normal. Palpations: Abdomen is soft. Skin: General: Skin is warm and dry. Neurological: Mental Status: He is alert. Mental status is at baseline. He is disoriented. Comments: Poor STM Problems/Symptoms: Review of Systems Constitutional: Positive for fatigue. Eyes: Positive for discharge (left - clear) and redness (left eye). Respiratory: Positive for shortness of breath (CROWE - at baseline). Cardiovascular: Negative. Gastrointestinal: Negative. Genitourinary: Negative. Musculoskeletal: Positive for arthralgias. Skin: Negative. Psychiatric/Behavioral: Positive for confusion (poor STM - at baseline). Medication Reconciliation: (See medication list) Does patient take medications as ordered: Yes Patient Well Being: PHQ2/9: No questionnaires available. No change in living situation Denies falls MAH-10 Completed this Visit: No. Routine visit and No falls since last visit Advanced Care Planning: No documentation, ACP on file. Patient's Goals of Care: More energy Stay out of hospital Reinforcement/Education: Educated on home safety: Create a [...] Keep all appts as scheduled and attend [facility] for DME APAP prn pain Weigh self daily and record Home Interventions Provided: Home Intervention: Other; Evaluation Reinforced current Plan of Care, including self-management and medication regimen Patient's 'Red Flags': Worsening SOB Pulse ox <90% with o2 on weakness Patient Needs to Remember: Call [facility] at with any new or worsening health concerns or problems, red flag symptoms. Referrals Needed: Other none Follow Up: Is there cellular connectivity/connectivity in the home? Yes Does the patient have internet in the home? No Patient encouraged to call the intake phone number for all urgent but not emergent issues. Is the patient new to [facility] within the last 30 days? No, Assess appropriateness for upcoming telehealth visits. Cancel telehealth visits & schedule home visit with care head orthopedic team physician(s)as indicated. Provider is in agreement with Plan of Care: Yes Scheduled to follow up with patient in 5 weeks. Nisreen Pascual RN 04/14/2023 9:20 AM documented in this encounter Plan of Treatment Upcoming Encounters Date Type Department Care Team (Late st Contact Info) Description 04/16/2023 10:20 AM EDT Office Visit [place] [address] [facility] [place] [address] Jemma Evangelista PA-C [address] [place] [address] [place] [address] 05/26/2023 2:30 PM EST [facility], [facility] 132 [facility] [place] [address] Nisreen Pascual, RN 132 [facility] [place] [address] 06/19/2023 11:00 AM EST Office Visit [facility] Disorders Ctr [facility] 132 [facility] [place] [phone] Janet Browne CRNP 132 [facility] [place] [address] 07/08/2023 10:40 AM EST Office Visit Family [facility] [address] [place] [address] Martin Hopper MD [address] [place] [address] 08/17/2023 9:45 AM EST Imaging Radiology [facility] 1st [facility], [address] [place] [address] 08/17/2023 10:30 AM EST Office Visit Cardiology, [facility] 132 [facility] [place] [address] Nuzhat Rolon PA-C 132 [facility] [place] [address] 11/02/2023 9:40 AM EDT Office Visit Ophthalmology, [address] [place] [address] Wilfredo Robert, DO [address] [place] [address] [place] [address] 12/24/2023 11:20 AM EDT [place] [address] [address] [facility] [place] [phone] Jemma Evangelista PA-C [address] [place] [address] [place] [address] Scheduled Procedures Name Priority Associated Diagnoses Date/Ti me COLONOSCOPY FLEXIBLE PROXIMA L DIAGNOSTIC Recall Special screening for malignant neoplasms, colon Health Maintenance Due Date Last Done Comments CKD HGB USE SMARTSET 98351 12/27/202212/27, 07/05/2021, 01/02/2021, Additional history exists CKD PHOS USE SMARTSET 30424 12/27/202212/13, 01/02/2021, 12/28/2019, Additional history exists Depression [...] filedocumented as of this encounter Care Teams Bead Picker Relationship Specialty Start Date End Date Martin Hopper MD [address] [place] [address] PCP - General Family Medicine 08/23/18 documented as of this encounter"
--- OUTSIDE RECORDS SUMMARY | 2023-07-29 20:38 | External Medical Summary | Summary of Care ---
Author Name Unknown Organization [facility] Address [address] [place] [address] Phone [phone] Care Team Providers Care Afloat Cryptologic Manager Name Role Phone Martin Hopper MD Primary Care Provider +1- [phone] Reason for Visit * Reason Onset Date Comments Appointment 06/01/2023 Encounter Details Date Type Department Care Team ([facility] st Contact Info) Description 06/01/2023 Telephone [facility] [place] [place] [address] [place] [address] Services, Scheduling [address] [place] [address] Appointment (//) Allergies Active Allergy Reactions Criticality Noted Date Comments Pollen Cough Medium 10/17/2022 Watery eyes and runny nose documented as of this encounter (statuses as of 06/01/2023) Medications Medication Sig Dispensed Refills Start Date [...] as of this encounter (statuses as of 06/01/2023) Active Problems Problem Noted Date Diagnosed Date [...] as of this encounter (statuses as of 06/01/2023) Resolved Problems Problem Noted Date Diagnosed Date [...] as of this encounter (statuses as of 06/01/2023) Immunizations Name Administration Dates Next Due COVID-19 [...] encounter Miscellaneous Notes * Telephone Encounter - Montserrat Mancini OSA - 06/01/2023 1:37 PM EST Request to cx and rs appt on 06/11 I called and spoke to pat and and they agreed to 06/24@10am documented in this encounter Plan of Treatment Upcoming Encounters Date Type Department Care Team (Late st Contact Info) Description 06/19/2023 11:00 AM EST Office Visit [facility] Disorders Ctr [facility] [address] [place] [phone] Janet Browne CRNP [address] [place] [address] 06/24/2023 10:00 AM EST Home Visit [facility] [address] [place] [address] Nisreen Pascual, RN [address] [place] [address] 07/08/2023 10:40 AM EST Office Visit [facility] [address] [place] [facility] [place] [phone] Martin Hopper MD [address] [place] [address] 08/17/2023 9:45 AM EST Imaging Radiology [facility] 1st Floor, [place] 132 [facility] [place] [address] 08/17/2023 10:30 AM EST Office Visit Cardiology, [facility] 132 [facility] [place] [address] Nuzhat Rolon, HAL 132 [facility] [place] [address] 11/02/2023 9:40 AM EDT Office Visit Ophthalmology, [facility] 132 [facility] [place] [address] Wilfredo Robert T, DO 16 [facility] [place] [address] 12/24/2023 11:20 AM EDT Office Visit Dermatology[address] [place] [address] Jemma Evangelista, HAL [address] [place] [address] [place] [address] Scheduled Procedures Name Priority Associated Diagnoses Date/Ti me COLONOSCOPY FLEXIBLE PROXIMA L DIAGNOSTIC Recall Special screening for malignant neoplasms, colon Health Maintenance Due Date Last Done Comments CKD HGB USE SMARTSET 84628 12/27/202212/27, 07/05/2021, 01/02/2021, Additional history exists CKD PHOS USE SMARTSET 04331 12/27/202212/13, 01/02/2021, 12/28/2019, Additional history exists Depression [...] filedocumented as of this encounter Care Teams Afloat Cryptologic Manager Relationship Specialty Start Date End Date Martin Hopper MD [address] [place] [address] PCP - General Family Medicine 08/23/18 documented as of this encounter
--- OUTSIDE RECORDS SUMMARY | 2023-07-29 20:39 | External Medical Summary | Summary of Care ---
Author Name Unknown Organization [facility] Address [address] [place] [address] Phone [phone] Care Team Providers Care Audience Coordinator Name Role Phone Martin Hopper MD Primary Care Provider +1- [phone] Reason for Visit * Reason Onset Date Comments [facility]: Maintenance 02/12/2023 Encounter Details Date Type Department Care Team Description 02/12/2023 Telephone [facility], [facility] [address] [facility] [place] [address] Nisreen Pascual, RN [address] [place] [address] [facility]: Maintenance Allergies Active Allergy Reactions Severity Noted Date Comments Pollen Cough Medium 10/17/2022 Watery eyes and runny nose documented as of this encounter (statuses as of 03/02/2023) Medications Medication Sig Dispensed Refills Start Date [...] 01/21/2023 Active Levocetirizine Dihydrochloride 2.5 MG/5ML Oral SolutionIndications: Rhinitis, unspecified type Take 1.25 mg by mouth in the morning. 148 mL 5 01/31/2023 Active Spironolactone 25 MG Oral Tablet (Aldactone) Take 0.5 Tablets by mouth in the morning. 0 Active Furosemide 20 MG Oral Tablet (Lasix)Indications:I LD (interstitial lung disease) ([facility]),Acute hypoxemic respiratory failure (HCC),Hypervolemia, unspecified hypervolemia type Take 1 Tablet by mouth every other day. 15 Tablet 5 02/06/2023 Active Omeprazole 20 MG Oral Capsule Delayed Release (PriLOSEC) TAKE ONE CAPSULE BY MOUTH IN THE MORNING. TAKE WITH WATER ON AN EMPTY STOMACH ONE HOUR PRIOR RO MEAL 90 Capsule 1 09/01/2022 Discontinued Hospital, Clinic, or Other Facility Administered Medication Ordered Dose Route Frequency Start Date End Date Status Albuterol Sulfate (Proventil) (5 MG/ML) 0.5% *conc* inhalation solution 2.5 mgIndications:ILD (interstitial lung disease) ([facility]) 2.5 mg NEBULIZER PRN 08/05/2022 08/05/2023 Active Albuterol Sulfate (Proventil) (2.5 MG/3ML) 0.083% inhalation solution 2.5 mgIndications:ILD (interstitial lung disease) ([facility]) 2.5 mg NEBULIZER PRN 08/05/2022 08/05/2023 Active documented as of this encounter (statuses as of 03/02/2023) Active Problems Problem Noted Date Chronic heart [...] dysmotility 03/27/2022 ILD (interstitial lung disease) 03/27/20 KACY (generalized anxiety disorder) 06/29 Obstructive sleep [...] as of this encounter (statuses as of 03/02/2023) Resolved Problems Problem Noted Date Resolved Date [...] as of this encounter (statuses as of 03/02/2023) Immunizations Name Administration Dates Next Due COVID-19 mRNA, LNP-s, No Pre serve, 2-Dose Series (Moderna) 05/15/2021,08/11/2020,07/07/2020 Covid-19, Mrna, Lnp-s, Pf, B ivalent, 30 Mcg, IM, 12 yrs and above (Pfizer) 04/22/2022 H1N1 2009 Influenza, IM 06/18/2009 Pneumococcal Conjugate Vacc, 13 Valent (Prevnar) 06/18/2015 Pneumococcal Polysaccharide PPV23 (Pneumovax) 05/30/2010 Seasonal Influenza, PF, 6 mo ns & Above, IM , (Flulaval) 02/23/2020,03/09/2019,03/12/2018,03/16 Seasonal Influenza, Quadriva lent Hd (Fluzone [...] Telephone Encounter - Nisreen Pascual RN - 02/12/2023 10:15 AM EDT Pt needs provider visit with Eduar Browne set up - can be telemed. Also needs his annual return with pulmonology, Dr. Webb - should be scheduled for September 2023. Can you please help get these scheduled? Thank you. documented in this encounter Plan of Treatment Upcoming Encounters Date Type Specialty Care Team Description 03/10/2023 Home Visit [facility] Eduar Browne PA-C [address] [place] [address] 03/25/2023 Home Visit [facility] Nisreen Pascual RN [address] [place] [address] 04/06/2023 Office Visit Ophthalmology Wilfredo Robert, DO 16 [facility] [address] 04/16/2023 Office Visit Dermatology Jemma Evangelista PA-C [address] [place] [address] [place] [address] 06/19/2023 Office Visit Sleep Disorders Janet Browne CRNP [address] [place] [address] 07/08/2023 Office Visit Family Medicine Martin Hopper MD [address] [place], [place] [id number] 08/17/2023 Imaging Radiology 08/17/2023 Office Visit Cardiology Nuzhat Rolon PA-C [address] [place] [address] 11/02/2023 Office Visit Ophthalmology Wilfredo Robert, DO [address] [place] [address] 12/24/2023 Office Visit Dermatology Jemma Evangelista PA-C [address] [place] [address] [place] [address] Scheduled Procedures Name Priority Associated Diagnoses Date/Ti me COLONOSCOPY FLEXIBLE PROXIMA L DIAGNOSTIC Recall Special screening for malignant neoplasms, colon Health Maintenance Due Date Last Done Comments CKD HGB USE SMARTSET 18042 12/27/202212/27, 07/05/2021, 01/02/2021, Additional history exists CKD PHOS USE SMARTSET 68546 12/27/202212/13, 01/02/2021, 12/28/2019, Additional history exists Depression Screening 12/27/2022 12/27/2021 Influenza Vaccine (FLU shot) (#1) 2023 03/17/2022, 02/22/2021, 02/23/2020, Additional history exists GFR 06/26/2023 12/24/2022, 12/13, 07/05/2021, Additional history exists Albumin/Creatinine Ratio 12/25/2023 12/24/2022, 12/13 DTaP,Tdap,and Td Vaccines (2 - Td or Tdap) 07/27/2024 07/27/2014, 01/05/2008, 01/05/2008 Pneumococcal Vaccine: 65+ Years Completed 06/18/2015, 05/30/2010, 04/11/2004 Zoster Vaccines Completed 04/03/2020, 01/14, 06/29/2007 COVID-19 Vaccine Completed 04/22/2022, 06/2020, 08/11/2020, Additional history exists GARDASIL-HPV IMMUNIZATION SERIES Aged [...] filedocumented as of this encounter Care Teams Audience Coordinator Relationship Specialty Start Date End Date Martin Hopper MD [address] [place], [place] [phone] PCP - General Family Medicine 08/23/18 documented as of this encounter
--- OUTSIDE RECORDS SUMMARY | 2023-07-29 20:39 | External Medical Summary | Summary of Care ---
Author Name Unknown Organization [facility] Address [address] [place] [address] Phone [phone] Care Team Providers Care Heel Splitter Name Role Phone Martin Hopper MD Primary Care Provider +1- [phone] Reason for Visit * Reason Onset Date Comments Medication Question 03/13/2023 Can Levoceti rizine be changed to a pill Encounter Details Date Type Department Care Team Description 03/13/2023 Telephone Pulmonary Medicine Tyler White [address] [place] [address] Alex Webb MD [address] [place] [address] Medication Question (Can Levocetirizine be... Allergies Active Allergy Reactions Severity Noted Date Comments Pollen Cough Medium 10/17/2022 Watery eyes and runny nose documented as of this encounter (statuses as of 03/13/2023) Medications Medication Sig Dispensed Refills Start Date [...] MG Oral Tablet (Lasix)Indications:ILD (interstitial lung disease) ([facility]),Acute hypoxemic respiratory failure (HCC),Hypervolemia, unspecified [...] solution 2.5 mgIndications:ILD (interstitial lung disease) ([facility]) 2.5 mg NEBULIZER PRN 08/05/2022 08/05/2023 Active documented as of this encounter (statuses as of 03/13/2023) Active Problems Problem Noted Date Chronic heart failure with preserved eje ction fraction 02/06/2023 Bradycardia, sinus 02/06/2023 Pulmonary hypertension, unspecified 02/2023 Unspecified mood (affective) disorder Chronic kidney disease, stage 3a 023 Overview: Per CKD protocol Scleroderma 10/17/2022 Positive SEDRICK (antinuclear antibody) 10/2022 Former tobacco use 10/17/2022 House dust mite allergy 03/27/2022 Allergic rhinitis due to pollen 03/27/20 Esophageal dysmotility 03/27/2022 ILD (interstitial lung disease) [...] as of this encounter (statuses as of 03/13/2023) Resolved Problems Problem Noted Date Resolved Date [...] as of this encounter (statuses as of 03/13/2023) Immunizations Name Administration Dates Next Due COVID-19 mRNA, LNP-s, No Pre serve, 2-Dose Series (Moderna) 05/15/2021,08/11/2020,07/07/2020 Covid-19, Mrna, Lnp-s, Pf, B ivalent, 30 Mcg, IM, 12 yrs and above ([employer]) 04/22/2022 H1N1 2009 Influenza, IM 06/18/2009 Pneumococcal [...] encounter Miscellaneous Notes * Telephone Encounter - Elvia Alamo LPN - 03/13/2023 1:[address] Ignacio 2.5 mg (1/2 tab of 5 mg) is okay and he signed Rx. * Telephone Encounter - Elvia Alamo LPN - 03/13/2023 11:[address] Webb's [place] pt: The pt's daughter called they would like his Levocetirizine changed to the pillform. He is able to swallow pills and the liquid is bothersome to do and he needs refills. If you agree we can only get 5 mg 1/2 tab daily, which is double what he is taking in the liquid form. If this is okay, please sign, thanks. documented in this encounter Plan of Treatment Upcoming Encounters Date Type Specialty Care Team Description 03/16/2023 Office Visit Ophthalmology Wilfredo Robert, DO [address] [place] [address] 03/25/2023 [facility] Nisreen Pascual, RN [address] [place] [address] 04/16/2023 Office Visit Dermatology Jemma Evangelista PA-C [address] [place] [address] [place] [address] 06/19/2023 Office Visit Sleep Disorders Janet Browne CRNP [address] [place] [address] 07/08/2023 Office Visit Family Medicine Martin Hopper MD [address] [place] [address] 08/17/2023 Imaging Radiology 08/17/2023 Office Visit Cardiology Nuzhat Rolon PA-C [address] [place] [address] 11/02/2023 Office Visit Ophthalmology Wilfredo Robert, DO [address] [place] [address] 12/24/2023 Office Visit Dermatology Jemma Evangelista PA-C [address] [place] [address] [place] [address] Scheduled Procedures Name Priority Associated Diagnoses Date/Ti me COLONOSCOPY FLEXIBLE PROXIMA L DIAGNOSTIC Recall Special screening for malignant neoplasms, colon Health Maintenance Due Date Last Done Comments CKD HGB USE SMARTSET 64994 12/27/202212/27, 07/05/2021, 01/02/2021, Additional history exists CKD PHOS USE SMARTSET 05506 12/27/202212/13, 01/02/2021, 12/28/2019, Additional history exists Depression [...] as of this encounter Visit Diagnoses Diagnosis Rhinitis, unspecified type- Primary documented in this encounter Care Teams Heel Splitter Relationship Specialty Start Date End Date Martin Hopper MD [address] [place] [address] PCP - General Family Medicine 08/23/18 documented as of this encounter
--- OUTSIDE RECORDS SUMMARY | 2023-07-29 20:39 | External Medical Summary | Summary of Care ---
Author Name Unknown Organization [facility] Address [address] [place] [address] Phone [phone] Care Team Providers Care Senior Oracle Database Administrator Name Role Phone Martin Hopper MD Primary Care Provider +1- [phone] Reason for Visit * Reason Comments Follow Up Pt here for issue wi th OS. Pt states "The problem is my left eye. I had a bump on my LLL and it seems to went away but it was watering a lot. My regular eye doctor things it because when sleeping my eye doesn't close all the way and my eye is blood shot" Encounter Details Date Type Department Care Team Description 03/16/2023 Office Visit Ophthalmology, 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 DO NOT CUT, CRUSH OR CHEW 90 Tablet 01/21/2023 Active Levocetirizine Dihydrochloride 2.5 MG/5ML Oral SolutionIndications:Rhi nitis, unspecified type Take 1.25 mg by mouth in the morning. 148 mL 5 01/31/2023 Active Spironolactone 25 MG Oral Tablet (Aldactone) Take 0.5 Tablets by mouth in the morning. 0 Active Furosemide 20 MG Oral Tablet (Lasix)Indications:ILD (interstitial lung disease) ([facility]),Acute hypoxemic respiratory failure (HCC),Hypervolemia, unspecified hypervolemia type Take 1 Tablet by mouth every other day. 15 Tablet 02/06/2023 Active Omeprazole 20 MG Oral Capsule Delayed Release (PriLOSEC) TAKE 1 CAPSULE BY MOUTH EVERY MORNING. TAKE WITH WATER ON AN EMPTY STOMACH ONE HOUR PRIOR TO MEAL. 90 Capsule 03/02/2023 Active Levocetirizine Dihydrochloride 5 MG Oral TabletIndications:Rhini tis, unspecified type Take 0.5 Tablets by mouth every evening. 15 Tablet 03/13/2023 Active Hospital, Clinic, or Other Facility Administered Medication Ordered Dose Route Frequency Start Date End Date Status Albuterol Sulfate (Proventil) (5 MG/ML) 0.5% *conc* inhalation solution 2.5 mgIndications:ILD (interstitial lung disease) ([facility]) 2.5 mg NEBULIZER PRN 08/05/2022 08/05/2023 Active Albuterol Sulfate (Proventil) (2.5 MG/3ML) 0.083% inhalation solution 2.5 mgIndications:ILD (interstitial lung disease) ([facility]) 2.5 mg NEBULIZER PRN 08/05/2022 08/05/2023 Active Tobramycin-dexAMETHason e (Tobradex) ophthalmic suspension 1 DropIndications:Acquire d stenosis of left nasolacrimal duct 1 Drop LEFT EYE ONCE 03/16/2023 03/16/2023 Ended documented as of this encounter (statuses as of 03/16/2023) Active Problems Problem Noted Date Chronic heart [...] as of this encounter (statuses as of 03/16/2023) Resolved Problems Problem Noted Date Resolved Date [...] as of this encounter (statuses as of 03/16/2023) Immunizations Name Administration Dates Next Due COVID-19 [...] on file documented as of this encounter Progress Notes * Wilfredo Robert, - 03/16/2023 9:42 AM EDT Mane Foote is a 82 year old male who presents for left eye lower eyelid evaluation. Pt with hx of rosacea and mechanical ectropion lll. FTSG LLL in 2019. tobradex used with relief. S/p mohs and repair. Reports tearing with am matting. Ophthalmology Past History: glasses, mohs left eye lower eyelid Ophthalmology Family History: none Ophthalmology ROS: no recent significant change in vision,no eye pain, redness, discharge,no diplopia Current Ophthalmic Medications: None EXAM: Base Eye Exam Visual Acuity (Snellen - Linear) Right Left Dist sc 20/30 20/40 -1 Pupils Light Shape React APD Right 4 Round Brisk None Left 4 Round Brisk None Visual Finley (Counting fingers) Right Left Full Full External photos obtained demonstrating above findings IMPRESSION: 1. Epiphora left eye PLAN: 1. Office Procedure Note: Name: Mane Foote MRD: [id number] DATE: 03/16/2023 PREOP DX: EPIPHORA left eye POSTOP DX: SAME Procedure: Punctal dilation with irrigation left eye lower lid TECHNIQUE: After informed consent was obtained from the patient. Alcaine was instilled in the left eye eye and a punctal dilater was passed into the inferior puncta with initial resistance that was overcome with gentle pressure. The dilator was then directed medially and superiorly. The dilator wasremoved and a lacrimal cannula was placed and the cannilicular system was irrigated with EYE STREAM. No regurge was identified and the system allowed free flow of irrigation fluid. The patient tolerated the procedure well without complication. Trial of tobradex QID for 7-10 days 2 .f/u as joselito Wilfredo Robert DO documented in this encounter Nursing Notes * CONY De Leon - 03/16/2023 9:35 AM EDT Mane Foote is a 83 year old male who presents for bump LLL . Last Visit: 11/03/2022 (in office), Visit date not found (telemedicine) He currently states "The problem is my left eye. I had a bump on my LLL and it seems to went away but it was watering a lot. My regular eye doctor things it because when sleeping my eye doesn't closeall the way and my eye is blood shot" Are you diabetic? No Current Ophthalmic Medications: Systane OS documented in this encounter Plan of Treatment Upcoming Encounters Date Type Specialty Care Team Description 03/25/2023 Home Visit [facility] Nisreen Pascual RN [address] [place] [address] 04/16/2023 Office Visit Dermatology Jemma Evangelista PA-C [address] [place] [address] [place] [id number] 06/19/2023 Office Visit Sleep Disorders Janet Browne CRNP [address] [place] [address] 07/08/2023 Office Visit Family Medicine Martin Hopper MD [address] [place] [address] 08/17/2023 Imaging Radiology 08/17/2023 Office Visit Cardiology Nuzhat Rolon PA-C [address] [place] [address] 11/02/2023 Office Visit Ophthalmology Wilfredo Robert, DO [address] [place] [address] 12/24/2023 Office Visit Dermatology Jemma Evangelista PA-C [address] [place] [address] [place] [address] Scheduled Procedures Name Priority Associated Diagnoses Date/Ti me COLONOSCOPY FLEXIBLE PROXIMA L DIAGNOSTIC Recall Special screening for malignant neoplasms, colon Health Maintenance Due Date Last Done Comments CKD HGB USE SMARTSET 29815 12/27/202212/27, 07/05/2021, 01/02/2021, Additional history exists CKD PHOS USE SMARTSET 22474 12/27/202212/13, 01/02/2021, 12/28/2019, Additional history exists Depression [...] as of this encounter Visit Diagnoses Diagnosis Acquired stenosis of left nasolacrimal duct- Primary Stenosis of nasolacrimal duct, acquired Mohs defect of eyelid Other disorders of eyelid 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
--- OUTSIDE RECORDS SUMMARY | 2023-07-29 20:39 | External Medical Summary | Summary of Care ---
Author Name Unknown Organization [facility] Address [address] [place] [address] Phone [phone] Care Team Providers Care Teaching Manager Name Role Phone Martin Hopper MD Primary Care Provider +1- [phone] Reason for Visit * Reason Onset Date Comments Test Results 03/03/2023 Encounter Details Date Type Department Care Team Description 03/03/2023 Telephone Cardiology, [facility] [address] [place] [id number] Nuzhat Rolon PA-C [address] [place] [address] Test Results Allergies Active Allergy Reactions Severity Noted Date Comments Pollen Cough Medium 10/17/2022 Watery eyes and runny nose documented as of this encounter (statuses as of 03/03/2023) Medications Medication Sig Dispensed Refills Start Date [...] TO MEAL. 90 Capsule 1 03/02/2023 Active Hospital, Clinic, or Other Facility Administered Medication Ordered Dose Route Frequency Start Date End Date Status Albuterol Sulfate (Proventil) (5 MG/ML) 0.5% *conc* inhalation solution 2.5 mgIndications:ILD (interstitial lung disease) ([facility]) 2.5 mg NEBULIZER PRN 08/05/2022 08/05/2023 Active Albuterol Sulfate (Proventil) (2.5 MG/3ML) 0.083% inhalation solution 2.5 mgIndications:ILD (interstitial lung disease) ([facility]) 2.5 mg NEBULIZER PRN 08/05/2022 08/05/2023 Active documented as of this encounter (statuses as of 03/03/2023) Active Problems Problem Noted Date Chronic heart [...] as of this encounter (statuses as of 03/03/2023) Resolved Problems Problem Noted Date Resolved Date [...] as of this encounter (statuses as of 03/03/2023) Immunizations Name Administration Dates Next Due COVID-19 [...] encounter Miscellaneous Notes * Telephone Encounter - Sully Torre CMA - 03/03/2023 8:57 AM EDT Portal message sent * Telephone Encounter - Sully Torre CMA - 03/03/2023 8:55 AM EDT ----- Message from Nuzhat Rolon PA-C sent at 03/02/2023 2:36 PM EDT ----- Monitor results reviewed He had brief runs of asymptomatic SVT, only lasting seconds. Occ PVC's also noted. Average HR was 66. No significant bradycardia or pauses. Given history of low resting HR, would not resume beta be (metoprolol) at this time. No concerning or sustained arrhythmias. documented in this encounter Plan of Treatment Upcoming Encounters Date Type Specialty Care Team Description 03/10/2023 Home Visit [facility] Eduar Browne PA-C [address] [place] [address] 03/25/2023 Home Visit [facility] Nisrene Pascual RN [address] [place] [address] 04/06/2023 [facility] Visit [facility] [address] 04/16/2023 Office Visit Dermatology Jemma Evangelista PA-C [address] [place] [address] [place] [address] 06/19/2023 Office Visit Sleep Disorders Janet Browne CRNP [address] [place] [facility] [place] [address] 07/08/2023 Office Visit Family Medicine Martin Hopper MD [address] [place] [address] 08/17/2023 Imaging Radiology 08/17/2023 Office Visit Cardiology Nuzhat Rolon PA-C [address] [place] [address] 11/02/2023 Office Visit Ophthalmology Wilfredo Robert, DO [address] [place] [address] 12/24/2023 Office Visit Dermatology Jemma Evangelista PA-C [address] [place] [address] [place] [address] Scheduled Procedures Name Priority Associated Diagnoses Date/Ti me COLONOSCOPY FLEXIBLE PROXIMA L DIAGNOSTIC Recall Special screening for malignant neoplasms, colon Health Maintenance Due Date Last Done Comments CKD HGB USE SMARTSET 62039 12/27/202212/27, 07/05/2021, 01/02/2021, Additional history exists CKD PHOS USE SMARTSET 42281 12/27/202212/13, 01/02/2021, 12/28/2019, Additional history exists Depression [...] filedocumented as of this encounter Care Teams Teaching Manager Relationship Specialty Start Date End Date Martin Hopper MD [address], [place] [phone] PCP - General Family Medicine 08/23/18 documented as of this encounter
--- OUTSIDE RECORDS SUMMARY | 2023-07-29 20:39 | External Medical Summary | Summary of Care ---
Author Name Unknown Organization [facility] Address [address] [place] [address] Phone [phone] Care Team Providers Care Supervisor Twisting Department Name Role Phone Martin Hopper MD Primary Care Provider +1- [phone] Reason for Visit * Reason Comments Follow [...] Care Team Description 03/16/2023 Office Visit Ophthalmology, [facility] [address] [place] [address] Wilfredo Robert, DO [address] [place], [place] [id number] Acquired stenosis of left nasolacrimal duct*; Mohs [...] MG Oral Tablet (Lasix)Indications:ILD (interstitial lung disease) ([facility]),Acute hypoxemic respiratory failure (HCC),Hypervolemia, unspecified hypervolemia type [...] inhalation solution 2.5 mgIndications:ILD (interstitial lung disease) ([facility]) 2.5 mg NEBULIZER PRN 08/05/2022 08/05/2023 Active Albuterol Sulfate (Proventil) (2.5 MG/3ML) 0.083% inhalation solution 2.5 mgIndications:ILD (interstitial lung disease) ([facility]) 2.5 mg NEBULIZER PRN 08/05/2022 08/05/2023 Active [...] Office Procedure Note: Name: Mane Foote MRD: [id number] DATE: 03/16/2023 PREOP DX: EPIPHORA left eye [...] Nisreen Pascual RN [address] [place] [address] 04/16/2023 Office Visit Dermatology Jemma Evangelista PA-C [address] [place] [address] [place] [phone] 06/19/2023 Office Visit Sleep Disorders Janet Browne CRNP [address] [place] [address] 07/08/2023 Office Visit Family Medicine Martin Hopper MD [address] [place] [address] 08/17/2023 Imaging Radiology 08/17/2023 Office Visit Cardiology Nuzhat Rolon PA-C [address] [place] [address] 11/02/2023 Office Visit Ophthalmology Wilfredo Robert, DO [address] [place] [address] 12/24/2023 Office Visit Dermatology Jemma Evangelista PA-C [address] [place] [address] [place] [address] Scheduled Procedures Name Priority Associated Diagnoses Date/Ti me COLONOSCOPY FLEXIBLE PROXIMA L DIAGNOSTIC Recall Special screening for malignant neoplasms, colon Health Maintenance Due Date Last Done Comments CKD HGB USE SMARTSET 61632 12/27/202212/27, 07/05/2021, 01/02/2021, Additional history exists CKD PHOS USE SMARTSET 42954 12/27/202212/13, 01/02/2021, 12/28/2019, Additional history exists Depression [...] Left documented in this encounter Care Teams Supervisor Twisting Department Relationship Specialty Start Date End Date Martin Hopper MD [address] [place] [address] PCP - General Family Medicine 08/23/18 documented as of this encounter
--- OUTSIDE RECORDS SUMMARY | 2023-07-29 20:39 | External Medical Summary | Summary of Care ---
Author Name Unknown Organization [facility] Address [address] [place] [address] Phone [phone] Care Team Providers Care Content Development Manager Name Role Phone Martin Hopper MD Primary Care Provider +1- [phone] Encounter Details Date Type Department Care Team Description 03/05/2023 Immunization Ancillary Department, [facility] [address] [place] [address] [facility] [address] [place] [address] Arrived Allergies Active Allergy Reactions Severity Noted Date Comments Pollen Cough Medium 10/17/2022 Watery eyes and runny nose documented as of this encounter (statuses as of 03/05/2023) Medications Medication Sig Dispensed Refills Start Date [...] as of this encounter (statuses as of 03/05/2023) Active Problems Problem Noted Date Chronic heart [...] as of this encounter (statuses as of 03/05/2023) Resolved Problems Problem Noted Date Resolved Date [...] as of this encounter (statuses as of 03/05/2023) Immunizations Name Administration Dates Next Due COVID-19 [...] at Home Eduar Browne PA-C [address] [place] [address] 03/25/2023 Home Visit [facility] Nisreen Pascual RN [address] [place] [address] 04/06/2023 Office Visit Ophthalmology Wilfredo Robert, [address] [place] [address] 04/16/2023 Office Visit Dermatology Jemma Evangelista PA-C [address] [place] [address] [place] [address] 06/19/2023 Office Visit Sleep Disorders Janet Browne CRNP [address] [place] [address] 07/08/2023 Office Visit Family Medicine Martin Hopper MD [address] [place] [address] 08/17/2023 Imaging Radiology 08/17/2023 Office Visit Cardiology Nuzhat Rolon PA-C [address] [place] [address] 11/02/2023 Office Visit Ophthalmology Wilfredo Robert, [address] [place] [address] 12/24/2023 Office Visit Dermatology Jemma Evangelista PA-C [address] [place] [address] [place] [address] Scheduled Procedures Name Priority Associated Diagnoses Date/Ti me COLONOSCOPY FLEXIBLE PROXIMA L DIAGNOSTIC Recall Special screening for malignant neoplasms, colon Health Maintenance Due Date Last Done Comments CKD HGB USE SMARTSET 76668 12/27/202212/27, 07/05/2021, 01/02/2021, Additional history exists CKD PHOS USE SMARTSET 80752 12/27/202212/13, 01/02/2021, 12/28/2019, Additional history exists Depression Screening 12/27/2022 12/27/2021 Influenza Vaccine (FLU shot) (#1) 2023 03/05/2023, 03/17/2022, 02/22/2021, Additional history exists GFR 06/26/2023 12/24/2022, 12/13, [...] filedocumented as of this encounter Care Teams Content Development Manager Relationship Specialty Start Date End Date Martin Hopper MD [address] [place] [address] PCP - General Family Medicine 08/23/18 documented as of this encounter
--- OUTSIDE RECORDS SUMMARY | 2023-07-29 20:39 | External Medical Summary | Summary of Care ---
Author Name Unknown Organization [facility] Address [address] [place] [address] Phone [phone] Care Team Providers Care Labor Contractor Name Role Phone Sabra Gaines MD Primary Care Provider +1- [phone] Reason for Visit * Reason Comments eRx-Medication Refill Encounter Details Date Type Department Care Team Description 03/01/2023 Refill [facility] [address] [place] [address] Sabra Gaines MD [address] [place] [address] Encounter for long-term (current) use of medications* Allergies Active Allergy Reactions Severity Noted Date [...] Oral Tablet (Lasix)Indications:I LD (interstitial lung disease) ([facility]),Acute hypoxemic respiratory failure (HCC),Hypervolemia, unspecified hypervolemia type Take 1 Tablet by mouth every other day. 15 Tablet 5 02/06/2023 Active Omeprazole 20 MG Oral Capsule Delayed Release (PriLOSEC) TAKE 1 CAPSULE BY MOUTH EVERY MORNING. TAKE WITH WATER ON AN EMPTY STOMACH ONE HOUR PRIOR TO MEAL. 90 Capsule 1 03/02/2023 Active Omeprazole 20 MG Oral Capsule Delayed Release (PriLOSEC) TAKE ONE CAPSULE BY MOUTH IN THE MORNING. TAKE WITH WATER ON AN EMPTY STOMACH ONE HOUR PRIOR RO MEAL 90 Capsule 1 09/01/2022 3 Discontinued Hospital, Clinic, or Other Facility Administered Medication Ordered Dose Route Frequency Start Date End Date Status Albuterol Sulfate (Proventil) (5 MG/ML) 0.5% *conc* inhalation solution 2.5 mgIndications:ILD (interstitial lung disease) ([facility]) 2.5 mg NEBULIZER PRN 08/05/2022 08/05/2023 Active Albuterol Sulfate (Proventil) (2.5 MG/3ML) 0.083% inhalation solution 2.5 mgIndications:ILD (interstitial lung disease) ([facility]) 2.5 mg NEBULIZER PRN 08/05/2022 08/05/2023 Active documented as of this encounter (statuses as of 03/02/2023) Active Problems Problem Noted Date Chronic heart failure with preserved eje ction fraction 02/06/2023 Bradycardia, sinus 02/06/2023 Pulmonary hypertension, unspecified 05/0 02/2023 Unspecified mood (affective) disorder Chronic kidney [...] encounter Miscellaneous Notes * Telephone Encounter - Adela Childers RPh - 03/02/2023 1:50 PM EDTSigned Prescriptions: Disp Refills Omeprazole 20 MG Oral Capsule Delayed Rele*90 Cap*1 Sig: TAKE 1 CAPSULE BY MOUTH EVERY MORNING. TAKE WITH WATER ON AN EMPTY STOMACH ONE HOUR PRIOR TO MEAL.Authorizing Provider: SABRA GAINES User: ADELA CHILDERS * Telephone Encounter - Adela Childers RP - 03/02/2023 1:49 PM EDT Per refill protocol patient needs magnesium lab on file within the past 2 years while using PPIs. Lab work ordered. Patient may obtain with next routine labs. Thanks, Adela Childers Clinical Pharmacist [facility] ([facility] (Formerly [facility]) [phone] 03/02/2023, 1:49 PM documented in this encounter Plan of Treatment Upcoming Encounters Date Type Specialty Care Team Description 03/10/2023 Home Visit [facility] Eduar Browne PA-C [address] [place] [address] 03/25/2023 Home Visit [facility] Nisreen Pascual, RN [address] [place] [address] 04/06/2023 Office Visit Ophthalmology Wilfredo Robert, [address] [place] [address] 04/16/2023 Office Visit Dermatology Jemma Evangelista PA-C [address] [place] [address] [place] [address] 06/19/2023 Office Visit Sleep Disorders Janet Browne CRNP [address] [place] [address] 07/08/2023 Office Visit Family Medicine Sabra Gaines MD [address] [place] [address] 08/17/2023 Imaging Radiology 08/17/2023 Office Visit Cardiology Nuzhat Rolon PA-C [address] [place] [address] 11/02/2023 Office Visit Ophthalmology Wilfredo Robert DO [address] [place] [address] 12/24/2023 Office Visit Dermatology Jemma Evangelista PA-C [address] [place] [address] [place] [address] Scheduled Orders Name Type Priority Associated Diagnoses Orde r Schedule MAGNESIUM Lab Routine Encounter for long-term (current) use of medications Expected: 03/09/2023 (Approximate), Expires: 03/02/2024 Scheduled Procedures Name Priority Associated Diagnoses Date/Ti me COLONOSCOPY FLEXIBLE PROXIMA L DIAGNOSTIC Recall Special screening for malignant neoplasms, colon Health Maintenance Due Date Last Done Comments CKD HGB USE SMARTSET 31781 12/27/202212/27, 07/05/2021, 01/02/2021, Additional history exists CKD PHOS USE SMARTSET 49253 12/27/202212/13, 01/02/2021, 12/28/2019, Additional history exists Depression [...] as of this encounter Visit Diagnoses Diagnosis Encounter for long-term (current) use of medications- Primary Encounter for long-term (current) use of other medications documented in this encounter Care Teams Labor Contractor Relationship Specialty Start Date End Date Sabra Gaines MD [address] [place], [place] [phone] PCP - General Family Medicine 08/23/18 documented as of this encounter
--- OUTSIDE RECORDS SUMMARY | 2023-07-29 20:39 | External Medical Summary | Summary of Care ---
Author Name Unknown Organization [facility] Address [address] [place] [address] Phone [phone] Care Team Providers Care Project Manager Name Role Phone Martin Hopper MD Primary Care Provider +1- [phone] Encounter Details Date Type Department Care Team Description 03/10/2023 [facility] Visit [facility] [address] [place] [address] Eduar Browne PA-C [address] [place] [address] Chronic heart failure with preserved ejection fraction (HCC)*; Chronic kidney disease, stage 3a (HCC); Obstructive sleep apnea treated with bilevel positive airway pressure (BiPAP); Unspecified mood (affective) disorder (HCC); Pulmonary hypertension, unspecified ([facility]) Allergies Active Allergy Reactions Severity Noted Date Comments Pollen Cough Medium 10/17/2022 Watery eyes and runny nose documented as of this encounter (statuses as of 03/11/2023) Medications Medication Sig Dispensed Refills Start Date [...] as of this encounter (statuses as of 03/11/2023) Active Problems Problem Noted Date Chronic heart [...] as of this encounter (statuses as of 03/11/2023) Resolved Problems Problem Noted Date Resolved Date [...] as of this encounter (statuses as of 03/11/2023) Immunizations Name Administration Dates Next Due COVID-19 [...] Sign Reading Time Taken Comments Blood Pressure 106/58 03/11/2023 4:08 PM EDT Pulse 58 03/11/2023 4:08 PM EDT Temperature - - Respiratory Rate - - Oxygen Saturation 93% 03/11/2023 4:08 PM EDT Inhaled Oxygen Concentration - - Weight - - Height - - Body Mass Index - - documented in this encounter Progress Notes * Eduar Browne PA-C - 03/10/2023 11:09 AM EDT [facility] Progress Note Date: 03/10/2023 Time: 11:00 Name: Mane Foote : 1940 Purpose of Visit: follow up Location: Home Individual(s) present: Patient and Spouse Coordination of Care: Cardiology, Pulmonary, and Primary Care ASSESSMENT/PLAN: (I50.32) Chronic heart failure with preserved ejection fraction (HCC) (primary encounter diagnosis) Plan: euvolemic today Continue low dose lasix and spironlactone F/u cardiology as scheduled Monitor weights daily (N18.31) Chronic kidney disease, stage 3a (HCC) Plan: stable Avoid nephrotoxic meds (G47.33) Obstructive sleep apnea treated with bilevel positive airway pressure (BiPAP) (I27.20) Pulmonary hypertension, unspecified (HCC) Plan: continue bipap nightly Continue lasix (F39) Unspecified mood (affective) disorder (HCC) Plan: stable on zoloft SUBJECTIVE: Family present: yes, reviewed Patient is 83 year old male with HFpEF, interstitial lung disease, scleroderma, bradycardia, CKD stage 3, GUILLE on CPAP, pulmonary htn, and depression. Lives at home with spouse in single level home. Sitting in living room at time of visit. Reports feeling well today. Denies any SOB at rest. Still has occasional CROWE. Able to walk around the neighborhood Does not use o2 at rest, only with exertion and bedtime. Also using bipap at hs. Following with cardiology and pulmonary. Recently had 14 day [employer] heart monitor. Revealed brief runs of SVT, only lasting seconds. Average HR66. Recommended to not resume metoprolol. Denies any dizziness or feeling light headed. Pain: denies Nausea: no Vomiting: no Confusion: no Somnolence: no Constipation: no Dyspnea: yes, reviewed Anxious: no Support: spouse Med Management: self Ambulates: has walker if needed HISTORY: Social History Tobacco Use Smoking status: Former Packs/day: 0.25 Years: 40.00 Pack years: 10.00 Types: Cigarettes Quit date: 1999 Years since quittin.7 Smokeless tobacco: Never Substance Use Topics Alcohol use: Not Currently Comment: quit 03/2002 (social drinker)-rare 83 year old year-old male with the following active problems: Patient Active Problem List Diagnosis Code Insomnia G47.00 Actinic keratosis L57.0 Hx of nonmelanoma skin cancer Z85.828 BPH with obstruction/lower urinary tract symptoms N40.1, N13.8 Obstructive sleep apnea treated with bilevel positive airway pressure (BiPAP) G47.33 KACY (generalized anxiety disorder) F41.1 House dust mite allergy Z91.09 Allergic rhinitis due to pollen J30.1 Esophageal dysmotility K22.4 ILD (interstitial lung disease) ([facility]) J84.9 Scleroderma ([facility]) M34.9 Positive SEDRICK (antinuclear antibody) R76.8 Former tobacco use Z87.891 Pulmonary hypertension, unspecified ([facility]) I27.20 Unspecified mood (affective) disorder ([facility]) F39 Chronic kidney disease, stage 3a ([facility]) N18.31 Chronic heart failure with preserved ejection fraction ([facility]) I50.32 Bradycardia, sinus R00.1 Current Outpatient Medications Medication Sig Dispense Refill [...] CUT, CRUSH OR CHEW 90 Tablet 1 Levocetirizine Dihydrochloride 2.5 MG/5ML Oral Solution Take 1.25 mg by mouth in the morning. 148 mL 5 Spironolactone 25 MG Oral Tablet (Aldactone) Take 0.5 Tablets by mouth in the morning. Furosemide 20 MG Oral Tablet (Lasix) Take 1 Tablet by mouth every other day. 15 Tablet 5 Omeprazole 20 MG Oral Capsule Delayed Release (PriLOSEC) TAKE 1 CAPSULE BY MOUTH EVERY MORNING. TAKE WITH WATER ON AN EMPTY STOMACH ONE HOUR PRIOR TO MEAL. 90 Capsule 1 Current Facility-Administered Medications Medication Dose Route Frequency Provider Last Rate Last Admin Albuterol Sulfate (Proventil) (5 MG/ML) 0.5% *conc* inhalation solution 2.5 mg 2.5 mg Nebulizer PRISCA Doss Albuterol Sulfate (Proventil) (2.5 MG/3ML) 0.083% inhalation solution 2.5 mg 2.5 mg Nebulizer PRISCA Barbour 2.5 mg at 11/05/22 0912 Physical Exam: BP Readings from Last 3 Encounters: 03/11/23 106/58 02/12/23 110/62 02/06/23 126/72 { Wt Readings from Last 3 Encounters: 02/06/23 83.5 kg (184 lb) 12/24/22 82.6 kg (182 lb) 12/02/22 80.3 kg (177 lb) Vital signs: Blood pressure 106/58, pulse 58, SpO2 93 %. General: alert and no distress Neuro: alert & oriented x 3 with fluent speech Heart: regular rate & rhythm and no murmur Lungs: no chest wall tenderness, velcro rales, no wheezing Abdomen: abdomen soft, non-tender, normal bowel sounds, and no rebound or guarding Ext: Normal extremities without edema Recent Results: EXTERNAL EKG 8 TO 15 DAYS [[id number]] (Spec. #[id number]) (Order [id number]) Result Information Status: Final result (Resulted: 03/02/2023 09:39) Provider Status: Reviewed CONCLUSIONS: Duration: 13 days, 13 hours Patient had a min HR of 41 bpm, max HR of 207 bpm, and avg HR of 66 bpm. Predominant underlying rhythm was Sinus Rhythm. 234 Supraventricular Tachycardia runs occurred, the run with the fastest interval lasting 5 beats with a max rate of 207 bpm, the longest lasting 21.0 secs with an avg rate of 107 bpm. Supraventricular Tachycardia was detected within +/- 45 seconds of symptomatic patient event(s). Isolated SVEs were occasional (2.4%, [address]), SVE Couplets were rare (<1.0%, 2559), and SVE Triplets were rare (<1.0%, 518). Isolated VEs were occasional (1.3%, 780[address]), VE Couplets were rare (<1.0%, 156), and no VE Triplets were present. Ventricular Bigeminy and Trigeminy were present. Inverted QRS complexes possibly due to inverted placement of device. Symptoms correlate with supraventricular tachycardia, ventricular ectopy, and supraventricular ectopy. See top of note for assessment/plan Scheduled appointments in the next 60 days: Future Appointments-next 60 days Date/Time Provider Specialty Dept Phone 03/25/2023 2:30 PM Nisreen Pascual RN [facility] [phone] 04/06/2023 11:10 AM Wilfredo Robert DO Ophthalmology [phone] 04/16/2023 10:20 AM (Arrive by 10:05 AM) Jemma Evangelista PA-C Dermatology [phone] 06/19/2023 11:00 AM (Arrive by 10:45 AM) PRISCA Gann Sleep Disorders [phone] 07/08/2023 10:40 AM (Arrive by 10:25 AM) Martin Hopper MD Family Medicine [phone] 08/17/2023 9:45 AM [facility] Radiology [phone] 08/17/2023 10:30 AM (Arrive by 10:15 AM) Nuzhat Rolon PA-C Cardiology [phone] 11/02/2023 9:40 AM Wilfredo Robert DO Ophthalmology [phone] 12/24/2023 11:20 AM (Arrive by 11:05 AM) Jemma Evangelista PA-C Dermatology [phone] Eduar Browne PA-C [facility], [facility] [address] [place] [address] documented in this encounter Plan of Treatment Upcoming Encounters Date Type Specialty Care Team Description 03/25/2023 Home Visit [facility] Nisreen Pascual RN [address] [place] [address] 04/06/2023 Office Visit Ophthalmology Wilfredo Robert DO [address] [place] [address] 04/16/2023 Office Visit Dermatology Jemma Evangelista PA-C [address] [place] [address] [place] [address] 06/19/2023 Office Visit Sleep Disorders Janet Browne CRNP [address] [place] [address] 07/08/2023 Office Visit Family Medicine Martin Hopper MD [facility] [place] [address] 08/17/2023 Imaging Radiology 08/17/2023 Office Visit Cardiology Nuzhat Rolon PA-C [address] [place] [address] 11/02/2023 Office Visit Ophthalmology Wilfredo Robert, DO [address] [facility] [place] [id number] 12/24/2023 Office Visit Dermatology Jemma Evangelista PA-C [address] [place] [address] [place] [phone] Scheduled Procedures Name Priority Associated Diagnoses Date/Ti me COLONOSCOPY FLEXIBLE PROXIMA L DIAGNOSTIC Recall Special screening for malignant neoplasms, colon Health Maintenance Due Date Last Done Comments CKD HGB USE SMARTSET 12436 12/27/202212/27, 07/05/2021, 01/02/2021, Additional history exists CKD PHOS USE SMARTSET 67747 12/27/202212/13, 01/02/2021, 12/28/2019, Additional history exists Depression [...] as of this encounter Visit Diagnoses Diagnosis Chronic heart failure with preserved ejection fraction (HCC)- Primary Chronic kidney disease, stage 3a (HCC) Obstructive sleep apnea treated with bilevel positive airway pressure (BiPAP) Unspecified mood (affective) disorder (HCC) Pulmonary hypertension, unspecified (HCC) documented in this encounter Care Teams Project Manager Relationship Specialty Start Date End Date Martin Hopper MD [address] [place], [place] [phone] PCP - General Family Medicine 08/23/18 documented as of this encounter
--- OUTSIDE RECORDS SUMMARY | 2023-07-29 20:40 | External Medical Summary | Summary of Care ---
Author Name Unknown Organization [facility] Address [address] [place] [address] Phone [phone] Care Team Providers Care Project Development Engineer Name Role Phone Martin Hopper MD Primary Care Provider +1- [phone] Encounter Details Date Type Department Care Team Description 10/08/2022 Result Scan Unspecified Department <No scans attached> Allergies Active Allergy Reactions Severity Noted Date Comments Pollen Cough Medium 10/17/2022 Watery eyes and runny nose documented as of this encounter (statuses as of 02/09/2023) Medications Medication Sig Dispensed Refills Start Date End Date Status oxygen IN GAS 2 LPM bled through CPAP during hours of sleep 1 Each 0 08/14/2021 Active Omeprazole 20 MG Oral Capsule Delayed Release (PriLOSEC) TAKE ONE CAPSULE BY MOUTH IN THE MORNING. TAKE WITH WATER ON AN EMPTY STOMACH ONE HOUR PRIOR RO MEAL 90 Capsule 1 09/01/2022 Active Hospital, Clinic, or Other Facility Administered [...] as of this encounter (statuses as of 02/09/2023) Active Problems Problem Noted Date Chronic heart [...] as of this encounter (statuses as of 02/09/2023) Resolved Problems Problem Noted Date Resolved Date [...] as of this encounter (statuses as of 02/09/2023) Immunizations Name Administration Dates Next Due COVID-19 [...] Used Date Smoking Tobacco: Former Cigarettes 0.3 15 Q uit: 1999 Smokeless Tobacco: Never Alcohol Use Standard Drinks/Week Comments Yes 0 [...] Encounters Date Type Specialty Care Team Description 02/12/2023 Home Visit [facility] Nisreen Pascual RN [address] [place] [address] 04/16/2023 Office Visit Dermatology Jemma Evangelista PA-C [address] [place] [address] [place] [address] 06/03/2023 Office Visit Sleep Disorders Janet Browne CRNP [address] [place] [address] 07/08/2023 Office Visit Family Medicine Martin Hopper MD [facility] [place] [address] 08/17/2023 Imaging Radiology 08/17/2023 Office Visit Cardiology Nuzhat Rolon PA-C [address] [place] [address] 11/02/2023 Office Visit Ophthalmology Wilfredo Robert, [address] [place] [address] 12/24/2023 Office Visit Dermatology Jemma Evangelista PA-C [address] [place] [address] [place] [phone] Scheduled Procedures Name Priority Associated Diagnoses Date/Ti me COLONOSCOPY FLEXIBLE PROXIMA L DIAGNOSTIC Recall Special screening for malignant neoplasms, colon Health Maintenance Due Date Last Done Comments CKD HGB USE SMARTSET 87232 12/27/202212/27, 07/05/2021, 01/02/2021, Additional history exists CKD PHOS USE SMARTSET 74243 12/27/202212/13, 01/02/2021, 12/28/2019, Additional history exists Depression Screening, Annual for Pts 12 and Over 12/27/2022 12/27/2021 Influenza Vaccine (FLU shot) (#1) [...] Procedure Name Priority Date/Time Associated Diagnosis Comments ECHOCARDIOLOGY SCANNED RESULT 10/08/2022 documented in this encounter Results * ECHOCARDIOLOGY SCANNED RESULT (10/08/2022) 10/08/2022 No Physician Data Unknown ECHOCARDIOLOGY documented in this encounter Care Teams Project Development Engineer Relationship Specialty Start Date End Date Martin Hopper MD [address] [place] [address] PCP - General Family Medicine 08/23/18 documented as of this encounter
--- OUTSIDE RECORDS SUMMARY | 2023-07-29 20:40 | External Medical Summary | Summary of Care ---
Author Name Unknown Organization [facility] Address [address] [place] [address] Phone [phone] Care Team Providers Care Continuous Improvement Engineer Name Role Phone Martin Hopper MD Primary Care Provider [phone]- [phone] Reason for Visit * Reason Comments Follow Up 3 1/2 month follow u p. Slight dizziness when bending over and standing back- only for a few seconds. SOB is about the same. Denies chest pain, palpitations and edema. Encounter Details Date Type Department Care Team Description 02/06/2023 Office Visit Cardiology, [facility] [address] [place] [address] Nuzhat Rolon PA-C [address] [place] [address] Bradycardia, sinus*; ILD (interstitial lung disease) ([facility]); Dizziness; Chronic heart failure with preserved ejection fraction ([facility]) Allergies Active Allergy Reactions Severity Noted Date Comments Pollen Cough Medium 10/17/2022 Watery eyes and runny nose documented as of this encounter (statuses as of 02/06/2023) Medications Medication Sig Dispensed Refills Start Date End Date Status oxygen IN GAS 2 LPM bled through CPAP during hours of sleep 1 Each 0 08/14/2021 Active Omeprazole 20 MG Oral Capsule Delayed Release (PriLOSEC) TAKE ONE CAPSULE BY MOUTH IN THE MORNING. TAKE WITH WATER ON AN EMPTY STOMACH ONE HOUR PRIOR RO MEAL 90 Capsule 1 09/01/2022 Active BiPAP every night at bedtime. 0 Active Furosemide 20 MG Oral Tablet (Lasix)Indications:ILD (interstitial lung disease) (HCC),Acute hypoxemic respiratory failure (HCC),Hypervolemia, unspecified hypervolemia type Take 1 Tablet by mouth every other day. 15 Tablet 1 10/17/2022 Active Tamsulosin HCl 0.4 MG Oral Capsule [...] by mouth in the morning. 0 Active Hospital, Clinic, or Other Facility Administered Medication Ordered Dose Route Frequency Start Date End Date Status Albuterol Sulfate (Proventil) (5 MG/ML) 0.5% *conc* inhalation solution 2.5 mgIndications:ILD (interstitial lung disease) (HCC) 2.5 mg NEBULIZER PRN 08/05/2022 08/05/2023 Active Albuterol Sulfate (Proventil) (2.5 MG/3ML) 0.083% inhalation solution 2.5 mgIndications:ILD (interstitial lung disease) ([facility]) 2.5 mg NEBULIZER PRN 08/05/2022 08/05/2023 Active documented as of this encounter (statuses as of 02/06/2023) Active Problems Problem Noted Date Chronic heart [...] as of this encounter (statuses as of 02/06/2023) Resolved Problems Problem Noted Date Resolved Date [...] as of this encounter (statuses as of 02/06/2023) Immunizations Name Administration Dates Next Due COVID-19 mRNA, LNP-s, No Pre serve, 2-Dose Series (Moderna) 05/15/2021,08/11/2020,07/07/2020 Covid-19, Mrna, Lnp-s, Pf, B ivalent, 30 Mcg, IM, 12 yrs and above (Storrz) 04/22/2022 H1N1 2009 Influenza, IM 06/18/2009 Pneumococcal [...] Sign Reading Time Taken Comments Blood Pressure 126/72 02/06/2023 10:26 AM EDT Pulse 60 02/06/2023 10:26 AM EDT Temperature - - Respiratory Rate 17 02/06/2023 10:26 AM EDT Oxygen Saturation - - Inhaled Oxygen Concentration - - Weight 83.5 kg (184 lb) 02/06/2023 10:26 AM EDT Height - - Body Mass Index 27.57 12/24/2022 9:11 AM EDT documented in this encounter Progress Notes * Nuzhat Rolon PA-C - 02/06/2023 10:37 AM EDT Images from the original note were not included. 02/06/2023 Cardiology F/U: HPI: Patient is an 83-year-old male who presents today for routine cardiology follow-up. Last clinic evaluation approximately [address] Sanchez. History includes: Scleroderma Interstitial lung disease with prior COVID pneumonia HFpEF Former tobacco abuse Sinus bradycardia Last visit patient was found to be mildly bradycardic on exam. Metoprolol was discontinued. Patient presents today feeling relatively well. Does admit to intermittent dizziness occurring several times per week typically with positional changes. No syncope or near-syncope. Heart rate remains lower again today on exam with EKG confirming sinus bradycardia at 52 beats per minute. Currently in the office he is asymptomatic. Fluid status has been well maintained on low-dose furosemide and spironolactone. Improved abdominalbloating reported. No edema. Shortness of breath at baseline. No recent chest pain. He wears supplemental O2 with exertional activities. No chest pain, palpitations, dizziness, syncope or near syncope. No orthopnea, PND, or increased lower extremity edema. No fever, chills, cough, hematochezia, melena, or hemoptysis. Review of Systems: See HPI for pertinent positives. All others negative, other than those noted in HPI. Patient Active Problem List Diagnosis Code Insomnia G47.00 Actinic keratosis L57.0 Hx of nonmelanoma skin cancer Z85.828 BPH with obstruction/lower urinary tract symptoms N40.1, N13.8 Obstructive sleep apnea treated with bilevel positive airway pressure (BiPAP) G47.33 KACY (generalized anxiety disorder) F41.1 House dust mite allergy Z91.09 Allergic rhinitis due to pollen J30.1 Esophageal dysmotility K22.4 ILD (interstitial lung disease) ([facility]) J84.9 Scleroderma ([facility]) M34.9 Positive SEDRICK (antinuclear antibody) R76.8 Former tobacco use Z87.891 Pulmonary hypertension, unspecified ([facility]) I27.20 Unspecified mood (affective) disorder ([facility]) F39 Chronic kidney disease, stage 3a ([facility]) N18.31 Past Surgical History: Procedure Laterality Date BIOPSY OF EYELID Left 07/21/2022 Dr. Robert-biopsy left lower eyelid COLONOSCOPY, DIAGNOSTIC (RECTUM) 08/02/2014 normal, repeat 10 yrs/COLONOSCOPY FLEXIBLE PROXIMAL DIAGNOSTIC performed by Mane Young MD at [facility]OSCOPY [facility] COLONOSCOPY, REMOVE LESION 05/2004 inflammatory polyp. repeat 10 yrs. EGD, FLEXIBLE, DIAGNOSTIC 07/16/2022 [place] - normal / [facility] EYELID SURGERY PROCEDURE NEC Left 09/10/2022 Post MOHS repair LLL. MISCELLANEOUS ORDER ([facility] ONLY) Left 02/17/2019 Dr. 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 and full thickness skin graft from upper to lower eyelid REMOVAL OF CHALAZIONS, SAME LID Right 05/17/2019 REMOVAL OF KIDNEY STONE 1980 Family History Problem Relation Age of Onset Other (Natural causes) Mother age 94 Hypertension Father Cancer Father Skin Heart disease Sister Heart disease Sister Cancer Other throat/larynx - non smoker - father Diabetes Other Social History Tobacco Use Smoking status: Former Packs/day: 0.25 Years: 40.00 Pack years: 10.00 Types: Cigarettes Quit date: 1999 Years since quittin.6 Smokeless tobacco: Never Vaping Use Vaping Use: Never used Substance Use Topics Alcohol use: Not Currently Comment: quit 03/2002 (social drinker)-rare Drug use: No Review of patient's allergies indicates: Allergen Reactions Pollen Cough Watery eyes and runny nose Current Outpatient Medications Medication Sig Dispense Refill oxygen IN GAS 2 LPM bled through CPAP during hours of sleep 1 Each 0 Omeprazole 20 MG Oral Capsule Delayed Release (PriLOSEC) TAKE ONE CAPSULE BY MOUTH IN THE MORNING. TAKE WITH WATER ON AN EMPTY STOMACH ONE HOUR PRIOR RO MEAL 90 Capsule 1 BiPAP every night at bedtime. Furosemide 20 MG Oral Tablet (Lasix) Take 1 Tablet by mouth every other day. 15 Tablet 1 Tamsulosin HCl 0.4 MG Oral Capsule (Flomax) [...] 0.5 Tablets by mouth in the morning. Current Facility-Administered Medications Medication Dose Route Frequency Provider Last Rate Last Admin Albuterol Sulfate (Proventil) (5 MG/ML) 0.5% *conc* inhalation solution 2.5 mg 2.5 mg Nebulizer PRISCA Doss Albuterol Sulfate (Proventil) (2.5 MG/3ML) 0.083% inhalation solution 2.5 mg 2.5 mg Nebulizer PRISCA Barbour 2.5 mg at 11/05/22 0912 PHYSICAL EXAMINATION BP 126/72 | Pulse 60 | Resp 17 | Wt 83.5 kg (184 lb) | BMI 27.57 kg/m | BSA 2.01 m Body mass index is 27.57 kg/m. Blood pressure my repeat 122/70 General: no acute distress and stated age Head: normocephalic, no masses, lesions, tenderness or abnormalities Eyes: conjunctiva are pink and non-injected, sclera clear Neck: supple, no adenopathy, no bruits, normal jugular venous pulse, no hepatojugular reflux Chest: normal shape and normal respiratory effort Lungs: clear to auscultation and percussion Cardiac Exam: - regular rate & rhythm, no murmurs gallops or rubs - normal S1, normal S2 Pulses: 2(+) throughout Abdomen: abdomen soft, non-tender, no abnormal masses and no hepatosplenomegaly Musculoskeletal: no gait disturbance, no joint inflammation, no deforming arthritis Extremities: no edema and no cyanosis Neuro: grossly normal exam Cardiac studies/labs: EKG performed today and reviewed personally: Sinus bradycardia 52 beats per minute Compared with prior EKG, no significant changes found. Echo report reviewed from [facility] dated September 2022: Echocardiogram report reviewed dated January 2022: Interpretation Summary The examination is adequate to evaluate the referral indication. There was sinus bradycardia during the examination. The left ventricular cavity size is normal. The LV wall thickness is mildly increased (concentric). The left ventricular wall motion is normal. The qualitative LV ejection fraction is 60-64% (normal). Mild aortic valve sclerosis is present. Moderate tricuspid regurgitation is present. There is no evidence of pulmonary hypertension. Latest Reference Range & Units 12/24/22 10:01 Sodium 135 - 146 mmol/L 140 Potassium 3.5 - 5.1 mmol/L 4.2 Chloride 98 - 107 mmol/L 104 CO2 22 - 32 mmol/L 24 BUN 6 - 20 mg/dL 29 (H) Creatinine 0.6 - 1.2 mg/dL 1.4 (H) Estimated Glomerular Filtration Rate >=60 mL/min 50 (L) Anion Gap 7 - 15 mmol/L 12 Glucose 70 - 120 mg/dL 101 Calcium 8.4 - 10.2 mg/dL 9.6 (H): Data is abnormally high (L): Data is abnormally low Latest Reference Range & Units 12/27/21 10:41 LDL Cholesterol (Direct Measure) <=129 mg/dL 87 Impression: 83 year old male Dizziness Sinus bradycardia, off beta be Interstitial lung disease - stable HFpEF - appears euvolemic Scleroderma Plan: Patient remains mildly bradycardic today despite discontinuation of metoprolol last visit. He does admit to intermittent dizziness. No syncope or near-syncope. Recommend 14 day ZIO monitor to rule out symptomatic bradycardia, or pauses. Avoid AV jenelle blocking agents at this time. Further recommendations pending review of ZIO monitor. He appears euvolemic on current dose of furosemide and spironolactone. He will continue current medications. CHF tools discussed including daily weights, salt/sodium/fluid restriction, and use of diuretic protocol. I spent a total of 40 minutes on the date of service in preparation, delivery, and documentation ofthe care provided to Mane Foote excluding any time spent in the performance of separately billed services. The patient agrees to the above plan and will call with additional questions or concerns. ER with all emergencies advised. Follow Up: Return in about 6 months (around 08/09/2023). Nuzhat Rolon PA-C Department of Cardiology This chart was completed in part utilizing [employer] Speech Voice Recognition Software. Grammatical errors, random word insertions, prounoun errors, and incomplete sentences are an occasional consequence of this system due to software limitations, ambient noise, and hardware issues. Any formal questions or concerns about the content, text, or information contained within the body of this dictation should be directly addressed to the provider for clarification. documented in this encounter Procedure Notes * Vaibhav Diaz MD - 02/06/2023 10:21 AM EDTAssociated Order(s): EKG REASON FOR STUDY: ILD CONCLUSIONS: Sinus bradycardia Otherwise normal ECG When compared with ECG of 05-JUL-2021 10:53, No significant change was found Ventricular Rate: 52 Atrial Rate: 52 DC Interval: 186 QRS Duration: 88 QT/QTc: 408/379 ms P-R-T [place]: 47 : 17 : 33 degrees documented in this encounter Nursing Notes * Wang Diaz LPN - 02/06/2023 10:25 AM EDT Patient identified by full name and date of Chief Complaint Patient presents with Follow Up 3 1/2 month follow up. Slight dizziness when bending over and standing back- only for a few seconds. SOB is about the same. Denies chest pain, palpitations and edema. Examination Room: 6 Name: Mane Foote Date of : (1940). Reason for Visit: 3 month follow up Interim Hospitalization(s): [facility] 10/07-10/12/22 Problems/Concerns: See chief complaint Chest Pain/SOB: See chief complaint [facility] Discussed: Yes [facility] is a way you can talk to your provider online through e-mail. Would you like to sign up? I can activate it for you? ALREADY ACTIVE Patient was instructed to not get up on the exam table until directed and assisted by their provider; patient is to remain seated in the chair/ wheelchair/ exam table for fall prevention and safety reasons. Patient is aware to have assistance to step down off exam table with personnel. Patient voiced full comprehension of instructions. documented in this encounter Plan of Treatment Upcoming Encounters Date Type Specialty Care Team Description 02/12/2023 Home Visit [facility] Nisreen Pascual RN [address] [place] [address] 04/16/2023 Office Visit Dermatology Jemma Evangelista PA-C [address] [place] [address] [place] [address] 06/03/2023 Office Visit Sleep Disorders Janet Browne CRNP [address] [place] [address] 07/08/2023 Office Visit Family Medicine Martin Hopper MD [facility] [place] [address] 08/17/2023 Imaging Radiology 08/17/2023 Office Visit Cardiology Nuzhat Rolon PA-C [address] [place] [address] 11/02/2023 Office Visit Ophthalmology Wilfredo Robert, DO [address] [place] [address] 12/24/2023 Office Visit Dermatology Jemma Evangelista PA-C [address] [place] [address] [place] [phone] Scheduled Orders Name Type Priority Associated Diagnoses Orde r Schedule EXTERNAL EKG 8 TO 15 DAYS Holter Routine Dizziness Bradycardia, sinus Expected: 02/06/2023 (Approximate), Expires: 02/07/2024 Scheduled Procedures Name Priority Associated Diagnoses Date/Ti me COLONOSCOPY FLEXIBLE PROXIMA L DIAGNOSTIC Recall Special screening for malignant neoplasms, colon Health Maintenance Due Date Last Done Comments CKD HGB USE SMARTSET 19609 12/27/202212/27, 07/05/2021, 01/02/2021, Additional history exists CKD PHOS USE SMARTSET 83351 12/27/202212/13, 01/02/2021, 12/28/2019, Additional history exists Depression [...] Procedure Name Priority Date/Time Associated Diagnosis Comments DC ECG ROUTINE ECG W/LEAST 12 LDS W/I&R Routine 02/06/2023 10:21 AM EDT ILD (interstitial lung disease) (HCC) documented in this encounter Results * EKG (02/06/2023 10:21 AM EDT) 02/06/2023 10:2 1 AM EDT Procedure Note Vaibhav Diaz MD - 02/06/2023 10:21 AM EDT REASON FOR STUDY: ILD CONCLUSIONS: Sinus bradycardia Otherwise normal ECG When compared with ECG of 05-JUL-2021 10:53, No significant change was found Ventricular Rate: 52 Atrial Rate: 52 DC Interval: 186 QRS Duration: 88 QT/QTc: 408/379 ms P-R-T [place]: 47 : 17 : 33 degrees Nuzhat Rolon PA-C EKG [facility] documented in this encounter Visit Diagnoses Diagnosis Bradycardia, sinus- Primary Other specified cardiac dysrhythmias ILD (interstitial lung disease) (HCC) Postinflammatory pulmonary fibrosis Dizziness Dizziness and giddiness Chronic heart failure with preserved ejection fraction (HCC) documented in this encounter Care Teams Continuous Improvement Engineer Relationship Specialty Start Date End Date Martin Hopper MD [address] [place] [address] PCP - General Family Medicine 08/23/18 documented as of this encounter"
--- OUTSIDE RECORDS SUMMARY | 2023-07-29 20:40 | External Medical Summary | Summary of Care ---
Author Name Unknown Organization [facility] Address [address] [place] [address] Phone [phone] Care Team Providers Care Electronic Equipment Installer Name Role Phone Sabra Gaines MD Primary Care Provider [phone]- [phone] Reason for Visit * Reason Onset Date Comments Medication Refill 02/06/2023 furosemide Encounter Details Date Type Department Care Team Description 02/06/2023 Refill [facility] [address] [place] [address] Sabra Gaines MD [address] [place] [address] ILD (interstitial lung disease) (HCC); Acute hypoxemic respiratory failure (HCC); Hypervolemia, unspecified hypervolemia type Allergies Active Allergy Reactions Severity Noted Date [...] 01/21/2023 Active Levocetirizine Dihydrochloride 2.5 MG/5ML Oral SolutionIndications:R [...] other day. 15 Tablet 5 02/06/2023 Active Furosemide 20 MG Oral Tablet (Lasix)Indications:IL D (interstitial lung disease) (HCC),Acute hypoxemic respiratory failure (HCC),Hypervolemia, unspecified hypervolemia type Take 1 Tablet by mouth every other day. 15 Tablet 1 10/17/2022 Discontinue d(Refill) Hospital, Clinic, or Other Facility [...] 01/16/2023 CKD (chronic kidney disease), stage III 04/23/2010/22/2022 Overview: Per CKD protocol History of squamous [...] Telephone Encounter - Sabra Gaines MD - 02/06/2023 4:06 PM EDTSigned Prescriptions: Disp Refills Furosemide 20 MG Oral Tablet (Lasix) 15 Tab*5 Sig: Take 1 Tabletby mouth every other day.Authorizing Provider: SABRA AGINES * Telephone Encounter - GUILLE Rios - 02/06/2023 3:41 PM EDT Patient saw cardiology in [facility] today. They told her he needed the script for furosemide if he wasto continue it. She does want him to continue it, but did not send a script. He is asking if Dr. Gaines can send a script to [facility] in [place]. He is out of meds. documented in this encounter Plan of Treatment Upcoming Encounters Date Type Specialty Care Team Description 02/12/2023 Home Visit [facility] Nisreen Pascual, RN [address] [place] [address] 04/16/2023 Office Visit Dermatology Jemma Evangelista PA-C [address] [place] [address] [place] [address] 06/03/2023 Office Visit Sleep Disorders Janet Browne CRNP [address] [place] [address] 07/08/2023 Office Visit Family Medicine Sabra Gaines MD [address] [place] [address] 08/17/2023 Imaging Radiology 08/17/2023 Office Visit Cardiology Nuzhat Rolon PA-C [address] [place] [address] 11/02/2023 Office Visit Ophthalmology Wilfredo Robert, [address] [place] [address] 12/24/2023 Office Visit Dermatology Jemma Evangelista PA-C [address] [place] [address] [place] [address] Scheduled Procedures Name Priority Associated Diagnoses Date/Ti me COLONOSCOPY FLEXIBLE PROXIMA L DIAGNOSTIC Recall Special screening for malignant neoplasms, colon Health Maintenance Due Date Last Done Comments CKD HGB USE SMARTSET 98695 12/27/202212/27, 07/05/2021, 01/02/2021, Additional history exists CKD PHOS USE SMARTSET 85618 12/27/202212/13, 01/02/2021, 12/28/2019, Additional history exists Depression [...] Visit Diagnoses Diagnosis ILD (interstitial lung disease) (HCC) Postinflammatory pulmonary fibrosis Acute hypoxemic respiratory failure (HCC) Hypervolemia, unspecified hypervolemia type documented in this encounter Care Teams Electronic Equipment Installer Relationship Specialty Start Date End Date Sabra Gaines MD [address] [place] [address] PCP - General Family Medicine 08/23/18 documented as of this encounter
--- OUTSIDE RECORDS SUMMARY | 2023-07-29 20:40 | External Medical Summary | Summary of Care ---
Author Name Unknown Organization [facility] Address [address] [place] [address] Phone [phone] Care Team Providers Care Shell Press Operator Name Role Phone Martin Hopper MD Primary Care Provider +1- [phone] Reason for Visit * Reason Comments [facility]: Maintenance Encounter Details Date Type Department Care Team Description 02/12/2023 Home Visit [facility], [facility] [address] [place] [address] Nisreen Pascual, RN [address] [place] [address] Allergies Active Allergy Reactions Severity Noted Date Comments Pollen Cough Medium 10/17/2022 Watery eyes and runny nose documented as of this encounter (statuses as of 02/12/2023) Medications Medication Sig Dispensed Refills Start Date [...] other day. 15 Tablet 5 02/06/2023 Active Hospital, Clinic, or Other Facility Administered [...] as of this encounter (statuses as of 02/12/2023) Active Problems Problem Noted Date Chronic heart [...] as of this encounter (statuses as of 02/12/2023) Resolved Problems Problem Noted Date Resolved Date [...] as of this encounter (statuses as of 02/12/2023) Immunizations Name Administration Dates Next Due COVID-19 [...] Sign Reading Time Taken Comments Blood Pressure 110/62 02/12/2023 9:59 AM EDT Pulse 66 02/12/2023 9:59 AM EDT Temperature 36.7 C (98 F) 02/12/2023 9:59 AM EDT Respiratory Rate 18 02/12/2023 9:59 AM EDT Oxygen Saturation 98% 02/12/2023 9:59 AM EDT Inhaled Oxygen Concentration - - Weight - - Height - - Body Mass Index - - documented in this encounter Progress Notes * Nisreen Pascual RN - 02/12/2023 9:47 AM EDT [facility] Soc Analyst Visit Date: 02/12/2023 Time: 9:47 AM Name: Mane Foote : 1940 Current Concerns: Pt seen for return RN visit Reports breathing has been at baseline Has been wearing portable oxygen concentrator when out of house and with activity Currently has Zio monitor in place d/t ongoing bradycardia, prescribed by cardiology He reports occasion dizziness with bending over but states he has had that for years Metoprolol was d/c'd months ago but bradycardia continues Pt denies any symptoms Heart rate today is 66 He does report he has issues with sleeping at night He is going to try melatonin - thinks he tried it in the past but unsure what dose. Will start with 5mg q hs Pt does not have a scale in the home. Discussed getting RPM AMC scale, pulse ox, bp cuff - unsure at this time - feels overwhelmed -will think about it for next visit Physical Exam: BP 110/62 | Pulse 66 | Temp 36.7 C (98 F) | Resp 18 | SpO2 98% Pain 0 Physical Exam Constitutional: General: He is not in acute distress. Cardiovascular: Rate and Rhythm: Normal rate and regular rhythm. Pulses: Normal pulses. Heart sounds: Normal heart sounds. Pulmonary: Effort: Pulmonary effort is normal. Breath sounds: Rales (b/l lower lobes, RML) present. Abdominal: General: Bowel sounds are normal. Palpations: Abdomen is soft. Skin: General: Skin is warm and dry. Neurological: Mental Status: He is alert. Comments: Poor STM Problems/Symptoms: Review of Systems Constitutional: Negative. HENT: Negative. Eyes: Negative. Respiratory: Positive for shortness of breath (CROWE - at baseline). Cardiovascular: Negative. Gastrointestinal: Negative. Genitourinary: Negative. Musculoskeletal: Negative. Skin: Negative. Neurological: Positive for dizziness (occasionally with bending over). Psychiatric/Behavioral: Positive for confusion (at baseline, poor STM). Medication Reconciliation: (See medication list) Does patient take medications as ordered: Yes Patient Well Being: PHQ2/9: No questionnaires available. No change in living situation Denies falls [facility]-10 Completed this Visit: No. Routine visit and [...] Keep all appts as scheduled and attend [facility] for DME APAP prn pain Weigh self daily and record - will think about allowing AMC to be ordered Home Interventions Provided: Home Intervention: Other; Evaluation Reinforced current Plan of Care, including self-management and medication regimen Patient's 'Red Flags': Worsening SOB Pulse ox <90 with oxygen on weakness Patient Needs to Remember: Call [facility] at with any new or worsening health concerns or problems, red flag symptoms. Referrals Needed: Other none Follow Up: Is there cellular connectivity/connectivity in the home? Yes Does the patient have internet in the home? No Patient encouraged to call the intake phone number for all urgent but not emergent issues. Is the patient new to [facility] within the last 30 days? No, Assess appropriateness for upcoming telehealth visits. Cancel telehealth visits & schedule home visit with care steamboat inspector(s)as indicated. Provider is in agreement with Plan of Care: Yes Scheduled to follow up with patient in one month with provider, 3 weeks after with RNCM. Nisreen Pascual RN 02/12/2023 9:47 AM documented in this encounter Plan of Treatment Upcoming Encounters Date Type Specialty Care Team Description 03/25/2023 Home Visit [facility] Nisreen Pascual RN [address] [place] [address] 04/06/2023 Office Visit Ophthalmology Wilfredo Robert, [address] [facility] [place] [address] 04/16/2023 Office Visit Dermatology Jemma Evangelista PA-C [address] [place] [address] [place] [address] 06/03/2023 Office Visit Sleep Disorders Janet Browne CRNP [address] [place] [id number] 07/08/2023 Office Visit Family Medicine Martin Hopper MD [address] [place], [place] [id number] 08/17/2023 Imaging Radiology 08/17/2023 Office Visit Cardiology Nuzhat Rolon PA-C [address] [place] [address] 11/02/2023 Office Visit Ophthalmology Wilfredo Robert, DO [address] [place], [place] [phone] 12/24/2023 Office Visit Dermatology Jemma Evangelista PA-C [address] [place] [address] [place] [address] Scheduled Procedures Name Priority Associated Diagnoses Date/Ti me COLONOSCOPY FLEXIBLE PROXIMA L DIAGNOSTIC Recall Special screening for malignant neoplasms, colon Health Maintenance Due Date Last Done Comments CKD HGB USE SMARTSET 98720 12/27/202212/27, 07/05/2021, 01/02/2021, Additional history exists CKD PHOS USE SMARTSET 28704 12/27/202212/13, 01/02/2021, 12/28/2019, Additional history exists Depression [...] filedocumented as of this encounter Care Teams Shell Press Operator Relationship Specialty Start Date End Date Martin Hopper MD [address] [place], [place] [id number] PCP - General Family Medicine 08/23/18 documented as of this encounter"
--- OUTSIDE RECORDS SUMMARY | 2023-07-29 20:40 | External Medical Summary | Summary of Care ---
Author Name Unknown Organization [facility] Address [address] [place] [address] Phone [phone] Care Team Providers Care Pension Administrator Name Role Phone Martin Hopper MD Primary Care Provider +1- [phone] Reason for Visit * Reason Onset Date Comments Medication Refill 01/30/2023 Levocetriizine dihydrochloride soln Encounter Details Date Type Department Care Team Description 01/30/2023 Refill Pulmonary Medicine, [facility] 132 [facility] [place] [address] Alex Rodriguez [facility] [address] [facility] [id number] Rhinitis, unspecified type* Allergies Active Allergy Reactions Severity Noted Date Comments Pollen Cough Medium 10/17/2022 Watery eyes and runny nose documented as of this encounter (statuses as of 01/31/2023) Medications Medication Sig Dispensed Refills Start Date [...] the morning. 148 mL 5 01/31/2023 Active Levocetirizine Dihydrochloride 2.5 MG/5ML Oral Solution Take 1.25 mg by mouth in the morning. 118 mL 3 08/05/2022 3 Discontinue d(Refill) Hospital, Clinic, or Other [...] as of this encounter (statuses as of 01/31/2023) Active Problems Problem Noted Date Pulmonary hypertension, unspecified 02/2023 Unspecified mood (affective) [...] as of this encounter (statuses as of 01/31/2023) Resolved Problems Problem Noted Date Resolved Date Acute hypoxemic respiratory failure 10/17/2022 01/16/2023 Fluid [...] as of this encounter (statuses as of 01/31/2023) Immunizations Name Administration Dates Next Due COVID-19 [...] encounter Miscellaneous Notes * Telephone Encounter - Alex Rodriguez MD - 01/31/2023 9:36 AM EDT Signed Prescriptions: Disp Refills Levocetirizine Dihydrochloride 2.5 MG/5ML *148 mL 5 Sig: Take 1.25 mg by mouth in the morning.Authorizing Provider: ALEX RODRIGUEZ * Telephone Encounter - Elvia Alamo LPN - 01/30/2023 9:09 AM EDT Did you pend patient's preferred pharmacy and medication before forwarding?yes [id number] [address] [facility] Pending Prescriptions: Disp Refills Levocetirizine Dihydrochloride 2.5 MG/5ML*148 mL 5 Sig: Take 1.25 mg by mouth in the morning. Last Visit: 11/11/2022 (in office), Visit date not found (telemedicine) Next Visit: Visit date not found If no future appointments scheduled, and last appointment is greater than a year ago, please schedule patient for a follow-up appointment Last date the medication was ordered: 08/05/22 Is this request for a controlled substance?No Urine Drug Screen:No results found for this or any previous visit. Patient Phone Numbers Labs: Lab Results Component Value Date/Time CREAT 1.4 (H) 12/24/2022 10:01 AM CREAT 1.3 (H) 07/05/2020 08:32 AM POTASSIUM 4.2 12/24/2022 10:01 AM POTASSIUM 4.3 07/05/2020 08:32 AM TSH 2.06 07/05/2021 10:24 AM TSH 1.32 12/22/2018 09:57 AM LDLCALC 105 06/29/2019 08:51 AM LDLDIRECT 87 12/27/2021 10:41 AM LDLDIRECT 120 07/05/2020 08:32 AM ALT 17 07/05/2021 10:24 AM ALT 18 12/28/2019 11:18 AM documented in this encounter Plan of Treatment Upcoming Encounters Date Type Specialty Care Team Description 02/06/2023 Office Visit Cardiology Nuzhat Rolon PA-C [address] [place] [address] 02/12/2023 Home Visit [facility] Nisreen Pascual, RN [address] [place] [address] 04/16/2023 Office Visit Dermatology Jemma Evangelista PA-C [address] [place] [address] [place] [address] 06/03/2023 Office Visit Sleep Disorders Janet Browne CRNP [address] [place] [address] 07/08/2023 Office Visit Family Medicine Martin Hopper MD [address] [place] [address] 08/18/2023 Imaging Radiology 11/02/2023 Office Visit Ophthalmology Wilfredo Robert, DO 16 [facility] [place] [address] 12/24/2023 Office Visit Dermatology Jemma Evangelista PA-C [address] [place] [address] [place] [address] Scheduled Procedures Name Priority Associated Diagnoses Date/Ti me COLONOSCOPY FLEXIBLE PROXIMA L DIAGNOSTIC Recall Special screening for malignant neoplasms, colon Health Maintenance Due Date Last Done Comments CKD HGB USE SMARTSET 22532 12/27/202212/27, 07/05/2021, 01/02/2021, Additional history exists CKD PHOS USE SMARTSET 11138 12/27/202212/13, 01/02/2021, 12/28/2019, Additional history exists Depression [...] Primary documented in this encounter Care Teams Pension Administrator Relationship Specialty Start Date End Date Martin Hopper MD [address] [place] [address] PCP - General Family Medicine 08/23/18 documented as of this encounter
--- OUTSIDE RECORDS SUMMARY | 2023-07-29 20:40 | External Medical Summary | Summary of Care ---
Author Name Unknown Organization [facility] Address [address] [place] [address] Phone [phone] Care Team Providers Care Customer Care Consultant Name Role Phone Martin Hopper MD Primary Care Provider +1- [phone] Reason for Visit * Reason Onset Date Comments Appointment 02/27/2023 Encounter Details Date Type Department Care Team Description 02/27/2023 Telephone [facility], [place] [address] [place] [address] Services, Scheduling [address] [place] [address] Appointment (//) Allergies Active Allergy Reactions Severity Noted Date Comments Pollen Cough Medium 10/17/2022 Watery eyes and runny nose documented as of this encounter (statuses as of 02/27/2023) Medications Medication Sig Dispensed Refills Start Date [...] as of this encounter (statuses as of 02/27/2023) Active Problems Problem Noted Date Chronic heart [...] as of this encounter (statuses as of 02/27/2023) Resolved Problems Problem Noted Date Resolved Date [...] as of this encounter (statuses as of 02/27/2023) Immunizations Name Administration Dates Next Due COVID-19 [...] encounter Miscellaneous Notes * Telephone Encounter - GUILLE Brewer - 02/27/2023 12:18 PM EDT Request to schedule ret visit with Pavan and I found 03/10@11am and confirmed agreeable with and also needed the annual f/u visit with pulmonary scheduled in Sep or October of 2023. I called and per operations scheduler the template isnt open for that far out yet but he is on list to be called with an appt at around that time already by them documented in this encounter Plan of Treatment Upcoming Encounters Date Type Specialty Care Team Description 03/10/2023 [facility] Visit [facility] Eduar Browne PA-C [address] [place] [address] 03/25/2023 Home Visit [facility] Nisreen Pascual RN [address] [place] [address] 04/06/2023 Office Visit Ophthalmology Wilfredo Robert, DO 16 [facility] [place] [address] 04/16/2023 Office Visit Dermatology Jemma Evangelista PA-C [address] [place] [address] [place] [address] 06/19/2023 Office Visit Sleep Disorders Janet Browne CRNP [address] [place] [address] 07/08/2023 Office Visit Family Medicine Martin Hopper MD [address] [place] [address] 08/17/2023 Imaging Radiology 08/17/2023 Office Visit Cardiology Nuzhat Rolon PA-C [address] [place] [address] 11/02/2023 Office Visit Ophthalmology Wilfredo Robert, DO [address] [place] [address] 12/24/2023 Office Visit Dermatology Jemma Evangelista PA-C [address] [place] [address] [place] [id number] Scheduled Procedures Name Priority Associated Diagnoses Date/Ti me COLONOSCOPY FLEXIBLE PROXIMA L DIAGNOSTIC Recall Special screening for malignant neoplasms, colon Health Maintenance Due Date Last Done Comments CKD HGB USE SMARTSET 38022 12/27/202212/27, 07/05/2021, 01/02/2021, Additional history exists CKD PHOS USE SMARTSET 25516 12/27/202212/13, 01/02/2021, 12/28/2019, Additional history exists Depression [...] filedocumented as of this encounter Care Teams Customer Care Consultant Relationship Specialty Start Date End Date Martin Hopper MD [address] [place], [place] [phone] PCP - General Family Medicine 08/23/18 documented as of this encounter
--- OUTSIDE RECORDS SUMMARY | 2023-07-29 20:40 | External Medical Summary | Summary of Care ---
Author Name Unknown Organization [facility] Address [address] [place] [address] Phone [phone] Care Team Providers Care Industrial Sales Representative Name Role Phone Martin Hopper MD Primary Care Provider +1- [phone] Reason for Visit * Reason Onset Date Comments Appointment 02/17/2023 Encounter Details Date Type Department Care Team Description 02/17/2023 Telephone [facility], [address] [place] [address] Camryn Biswas, [facility] [employer] Machine Set Up Mechanic Appointment Allergies Active Allergy Reactions Severity Noted Date Comments Pollen Cough Medium 10/17/2022 Watery eyes and runny nose documented as of this encounter (statuses as of 02/17/2023) Medications Medication Sig Dispensed Refills Start Date [...] as of this encounter (statuses as of 02/17/2023) Active Problems Problem Noted Date Chronic heart [...] as of this encounter (statuses as of 02/17/2023) Resolved Problems Problem Noted Date Resolved Date [...] as of this encounter (statuses as of 02/17/2023) Immunizations Name Administration Dates Next Due COVID-19 [...] Notes * Telephone Encounter - Camryn Biswas [facility] [employer] Machine Set Up Mechanic - 02/17/2023 4:14 PM EDT Patients time has changed due to a meeting called his spouse and made her aware of date and time change. 03/25/2023 @ 2:30 pm. Camryn Biswas, GUILLE Electronically signed by Camryn Biswas [facility] [employer] Machine Set Up Mechanic at 02/17/2023 4:15 PM EDT documented in this encounter Plan of Treatment Upcoming Encounters Date Type Specialty Care Team Description 03/25/2023 Home Visit [facility] Nisreen Pascual RN [address] [place] [address] 04/06/2023 Office Visit Ophthalmology Wilfredo Robert, DO [address] [place] [address] 04/16/2023 Office Visit Dermatology Jemma Evangelista PA-C [address] [place] [address] [place] [address] 06/03/2023 Office Visit Sleep Disorders Janet Browne CRNP [address] [place] [address] 07/08/2023 Office Visit Family Medicine Martin Hopper MD [address] [place] [address] 08/17/2023 Imaging Radiology 08/17/2023 Office Visit Cardiology Nuzhat Rolon PA-C [address] [place] [address] 11/02/2023 Office Visit Ophthalmology Wilfredo Robert, DO 16 [facility] [place] [address] 12/24/2023 Office Visit Dermatology Jemma Evangelista PA-C [address] [place] [address] [place] [address] Scheduled Procedures Name Priority Associated Diagnoses Date/Ti me COLONOSCOPY FLEXIBLE PROXIMA L DIAGNOSTIC Recall Special screening for malignant neoplasms, colon Health Maintenance Due Date Last Done Comments CKD HGB USE SMARTSET 86287 12/27/202212/27, 07/05/2021, 01/02/2021, Additional history exists CKD PHOS USE SMARTSET 25388 12/27/202212/13, 01/02/2021, 12/28/2019, Additional history exists Depression [...] filedocumented as of this encounter Care Teams Industrial Sales Representative Relationship Specialty Start Date End Date Martin Hopper MD [address] [facility] [phone] PCP - General Family Medicine 08/23/18 documented as of this encounter
--- OUTSIDE RECORDS SUMMARY | 2023-07-29 20:40 | External Medical Summary | Summary of Care ---
Author Name Unknown Organization [facility] Address [address] [place] [address] Phone [phone] Care Team Providers Care News Intern Name Role Phone Martin Hopper MD Primary Care Provider +1- [phone] Encounter Details Date Type Department Care Team Description 02/04/2023 Orders Only Outcomes Research Department [address] [place] [address] Marian Sawant CHRA [employer] Other*[id number] Allergies Active Allergy Reactions Severity Noted Date Comments Pollen Cough Medium 10/17/2022 Watery eyes and runny nose documented as of this encounter (statuses as of 02/04/2023) Medications Medication Sig Dispensed Refills Start Date [...] the morning. 148 mL 5 01/31/2023 Active Hospital, Clinic, or Other Facility Administered [...] as of this encounter (statuses as of 02/04/2023) Active Problems Problem Noted Date Pulmonary hypertension, [...] as of this encounter (statuses as of 02/04/2023) Resolved Problems Problem Noted Date Resolved Date [...] as of this encounter (statuses as of 02/04/2023) Immunizations Name Administration Dates Next Due COVID-19 [...] Cardiology Nuzhat Rolon PA-C [address] [place] [address] 02/12/2023 Home Visit [facility] Nisreen Pascual, RN [address] [place] [address] 04/16/2023 Office Visit Dermatology Jemma Evangelista PA-C [address] [place] [address] [place] [address] 06/03/2023 Office Visit Sleep Disorders Janet Browne CRNP [address] [place] [address] 07/08/2023 Office Visit Family Medicine Martin Hopper MD [address] [place] [address] 08/18/2023 Imaging Radiology 11/02/2023 Office Visit Ophthalmology Wilfredo Robert, [address] [place] [address] 12/24/2023 Office Visit Dermatology Jemma Evangelista PA-C [address] [place] [address] [place] [address] Scheduled Orders Name Type Priority Associated Diagnoses Orde r Schedule MYCODE SUBSEQUENT ADULT Lab Routine [employer] [facility] Other*[id number] Every 6 Months for 2 Occurrences starting 02/04/2023 until 02/24/2024 Scheduled Procedures Name Priority Associated Diagnoses Date/Ti me COLONOSCOPY FLEXIBLE PROXIMA L DIAGNOSTIC Recall Special screening for malignant neoplasms, colon Health Maintenance Due Date Last Done Comments CKD HGB USE SMARTSET 86036 12/27/202212/27, 07/05/2021, 01/02/2021, Additional history exists CKD PHOS USE SMARTSET 50445 12/27/202212/13, 01/02/2021, 12/28/2019, Additional history exists Depression [...] this encounter Visit Diagnoses Diagnosis [employer] [facility] Other*[id number] documented in this encounter Care Teams News Intern Relationship Specialty Start Date End Date Martin Hopper MD [address] [place], [place] [phone] PCP - General Family Medicine 08/23/18 documented as of this encounter
[2023-07-29] MEDS ORDERED: POLYETHYLENE (MIRALAX) 17 GM PACK PO PRN (21:06)
[2023-07-29] MEDS ORDERED: ACETAMINOPHEN 325 MG TAB PO PRN (21:06)
[2023-07-29] MEDS ORDERED: ONDANSETRON INJ 2 MG/ML 2 ML VIAL IV PRN (21:06)
[2023-07-29] MEDS: ENOXAPARIN INJ 40 MG/0.4 ML SYR SQ SCH (21:53)
[2023-07-29] MEDS: methylPREDNISolone 40 MG in SYRINGE 0 ML IV SCH (21:53)
[2023-07-29] MEDS: ALBUT/IPRATROP 3MG/0.5MG NEB 3 ML VIAL NEB SCH (22:35)
[2023-07-30] MEDS: DOXYCYCLINE HYCLATE 100 MG in DEXTROSE 5% MINI-B 100 ML IV SCH (05:59)
--- NOTE | 2023-07-30 06:08 | Electrocardiogram Report ---
Test Reason : Blood Pressure : / mmHG Vent. Rate : 080 BPM Atrial Rate : 080 BPM P-R Int : 176 ms QRS Dur : 080 ms QT Int : 356 ms P-R-T Axes : 079 -18 012 degrees QTc Int : 410 ms Normal sinus rhythm Inferior infarct , age undetermined Cannot rule out Anterior infarct , age undetermined Abnormal ECG When compared with ECG of 07-OCT-2022 17:41, Premature atrial complexes are no longer Present Confirmed by Michael Bella ([id number]) on 07/30/2023 6:08:14 AM Referred By: Confirmed By:Michael Bella
[2023-07-30 06:58] LABS: Basophils # (auto) 0.03 K/uL (0.00-0.20); Basophils % (auto) 0.5 %; Eosinophils # (auto) 0.01 K/uL (0.00-0.50); Eosinophils % (auto) 0.2 %; Hematocrit (blood only) 41.4 % (42.0-52.0); Hemoglobin 13.7 g/dl (14.0-18.0); Immature Granulocytes # (auto) 0.05 K/uL (0.01-0.20); Immature Granulocytes % (auto) 0.8 %; Lymphocytes % (auto) 11.3 %; Mean Corpuscular Hemoglobin 33.5 pg (25.0-34.0); Mean Corpuscular Hgb Conc 33.1 g/dL (32.0-36.0); Mean Corpuscular Volume 101.2 fL (80.0-100.0); Mean Platelet Volume 9.7 fL (9.4-12.4); Monocytes # (auto) 0.14 K/uL (0.11-0.59); Monocytes % (auto) 2.3 %; Neutrophils # (auto) 5.26 K/uL (1.40-6.50); Neutrophils % (auto) 84.9 %; Platelet Count 216 K/uL (130-400); RDW Coefficient of Variation 12.8 % (11.5-14.5); RDW Standard Deviation 47.7 fL (36.4-46.3); Red Blood Count 4.09 M/uL (4.70-6.10); White Blood Count 6.19 K/ul (4.8-10.8)
--- NOTE | 2023-07-30 07:15 | Hospitalist Progress Note ---
Date of Service July 30, 2023 Assessment & Plan (1) Acute on chronic hypoxic respiratory failure: (2) ILD (interstitial lung disease): (3) Chronic diastolic heart failure: (4) CKD (chronic kidney disease), stage III: (5) GUILLE (obstructive sleep apnea): (6) BPH (benign prostatic hyperplasia): (7) KACY (generalized anxiety disorder): (8) Esophageal dysmotility: Plan Mr. Foote is an 83 year old male with PMH ILD, chronic respiratory failure on 3L oxygen, chronic diastolic heart failure, GUILLE on bipap, CKD III, BPH, anxiety, esophageal dysmotility presented to ER with c/o worsening SOB x 1 week and worsening hypoxia 07/29. Patient endorses noncompliance with oxygen at home, then noted abrupt increased in dyspnea/cough. Patient doing better this am after IV steroids and dose of IV lasix. Will continue to manage as ILD flare and await further recommendations from Pulmonary consultants, while actively weaning O2 levels. #Acute on chronic hypoxic respiratory failure, on chronic home O2 #Acute exacerbation of ILD #Acute on chronic diastolic heart failure In ER patient afebrile, P: 99, R: 32, BP 122/60, 72% on 3 L nasal cannula. Patient was noted to be very tachypneic. He was placed on BiPAP in ER. Since on BiPAP patient with much improvement Negative BioFire respiratory panel, WBC: 11.6, procalcitonin: 0.06, troponin WNL, BNP: 157 CTA chest: 1. Suboptimal evaluation due to the respiratory motion artifact. 2. No evidence for a central pulmonary embolus. 3. Chronic fibrotic changes again noted. This has slightly progressed. 4. Stable cardiomegaly. 5. Stable mediastinal and bilateral hilar lymphadenopathy. 6. Acute right lateral ninth rib fracture seen on the same day chest x-ray is not included on this study. No pneumothorax. 7. Healing left posterior rib fractures. 8. Patchy peripheral densities within the lungs favor the fibrotic change. A superimposed pneumonitis would be difficult to exclude. Echo reviewed: EF 60-65%, G1DD. PHTN 40-50mmhg; increased since echo 09/2022 -Continue BiPAP prn with naps and sleep -Continue to wean when able and then resume home oxygen supplementation -Discontinue Rocephin, doxycycline 2/2 negative procal -Transition to Azithromycin 500mg q24 x 3 doses for antiinflammatory benefit -Continue Solu-Medrol 40 mg every 8 hours -s/p 1 dose IV Lasix 20 mg, resume home regimen furosemide q2d and spironolactone Monitor I's and O's, daily weights Pulmonology consult, appreciate recommendations Ordered CBC, BMP in a.m. #CKD III Cr: 1.4. Baseline 1.3-1.4 Monitor renal functions, avoid nephrotoxic agents when possible #Chronic macrocytic anemia -B12 373, folate >22.30 #GUILLE BiPAP at bedtime #BPH Continue tamsulosin #KACY Continue sertraline #Esophageal dysmotility Continue PPI DVT Prophylaxis Lovenox SQ Admission and Anticipated Discharge Date Admission Date: July 29, 2023 Subjective Patient evaluated at bedside Reports feeling much improved since admission. Reports that he often does not use his oxygen as sometimes he thinks certain tasks are "small" and shouldn't be that exertional He notes that today he feels notably better, stating that his cough has notably improved--denies any chest pain, fevers, chills, or worsening dyspnea Patient speaks in full sentences without conversational dyspnea noted NC 4.5-6L today Physical Exam Constitutional: WD/WN, vitals as above Respiratory: fine crackles bilaterally in bases with occasional rhonchi Gastrointestinal (Abdomen): normal bowel sounds, soft, nontender, no hepatosplenomegaly Musculoskeletal: no cyanosis or clubbing, extremities motor strength 5/5 Results & Data Results & Data Vital Signs (Past 12 Hours) Vital Signs Temp Pulse Pulse Resp BP Pulse Ox O2 Del Method 07/30/23 06:22 56 L 18 93 Oxymask 07/30/23 02:58 59 L 26 H 97 07/30/23 02:53 36.6 C 62 18 104/67 97 BiPAP 07/30/23 00:00 59 L 07/29/23 23:18 36.6 C 63 18 121/74 99 BiPAP 07/29/23 22:37 68 28 H 99 07/29/23 22:35 68 19 BiPAP 07/29/23 22:23 Oxymask 07/29/23 21:06 36.8 C 71 30 H 127/77 93 Oxymask 07/29/23 21:05 57 L O2 Flow Rate FiO2 07/30/23 06:22 9 07/30/23 02:58 40 07/30/23 02:53 07/30/23 00:00 07/29/23 23:18 07/29/23 22:37 50 07/29/23 22:35 50 07/29/23 22:23 7 07/29/23 21:06 7 07/29/23 21:05 Laboratory Results Short CBC 07/29/23 07/30/23 Range/Units 12:00 05:54 WBC 11.61 H 6.19 (4.8-10.8) K/ul Hgb 14.3 13.7 L (14.0-18.0) g/dl Hct 42.4 41.4 L (42.0-52.0) % Plt Count 223 216 (130-400) K/uL BMP 07/29/23 12:00 Sodium 136 Potassium 4.7 Chloride 102 Carbon Dioxide 26 BUN 36 H Creatinine 1.40 Glucose 121 H Calcium 9.5 Liver Function 07/29/23 Range/Units 12:00 Total Bilirubin 1.1 H (0.2-1.0) mg/dl AST 20 (13-39) U/L ALT 12 (7-52) U/L Alkaline Phosphatase 98 (34-104) U/L Albumin 4.0 (3.4-5.0) gm/dl Urine 07/29/23 Range/Units 17:56 Urine Color Yellow Urine Appearance Clear (Clear) Urine pH 6.5 (4.5-7.5) Ur Specific Carver > 1.045 H (1.000-1.030) Urine Protein 1+ H (Negative) Urine Glucose (UA) Negative (Negative) Medications Administered Home Medications Medication Instructions Recorded Confirmed Last Taken cyclobenzaprine 5 mg tablet 5 mg PO TID PRN Muscle Spasm 06/12/22 07/29/23 10/07/22 08:00 levocetirizine 2.5 mg/5 mL oral 2.5 mg PO PM PRN Allergic Symptoms 06/12/22 07/29/23 10/07/22 08:00 solution (Xyzal) omeprazole 20 mg capsule,delayed 20 mg PO DAILY 06/12/22 07/29/23 10/07/22 08:00 release oxybutynin chloride 5 mg 5 mg PO DAILY 06/12/22 07/29/23 10/07/22 08:00 tablet,extended release 24 hr sertraline 25 mg tablet 25 mg PO DAILY 06/12/22 07/29/23 10/07/22 08:00 tamsulosin 0.4 mg capsule 0.4 mg PO DAILY 06/12/22 07/29/23 10/07/22 08:00 furosemide 20 mg tablet (Lasix) 20 mg PO Q OTHER DAY #30 tabs 10/11/22 07/29/23 Unknown rosuvastatin 10 mg tablet 10 mg PO QAM 07/29/23 07/29/23 Unknown spironolactone 25 mg tablet 12.5 mg PO DAILY 07/29/23 07/29/23 07/29/23 Active Medications Generic Name Dose Route Start Last Admin Trade Name Dariela PRN Reason Stop Dose Admin Albuterol 3 ml 07/29/23 21:06 07/30/23 06:19 Albut/Ipratrop 3mg/0.5mg Neb 3 Ml Vial NEB 08/28/23 21:05 3 ml QIDR DAVID Administration Protocol Enoxaparin Sodium 40 mg 07/29/23 21:15 07/29/23 21:53 Enoxaparin Inj 40 Mg/0.4 Ml Syr SQ 08/28/23 21:14 40 mg Q24H DAVID Administration Doxycycline Hyclate 100 mg/ 100 mls @ 50 mls/hr 07/30/23 06:00 07/30/23 05:59 Dextrose IV 08/06/23 05:59 50 mls/hr Q12H DAVID Administration Methylprednisolone 40 mg/ 0.64 mls @ 1.5 mls/min 07/29/23 21:30 07/30/23 05:59 Syringe IV 08/28/23 21:29 1.5 mls/min Q8H DAVID Administration
[2023-07-30 07:34] LABS: BUN Creatinine Ratio 24.3 (10-20); Calcium 9.3 mg/dl (8.6-10.3); Creatinine Clr Calc Pharmacy 35.6 ml/min; Est GFR (African American) 48.4 ml/min; Est GFR (Non-African American) 41.8 ml/min; Potassium 4.7 mmol/L (3.5-5.1)
[2023-07-30 07:41] LABS: Folate (Folic Acid),Ser orPlas > 22.30 ng/ml (>5.38)
[2023-07-30 07:42] LABS: Vitamin B12 373 pg/ml (180-914)
[2023-07-30] MEDS: TAMSULOSIN HCL 0.4 MG CAP PO SCH (08:31)
[2023-07-30] MEDS: PANTOprazole 40 MG TAB PO SCH (08:31)
[2023-07-30] MEDS: SERTRALINE HCL 50 MG TABLET PO SCH (08:32)
[2023-07-30] MEDS: FUROSEMIDE 20 MG TAB PO SCH (08:32)
[2023-07-30] MEDS: ROSUVASTATIN CALCIUM 10 MG TAB PO SCH (08:32)
[2023-07-30] MEDS: OXYBUTYNIN CHLORIDE XL 5 MG TABCR PO SCH (08:32)
[2023-07-30] MEDS: SPIRONOLACTONE 12.5 MG TAB PO SCH (08:32)
[2023-07-30] MEDS: AZITHROMYCIN 500 MG in DEXTROSE 5% 250 ML IV SCH (13:28)
--- NOTE | 2023-07-30 13:39 | Pulmonary Consultation ---
Date of Consultation July 30, 2023 Assessment & Plan (1) ILD (interstitial lung disease): (2) Acute on chronic hypoxic respiratory failure: (3) Chronic diastolic heart failure: (4) Pulmonary hypertension: Plan CT chest 07/29/2023 personally reviewed: Motion degraded study Honeycombing and increased reticular markings appreciated bilaterally in the left upper as well as minimal bilateral lower lobes There is traction bronchiectasis of the left lower lobe lingula Station 7 mediastinal lymphadenopathy It is very hard to delineate given the significant motion artifact, whether there is worsening in patient's underlying ILD 2D echo 07/30/2023: EF 60-65%, grade 1 diastolic dysfunction, RVSP 40-50 mmHg, trace AR, trace TR -- Acute on chronic hypercapnic hypoxic respiratory failure Multifactorial Respiratory bio fire negative for everything on 07/29/2023 Procalcitonin 0.06 --ILD Autoimmune workup was positive for antineutrophil antibody as well as a ntiscleroderma antibody on 10/09/2022 --Pulmonary hypertension Combination of type II and type III Plan: Follow-up BNP. Complete the course of antibiotics for 5 days Follow-up sputum culture Incentive spirometry. Continue with steroids for the time being. Will de-escalate as soon as possible Please note the above document was generated using voice recognition software. It may contain grammatical, syntax or spelling errors.Any formal questions or concerns about the content, text or information contained within the body of this dictation should be directly addressed to the provider for clarification. History of Present Illness Attending Physician: Madalyn Booth MD History of Present Illness 83-year-old male presented to hospital with complaints of worsening shortness of breath Past medical history: Chronic hypoxic respiratory failure on 2 L oxygen, GUILLE on BiPAP, HFpEF, CKD, ILD Pulmonary consulted for history of ILD At the time of examination patient says that he was having issues with breathing which was worse from his baseline. He was saturating 92-93% on 4 L nasal cannula at rest. He has been compliant with his inhalers and uses on a regular basis He also uses oxygen 3 L [id number]. Denies any fever or chills When he does cough he brings up clear phlegm. Denies any hemoptysis. No chest pain. No dysuria, no diarrhea No headache, no blurry vision Social history: Smoked only for 1 and half year quit at the age of 35 approximately. No tobacco use. 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 Asthma: No history of asthma in the family Lung cancer: No history of lung cancer in the family Allergies Allergy/AdvReac Type Severity Reaction Status Date / Time No Known Allergies Allergy Verified 10/07/22 18:31 Home Medications Medication Instructions Recorded Confirmed Type cyclobenzaprine 5 mg tablet 5 mg PO TID PRN Muscle Spasm 06/12/22 07/29/23 History levocetirizine 2.5 mg/5 mL oral 2.5 mg PO PM PRN Allergic Symptoms 06/12/22 07/29/23 History solution (Xyzal) omeprazole 20 mg capsule,delayed 20 mg PO DAILY 06/12/22 07/29/23 History release oxybutynin chloride 5 mg 5 mg PO DAILY 06/12/22 07/29/23 History tablet,extended release 24 hr sertraline 25 mg tablet 25 mg PO DAILY 06/12/22 07/29/23 History tamsulosin 0.4 mg capsule 0.4 mg PO DAILY 06/12/22 07/29/23 History furosemide 20 mg tablet (Lasix) 20 mg PO Q OTHER DAY #30 tabs 10/11/22 07/29/23 Rx rosuvastatin 10 mg tablet 10 mg PO QAM 07/29/23 07/29/23 History spironolactone 25 mg tablet 12.5 mg PO DAILY 07/29/23 07/29/23 History Patient History Medical History Esophageal dysmotility BPH (benign prostatic hyperplasia) Chronic diastolic heart failure GERD (gastroesophageal reflux disease) History of COVID-19 06/12/22 admitted to [facility] w/ flu and covid pneumonia- currently doing pulmonary rehab in [place] GUILLE (obstructive sleep apnea) bipap with 2L O2 HS CKD (chronic kidney disease), stage III ILD (interstitial lung disease) KACY (generalized anxiety disorder) Surgical History H/O eye surgery H/O lithotripsy Family History Other Cancer Diabetes Heart disease Social History Smoking Status: Former smoker Cigarettes Per Day: 5-6 cigarettes/day 60 years ago; Second Hand Exposure: No; Do You Dip or Chew Tobacco: No; Hx Alcohol Use: Yes Alcohol type: beer Alcohol Intake Frequency: Monthly or Less Hx Substance Use: No Preferred Language: Kiswahili Communication Ability: Effective Manufacturing Analyst Required: No Beliefs That Will Affect Care: None Current Living Situation: Spouse Other Information That Helps Us Care for You: No Feels Safe at Home: Yes Safety Concerns: Feels Safe At This Time Assistive Devices: BiPap, Glasses, Oxygen - Continuous and Walker Assistive Devices Comment: BIPAP @ HS Review of Systems 2 Review of Systems: All systems reviewed & are unremarkable except as noted in HPI & below Physical Exam 2 Physical Exam: Constitutional: No acute distress HEENT: EOMI, PERRLA Respiratory system: Decreased air entry bilaterally, no wheeze, no rhonchi, positive crackles bilaterally more on the right side CVS: S1-S2 positive, no murmurs or gallops Abdomen: Soft, nontender, nondistended, positive bowel sounds x4 Extremities: +2 pulses bilaterally radialis/ dorsalis pedis, no cyanosis, no edema, no clubbing Neuro: Awake alert oriented x3 Psych: Normal mood and affect G/U: No Gorman Skin: no rashes, warm and dry Lymphatic: no cervical or axillary lymphadenopathy Results & Data Results & Data Vital Signs (Past 12 Hours) Vital Signs Temp Pulse Pulse Resp BP Pulse Ox O2 Del Method 07/30/23 11:30 88 18 95 Oxymask 07/30/23 11:29 37.0 C 73 18 113/55 L 95 Room Air 07/30/23 09:00 Nasal Cannula 07/30/23 08:00 36.3 C L 76 18 121/52 L 94 Oxymask 07/30/23 06:22 56 L 18 93 Oxymask 07/30/23 02:58 59 L 26 H 97 07/30/23 02:53 36.6 C 62 18 104/67 97 BiPAP O2 Flow Rate FiO2 07/30/23 11:30 6 07/30/23 11:29 07/30/23 09:00 4.5 07/30/23 08:00 8 07/30/23 06:22 9 07/30/23 02:58 40 07/30/23 02:53 Laboratory Results 07/30/23 05:54 07/30/23 05:54 PG Care Time/CCT Total # of Minutes Spent Total Time Spent with Patient: Total time spent is greater than 50% in coordination of care (as documented) at patient's floor/unit and/or counseling patient: Coding Level of Care Code 02586 INT INP/OBS CARE 3/75MIN Diagnoses ILD (interstitial lung disease) J84.9 Acute on chronic hypoxic respiratory failure J96.21 Chronic diastolic heart failure I50.32 Pulmonary hypertension I27.20
[2023-07-30] MEDS ORDERED: cefTRIAXone SODIUM 2,000 MG in DEXTROSE 5 % MINI-B 50 ML IV SCH (19:00)
[2023-07-30] MEDS: guaiFENesin 600 MG TABCR PO SCH (21:20)
--- NOTE | 2023-07-31 07:08 | Hospitalist Progress Note ---
Date of Service July 31, 2023 Assessment & Plan (1) Acute on chronic hypoxic respiratory failure: (2) ILD (interstitial lung disease): (3) Chronic diastolic heart failure: (4) CKD (chronic kidney disease), stage III: (5) GUILLE (obstructive sleep apnea): (6) BPH (benign prostatic hyperplasia): (7) KACY (generalized anxiety disorder): (8) Esophageal dysmotility: Plan Mr. Foote is an 83 year old male with PMH ILD, chronic respiratory failure on 3L oxygen, chronic diastolic heart failure, GUILLE on bipap, CKD III, BPH, anxiety, esophageal dysmotility presented to ER with c/o worsening SOB x 1 week and worsening hypoxia 07/29. Patient endorses noncompliance with oxygen at home, then noted abrupt increased in dyspnea/cough. Patient doing better this am after IV steroids and dose of IV lasix. Will continue to manage as ILD flare and await further recommendations from Pulmonary consultants, while actively weaning O2 levels. #Acute on chronic hypoxic respiratory failure, on chronic home O2 #Acute exacerbation of ILD #Acute on chronic diastolic heart failure In ER patient afebrile, P: 99, R: 32, BP 122/60, 72% on 3 L nasal cannula. Patient was noted to be very tachypneic. He was placed on BiPAP in ER. Since on BiPAP patient with much improvement Negative BioFire respiratory panel, WBC: 11.6, procalcitonin: 0.06, troponin WNL, BNP: 157 CTA chest: 1. Suboptimal evaluation due to the respiratory motion artifact. 2. No evidence for a central pulmonary embolus. 3. Chronic fibrotic changes again noted. This has slightly progressed. 4. Stable cardiomegaly. 5. Stable mediastinal and bilateral hilar lymphadenopathy. 6. Acute right lateral ninth rib fracture seen on the same day chest x-ray is not included on this study. No pneumothorax. 7. Healing left posterior rib fractures. 8. Patchy peripheral densities within the lungs favor the fibrotic change. A superimposed pneumonitis would be difficult to exclude. Echo reviewed: EF 60-65%, G1DD. PHTN 40-50mmhg; increased since echo 09/2022 -Continue BiPAP prn with naps and sleep -Continue to wean when able and then resume home oxygen supplementation -Discontinue Rocephin, doxycycline 2/2 negative procal -Transition to Azithromycin 500mg q24 x 3 doses for antiinflammatory benefit -Continue Solu-Medrol 40 mg every 8 hours -s/p 1 dose IV Lasix 20 mg, resume home regimen furosemide q2d and spironolactone Monitor I's and O's, daily weights Pulmonology consult, appreciate recommendations Ordered CBC, BMP in a.m. #CKD III Cr: 1.4. Baseline 1.3-1.4 Monitor renal functions, avoid nephrotoxic agents when possible #Chronic macrocytic anemia -B12 373, folate >22.30 #GUILLE BiPAP at bedtime #BPH Continue tamsulosin #KACY Continue sertraline #Esophageal dysmotility Continue PPI DVT Prophylaxis Lovenox SQ Admission and Anticipated Discharge Date Admission Date: July 29, 2023 Results & Data Results & Data Vital Signs (Past 12 Hours) Vital Signs Temp Pulse Pulse Resp BP Pulse Ox Pulse Ox 07/31/23 03:55 86 28 H 91 07/31/23 02:54 36.6 C 71 18 106/69 94 07/30/23 23:51 78 32 H 95 07/30/23 23:02 36.9 C 76 18 123/60 91 07/30/23 23:00 78 07/30/23 22:54 76 23 96 07/30/23 21:06 92 07/30/23 20:50 07/30/23 19:41 36.6 C 86 18 123/60 92 07/30/23 19:20 72 14 93 O2 Del Method O2 Del Method O2 Flow Rate O2 Flow Rate FiO2 07/31/23 03:55 40 07/31/23 02:54 BiPAP 07/30/23 23:51 40 07/30/23 23:02 Nasal Cannula 07/30/23 23:00 07/30/23 22:54 40 07/30/23 21:06 Nasal Cannula 4 07/30/23 20:50 Nasal Cannula 4 07/30/23 19:41 Nasal Cannula 07/30/23 19:20 Nasal Cannula 4
[2023-07-31 13:40] LABS: Basophils # (auto) 0.02 K/uL (0.00-0.20); Basophils % (auto) 0.2 %; Hematocrit (blood only) 38.4 % (42.0-52.0); Immature Granulocytes # (auto) 0.08 K/uL (0.01-0.20); Immature Granulocytes % (auto) 0.6 %; Lymphocytes # (auto) 0.68 K/uL (1.20-3.40); Lymphocytes % (auto) 5.4 %; Mean Corpuscular Hemoglobin 34.2 pg (25.0-34.0); Mean Corpuscular Hgb Conc 33.9 g/dL (32.0-36.0); Mean Corpuscular Volume 101.1 fL (80.0-100.0); Mean Platelet Volume 9.4 fL (9.4-12.4); Monocytes # (auto) 0.67 K/uL (0.11-0.59); Monocytes % (auto) 5.3 %; Neutrophils # (auto) 11.16 K/uL (1.40-6.50); Neutrophils % (auto) 88.5 %; Platelet Count 209 K/uL (130-400); RDW Coefficient of Variation 12.8 % (11.5-14.5); RDW Standard Deviation 47.8 fL (36.4-46.3); White Blood Count 12.61 K/ul (4.8-10.8)
[2023-07-31 13:50] LABS: Calcium 9.3 mg/dl (8.6-10.3); Potassium 4.7 mmol/L (3.5-5.1)
[2023-07-31 13:57] LABS: BUN Creatinine Ratio 32.8 (10-20); Creatinine Clr Calc Pharmacy 30.1 ml/min; Est GFR (African American) 39.5 ml/min
--- NOTE | 2023-07-31 15:11 | Pulmonology Progress Note ---
Date of Service July 31, 2023 Assessment & Plan (1) ILD (interstitial lung disease): (2) Acute on chronic hypoxic respiratory failure: (3) Chronic diastolic heart failure: (4) Pulmonary hypertension: Plan CT chest 07/29/2023 personally reviewed: Motion degraded study Honeycombing and increased reticular markings appreciated bilaterally in the left upper as well as minimal bilateral lower lobes There is traction bronchiectasis of the left lower lobe lingula Station 7 mediastinal lymphadenopathy It is very hard to delineate given the significant motion artifact, whether there is worsening in patient's underlying ILD 2D echo 07/30/2023: EF 60-65%, grade 1 diastolic dysfunction, RVSP 40-50 mmHg, trace AR, trace TR -- Acute on chronic hypercapnic hypoxic respiratory failure Multifactorial Respiratory bio fire negative for everything on 07/29/2023 Procalcitonin 0.06 BNP 158 --ILD Autoimmune workup was positive for antineutrophil antibody as well as a ntiscleroderma antibody on 10/09/2022 Following up with logistics lead as an outpatient --Pulmonary hypertension Combination of type II and type III Plan: Complete the course of antibiotics for 5 days Recommend Mucinex-DM [id number] for the time being Prednisone 40 mg for 3 days followed by 20 mg for 3 days followed by 10 mg for 4 days and then stop Patient and patient's family are going to have a talk with their own logistics lead to see if he would be a candidate for fibrinolytics Incentive spirometry. Recommend to check for oxygen requirement on walk prior to discharge. Case was discussed with primary team Please note the above document was generated using voice recognition software. It may contain grammatical, syntax or spelling errors.Any formal questions or concerns about the content, text or information contained within the body of this dictation should be directly addressed to the provider for clarification. Admission and Anticipated Discharge Date Admission Date: July 29, 2023 Review of Systems 2 Review of Systems: All systems reviewed & are unremarkable except as noted in Subjective Physical Exam 2 Physical Exam: Constitutional: No acute distress HEENT: EOMI, PERRLA Respiratory system: Decreased air entry bilaterally, no wheeze, no rhonchi, positive crackles bilaterally more on the right side CVS: S1-S2 positive, no murmurs or gallops Abdomen: Soft, nontender, nondistended, positive bowel sounds x4 Extremities: +2 pulses bilaterally radialis/ dorsalis pedis, no cyanosis, no edema, no clubbing Neuro: Awake alert oriented x3 Psych: Normal mood and affect G/U: No Gorman Skin: no rashes, warm and dry Lymphatic: no cervical or axillary lymphadenopathy Results & Data Results & Data Vital Signs (Past 12 Hours) Vital Signs Temp Pulse Pulse Resp BP Pulse Ox O2 Del Method 07/31/23 11:41 36.4 C L 63 18 108/59 L 96 Nasal Cannula 07/31/23 10:40 79 18 98 Nasal Cannula 07/31/23 08:00 66 07/31/23 08:00 Nasal Cannula 07/31/23 07:50 36.9 C 68 18 126/60 90 Nasal Cannula 07/31/23 07:13 86 16 90 Nasal Cannula 07/31/23 03:55 86 28 H 91 O2 Flow Rate FiO2 07/31/23 11:41 07/31/23 10:40 3 07/31/23 08:00 07/31/23 08:00 4 07/31/23 07:50 4 07/31/23 07:13 4 07/31/23 03:55 40 Laboratory Results 07/31/23 12:56 07/31/23 12:56 PG Care Time/CCT Total # of Minutes Spent Total Time Spent with Patient: Total time spent is greater than 50% in coordination of care (as documented) at patient's floor/unit and/or counseling patient: Coding Level of Care Code 82121 SUB INP/OBS CARE 2/35MIN Diagnoses ILD (interstitial lung disease) J84.9 Acute on chronic hypoxic respiratory failure J96.21 Chronic diastolic heart failure I50.32 Pulmonary hypertension I27.20
--- NOTE | 2023-07-31 15:37 | Discharge Summary ---
Discharge Summary Date of Service July 31, 2023 Notes For Next Care Provider Medication Changes From Visit -Azithromycin 500mg x 3 days (total 5) -Mucinex DM BID -Prednisone taper: 40mg x 3, 20mg x 3, 10mg x 4 Admission HPI Per Admitting Provider Patient is 83 year old male with PMH ILD, chronic respiratory failure on 3L oxygen, chronic diastolic heart failure, GUILLE on bipap, CKD III, BPH, anxiety, esophageal dysmotility presented to ER with c/o worsening SOB x 1 week. History obtained from patient, patient's and daughter. States for past week increased SOB. States has been coughing and has lyons color sputum. Denies fevers. Denies known ill contacts. Patient states home pulse ox down in 70's today when he wasn't using the oxygen. states patient sometimes does not use his oxygen. Patient states was feeling dizzy with walking today. states he seemed very SOB today. Denies syncope or CP. Denies exertional CP. He reports that he sometimes has tingling bilateral arms and legs, seems worse in the mornings per patient. Denies diaphoresis, N/V/D/C, [place], neck pain, orthopnea, palpitations, hemoptysis, rhinorrhea, abdominal pain, extremity weakness, incr eased extremity edema, rashes, dysuria, hematuria. Admission Exam Per Admitting Provider General: no distress currently on bipap, WDWN Head: normocephalic, atraumatic Eyes:conjunctiva non-injected, anicteric ENT: normal inspection external ears, nose, mucous membranes moist Neck: supple, trachea midline Lungs: Currently on bipap and in no apparent distress and tolerating well, +rales, +scattered wheezing CV: RRR, no murmur, 1+ pretibial edema Abd: normal BS, soft, non-tender Ext: no cyanosis, no calf tenderness Neuro: A&O x 3, no focal deficits noted, normal affect Skin: warm, dry Principal Dx & Hospital Course #1 = Principal Diagnosis (1) Acute on chronic hypoxic respiratory failure: (2) ILD (interstitial lung disease): (3) Chronic diastolic heart failure: (4) CKD (chronic kidney disease), stage III: (5) GUILLE (obstructive sleep apnea): (6) BPH (benign prostatic hyperplasia): (7) KACY (generalized anxiety disorder): (8) Esophageal dysmotility: Plan Mr. Foote is an 83 year old male with PMH ILD, chronic respiratory failure on 3L oxygen, chronic diastolic heart failure, GUILLE on bipap, CKD III, BPH, anxiety, esophageal dysmotility presented to ER with c/o worsening SOB x 1 week and worsening hypoxia 07/29. Patient endorses noncompliance with oxygen at home, then noted abrupt increased in dyspnea/cough. Patient doing better this am after IV steroids and dose of IV lasix. Patient improved with IV steroids and continued to improve throughout admission. Discussed case with pulmonary--Not convinced entirely ILD flare, possible viral bronchitis, given CT seems relatively stable--difficult to assess progression 2/2 motion artifact. Patient planned to discharge home with a steroid taper, continued course of abx, and mucinex dm scheduled. On day of discharge, patient was eager to get home--noting feeling "great" and understands the importance of oxygen compliance. He endorsed good appetite and denied any uncontrolled pain or respiratory distress. #Acute on chronic hypoxic respiratory failure, on chronic home O2 #Acute exacerbation of ILD #Acute on chronic diastolic heart failure In ER patient afebrile, P: 99, R: 32, BP 122/60, 72% on 3 L nasal cannula. Patient was noted to be very tachypneic. He was placed on BiPAP in ER. Since on BiPAP patient with much improvement Negative [employer] respiratory panel, WBC: 11.6, procalcitonin: 0.06, troponin WNL, BNP: 157 CTA chest: 1. Suboptimal evaluation due to the respiratory motion artifact. 2. No evidence for a central pulmonary embolus. 3. Chronic fibrotic changes again noted. This has slightly progressed. 4. Stable cardiomegaly. 5. Stable mediastinal and bilateral hilar lymphadenopathy. 6. Acute right lateral ninth rib fracture seen on the same day chest x-ray is not included on this study. No pneumothorax. 7. Healing left posterior rib fractures. 8. Patchy peripheral densities within the lungs favor the fibrotic change. A superimposed pneumonitis would be difficult to exclude. Echo reviewed: EF 60-65%, G1DD. PHTN 40-50mmhg; increased since echo 09/2022 -Continue home BiPAP prn with naps and sleep -2 step ordered: -Discontinued Rocephin, doxycycline 2/2 negative procal -Transitioned to Azithromycin 500mg m09--[id number] for discharge for total 5 day course -While impatient continued on Solu-Medrol 40 mg every 8 hours -Discharged home with steroid taper 40mgx3, 20mgx3, 10mgx4 -s/p 1 dose IV Lasix 20 mg, resume home regimen furosemide q2d and spironolactone upon discharge Pulmonary consulted and recs appreciated Recommended prompt follow p with primary Pulm Start Mucinex DM around the clock upon discharge #CKD III stable Monitor renal functions, avoid nephrotoxic agents when possible #Chronic macrocytic anemia stable -B12 373, folate >22.30 #GUILLE BiPAP at bedtime #BPH Continue tamsulosin #KACY Continue sertraline #Esophageal dysmotility Continue PPI Discharge Exam Constitutional WD/WN, vitals as above laying flat in bed upon exam Respiratory fine crackles bilateral bases, no distress, good entry Cardiovascular RRR, no murmur, no edema Gastrointestinal (Abdomen) normal bowel sounds, soft, nontender, no hepatosplenomegaly Updated Medication List Medication Instructions Recorded Confirmed Type cyclobenzaprine 5 mg tablet 5 mg PO TID PRN Muscle Spasm 06/12/22 07/29/23 History levocetirizine 2.5 mg/5 mL oral 2.5 mg PO PM PRN Allergic Symptoms 06/12/22 07/29/23 History solution (Xyzal) omeprazole 20 mg capsule,delayed 20 mg PO DAILY 06/12/22 07/29/23 History release oxybutynin chloride 5 mg 5 mg PO DAILY 06/12/22 07/29/23 History tablet,extended release 24 hr sertraline 25 mg tablet 25 mg PO DAILY 06/12/22 07/29/23 History tamsulosin 0.4 mg capsule 0.4 mg PO DAILY 06/12/22 07/29/23 History furosemide 20 mg tablet (Lasix) 20 mg PO Q OTHER DAY #30 tabs 10/11/22 07/29/23 Rx rosuvastatin 10 mg tablet 10 mg PO QAM 07/29/23 07/29/23 History spironolactone 25 mg tablet 12.5 mg PO DAILY 07/29/23 07/29/23 History azithromycin 500 mg tablet 500 mg PO DAILY 3 days #3 tabs 07/31/23 Rx dextromethorphan-guaifenesin 30 1 tab PO BID cough #60 tabs 07/31/23 Rx mg-600 mg tablet extended [id number] hr (Mucinex DM) prednisone 10 mg tablet 10 mg PO DIRECTED #22 tabs 07/31/23 Rx Hospital Stay Data Consultations 07/29/23 16:20 ED Decision to Admit Stat 07/29/23 21:06 Consult Pulmonology Routine Diagnostic Imagining Performed 07/29/23 12:01 CT for pulmonary embolism PE [CT angio chest PE protocol] Stat Pending Results Patient Have Any Pending Studies at Discharge: No Discharge Instructions Given to Patient (Per Discharging Provider) You were admitted for SOB and noted to have increase oxygen requirments. You were improved with IV steroids and antibiotics. You will be sent on the following steroid taper: Please take 40mg (4 tabs) by mouth in the morning for 3 days: 08/01, Thursday, 08/04 Please take 20mg (2 tabs) by mouth in the morning for 3 days: 08/05, 08/06, 08/07 Please take 10mg (1 tab) by mouth in the morning for 4 days, until prescription/all tabs complete. Please take with breakfast. Here are the following other medications to take: -Azithromycin 500mg daily for three more days, starting 08/01 -Mucinex-DM 1 tablet two times a day, until told to discontinue by Pulmonary Please follow up with Pulmonology in 2-4 weeks. Total Time Total Time Spent Total Time Spent (In Minutes): 55
== END 2023-07-31 17:54 | disposition home or self-care (01) | DRG 196 ==
LOC: ED 11:43 → SUATTDRO 16:52 → 2E 16:52 → EDINP 16:52 → 2E 19:09